=== PATIENT | female | born 1970 | race Caucasian/White ===

== ENCOUNTER 2021-09-12 00:25 | Day surgery (SDC) | payer OTHER, SELFPAY ==
[2021-08-28 14:30] VITALS: BMI 23.8
--- NOTE | 2021-09-11 15:16 | WPDANESEPPF ---
Anes - Initial Pre Proc Eval Procedure: Operation Date: 09/12/21 09:00 Proposed Procedures p Screening Colonoscopy - Jake Finn MD <Brayan Kovacs MD - Last Filed: 09/13/21 10:36> Date/Time: 09/11/21 15:16 <Brayan Kovacs MD - Last Filed: 09/13/21 10:36> Surgeon: aJke Finn MD <Brayan Kovacs MD - Last Filed: 09/13/21 10:36> Pre Op Diagnosis: family hx of colon ca <Brayan Kovacs MD - Last Filed: 09/13/21 10:36> Patient Data Age: 51 Gender: F Height: 1.75 m Weight: 73 kg <Brayan Kovacs MD - Last Filed: 09/13/21 10:36> Allergies Allergy/AdvReac Type Severity Reaction Status Date / Time No Known Allergies Allergy Verified 09/12/21 07:52 <Brayan Kovacs MD - Last Filed: 09/13/21 10:36> Home Medications Medication Instructions Recorded Confirmed Type tumeric 100 mg-last 150 mg-olive 1 cap PO DAILY 08/28/21 08/28/21 History 50 mg-oreg 150 mg-caprylate capsule <Brayan Kovacs MD - Last Filed: 09/13/21 10:36> Patient hx anesthesia problems: none <Glen Ford MD - Last Filed: 09/12/21 08:02> Family hx anesthesia problems: none <Glen Ford MD - Last Filed: 09/12/21 08:02> Results Review: All pre-operative results and documents have been reviewed as part of the pre-operative evaluation. <Brayan Kovacs MD - Last Filed: 09/13/21 10:36> PMFSH Past Medical History Medical History: Medical History Arthritis Colon cancer Smoker <Brayan Kovacs MD - Last Filed: 09/13/21 10:36> Surgical History Surgical History: Surgical History (Updated 09/12/21 @ 08:01 by Glen Ford MD) History of D&C History of endometrial ablation <Brayan Kovacs MD - Last Filed: 09/13/21 10:36> Family History Family History: Family History Mother Hypertension Grandparent Carcinoma of colon Other Diabetes mellitus <Brayan Kovacs MD - Last Filed: 09/13/21 10:36> Social History Social History: Social History Smoking status: Current every day smoker Tobacco type: cigarettes Second hand tobacco smoke exposure: Yes Alcohol intake: current Drinks per week: 10 Living arrangements: with family Spiritual care concerns: No <Brayan Kovacs MD - Last Filed: 09/13/21 10:36> Anes - Eval Final PreProcedure Day of Procedure 09/11/21 15:16 <Brayan Kovacs MD - Last Filed: 09/13/21 10:36> Patient weight: overweight <Brayan Kovacs MD - Last Filed: 09/13/21 10:36> normal <Glen Ford MD - Last Filed: 09/12/21 08:02> Heart: regular rate and rhythm <Brayan Kovacs MD - Last Filed: 09/13/21 10:36> Lungs: clear to auscultation and normal air movement <Brayan Kovacs MD - Last Filed: 09/13/21 10:36> Airway: Mallampati scale class II <Brayan Kovacs MD - Last Filed: 09/13/21 10:36> Neurological: alert and oriented <Brayan Kovacs MD - Last Filed: 09/13/21 10:36> Last oral intake: >/= 8 hours <Brayan Kovacs MD - Last Filed: 09/13/21 10:36> ASA classification: II <Brayan Kovacs MD - Last Filed: 09/13/21 10:36> Emergent: no <Brayan Kovacs MD - Last Filed: 09/13/21 10:36> Anesthetic plan: proceed <Brayan Kovacs MD - Last Filed: 09/13/21 10:36> Anesthesia type and monitoring: general GIVS <Brayan Kovacs MD - Last Filed: 09/13/21 10:36> Results Review: All pre-operative results and documents have been reviewed as part of the pre-operative evaluation. <Brayan Kovacs MD - Last Filed: 09/13/21 10:36> Informed Consent: The patient's anesthetic plan and its attendant risks and benefits were discussed with the patient/family/POA. Questions were solicited and answers provided to the satisfaction of the patient/fa
[2021-09-12 07:53] VITALS: BP 107/73; PULSE 83; RESP 20; TEMP 36.5; O2SAT 99
[2021-09-12] MEDS: LACTATED RINGERS 1,000 ML 150 ML IV CONT (08:10)
--- NOTE | 2021-09-12 08:38 | PM.HPGS ---
History of Present Illness History of Present Illness Consent: Risks, benefits, and alternatives have been discussed and questions answered. Patient agrees to proceed with procedure. Chief complaint: family hx of colon ca Narrative: Carol Heller is a 51 year old female with last colonoscopy 10 years ago, grandmother and other family member had colon cancer Review of Systems Constitutional: Constitutional: Denies headache(s) and Denies weakness Eyes: Eyes: Denies blurry vision ENT: Reports Normal hearing present, Denies headache(s) and Denies neck pain Cardiovascular: Cardiovascular: Denies chest pain and Denies dyspnea Respiratory: Respiratory: Denies dyspnea Gastrointestinal: Gastrointestinal: Reports no additional gastrointestinal complaints Genitourinary: Genitourinary: Denies dysuria Musculoskeletal: Musculoskeletal: Denies neck pain Integumentary/Breasts: Skin/Breast: Denies dry skin Neurologic: Reports Normal hearing present, Denies headache(s) and Denies weakness Psychiatric: Psychiatric: Denies anxiety Endocrine: Endocrine: Denies change in body appearance Hematologic/Lymphatic: Hematologic/Lymphatic: Denies easy bleeding Allergic/Immunologic: Allergic/Immunologic: Denies urticaria PMFSH Past Medical History Medical History Arthritis Colon cancer Smoker Surgical History Surgical History (Updated 09/12/21 @ 08:01 by Glen Ford MD) History of D&C History of endometrial ablation Family History Family History Mother Hypertension Grandparent Carcinoma of colon Other Diabetes mellitus Social History Social History Smoking status: Current every day smoker Tobacco type: cigarettes Second hand tobacco smoke exposure: Yes Alcohol intake: current Drinks per week: 10 Living arrangements: with family Spiritual care concerns: No Meds Home Medications and Allergies Home Medications Medication Instructions Recorded Confirmed Type tumeric 100 mg-last 150 mg-olive 1 cap PO DAILY 08/28/21 08/28/21 History 50 mg-oreg 150 mg-caprylate capsule Allergies Allergy/AdvReac Type Severity Reaction Status Date / Time No Known Allergies Allergy Verified 09/12/21 07:52 Vital Signs Vital Signs - 24 hr 09/12/21 07:53 Temperature 97.7 F Pulse Rate 83 Respiratory Rate 20 Blood Pressure 107/73 Pulse Oximetry 99 Oxygen Delivery Room Air Exam Const: General: comfortable and no acute distress HENMT: General nose exam: Normal nares present Eyes: General: appearance normal, both eyes and all related structures Neck: Neck: no JVD Resp: Auscultation: clear to auscultation bilaterally Cardio: Rate: regular rate Rhythm: regular rhythm GI: Inspection: non-distended GI Palp: Yes Soft to palpation Skin: General skin exam: normal color Neuro: General: gait normal Speech: normal speech Extrem: General: normal to inspection Psych: Mental Status: mental status grossly normal Assessment and Plan Assessment and plan (1) Colon cancer: Code(s): C18.9 - Malignant neoplasm of colon, unspecified Status: Acute Assessment and Plan: colonoscopy
[2021-09-12 09:10] VITALS: BP 92/60; PULSE 74; RESP 16; O2SAT 98
[2021-09-12 09:20] VITALS: BP 114/62; PULSE 71; RESP 20; O2SAT 100
[2021-09-12 09:30] VITALS: BP 125/67; PULSE 73; RESP 21; O2SAT 100
== END 2021-09-12 09:33 | disposition home or self-care (01) ==
PROVIDERS: PCP Family Medicine; Visit Provider Internal Medicine Gastroenterology
PROC: 0DJD8ZZ Inspection of Lower Intestinal Tract, Via Natural or Artificial Opening Endoscopic (ICD-10-PCS; CPT 45378; principal; 2021-09-12 09:00)
DX: Z12.11 Encounter for screening for malignant neoplasm of colon (principal); D12.4 Benign neoplasm of descending colon; K57.30 Diverticulosis of large intestine without perforation or abscess without bleeding; K64.8 Other hemorrhoids; Z80.0 Family history of malignant neoplasm of digestive organs; F17.210 Nicotine dependence, cigarettes, uncomplicated
CPT/HCPCS: 45378; 88305; J2704; J7120

== ENCOUNTER 2024-01-24 09:05 | Emergency (ER) | payer OTHER, SELFPAY ==
--- NOTE | ~2024-01-24 | XR_ITS ---
EXAMINATION: XR chest 2V DATE: 01/24/2024 09:29 INDICATION: Cough TECHNIQUE: PA and lateral views of the chest were obtained. COMPARISON: None FINDINGS: The lungs are clear with no focal airspace opacities, pulmonary edema, pleural effusion or pneumothor ax. The cardiomediastinal silhouette is normal. Visualized bones and soft tissues are unremarkable. IMPRESSION: 1. No acute cardiopulmonary disease. Reviewed, dictated and finalized at location [facility]
[2024-01-24 09:15] VITALS: BP 136/108; PULSE 95; RESP 16; TEMP 36.8; O2SAT 100
--- NOTE | 2024-01-24 09:36 | ED.URI ---
HPI - URI/Sore Throat General Chief Complaint: Upper Respiratory Infection Stated Complaint: congestion/cough/sob History of Present Illness HPI Narrative: Patient presents with a cough nonproductive no shortness of breath no chest pain no fever does have nasal congestion patient is not taking anything [id number] for symptoms and she is a smoker. Patient states both of her grandkids had walking pneumonia she is concerned that she might have that as well. Patient requests a chest x-ray at this time. Related Data Allergies Allergy/AdvReac Type Severity Reaction Status Date / Time No Known Allergies Allergy Verified 09/12/21 07:52 Review of Systems Review of Systems: CONSTITUTIONAL: Denies chills, or sweats. Reports fever and generalized body aches EYES: Denies visual changes, redness, or discharge. ENT: Denies otalgia. Reports nasal congestion runny nose and sore throat CARDIOVASCULAR: Denies chest pain, palpitations, or edema. RESPIRATORY: Denies dyspnea. Reports occasional cough GASTROINTESTINAL: Denies abdominal pain, nausea, vomiting, or diarrhea. GENITOURINARY: Denies dysuria or hematuria. SKIN: Denies rash or itching. MUSCULOSKELETAL: Denies back pain, joint pain, or myalgia. Reports generalized body aches NEUROLOGIC: Denies headache, numbness, or weakness. PSYCHIATRIC: Denies anxiety or depression. [facility] Past Medical History Medical History (Updated 01/24/24 @ 09:38 by VIKAS Morgan) Colon cancer Smoker Arthritis Surgical History Surgical History (Updated 09/12/21 @ 08:01 by Glen Ford MD) History of endometrial ablation History of D&C Family History Family History Mother Hypertension Grandparent Carcinoma of colon Other Diabetes mellitus Social History Social History Smoking status: Current every day smoker Tobacco type: cigarettes Second hand tobacco smoke exposure: Yes Alcohol intake: current Drinks per week: 10 Living arrangements: with family Spiritual care concerns: No Comments At time of signature, agree with nursing past medical, surgical, social and family history. There is no relevant family history pertinent to the presenting complaint Exam Narrative: The patient is a well-developed, well-nourished in no acute distress. SKIN: Skin is warm and dry without erythema, swelling or exudate. There is good turgor. No tenting. HEAD: Atraumatic. Normocephalic. No temporal or scalp tenderness. EYES: Moist and bright. Sclera and conjunctivae normal. No discharge. PERRLA. Extraocular motions intact. Gross visual acuity intact. EARS: Pinna is normal shape and contour. Clear external auditory canals. TM pearly joseph with good cone of light, no erythema or suppuration. Bilateral cerumen noted no gross hearing deficit. NOSE: pink, moist mucosa with good air movement. Clear rhinorrhea without nasal flaring. Septum midline. Mouth: moist mucous membranes. THROAT; mild erythema noted to posterior oropharynx with moderate postnasal drainage. Without exudate or ulceration.. Uvula midline. Normal movement of soft palate. NECK: Supple and nontender with full range of motion without discomfort. No meningeal signs. LUNGS: Equal and bilateral breath sounds without wheezes, rales or rhonchi. CHEST: The chest wall is without retractions or use of accessory muscles. HEART: Has a regular rate and rhythm without murmur, gallops, click or rub. ABDOMEN: Soft, nontender with positive active bowel sounds. No rebound tenderness. EXTREMITIES: Without cyanosis, clubbing or edema. Equal 2+ distal pulses and 2 second capillary refill noted. NEUROLOGIC: alert, active, . The patient moves all extremities with normal muscle strength. Normal muscle tone is noted. Normal coordination is noted. NO focal neurological findings noted. Course Course Level of Care: Express Care Visit Vital Signs Vital signs: Vital Signs Temperature 36.8 C 01/24/24 09:15 Pulse Rate 95 01/24/24 09:15 Respiratory Rate 16 01/24/24 09:15 Blood Pressure 136/108 H 01/24/24 09:15 Pulse Oximetry 100 01/24/24 09:15 Oxygen Delivery Room Air 01/24/24 09:15 Temperature 36.8 C 01/24/24 09:15 Pulse Rate 95 01/24/24 09:15 Respiratory Rate 16 01/24/24 09:15 Blood Pressure 136/108 H 01/24/24 09:15 Pulse Oximetry 100 01/24/24 09:15 Oxygen Delivery Room Air 01/24/24 09:15 Please EMELI schedule a followup visit with your personal physician for further evaluation and treatment. Including recheck and discussion of your blood pressure. If your symptoms persist, change or worsen significantly before you can contact your personal physician then please, without delay, go to the emergency department for further evaluation MDM - URI/Sore Throat Imaging Data Radiologist's impression: [place] [address] [place] [address] XRay Report Signed Patient: Carol Heller : 1970 MR#: [id number] Age: 53 Acct:[id number] Loc: [facility] ADM Date: 01/24/24Attending Dr: Ordering Physician: Abbey Olsen APRN Date of Service: 01/24/24 Procedure(s): XR chest 2V Accession Number(s): [id number] cc: Abbey Olsen APRN~ EXAMINATION: XR chest 2V DATE: 01/24/2024 09:29 INDICATION: Cough TECHNIQUE: PA and lateral views of the chest were obtained. COMPARISON: None FINDINGS: The lungs are clear with no focal airspace opacities, pulmonary edema, pleural effusion or pneumothorax. The cardiomediastinal silhouette is normal. Visualized bones and soft tissues are unremarkable. IMPRESSION: 1. No acute cardiopulmonary disease. Discharge Plan Discharge Clinical Impression: Bronchitis, Smoker, Cough Patient Disposition: Home, Self-Care Condition: Stable Additional Instructions: Increase fluids and rest 1. Bronchitis will generally resolve on it's own and may take a few weeks. Bronchitis is usually caused by a virus, but sometimes it may be bacterial. Antibiotics generally do not help bronchitis go away faster. Yellow or green mucous, does not always mean bacterial. If you are prescribed an antibiotic for your symptoms be sure to take the entire course of antibioitics. Take with food. It is also suggested to take with yogurt or a probiotic to decrease GI side effects. You may also be prescribed a steroid, if so, be sure to take entire course, first thing in the morning with food. 2. Rest and drink lots of fluids. Maintain a good diet, with foods rich in vitamins and minerals, and lots of fruits and vegetables. 3. Drinking hot tea, warm tea with honey, sucking on cough drops or hard candy, throat lozenges may help with sore throat. 4. OTC cough and cold medications are okay to take for your symptoms, including Mucinex expectorant. 5. If you have high BP, Coricidin HBP is behind the counter , you may ask your pharmacist for this. Otherwise, avoid medications that have a D at the end or a decongestant in them. These medications may increase your BP. 6. Breathing in warm, moist air, such as in the shower or a humidifier at your bedside or in your home. 7. Avoid smoking or being around those who smoke. 8. Protect yourself and others, cover your mouth when you cough and sneeze, and always wash your hands to prevent the spread of germs, if you are unable to, use hand histotechnologist supervisor. . . Patient Language: Montserratian Prescriptions: New prednisone 20 mg tablet 40 mg PO DAILY PRN (Reason: cough) 5 Days Qty: 10 0RF benzonatate 100 mg capsule 100 mg PO TID PRN (Reason: cough) 5 Days Qty: 10 0RF albuterol sulfate 90 mcg/actuation HFA aerosol inhaler 2 puff inhalation QID PRN (Reason: shortness of breath or wheezing) Qty: 1 0RF fluticasone propionate [Flonase Allergy Relief] 50 mcg/actuation spray,suspension 2 spray NASAL BID Qty: 9.9 0RF Rx Instructions: administer into each nostril loratadine [Claritin] 10 mg tablet 10 mg PO DAILY 14 Days Qty: 14 0RF Follow-up/Referrals: PHYSICIAN NOT ON STAFF,NONSTAFF [Primary Care Provider] -
--- OUTSIDE RECORDS SUMMARY | 2024-01-28 00:50 | XMS_ITS | Encounter Summary ---
Author Organization [facility] Address [address] [place] [address] Care Team Providers Care News Gathering Technician Name Role Phone Rey Delatorre MD Primary Care Provider [phone] Reason for Visit * Reason Comments Consultation dermatochalasis eyel id Encounter Details Date Type Department Care Team (Latest Contact Info) Description 01/12/2019 2:30 PM INSURANCE SALES SPECIALIST Office Visit [facility] Plastic Surgery [address] [place] [id number] Gt Friedman MD [address] [address] Dermatochalasis of both upper eyelids (Primary Dx) Social History Tobacco Use Types Packs/Day Years Used Date Smoking Tobacco: Every Day Cigarettes 0.5 30 Smokeless Tobacco: Never Alcohol Use Standard Drinks/Week Comments Yes 0 (1 standard drink = 0.6 oz pur e alcohol) Sex and Gender Information Value Date Recorded Sex Assigned at Not on file Gender Identity Not on file Sexual Orientation Not on file documented as of this encounter Last Filed Vital Signs Vital Sign Reading Time Taken Comments Blood Pressure 115/82 01/12/2019 3:07 PM INSURANCE SALES SPECIALIST Pulse 82 01/12/2019 3:07 PM INSURANCE SALES SPECIALIST Temperature 36.8 ??C (98.3 ??F) 01/12/2019 3:07 PM CS T Respiratory Rate - - Oxygen Saturation 95% 01/12/2019 3:07 PM INSURANCE SALES SPECIALIST Inhaled Oxygen Concentration - - Weight 73.5 kg (162 lb) 01/12/2019 3:07 PM INSURANCE SALES SPECIALIST Height 177.8 cm (5' 10 ) 01/12/2019 3:07 PM INSURANCE SALES SPECIALIST Body Mass Index 23.24 01/12/2019 3:07 PM INSURANCE SALES SPECIALIST documented in this encounter Progress Notes * Reginald Taylor MD - 01/12/2019 3:26 PM CST Attending Physician: 01/12/2019 Oscar Combs MD Patient seen and examined with team. I have seen and examined the patient with the resident and I agree with the findings and plan of care as documented by the resident. I confirm the note with the following changes. PLASTIC SURGERY outpatient note 01/12/2019 3:26 PM CC Bilateral upper eyelid dermatochalasis HPI 48 year old female who presents with bilateral upper lid dermatochalasis. The patient reports decreased peripheral vision and occasional irritation of the upper eyelid skin secondary to excessive skin on skin contact/moisutre and rubbing. The patient reports a history of dry eyes, which she treats with eye drops. She has seen an invertebrate paleontologist but no an ohthalmologist. She has not had formal visual field testing. She wears glasses/contacts. The patient denies any difficulty with vision or hearing.No other significant precipitating factors, relieving factors, time-based factors, or associated symptoms. PMH Past Medical History: Diagnosis Date ??? Patient denies medical problems PSH Past Surgical History: Procedure Laterality Date ??? Section ??? ENDOMETRIAL ABLATION ALLERGY No Known Allergies SOCIAL Tobacco/nicotine: denies Ethanol: denies Illicit: denies MEDS No current outpatient medications on file prior to visit. No current facility-administered medications on file prior to visit. ROS Review of Systems (bold is positive) Constitutional: weight loss, fatigue, weakness, fever, chills, night sweats Neurological: headaches, paresthesias, tremors, syncope, seizures HEENT: headache, visual changes, hearing loss, ear/throat pain, epistaxis Cardiovascular: chest pain, exertional dyspnea, hypertension Respiratory: shortness of breath, cough, wheeze, sputum Gastrointestinal: pain, nausea/vomiting, hematemesis, hematochezia Hematologic: anemia, petechiae MSK: joint pain, weakness, decreased ROM Endocrine: hypothyroidism, hyperthyroidism, diabetes Physical Exam General: no acute distress Head and Face: CN II-XII intact, no focal deficits Excessive upper eyelid skin Good levator excursion bilaterally, more than 10 mm Upper eyelid at superior limbus Right eye palpebral fissure slightly larger than contralateral Gross sensation intact in V1, V2, V3 Gross motor intact VII Eyes: pupils equally round and move synchronously, wears glasses Inner Ear, Inner Nose, Inner Throat: moist mucous membranes COR: normal pulses Chest: normal breathing with bilateral chest movements Abdomen: soft, non-tender Extremities: no clubbing, cyanosis, or edema Neurologic: moves all extremities Psychiatric: attitude and behavior appropriate for age Skin: no other significant rashes, macules, or papules ASSESSMENT & PLAN 48 year old female who presents with bilateral upper lid dermatochalasis. The concern is this is affecting her vision and visual roche, and her tired appearance is also making her feel tired, especially at end of the day. We discussed the risks, benefits, alternatives, and consequences of upper eyelid blepharoplasties, bilateral, including surgical incisions, general versus local anesthesia, postoperative recovery. All questions were answered. is here today as well, and he also had a chance to ask questions, and he is supportive of patient having surgery. Patient wishes to proceed with visual field testing and then surgery. ?? We will order formal visual field testing. We discussed bilateral upper eyelid functional blepharoplasties with the patient in detail. She will follow up after visual field testing is completed ?? Follow up with Dr. Combs after visual field testing Reginald Taylor MD 01/12/2019 3:26 PM Attending Physician: 01/12/2019 Oscar Combs MD Patient seen and examined with team. I have seen and examined the patient with the resident and I agree with the findings and plan of care as documented by the resident. I confirm the note with the following changes. -- Oscar Combs MD, FACS civil defense director and Orthodontics, Division of Plastic Surgery [facility] Endowed Chair in Craniofacial, Maxillofacial, and Pediatric Plastic Surgery [facility] [employer] Director, [facility] [place] Technician of Pediatric Plastic Surgery [facility] RANCE SALES SPECIALIST documented in this encounter Plan of Treatment Not on file documented as of this encounter Visit Diagnoses Diagnosis Dermatochalasis of both upper eyelids- Primary documented in this encounter Care Teams News Gathering Technician Relationship Specialty Start Date End Date Rey Delatorre MD [address] [place] [address] PCP - General 11/23/18 09/24/21 documented as of this encounter
--- OUTSIDE RECORDS SUMMARY | 2024-01-28 00:50 | XMS_ITS | Encounter Summary ---
Author Organization [facility] Address [address] [place] [address] Care Team Providers Care Nut Sorter Operator Name Role Phone Rey Delatorre MD Primary Care Provider [phone] Reason for Visit * Reason Comments Sore Throat Encounter Details Date Type Department Care Team ([facility] st Contact Info) Description 01/13/2019 12:[address] CROSSING PROTECTION MAINTAINER Office Visit [facility] AT [address] [phone] Provider, [facility] Acute pharyngitis, unspecified etiology (Primary Dx) Social History Tobacco Use Types Packs/Day Years Used Date Smoking Tobacco: Every Day Cigarettes 0.5 30 Smokeless Tobacco: Never Tobacco Cessation:Ready to Q uit: No; Counseling Given: Yes Alcohol Use Standard Drinks/Week Comments Yes 0 (1 standard drink = 0.6 oz pur e alcohol) Sex and Gender Information Value Date Recorded Sex Assigned at Not on file Gender Identity Not on file Sexual Orientation Not on file documented as of this encounter Last Filed Vital Signs Vital Sign Reading Time Taken Comments Blood Pressure 112/64 01/13/2019 12:31 [address] CROSSING PROTECTION MAINTAINER Pulse 86 01/13/2019 12:31 PM RA[address] CROSSING PROTECTION MAINTAINER Temperature 36.9 ??C (98.5 ??F) 01/13/2019 12:[address] Respiratory Rate 16 01/13/2019 12:31 PM RA[address] CROSSING PROTECTION MAINTAINER Oxygen Saturation 98% 01/13/2019 12:31 [address] RA[address] CROSSING PROTECTION MAINTAINER Inhaled Oxygen Concentration - - Weight 73.5 kg (162 lb) 01/13/2019 12:31 PM RA[address] CROSSING PROTECTION MAINTAINER Height 177.8 cm (5' 10 ) 01/13/2019 12:31 PM RA[address] CROSSING PROTECTION MAINTAINER Body Mass Index 23.24 01/13/2019 12:31 [address] RA[address] CROSSING PROTECTION MAINTAINER documented in this encounter Patient Instructions * Patient Instructions* Jennifer Parra, SENIOR CARE MANAGER-[employer] - 01/13/2019 12:47 [address] RA[address] CROSSING PROTECTION MAINTAINER Patient Education Pharyngitis WHAT YOU NEED TO KNOW: What is pharyngitis? Pharyngitis, or sore throat, is inflammation of the tissues and structures in your pharynx (throat). Pharyngitis is most often caused by bacteria. It may also be caused by a coldor flu virus. Other causes include smoking, allergies, or acid reflux. What signs and symptoms may occur with pharyngitis? ?? Sore throat or pain when you swallow ?? Fever, chills, and body aches ?? Hoarse or raspy voice ?? Cough, runny or stuffy nose, itchy or watery eyes ?? Headache ?? Upset stomach and loss of appetite ?? Mild neck stiffness ?? Swollen glands that feel like hard lumps when you touch your neck ?? White and yellow pus-filled blisters in the back of your throat How is pharyngitis diagnosed? Tell your healthcare provider about your symptoms. He may look insideyour throat and feel your neck. You may also need the following tests: ?? A throat culture may show which germ is causing your sore throat. A cotton swab is rubbed against the back of your throat. ?? Blood tests may be used to show if another medical condition is causing your sore throat. How is pharyngitis treated? Viral pharyngitis will go away on its own without treatment. Your sore throat should start to feel better in 3 to 5 days for both viral and bacterial infections. You may need any of the following: ?? Antibiotics treat a bacterial infection. ?? NSAIDs , such as ibuprofen, help decrease swelling, pain, and fever. NSAIDs can cause stomach bleeding or kidney problems in certain people. If you take blood thinner medicine, always ask your healthcare provider if NSAIDs are safe for you. Always read the medicine label and follow directions. ?? Acetaminophen decreases pain and fever. It is available without a doctor's order. Ask how much to take and how often to take it. Follow directions. Acetaminophen can cause liver damage if not taken correctly. How can I manage my symptoms? ?? Gargle salt water. Mix ?? teaspoon salt in an 8 ounce glass of warm water and gargle. This may help decrease swelling in your throat. ?? Drink liquids as directed. You may need to drink more liquids than usual. Liquids may help soothe your throat and prevent dehydration. Ask how much liquid to drink each day and which liquids are best for you. ?? Use a cool-steam humidifier to help moisten the air in your room and decrease your cough. ?? Soothe your throat with cough drops, ice, soft foods, or popsicles. How can I prevent the spread of pharyngitis? Cover your mouth and nose when you cough or sneeze. Donot share food or drinks. Wash your hands often. Use soap and water. If soap and water are unavailable, use an alcohol based hand pottery kiln builder. Call 911 for any of the following: ?? You have trouble breathing or swallowing because your throat is swollen or sore. When should I seek immediate care? ?? You are drooling because it hurts too much to swallow. ?? Your fever is higher than 102?F (39?C) or lasts longer than 3 days. ?? You are confused. ?? You taste blood in your throat. When should I contact my healthcare provider? ?? Your throat pain gets worse. ?? You have a painful lump in your throat that does not go away after 5 days. ?? Your symptoms do not improve after 5 days. ?? You have questions or concerns about your condition or care. CARE AGREEMENT: You have the right to help plan your care. Learn about your health condition and how it may be treated. Discuss treatment options with your healthcare providers to decide what care you want to receive. You always have the right to refuse treatment. The above information is an educational audiologist only. It is not intended as medical advice for individual conditions or treatments. Talk to your doctor, nurse or pharmacist before following any medical regimen to see if it is safe and effective for you. ?? Copyright [employer] 2019 Information is for End User's use only and may not be sold, redistributed or otherwise used for commercial purposes. All illustrations and images included in CareNotes?? are the copyrighted property of [email or web address] or [email or web address] ROAD CROSSING PROTECTION MAINTAINER documented in this encounter Progress Notes * Jennifer Parra APRN-CNP - 01/13/2019 12:38 PM CST Subjective: Carol Heller is a 48 year old female who presents for evaluation: Chief Complaint Patient presents with ??? Sore Throat Primary Care Physician is Rey Delatorre MD. Symptoms include sore throat. Rates pain 5/10 today. Also has cough and some postnasal drainage with sore glands in her neck. Onset of symptoms was 6 days ago, gradually worsening since that time. Denies fever or chills. No known sick contacts. She is drinking plenty of fluids. Evaluation to date: none. Treatment to date: ibuprofen No Known Allergies No outpatient medications have been marked as taking for the 01/13/19 encounter (Office Visit) with Provider, Kelechi Joseph Past Medical History: Diagnosis Date ??? Patient denies medical problems There is no problem list on file for this patient. Past Surgical History: Procedure Laterality Date ??? Section ??? ENDOMETRIAL ABLATION Social History Socioeconomic History ??? Marital status: Spouse name: Not on file ??? Number of children: Not on file ??? Years of education: Not on file ??? Highest education level: Not on file Occupational History ??? Not on file Social Needs ??? Financial resource strain: Not on file ??? Food insecurity: Worry: Not on file Inability: Not on file ??? Transportation needs: Medical: Not on file Non-medical: Not on file Tobacco Use ??? Smoking status: Current Every Day Smoker Packs/day: 0.50 Years: 30.00 Pack years: 15.00 Types: Cigarettes ??? Smokeless tobacco: Never Used Substance and Sexual Activity ??? Alcohol use: Yes ??? Drug use: Never ??? Sexual activity: Not on file Lifestyle ??? Physical activity: Days per week: Not on file Minutes per session: Not on file ??? Stress: Not on file Relationships ??? Social connections: Talks on phone: Not on file Gets together: Not on file Attends muslim service: Not on file Active member of club or organization: Not on file Attends meetings of clubs or organizations: Not on file Relationship status: Not on file ??? Intimate partner violence: Fear of current or ex partner: Not on file Emotionally abused: Not on file Physically abused: Not on file Forced sexual activity: Not on file Other Topics Concern ??? Not on file Social History Narrative ??? Not on file Medications reviewed. Review of Systems Pertinent items are noted in HPI Constitutional: Negative for fevers, chills. Ears, nose, mouth, and throat: Positive for sore throat, postnasal drainage Respiratory: Positive for acute cough Cardiovascular: Negative Hematological: Positive for swollen nodes Neurological: Negative Objective: BP 112/64 Pulse 86 Temp 98.5 ??F (36.9 ??C) Resp 16 Ht 1.778 m (5' 10 ) Wt 73.5 kg (162 lb) SpO2 98% BMI 23.24 kg/m2 Skin: Physical Exam Exam General appearance: alert, cooperative, no distress, oriented to person, place, and time, wellappearing Head: normocephalic, without trauma Eyes: sclera and conjunctiva clear, EOMI and PERRLA, lids normal Ears: canals clear, tympanic membranes normal, hearing intact to voice Nose: nares open; no septal deviation is noted Throat: no mucous membrane abnormalities, lips, mucosa, and tongue normal; teeth and gums normal, no tonsillar hypertrophy, no exudates present, uvula midline Neck: range of motion is intact, no masses, thyroid not enlarged Nodes: benign cervical adenopathy, tender with palpation Lungs: breath sounds normal and symmetric; no rales or wheezes Heart: regular rhythm, normal S1 and S2, without murmurs, gallops or rubs Neurologic: mental status normal; alert and oriented X 3 Recent Results (from the past 24 hour(s)) STREP A SCREEN - POINT OF CARE (AMB) STL Collection Time: 01/13/19 12:47 PM Result Value Ref Range Strep A Rapid POCT Negative Negative Strep A Internal Control Present Lot # [id number] Expiration Date 05 10 20 Assessment: . Encounter Diagnoses Name Primary? Acute pharyngitis, unspecified etiology Yes Plan: Rapid strep negative Warm salt water gargles or gargle with chloraseptic spray Increase fluid intake Tylenol or Motrin as needed Can use Claritin or Zyrtec as needed for nasal drainage If no improvement in 48-72 hours follow up with PCP or return to clinic -Frequent warm or cool liquids can be soothing. Try soups or popsicles for comfort. ?? If you still are not having relief with the above, you can try a Magic Mouthwash -Equal parts liquid antacid (e.g.Maalox) and children's Benadryl with a couple drops of Anbesol gargle and spit every 3-4 hours as needed. ?? If you are not improving or worsening in the next 3-5 days you must RETURN to the clinic, go to your PCP, or Urgent Care/ER to be SEEN and reevaluated. No further prescriptions or refills will be given by phone without another evaluation. GO TO EMERGENCY ROOM OR CALL 911 WITH ANY OF THE FOLLOWING SYMPTOMS: HIGH, PERSISTENT FEVER >102; SWELLING, INFLAMMATION, OR REDNESS AROUND EYES, ABNORMAL EYE MOVEMENTS, VISION CHANGES (DOUBLE VISION OR IMPAIRED VISION); SEVERE HEADACHE; ALTERED MENTAL STATUS. THESE ARE SIGNS OF A RARE, BUT SERIOUS COMPLICATION AND REQUIRES IMMEDIATE EMERGENCY ATTENTION. Orders Placed This Encounter ??? STREP A SCREEN - POINT OF CARE (AMB) STL Continue to follow up with Rey Delatorre MD as directed. After Visit Summary reviewed with patient. The patient indicates understanding of these issues and agrees with the plan. Patient discharged to Home .MAGDIEL Murphy 01/13/2019 12:[address] CROSSING PROTECTION MAINTAINER documented in this encounter Plan of Treatment Not on file documented as of this encounter Procedures Procedure Name Priority Date/Time Associated Diagnosis Comments STREP A SCREEN - POINT OF CARE (AMB) STL Routine 01/13/2019 12:47 [address] CROSSING PROTECTION MAINTAINER Acute pharyngitis, unspecified etiology documented in this encounter Results * STREP A SCREEN - POINT OF CARE (AMB) STL (01/13/2019 12:47 PM RA[address] CROSSING PROTECTION MAINTAINER) Strep A Rapid POCT Negative Negative Strep A Internal Control Present Lot # [id number] Expiration Date 05 10 20 Throat ENTIRE THROAT (SURFACE REGION OF NECK) / Unknown 01/13/2019 12:47 [address] CROSSING PROTECTION MAINTAINER Jennifer Parra SENIOR CARE MANAGER-[employer] [facility] - POINT OF CARE ORDERABLES documented in this encounter Visit Diagnoses Diagnosis Acute pharyngitis, unspecified etiology- Primary documented in this encounter Care Teams Nut Sorter Operator Relationship Specialty Start Date End Date Rey Delatorre MD [address] [place] [id number] PCP - General 11/23/18 09/24/21 documented as of this encounter
--- OUTSIDE RECORDS SUMMARY | 2024-01-28 00:50 | XMS_ITS | Data Portability ---
Author Organization [facility] NAZANINRandyBlevins [facility] Address [address] [place] [address] Care Team Providers Care Wireless Communications Engineer Name Role Phone REY BEVERLY Primary Care Provider JEROME JOHNSON Apparatus Engineering Technologist Assessment No assessment recorded. Plan of Treatment Reminders Order Date Submit Date Provider Last Modified By Organization Details Last Modified Time Details Appointments None recorded. Lab urinalysis , dipstick 2018 019 [email or web address] 3 In-Office Order, Internal Use Only DO Not Attach Compendium DO Not Attach Compendium, Do Not Delete/merge, [id number] 9 15:59:04 bacterial vaginosis + vaginitis panel, vaginal 2018 019 [facility], [address] [facility] [address], [place], [address], 9 06:09:54 pap, IG + HPV 2018 019 [facility], [address] [facility], [facility], [place], [address], 9 16:36:35 Referral facial plastic surgeon referral - Please call patient to schedule - Thank you 2018 Adi lerma 1 [facility], [address] [place], [address], 9 08:08:51 Procedures None recorded. Surgeries None recorded. Imaging None recorded. Medication Orders Nicoderm CQ 21 mg/24 hr daily transderma l patch 01/22/ 2019 01/22/2 019 [facility][id number], [address] , [place], [place], [id number], 9 14:50:13 amoxicilli n 500 mg tablet 2018 019 [email or web address] [facility] #85124, [address] , [place], [place], [id number], 9 14:53:44 fluconazol e 150 mg tablet 2018 019 [facility] #[id number], [address] , [place], [place], [id number], 9 14:48:42 clotrimazo le 1 % topical cream 2018 019 INTERFACE [facility] #35993, [address] , [place], [place], [id number], 9 15:15:43 Patient TargetsNo targets recorded. Patient Instructions Encounter Date Encounter Id Patient Instructions Last Modified By Organization Details Last Modified Time 03/03/2018 [id number] Increase fluid, steam inhalation. salt water gargle if sore throat. Return to clinic if problem persists or worsen keep f/u nsuthan Not available 03/03/2018 15:28:49 03/31/2018 [id number] advised to quit smoking nsuthan Not available 03/31/2018 15:08:07 f/u in onth nsuthan Not available 15:15:11 10/06/2018 [id number] candidiasis: car e instructions Not available 10/06/2018 15:59:04 learning about breast cancer screening Not available 10/06/2018 15:59:04 smoking cessatio n counseling, greater than 3 minutes up to 10 minutes* [email or web address] Not available 10/06/2018 16:37:41 11/17/2018 [id number] f/u prn nsuthan Not available 11/17 15:36:33 Reason for Referral Facial Plastic Surgeon Refer ral for Excess skin of eyelid Please call patient to schedule - Thank you Referring Physician: Jt Beverly, Internal Medicine, Encounter Date: 11/17/2018 Results Created Date Observation Date Name Description Value Unit Range Abnormal Flag Note LastModifiedBy Organization Detail LastModifiedTime 02/24/19 19 02/25/2018 TSH + free T4, serum TSH 1.340 uIU/m L 0.450- 4.500 Not Available [facility] ([place] [facility]) [address] [place], [address], 02/25/2018 06:07:26 02/24/1902/25/2018 TSH + free T4, serum T4,free(dire ct) 1.19 NG/dL 0.82-1 .77 Not Available [facility] ([place] [facility]) [address] [place], [address], 02/25/2018 06:07:26 02/24/1902/25/2018 CMP, serum or plasm a glucose 93 mg/dL 65-99 Not Available [facility] ([place] [facility]) [address] [place], [address], 02/25/2018 06:07:26 02/24/1902/25/2018 CMP, serum or plasm a BUN 13 mg/dL 6-24 Not Available [facility] ([place] [facility]) [address] [place], [address], 02/25/2018 06:07:26 02/24/1902/25/2018 CMP, serum or plasm a creatinine 0.89 mg/dL 0.57-1 .00 Not Available [facility] ([place] [facility]) [address] [place], [address], 02/25/2018 06:07:26 02/24/1902/25/2018 CMP, serum or plasm a eGFR if nonafricn AM 79 mL/mi n/1.7 3 >59 Not Available [facility] ([facility]) [address] [place], [address], 02/25/2018 06:07:26 02/24/1902/25/2018 CMP, serum or plasm a eGFR if africn AM 91 mL/mi n/1.7 3 >59 Not Available [facility] ([facility]) [address] [facility] [place], [address], 02/25/2018 06:07:26 02/24/1902/25/2018 CMP, serum or plasm a BUN/creatini ne ratio 15 9-23 Not Available [facility] ([facility]) [address] [facility] [place], [address], 02/25/2018 06:07:26 02/24/1902/25/2018 CMP, serum or plasm a sodium 143 mmol/ L 134-14 4 Not Available [facility] ([facility]) [address] [place], [address], 02/25/2018 06:07:26 02/24/1902/25/2018 CMP, serum or plasm a potassium 4.2 mmol/ L 3.5-5. 2 Not Available [facility] ([facility]) [address] [place], [address], 02/25/2018 06:07:26 02/24/1902/25/2018 CMP, serum or plasm a chloride 106 mmol/ L 96-106 Not Available [facility] ([facility]) [address] [place], [address], 02/25/2018 06:07:26 02/24/1902/25/2018 CMP, serum or plasm a carbon dioxide, total 22 mmol/ L 20-29 Not Available [facility] ([facility]) [address] [place], [address], 02/25/2018 06:07:26 02/24/1902/25/2018 CMP, serum or plasm a calcium 9.3 mg/dL 8.7-10 .2 Not Available [facility] ([facility]) [address] [place], [address], 02/25/2018 06:07:26 02/24/1902/25/2018 CMP, serum or plasm a protein, total 6.6 g/dL 6.0-8. 5 Not Available [facility] ([facility]) [address] [place], [address], 02/25/2018 06:07:26 02/24/1902/25/2018 CMP, serum or plasm a albumin 4.5 g/dL 3.5-5. 5 Not Available [facility] ([facility]) [address] [place], [address], 02/25/2018 06:07:26 02/24/1902/25/2018 CMP, serum or plasm a globulin, total 2.1 g/dL 1.5-4. 5 Not Available [facility] ([facility]) [address] [place], [address], 02/25/2018 06:07:26 02/24/1902/25/2018 CMP, serum or plasm a A/G ratio 2.1 1.2-2. 2 Not Available [facility] ([facility]) [address] [place], [address], 02/25/2018 06:07:26 02/24/1902/25/2018 CMP, serum or plasm a bilirubin, total 0.6 mg/dL 0.0-1. 2 Not Available [facility] ([facility]) [address] [place], [address], 02/25/2018 06:07:26 02/24/1902/25/2018 CMP, serum or plasm a alkaline phosphatase 68 IU/L 39-117 Not Available [facility] ([facility] [address] [place], [address], 02/25/2018 06:07:26 02/24/1902/25/2018 CMP, serum or plasm a AST (SGOT) 12 IU/L 0-40 Not Available [facility] ([facility]) [address] [place], [address], 02/25/2018 06:07:26 02/24/1902/25/2018 CMP, serum or plasm a ALT (SGPT) 14 IU/L 0-32 Not Available [facility] ([facility]) [address] [place], [address], 02/25/2018 06:07:26 02/24/1902/25/2018 CBC WBC 7.6 x10e3 /uL 3.4-10 .8 Not Available [facility] ([facility]) [address] [place], [address], 02/25/2018 06:07:27 02/24/1902/25/2018 CBC RBC 4.50 x10e6 /uL 3.77-5 .28 Not Available [facility] ([facility]) [address] [place], [address], 02/25/2018 06:07:27 02/24/1902/25/2018 CBC hemoglobin 14.1 g/dL 11.1-1 5.9 Not Available [facility] ([facility]) [address] [place], [address], 02/25/2018 06:07:27 02/24/1902/25/2018 CBC hematocrit 40.3 % 34.0-4 6.6 Not Available [facility] ([facility]) [address] [place], [address], 02/25/2018 06:07:27 02/24/1902/25/2018 CBC MCV 90 fL 79-97 Not Available [facility] ([facility]) [address] [place], [address], 02/25/2018 06:07:27 02/24/19 19 02/25/2018 CBC MCH 31.3 pg 26.6-3 3.0 Not Available [facility] ([facility]) [address] [facility] [place], [address], 02/25/2018 06:07:27 02/24/1902/25/2018 CBC MCHC 35.0 g/dL 31.5-3 5.7 Not Available [facility] ([facility]) [address] [facility], [place], [address], 02/25/2018 06:07:27 02/24/1902/25/2018 CBC RDW 12.6 % 12.3-1 5.4 Not Available [facility] ([facility]) [address] [facility], [place], [address], 02/25/2018 06:07:27 02/24/1902/25/2018 CBC platelets 296 x10e3 /uL 150-37 9 Not Available [facility] ([facility]) [address] [facility], [place], [address], 02/25/2018 06:07:27 02/24/1902/25/2018 CBC NRBC STAMP MOUNTER Not Available [facility] ([facility]) [address] [facility], [place], [address], 02/25/2018 06:07:27 02/24/1902/25/2018 lipid panel , serum cholesterol, total 160 mg/dL 100-19 9 Not Available [facility] ([facility]) [address] [facility], [place], [address], 02/25/2018 06:07:27 02/24/1902/25/2018 lipid panel , serum triglyceride s 80 mg/dL 0-149 Not Available [facility] ([facility]) [address] [facility], [place], [address], 02/25/2018 06:07:27 02/24/1902/25/2018 lipid panel , serum HDL cholesterol 40 mg/dL >39 Not Available [facility] ([facility]) [address] [place], [address], 02/25/2018 06:07:27 02/24/1902/25/2018 lipid panel , serum VLDL cholesterol chary 16 mg/dL 5-40 Not Available [facility] ([facility]) [address] [facility], [place], [address], 02/25/2018 06:07:27 02/24/1902/25/2018 lipid panel , serum LDL cholesterol calc 104 mg/dL 0-99 above high normal Not Available [facility] ([facility]) [address] [place], [address], 02/25/2018 06:07:27 02/24/1902/25/2018 lipid panel , serum comment: STAMP MOUNTER Not Available [facility] ([facility]) [address] [facility], [place], [address], 02/25/2018 06:07:27 10/07/1910/08/2018 bacte rial vagin osis + vagin itis panel , vagin al atopobium vaginae Low - 0 score Not Available [facility] ([facility]) [address] [place], [address], 10/09/2018 06:09:54 10/07/1910/08/2018 bacte rial vagin osis + vagin itis panel , vagin al bvab 2 Low - 0 score Not Available [facility] ([facility]) [address] [place], [address], 10/09/2018 06:09:54 10/07/1910/08/2018 bacte rial vagin osis + vagin itis panel , vagin al megasphaera 1 Low - 0 score Calcu late total score by sylvia drew the 3 indiv idual bacte rial vagin osis (BV) marke r score s toget her. Total score is inter prete d as follo ws: Total score 0-1: Indic ates the absen ce of BV. Total score 2: Indet ermin ate for BV. Addit ional clini chary data shoul d be evalu ated to estab jose a diagn osis. Total score 3-6: Indic ates the prese nce of BV. This test was devel oped and its perfo rmanc e rere cteri stics deter mined by [facility]. It has not been clear ed or appro ella by the Food and Drug Admin istra tion. The FDA has deter mined that such clear ance or appro oneyda is not neces leatha. Not Available [facility] ([facility]) [address] [place], [address], 10/09/2018 06:09:54 10/07/19 19 10/08/2018 bacte rial vagin osis + vagin itis panel , vagin al ave albicans, NAKUL Negati ve negati ve Not Available [facility] ([facility]) [address] [place], [address], 10/09/2018 06:09:54 10/07/1910/08/2018 bacte rial vagin osis + vagin itis panel , vagin al ave glabrata, NAKUL Negati ve negati ve This test was devel oped and its perfo rmanc e rere cteri stics deter mined by [facility]. It has not been clear ed or appro ella by the Food and Drug Admin istra tion. The FDA has deter mined that such clear ance or appro oneyda is not neces leatha. Not Available [facility] ([facility]) [address] [place], [address], 10/09/2018 06:09:54 10/07/1910/08/2018 bacte rial vagin osis + vagin itis panel , vagin al trich vag by NAKUL Negati ve negati ve Not Available [facility] ([facility]) [address] [place], [address], 10/09/2018 06:09:54 10/07/19 19 10/08/2018 bacte rial vagin osis + vagin itis panel , vagin al chlamydia trachomatis, NAKUL Negati ve negati ve Not Available [facility] ([facility]) [address] [facility], [place], [address], 10/09/2018 06:09:54 10/07/19 19 10/08/2018 bacte rial vagin osis + vagin itis panel , vagin al neisseria gonorrhoeae, NAKUL Negati ve negati ve Not Available [facility] ([facility]) [address] [facility], [place], [address], 10/09/2018 06:09:54 10/07/19 19 10/06/2018 urina lysis , dipst ick Leukocytes Negati ve Not Available In-Office Order Internal Use Only DO Not Attach Compendium DO Not Attach Compendium, Do Not Delete/merge, [id number] 10/06/2018 15:08:41 10/07/19 19 10/06/2018 urina lysis , dipst ick Nitrite negati ve Not Available In-Office Order Internal Use Only DO Not Attach Compendium DO Not Attach Compendium, Do Not Delete/merge, [id number] 10/06/2018 15:08:41 10/07/19 19 10/06/2018 urina lysis , dipst ick Urobilinogen .2 Not Available In-Of fice Order Internal Use Only DO Not Attach Compendium DO Not Attach Compendium, Do Not Delete/merge, [id number] 10/06/2018 15:08:41 10/07/19 19 10/06/2018 urina lysis , dipst ick Protein Negati ve Not Available In-Office Order Internal Use Only DO Not Attach Compendium DO Not Attach Compendium, Do Not Delete/merge, [id number] 10/06/2018 15:08:41 10/07/19 19 10/06/2018 urina lysis , dipst ick pH 5.0 Not Available In-Office Order Internal Use Only DO Not Attach Compendium DO Not Attach Compendium, Do Not Delete/merge, [id number] 10/06/2018 15:08:41 10/07/19 19 10/06/2018 urina lysis , dipst ick Blood Negati ve Not Available In-Office Order Internal Use Only DO Not Attach Compendium DO Not Attach Compendium, Do Not Delete/merge, [id number] 10/06/2018 15:08:41 10/07/19 19 10/06/2018 urina lysis , dipst ick Specific [place] 1.010 Not Available In-Off ice Order Internal Use Only DO Not Attach Compendium DO Not Attach Compendium, Do Not Delete/merge, [id number] 10/06/2018 15:08:41 10/07/19 19 10/06/2018 urina lysis , dipst ick Ketone Negati ve Not Available In-Office Order Internal Use Only DO Not Attach Compendium DO Not Attach Compendium, Do Not Delete/merge, [id number] 10/06/2018 15:08:41 10/07/19 19 10/06/2018 urina lysis , dipst ick Bilirubin Negati ve Not Available In-Office Order Internal Use Only DO Not Attach Compendium DO Not Attach Compendium, Do Not Delete/merge, [id number] 10/06/2018 15:08:41 10/07/19 19 10/06/2018 urina lysis , dipst ick Glucose Negati ve Not Available In-Office Order Internal Use Only DO Not Attach Compendium DO Not Attach Compendium, Do Not Delete/merge, [id number] 10/06/2018 15:08:41 10/07/19 19 10/06/2018 urina lysis , dipst ick Appearance Clear Not Available In-Offi ce Order Internal Use Only DO Not Attach Compendium DO Not Attach Compendium, Do Not Delete/merge, [id number] 10/06/2018 15:08:41 10/07/19 19 10/06/2018 urina lysis , dipst ick Color Yellow Not Available In-Office Order Internal Use Only DO Not Attach Compendium DO Not Attach Compendium, Do Not Delete/merge, [id number] 10/06/2018 15:08:41 11/04/1911/05/2018 pap, IG + HPV diagnosis: Commen t NEGAT MILAD FOR INTRA EPITH ELIAL LESIO N OR RAFAEL STANTON . Not Available [facility] ([facility]) [address] [place], [address], 11/05/2018 16:36:35 11/04/19 19 11/05/2018 pap, IG + HPV specimen adequacy: Daniel retana Satis facto ry for evalu ation . Endoc ervic al and/o r squam ous metap lasti c cells (endo cervi chary compo nent) are prese nt. Not Available [facility] ([facility]) [address] [place], [address], 11/05/2018 16:36:35 11/04/19 19 11/05/2018 pap, IG + HPV clinician provided ICD10: Daniel retana Z12.4 Not Available [facility] ([facility]) [address] [place], [address], 11/05/2018 16:36:35 11/04/19 19 11/05/2018 pap, IG + HPV performed by: Daniel armando, Cytot dayan giraldo t (ASCP ) Not Available [facility] ([facility]) [address] [place], [address], 11/05/2018 16:36:35 11/04/19 19 11/05/2018 pap, IG + HPV . . Not Available [facility] ([facility]) [address] [place], [address], 11/05/2018 16:36:35 11/04/1911/05/2018 pap, IG + HPV note: Daniel t The Pap smear is a scree pam test desig carolann to aid in the detec tion of joshua ligna nt and malig nant condi tions of the uteri ne cervi x. It is not a diagn ostic proce dure and shoul d not be used as the sole means of detec ting cervi chary cance r. Both false -posi tive and false -nega tive repor ts do occur . Not Available [facility] ([facility]) [address] [facility], [place], [address], 11/05/2018 16:36:35 11/04/19 19 11/05/2018 pap, IG + HPV test methodology: Commen t This liqui d based ThinP rep(R ) pap test was louise vuong with the use of an image guide alice monte. Not Available [facility] ([facility]) [address] [facility], [place], [address], 11/05/2018 16:36:35 11/04/19 19 11/05/2018 pap, IG + HPV HPV, high-risk Negati ve negati ve This high- risk HPV test detec ts thirt een high- risk types (16/1 8/31/ 33/35 /39/4 /51/ 52/56 /58/5 ) witho ut diffe renti ation . Not Available [facility] ([facility]) [address] [facility], [place], [address], 11/05/2018 16:36:35 02/25/19 19 02/24/2018 US, thyro id No observ ation record ed. [facility] [address], [place], [address], 02/26/2018 12:16:36 03/03/19 19 02/24/2018 MAMMO , cristinae pam, digit al, bilat eral No observ ation record ed. nsuthan [facility] [address], [place], [address], 03/04/2018 10:01:43 Result Notes None recorded. Problems Name Problem SNOMED Code Status Onset Date Resolution Date Notes Provider Name and Address Organization Details Recorded Time Smoker 90658164 Active Not Available [facility] 2 08:47:28 Impacted cerje 96987144 Completed 02/17/2018 INDIGO [facility] - [facility] 9 14:08:43 Insomnia 813579131 Completed 02/17/2018 Rey Beverly MD Attn: Accounting ,[address] [facility], [place], [address] , [facility] - SIF 9 14:20:22 Upper respirator y infection 54173912 Completed 02/17/2018 Rey Beverly MD Attn: Accounting ,[address] [place], [address] , [place] - [facility] 9 14:20:01 [place]: positive 944803922 Active Not Available [facility] 2 08:47:28 Sinusitis 15906801 Completed 02/17/2018 Rey Beverly MD Attn: Accounting ,[address] [place], [address] , [facility] - [facility] 9 14:20:06 Allergic rhinitis 35426232 Active Not Available [facility] 2 08:47:28 Recurrent sinusitis 067029357 Completed 02/17/2018 Rey Beverly MD Attn: Accounting ,[address] [place], [address] , [facility] - [facility] 9 14:20:11 Mixed anxiety and depressive disorder 225369001 Active off med Not Available [facility] 2 08:47:28 Problem Notes None recorded. Procedures Surgical History Date Name Laterality Status Provider Name and Address Organization Details Recorded Time 9 Most Recent Mammogram completed Rey Beverly MD Attn: Accounting,[address] [place], [address], [place] - [place] 03/04/2018 10:01:31 5 Cerumen Removal completed Breanna Spencer [facility] 09/01/2014 10:13:50 ovarian ablation completed Lucy Dejesus [place] - [place] 02/17/2018 14:11:37 Caesarean Section completed Hansel Wheeler [facility] 09/01/2014 09:05:46 Dilation and Curettage completed Hansel Wheeler MA [facility] 09/01/2014 09:05:46 Imaging Results Imaging Date Name Status LastModified by Organiz ation Details LastModified Time 02/24/2018 US, thyroid completed [facility] [address], [place], [address], 02/26/2018 12:16:36 02/24/2018 MAMMO, screening, digital, bilateral completed [facility] [address], [place], [address], 03/04/2018 10:01:43 Procedure Notes None recorded. Medical Equipment None Reported. Allergies No known drug allergies Medications Name Sig Start Date Stop Date Status Note LastModified by Organization Details LastModified Time amoxicill in 500 mg capsule 10/04 completed Not Available Not Available Not Available azithromy carlos manuel 250 mg tablet TAKE 2 TABLETS (500 MG) BY ORAL ROUTE ONCE DAILY FOR 1 DAY THEN 1 TABLET (250 MG) BY ORAL ROUTE ONCE DAILY FOR 4 DAYS 06/26 completed Not Available Not Available Not Available fluconazo le 150 mg tablet Take 1 tablet by oral route. 11/17 completed Not Available Not Available Not Available citalopra m 10 mg tablet Take 1 tablet every day by oral route. 02/17 completed Anxiety/ depressi on, Currentl y not taking Not Available Not Available Not Available amoxicill in 500 mg tablet Take 1 tablet 3 times a day by oral route for 7 days. 03/31 completed Not Available Not Available Not Available amitripty line 10 mg tablet Take 1 tablet(s ) nightly by oral route. 02/17 completed PRN for sleep. Not Available Not Available Not Available nicotine 21 mg/24 hr daily transderm al patch Apply 1 patch every day by transder mal route for 42 days. 10/06 completed pt has not started Not Available Not Available Not Available hydroxyzi ne HCl 25 mg tablet Take 1 tablet every day by oral route at bedtime. 03/31 completed Not Available Not Available Not Available fluticaso ne propionat e 50 mcg/actua tion nasal spray,arnold pension Inhale 1 spray every day by intranas al route. 06/26 completed Not Available Not Available Not Available clotrimaz ole 1 % topical cream APPLY TO THE AFFECTED AND SURROUND ING AREAS OF SKIN BY TOPICAL ROUTE 2 TIMES PER DAY IN THE MORNING AND EVENING 2018 active Not Available Not Available Not Avai lable amoxicill in 875 mg-potass ium clavulana te 125 mg tablet 11/17 completed Not Available Not Available Not Available escitalop merary 10 mg tablet Take 1 tablet every day by oral route. 11/03 completed Not Available Not Available Not Available nitrofura ntoin monohydra te/macroc rystals 100 mg capsule 10/06 completed Not Available Not Available Not Available Vitals Date Recorded Body height Body mass index (BMI) Body weight Heart rate Respiratory rate Body temperature Oxygen saturation Oxygen saturation in Arterial blood by Pulse oximetry Systolic blood pressure Diastolic blood pressure Provider Name and Address Organization Details Last Updated DateTime 9 175.26 cm 23.5 kg/m2 98490.9 1 g 107 /min 14 /min 98.5 [degF] 99 % 99 % 112 mm[Hg] 74 mm[Hg] Lucy Dejesus [facility] 9 15:11:50 Date Recorded Body height Body mass index (BMI) Body weight Heart rate Respiratory rate Body temperature Oxygen saturation Oxygen saturation in Arterial blood by Pulse oximetry Systolic blood pressure Diastolic blood pressure Provider Name and Address Organization Details Last Updated DateTime 9 175.26 cm 23.2 kg/m2 00372.7 2 g 89 /min 16 /min 97.6 [degF] 100 % 100 % 108 mm[Hg] 74 mm[Hg] YVONNE Busch [facility] 9 14:56:05 Date Recorded Body height Body mass index (BMI) Body weight Systolic blood pressure Diastolic blood pressure Provider Name and Address Organization Details Last Updated DateTime 10/06/2018 175.26 cm 23.9 kg/m2 48043.6 g 110 mm[Hg] 82 mm[Hg] Jessica Palacio [facility] 9 14:48:17 Date Recorded Body height Body mass index (BMI) Body weight Systolic blood pressure Diastolic blood pressure Provider Name and Address Organization Details Last Updated DateTime 11/03/2018 175.26 cm 23.5 kg/m2 87848.19 g 116 mm[Hg] 74 mm[Hg] Jessica Palacio [facility] 9 15:39:12 Date Recorded Body height Body mass index (BMI) Body weight Heart rate Respiratory rate Body temperature Oxygen saturation Oxygen saturation in Arterial blood by Pulse oximetry Systolic blood pressure Diastolic blood pressure Provider Name and Address Organization Details Last Updated DateTime 9 175.26 cm 23.6 kg/m2 51208.1 4 g 105 /min 16 /min 98.9 [degF] 98 % 98 % 108 mm[Hg] 78 mm[Hg] Lucy Dejesus [facility] 9 14:52:53 Social History Question Answer Notes LastModified by Organizat ion Details LastModified Time Tobacco Smoking Status Current Every Day Smoker XIMENA Vogt, [facility] 09/01/2014 09:05:47 What Is Your Level Of Alcohol Consumption? Moderate Information not available 09/01/2014 Is Blood Transfusion Acceptable In An Emergency? Yes Information not available 10/06/2018 What Is Your Level Of Caffeine Consumption? Moderate Mod - Heavy 3 -4 Cups Of Coffee Daily [email or web address] Information not available 09/01/2014 How Much Tobacco Do You Chew? None Information not available 02/17/2018 Are You Currently Employed? Yes Information not available 10/06/2018 What Type Of Diet Are You Following? REGULAR Information not available 09/01/2014 Which Illicit Or Recreational Drugs Have You Used? Denies Information not available 02/17/2018 Do You Or Have You Ever Used E-cigarettes Or Vape? 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 Yes Information not available 11/17/2018 Live Alone Or With Others? With Others Information not available 10/06/2018 Marital Status Informatio n not available 02/17/2018 What Was The Date Of Your Most Recent Tobacco Screening? 03/31/2018 Information not available 09/03/2018 How Many Children Do You Have? 2 Information not available 10/06/2018 Performs Monthly Self-breast Exam? Yes Information not available 10/06/2018 Do You Use Protection During Sex? No Information not available 10/06/2018 What Is Your Relationship Status? Information not available 10/06/2018 Seat Belts Used Routinely Yes Information not available 10/06/2018 Are You Sexually Active? Yes Information not available 10/06/2018 Smoke Alarm In Home Yes Information not available 11/17/2018 At What Age Did You Start Smoking Tobacco? 18 Information not available 02/17/2018 Do You Or Have You Ever Used Smokeless Tobacco? Never Used Smokeless Tobacco Information not available 11/17/2018 How Much Tobacco Do You Smoke? 0.5 PPD [email or web address] Information not available 09/01/2014 General Stress Level High Med - High Information not available 11/17/2018 Do You Use Sunscreen Routinely? Yes Information not available 10/06/2018 How Many Years Have You Smoked Tobacco? 30 Information not available 10/06/2018 Sex: Unknown Functional Status Question Answer Note LastModified by Organizat ion Details LastModified Time What is your exercise level? Occasional Information not available 02/17/2018 Mental Status None recorded. Family History Relationship Description Onset Age of this Age Resolved Age Notes LastModified by Organization Details LastModified Time Father Alcohol abuse [email or web address] Not available 2015 15:17:50 Mother Heart disease [email or web address] Not available 2018 14:55:21 Mother Hypertensive disorder [email or web address] Not available 2018 14:55:29 Mother Diabetes mellitus [email or web address] Not available 2018 14:56:08 Maternal Grandmother Heart disease [place] Not available 2018 14:55:21 Maternal Grandmother Malignant tumor of colon [place] Not available 2018 14:56:00 Maternal Grandmother Diabetes mellitus [email or web address] Not available 2018 14:56:14 Medical History Condition Response Coronary Artery Disease N Other N Atrial Fibrillation N High Blood Pressure N Breast Cancer N Depression Y COPD N Blood Clots N Lung Disease N Breast Problem N Anesthesia Complications N Headaches/Migraines Y Anxiety Disorder Y Muscle, Joint, or Bone Problems N Infertility N Polyps N Acid Reflux (GERD) N Cancer N Stroke N Endometriosis N High Cholesterol N Liver Disease N Headaches N Thyroid Problems N Kidney or Bladder Problems Y GI Problems N Acne N Skin Problems N Eating Disorder N Anemia N Heart Attack ([place]) N Ovarian Cancer N Diabetes N Blood Transfusions N Seizures/Epilepsy N Abuse/Domestic Violence N Allergies N Asthma N Hepatitis N Heart Disease N Pre-Eclampsia N Osteoporosis N Heart Failure N Gynecological History Statement/Question Response On BCP's at Conception? N STIs/STDs Y HPV Vaccine N Most Recent Mammogram 02/25/2018 Age at Menarche 14 Current Control Method Partner Vas ectomy Age at First Child 20 Sexually Active? Y Menses Monthly N Date of Last Pap Smear Sexual Problems? N LMP Obstetrics History GPAL:G 2 P 2 0 0 2 Type Value Multiple Births 0 Full Term 2 Induced 0 Spontaneous 0 Premature 0 Living 2 Ectopics 0 Total 2 Immunizations Vaccine Type Date Status Note Provider Nam e and Address Organization Details Recorded Time COVID-19, mRNA, LNP-S, PF, 30 mcg/0.3 mL dose 1 completed Sheree Leblanc RN [facility], [place] - [place] 07/18/2020 14:08:03 Influenza, split virus, quadrivalent, preservative 9 completed Not Available [facility] 02/27/2019 02:43:43 Tdap 5 completed Not Available [facility] 02/27/2019 02:40:25 Past Encounters Encounter ID Performer Location Encounter Start Date Encounter Closed Date Diagnosis/Indication Diagnosis SNOMED-CT Code Diagnosis ICD10 Code [id number] XIMENA Vogt (Adult Med) [address] [place] [address] 09/01/2014 08:50:22 09/01/2014 10:36:54 Adult health examination 951207540 Smoker 96815417 Impacted cerumen 9786180 6 Insomnia 366280821 Upper resp iratory infection 87260732 Active or passive immunization 828813074 Mantoux: positive 703937 005 [id number] Melissa Edouard (Adult Med) [address] [place] [address] 10/04/2014 10:24:38 10/04/2014 11:13:21 Sinusitis 01026491 Allergic rhinitis 322865 04 [id number] Breanna Spencer Rutland (Adult Med) [address] [place] [address] 06/27/2015 15:05:06 06/28/2015 11:01:55 Insomnia 725068623 G47.00 Mixed anxi ety and depressive disorder 130362161 F41.8 Hyperlipid emia screening 109157939 Z13.220 Diabetes m ellitus screening 577434872 Z13.1 [id number] MD Silke Shepard (Adult Med) [address] [facility] [address] 02/17/2018 14:03:20 02/17/2018 15:22:50 Mixed anxiety and depressive disorder 385596406 F41.8 Goiter 5783344 E04.9 Smoker 69876558 F17.200 Adult heal th examination 501601110 Z00.00 [id number] MD Silke Shepard (Adult Med) [address] [facility] [address] 03/03/2018 14:46:20 03/03/2018 16:31:39 Upper respiratory infection 38542992 J06.9 Smoker 52539010 F17.368 [id number] MD Silke Shepard (Adult Med) [address] [place] [address] 03/31/2018 14:18:28 04/01/2018 08:56:29 Mixed anxiety and depressive disorder 234094961 F41.8 Smoker 75931563 F17.981 [id number] Jerome Edouard (TEENAGE PROGRAM DIRECTOR) [address] [facility] [address] 10/06/2018 14:27:22 10/07/2018 09:21:47 Gynecologic examination 18174938 Z01.419 Candidal vulvovaginitis 69555371 B37.3 Suprapubic pain 74736128 6 R10.33 Cigarette smoker 3061071 7 F17.210 Screening for malignant neoplasm of breast 163293020 Z12.31 Pruritus of vulva 089378 00 L29.2 [id number] Jerome Edouard (TEENAGE PROGRAM DIRECTOR) [address] [place] [address] 11/03/2018 15:15:28 11/04/2018 10:43:55 Screening for malignant neoplasm of cervix 244109697 Z12.4 Venereal d isease screening 968045212 Z11.3 [id number] Rey Beverly MD [facility] (Adult Med) [address] [place] [address] 11/17/2018 14:41:18 11/18/2018 08:58:31 Administration of influenza vaccine 74879373 Z23 Mixed anxi ety and depressive disorder 499359703 F41.8 Submammary intertrigo 24 7906923 L30.4 Excess skin of eyelid 24 3240778 H02.839 Health Concerns Section Related Observation LastModified by Organization Detai ls LastModified Time None Recorded Concern Status LastModified by Organization Details LastModified Time None Recorded Advance Directives Directive None Recorded Payers Encounter Date Sequence Insurance Name Policy Number Policy Mratinez Covered Member ID Martinez Member ID Guarantor Name 03/03/2018 1 [facility] ACCESS DOTTY (INDEMNITY) [id number] Miguel A Menendezant [id number] Carol Arron 03/31/2018 1 [facility] ACCESS DOTTY (INDEMNITY) [id number] Miguel A Causey Arron [id number] Carol Arron 10/06/2018 1 [facility] ACCESS DOTTY (INDEMNITY) [id number] Miguel A Causey Arron [id number] Carol Arron 11/03/2018 1 [facility] ACCESS DOTTY (INDEMNITY) [id number] Miguel A Causey Arron [id number] Carol Arron 11/17/2018 1 [facility] ACCESS DOTTY (INDEMNITY) [id number] Miguel A Causey Arron [id number] Carol Arron Notes Date Note Type Note Provider Name and Address Organization Details Recorded Time 03/03/2018 text/html Upper Respirator y SymptomsReported bypatient.Location:hea d; throat Quality:productive cough;colored phlegm;congested Severity:moderate Context:sick contact;smoker Associated Symptoms:no shortness of breath; no wheezing; no fever;yellow sputum;sore throat Rey Beverly MD Attn: [address] [place], [address], [facility] 03/03/2018 15:29:12 03/31/2018 text/html Anxiety/Depressi onRepo rted bypatient.Quality:symp toms improved (better with med) Severity:denies suicidal ideations Onset/Timing:gradual Context: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);tobacco use(cutting down); lives with 3 children/ /mother Modifying Factors:medications as directed Associated Symptoms:denies homicidal ideations; sleeping well;anxiety(better);d epression(better) Rey Beverly MD Attn: [address]ing[address] [facility], [place], [address], [facility] 03/31/2018 15:18:48 10/06/2018 text/html Annual GYNReport ed bypatient.Menstrual cycle:Normal menses Urinary symptoms:No hematuria; No incontinence Vulva:No genital lesion Vagina:Normal vaginal discharge Breast:No breast pain; No breast lump; No nipple discharge Current Contraception:Partner had vasectomy Sexual complaints:No sexual complaints; No pain during intercourse; Normal libido Menopausal Symptoms:No menopausal symptoms; Normal vaginal lubrication Psychological symptoms:No depression; No anxiety; No PMDD Preventive measures:Mammogram performed within the past year Jerome cedeno [facility] 10/06/2018 16:29:48 11/03/2018 text/html Pt. presents for results of vaginal culture and to follow-up on previous pap. 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 Rey Beverly MD Attn: Accounting[address] [facility], [place], [address], [place] - [facility] 11/17/2018 15:37:13 OBGyn Episode Ob Episode Information Episode Created Date Number of Fetuses Patient Bloodtype Patient rh Status Prepregnancy Weight lbs Domestic Partner Domestic Partner Phone Father Name Carousel Operator Status 10/07/19 19 1 CLOSED Fetus Data First Name Last Name Admitted to NICU Weight (g) Sex Living Outcome Pediatric Complications Fetus ID Race Codes Race Delivery Type F Full Term [id number] Matthew Calculation MATTHEW Calculation Method Initial Matthew Date Initial Exam Date Initial Exam Provider Initial Ultrasound Date Last Menstrual Period Date Ultra Sound Weeks Gestation Conception by IVF Embryo Age at Transfer Date of Transfer 0 Eighteen To Twenty Week Matthew Update Ultra Sound Date Fundal Height At Umbil Quickening Date Ultra Sound Latest Weeks Gestation Final Matthew Confirmed By Final Matthew Confirmed Date Final Matthew Date Ultra Sound Latest Days Gestation 0 0 Menstrual History Last Menstrual Date Menses Monthly On Bcp Conception Prior Menses Frequency Hcg Plus Date Menarche Onset Age Delivery Information Delivery Date Delivery Type Labor Anesthesia Weeks Gestation Incision Type Labor Labor Length Hrs Delivered By Post Complications Tubal Sterilization Discharge Date Comments 4 Discharge Information Feeding Method Contraceptive Method Maternal HG B and HCT Levels Ob Episode Information Episode Created Date Number of Fetuses Patient Bloodtype Patient rh Status Prepregnancy Weight lbs Domestic Partner Domestic Partner Phone Father Name Carousel Operator Status 10/07/19 19 1 CLOSED Fetus Data First Name Last Name Admitted to NICU Weight (g) Sex Living Outcome Pediatric Complications Fetus ID Race Codes Race Delivery Type F Full Term [id number] Vaginal Matthew Calculation MATTHEW Calculation Method Initial Matthew Date Initial Exam Date Initial Exam Provider Initial Ultrasound Date Last Menstrual Period Date Ultra Sound Weeks Gestation Conception by IVF Embryo Age at Transfer Date of Transfer 0 Eighteen To Twenty Week Matthew Update Ultra Sound Date Fundal Height At Umbil Quickening Date Ultra Sound Latest Weeks Gestation Final Matthew Confirmed By Final Matthew Confirmed Date Final Matthew Date Ultra Sound Latest Days Gestation 0 0 Menstrual History Last Menstrual Date Menses Monthly On Bcp Conception Prior Menses Frequency Hcg Plus Date Menarche Onset Age Delivery Information Delivery Date Delivery Type Labor Anesthesia Weeks Gestation Incision Type Labor Labor Length Hrs Delivered By Post Complications Tubal Sterilization Discharge Date Comments 2 Discharge Information Feeding Method Contraceptive Method Maternal HG B and HCT Levels
--- OUTSIDE RECORDS SUMMARY | 2024-01-28 00:50 | XMS_ITS | Clinical Summary ---
Author Organization [facility] Address [address] [place] [address] Care Team Providers Care Curator Of Manuscripts Name Role Phone Phyllis Morgan DO Primary Care Provider [phone] Source Comments [facility],non-owned Affiliates and Associated Physician Practices is amultiple site organization consisting of ambulatory clinics and hospital sitesin [place], [place], [place] and [place]. This disclosure is being madepursuant to the Care Everywhere program and may not contain all information available regarding this patient. Last updated 17.[facility] Allergies No known active allergies Medications Be aware that medications may not be up to date on this document. Always verify current medications with the patient. 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 01/25/2019 Encounters Date Type Department Care Team Description 12/09/2023 Lab Requisition [facility] - DermPath Lab [facility] [place] [address] Yuli Rose DO 11/27/2023 Lab Requisition [facility] - DermPath Lab [facility] [place] [address] Debra Lozano MD from Last 3 Months Social History Tobacco Use Types Packs/Day Years [...] on file Sexual Orientation Not on file Last Filed Vital Signs Vital Sign Reading Time Taken Comments Blood Pressure 118/70 03/01/2019 12:04 PM [employer] Pulse 72 03/01/2019 12:04 PM [employer] Temperature 36.7 ??C (98.1 ??F) 03/01/2019 12:[address] Respiratory Rate 16 03/01/2019 12:04 PM [employer] Oxygen Saturation 96% 03/01/2019 12:04 PM [employer] Inhaled Oxygen Concentration - - Weight 73.5 kg (162 lb) 03/01/2019 12:04 PM [employer] Height 177.8 cm (5' 10 ) 03/01/2019 12:04 PM [employer] Body Mass Index 23.24 03/01/2019 12:04 PM [employer] Plan of Treatment Health Maintenance Due Date Last Done Comments COLOGUARD (AGES 45-75) - COL ON CA SCREENING 1972 COLON MONITORING 1972 COLONOSCOPY - COLON CA SCREENING 1972 CT COLONOGRAPHY - COLON CA SCREENING 1972 Colorectal Cancer Screening 1972 FIT - COLON CA SCREENING 1972 FLEX SIG - COLON CA SCREENING 1972 LIPID TESTING 1972 MAMMOGRAM 1972 PAP SMEAR 1972 PNEUMOCOCCAL VACCINE (1 of 2 - PCV) 1978 HIV SCREENING 06/27/1987 HEPATITIS C SCREENING 06/22/1990 DTAP/TDAP/TD VACCINES (1 - Tdap) 06/27/1991 HEPATITIS B VACCINE (1 of 3 - 19+ 3-dose series) 06/27/1991 ZOSTER VACCINE (1 of 2) 2022 DEPRESSION SCREENING 02/10/2023 COVID-19 VACCINE ( - 2023-2 5 season) 2023 INFLUENZA VACCINE (#1) 2023 11/17/2018 HIB VACCINE Aged Out No longer eligi ble based on patient's age to complete this topic HPV VACCINE Aged Out No longer eligi ble based on patient's age to complete this topic MENINGOCOCCAL VACCINE Aged Out No tavares devendra eligible based on patient's age to complete this topic Procedures Procedure Name Priority Date/Time Associated Diagnosis Comments DERMATOPATHOLOGY Routine 12/09/2023 11:4 4 AM CDT DERMATOPATHOLOGY Routine 11/27/2023 2:49 PM CDT from Last 3 Months Results * DERMATOPATHOLOGY (12/09/2023 11:44 AM CDT) Only the most recent of2 resultswithin the time period is included. Case Report Dermatopathology Report ? Case: [id number] ? Authorizing Provider: ??Yuli Rose, ?? Collected: ? 12/09/2023 11:44 AM ? Ordering Location: ? [facility] - ??Received: ?12/09/2023 02:49 PM ? DermPath Lab ? Pathologist: ? Juan Beaver MD ? Specimen: ?Skin, mid upper chest ? 10//202 4 1:07 PM [facility] DERMATOPATHOLOGY LABORATORY Final Diagnosis Specimen A. SKIN, mid upper chest: BASAL CELL CARCINOMA (C44.519) NOT PRESENT AT MARGIN DERMAL SCAR (L90.5) 1:07 PM [facility] DERMATOPATHOLOGY LABORATORY Clinical History BX proven BCC. Check Margins 1:07 PM T DERMATOPATHOLOGY LABORATORY Gross Description Specimen A: Received is one formalin filled container labeled with the patient's name and designated mid upper chest. The specimen consists of a non-oriented ellipse of skin measuring 57c71i4 mm. The epidermal surface is unremarkable. The margin is inked green. The 12 o'clock and 6 o'clock tips are submitted in cassette 1. The remainder of the ellipse is serially sectioned and submitted in cassette 2-3. Jar 0. 1:07 PM [facility] DERMATOPATHOLOGY LABORATORY Microscopic Description Specimen A. SKIN, mid upper chest: Within the dermis there are aggregates of basaloid cells with a high nuclear to cytoplasmic ratio and peripheral palisading. This lesion is not present at the margin of the specimen. There are fibroblasts and collagen bundles oriented parallel to the skin surface with elongated blood vessels, some of which are oriented perpendicular to the skin surface. 1:07 PM [facility] DERMATOPATHOLOGY LABORATORY Disclaimer An external and internal positive and negative controls are appropriate for the histochemical, immunohistochemical and immunofluorescence stain(s) in this case (if any), except where stated explicitly. The performance characteristics of the stain(s) cited in this report were developed and its performance characteristic determined by the Dermatopathology Laboratory at [facility], directed by Dr. Destinee Beaver. These tests need not be, and therefore are not, approved by the [place] Food and Drug Administration. The tests are used for clinical purposes. Billing Codes Specimen Charges Stain Charges 59283 1 1:07 PM CDT DERMATOPATHOLOGY LABORATORY Embedded Images 1:07 PM [facility] DERMATOPATHOLOGY LABORATORY Pathology/Cytolo gy TISSUE SPECIMEN FROM SKIN / Unknown 12/09/2023 11:44 AM CDT 12/09/2023 2:49 PM CDT Yuli Rose DO LAB - PATHOLOGY/C YTOLOGY ORDERABLES DERMATOPATHOLOGY LABORATORY [facility] - Department of Dermatology [facility] [address] [place] [address], [address] [place] [address], [facility] [[email or web address]] [phone] from Last 3 Months Advance Directives Documents on File Type Date Recorded Patient 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
--- OUTSIDE RECORDS SUMMARY | 2024-01-28 00:50 | XMS_ITS | Encounter Summary ---
Author Organization [facility] Address [address] [facility] [place] [address] Care Team Providers Care Lasting Floorworker Name Role Phone Unavailable Primary Care Provider Unavailabl e Reason for Visit * Reason Comments Bladder infection Encounter Details Date Type Department Care Team (Late st Contact Info) Description 09/25/2018 12:40 PM CDT Office Visit [facility] AT [address] [phone] [facility] Acute cystitis with hematuria (Primary Dx) Social History Tobacco Use Types Packs/Day Years Used Date Smoking Tobacco: Never Assessed Sex and Gender Information Value Date Recorded Sex Assigned at Not on file Gender Identity Not on file Sexual Orientation Not on file documented as of this encounter Last Filed Vital Signs Vital Sign Reading Time Taken Comments Blood Pressure 126/80 09/25/2018 11:25 AM CDT Pulse 86 09/25/2018 11:25 AM CDT Temperature 36.4 ??C (97.6 ??F) 09/25/2018 11:25 AM C DT Respiratory Rate 16 09/25/2018 11:25 AM CDT Oxygen Saturation 98% 09/25/2018 11:25 AM CDT Inhaled Oxygen Concentration - - Weight 73.5 kg (162 lb) 09/25/2018 11:25 AM CDT Height 175.3 cm (5' 9 ) 09/25/2018 11:25 AM CDT Body Mass Index 23.92 09/25/2018 11:25 AM CDT documented in this encounter Patient Instructions * Patient Instructions* Naomi Hickman, GROWTH MEDIA MIXER MUSHROOM-CLAIMS SERVICE ADJUSTOR - 09/25/2018 11:33 AM CDT Increase water intake, decrease caffeine. May drink cranberry juice to help with symptoms. May use OTC Azo for bladder spasms as needed (this may change the color of your urine). Tylenol or motrin as needed Proper hygiene No bubble baths If no improvement in 48-72 hours follow up with PCP or return to clinic If after completion of medication and symptoms still persist or worsens you will need to be reevaluated medications or refills will no be called out over the phone GO TO EMERGENCY ROOM OR CALL 911 WITH ANY OF THE FOLLOWING SYMPTOMS: HIGH, PERSISTENT FEVER >102; SWELLING, INFLAMMATION, OR REDNESS AROUND EYES, ABNORMAL EYE MOVEMENTS, VISION CHANGES (DOUBLE VISION OR IMPAIRED VISION); SEVERE HEADACHE; ALTERED MENTAL STATUS. THESE ARE SIGNS OF A RARE, BUT SERIOUS COMPLICATION AND REQUIRES IMMEDIATE EMERGENCY ATTENTION. Patient Education Urinary Tract Infection in Older Adults COMBINE MECHANIC: A urinary tract infection (UTI) is caused by bacteria that get inside your urinary tract. Your urinary tract includes your kidneys, ureters, bladder, and urethra. Urine is made in your kidneys, and it flows from the ureters to the bladder. Urine leaves the bladder through the urethra. A UTI is morecommon in your lower urinary tract, which includes your bladder and urethra. Common signs and symptoms include the following: ?? Fever and chills ?? Pain or burning when you urinate ?? Urine that smells bad or looks cloudy, or blood in your urine ?? Urinating more often or waking from sleep to urinate ?? Sudden, strong need to urinate ?? Pain or pressure in your lower abdomen ?? Leaking urine ?? Confusion or agitation ?? Fatigue, shakiness, and weakness Seek care immediately if: ?? You are urinating very little or not at all. ?? You are vomiting. ?? You have a high fever with shaking chills. ?? You have side or back pain that gets worse. Contact your healthcare provider if: ?? You have a fever. ?? You are a woman and you have increased white or yellow discharge from your vagina. ?? You do not feel better after 2 days of taking antibiotics. ?? You have questions or concerns about your condition or care. Treatment: Medicines treat the bacterial infection or decrease pain and burning when you urinate. You may also need medicines to decrease the urge to urinate often. Your healthcare provider may recommend cranberry juice or cranberry supplements to help decrease your symptoms. Self-care: ?? Urinate when you feel the urge. Do not hold your urine because bacteria can grow in the bladder if urine stays in the bladder too long. It may be helpful to urinate at least every 3 to 4 hours. ?? Drink liquids as directed. Liquids can help flush bacteria from your urinary tract. Ask how muchliquid to drink each day and which liquids are best for you. You may need to drink more liquids than usual to help flush out the bacteria. Do not drink alcohol, caffeine, and citrus juices. These canirritate your bladder and increase your symptoms. ?? Apply heat on your abdomen for 20 to 30 minutes every 2 hours for as many days as directed. Heathelps decrease discomfort and pressure in your bladder. Prevent a UTI: ?? Women should wipe front to back after urinating or having a bowel movement. This may prevent germs from getting into the urinary tract. ?? Urinate after you have sex to flush away bacteria that can enter your urinary tract during sex. ?? Wear cotton underwear and clothes that fit loose. Tight pants and nylon underwear can trap moisture and cause bacteria to grow. Follow up with your healthcare provider as directed: Write down your questions so you remember to ask them during your visits. ?? Copyright [employer] 2019 Information is for End User's use only and may not be sold, redistributed or otherwise used for commercial purposes. All illustrations and images included in CareNotes?? are the copyrighted property of [employer] or [employer] The above information is an home aide only. It is not intended as medical advice for individual conditions or treatments. Talk to your doctor, nurse or pharmacist before following any medical regimen to see if it is safe and effective for you. documented in this encounter Progress Notes * Naomi Hickman APRN-CNP - 09/25/2018 11:27 AM CDT [facility] Carol Heller is a 48 year old female who presents for evaluation: Chief Complaint Patient presents with ??? Bladder infection Primary Care Physician is No primary care provider on file.. SUBJECTIVE: General The history is provided by the patient. This is a new problem. The current episode started yesterday. The pain is at a severity of 5/10. The pain is mild. Pertinent negatives include no abdominal pain and no shortness of breath. Exacerbated by: urinating. She has tried nothing for the symptoms. 48 y/o female presents with urinary discomfort started yesterday Past Medical History: Diagnosis Date ??? Patient denies medical problems No current outpatient medications on file prior to visit. No current facility-administered medications on file prior to visit. Past Surgical History: Procedure Laterality Date ??? [...] on file Tobacco Use ??? Smoking status: Not on file Substance and Sexual Activity ??? Alcohol use: Not on file ??? Drug use: Not on file ??? Sexual activity: Not on file Lifestyle ??? Physical activity: Days per week: Not on file Minutes per session: Not on file ??? Stress: Not on file Relationships ??? Social connections: Talks on phone: Not on file Gets together: Not on file Attends advent service: Not on file Active member of [...] Social History Narrative ??? Not on file No family history on file. Current Outpatient Medications Medication Sig Dispense Refill ??? nitrofurantoin monohyd macro crystals (MACROBID) 100 MG capsule Take 1 capsule by mouth 2 timesdaily with morning and evening meal for 5 days 10 capsule 0 No current facility-administered medications for this visit. No Known Allergies REVIEW OF SYSTEMS: Review of Systems Constitutional: Negative for chills and fever. Respiratory: Negative for cough and shortness of breath. Gastrointestinal: Negative for abdominal pain. Genitourinary: Positive for frequency and urgency. Negative for dysuria, flank pain and hematuria. suprapubic pain odor OBJECTIVE: General appearance: alert, well appearing, and in no distress. BP 126/80 Pulse 86 Temp 97.6 ??F (36.4 ??C) Resp 16 Ht 1.753 m (5' 9 ) Wt 73.5 kg (162 lb) SpO2 98%BMI 23.92 kg/m2 Physical Exam Constitutional: She is oriented to person, place, and time and well-developed, well-nourished, and in no distress. HENT: Head: Normocephalic and atraumatic. Cardiovascular: Normal rate and regular rhythm. Pulmonary/Chest: Effort normal and breath sounds normal. Abdominal: Soft. Bowel sounds are normal. Genitourinary: Genitourinary Comments: No cva tenderness + suprapubic pressure Neurological: She is alert and oriented to person, place, and time. Vitals reviewed. Recent Results (from the past 24 hour(s)) URINALYSIS AUTO - POINT OF CARE (AMB) STL Collection Time: 09/25/18 12:00 AM Result Value Ref Range Clarity UA POCT clear Color UA POCT yellow Leukocyte UA neg Negative Nitrite UA POCT neg Negative Urobilinogen UA 0.2 0.1 - 1.0 Protein UA POCT trace Negative pH UA 6.5 5.0 - 8.0 pH units Blood UA trace Negative Specific [place] UA POCT 1.015 1.002 - 1.030 Ketone UA neg Negative Bilirubin UA POCT neg Negative Glucose UA neg Negative Expiration Date 04/28/2019 Lot # [id number] QC Verified Yes Yes ASSESSMENT: Encounter Diagnosis Name Primary? Acute cystitis with hematuria Yes PLAN: Increase water intake, decrease caffeine. May drink cranberry juice to help with symptoms. May use OTC Azo for bladder spasms as needed (this may change the color of your urine). Tylenol or motrin as needed Proper hygiene No bubble baths If no improvement in 48-72 hours follow up with PCP or return to clinic If after completion of medication and symptoms still persist or worsens you will need to be reevaluated medications or refills will no be called out over the phone GO TO EMERGENCY ROOM OR CALL 911 WITH ANY OF THE FOLLOWING SYMPTOMS: HIGH, PERSISTENT FEVER >102; SWELLING, INFLAMMATION, OR REDNESS AROUND EYES, ABNORMAL EYE MOVEMENTS, VISION CHANGES (DOUBLE VISION OR IMPAIRED VISION); SEVERE HEADACHE; ALTERED MENTAL STATUS. THESE ARE SIGNS OF A RARE, BUT SERIOUS COMPLICATION AND REQUIRES IMMEDIATE EMERGENCY ATTENTION. Orders Placed This Encounter ??? URINALYSIS AUTO - POINT OF CARE (AMB) STL ??? nitrofurantoin monohyd macro crystals (MACROBID) 100 MG capsule Sig: Take 1 capsule by mouth 2 times daily with morning and evening meal for 5 days Dispense: 10 capsule Refill: 0 documented in this encounter Plan of Treatment Not on file documented as of this encounter Procedures Procedure Name Priority Date/Time Associated Diagnosis Comments URINALYSIS AUTO - POINT OF CARE (AMB) STL Routine 09/25/2018 Acute cystitis with hematuria documented in this encounter Results * URINALYSIS AUTO - POINT OF CARE (AMB) STL (09/25/2018) Clarity UA POCT clear Color UA POCT yellow Leukocyte UA neg Negative Nitrite UA POCT neg Negative Urobilinogen UA 0.2 0.1 - 1.0 Protein UA POCT trace Negative pH UA 6.5 5.0 - 8.0 pH units Blood UA trace Negative Specific [place] UA POCT 1.015 1.002 - 1.030 Ketone UA neg Negative Bilirubin UA POCT neg Negative Glucose UA neg Negative Expiration Date 04/28/2019 Lot # [id number] QC Verified Yes Yes Urine URINE / Unknown 09/25/2018 Naomi VELOZ LAB - POINT O F CARE ORDERABLES documented in this encounter Visit Diagnoses Diagnosis Acute cystitis with hematuria- Primary Acute cystitis documented in this encounter
--- OUTSIDE RECORDS SUMMARY | 2024-01-28 00:50 | XMS_ITS | Patient Health Summary ---
Author Organization [facility] Address [address] [place] [address] Care Team Providers Care Numerical Control Drill Press Operator Name Role Phone Phyllis Morgan DO Primary Care Provider [phone] Note from [facility],non-owned Affiliates and Associated Physician Practices is amultiple site organization consisting of ambulatory clinics and hospital sitesin [place], [place] and [place]. This disclosure is being madepursuant to the Care Everywhere program and may not contain all information available regarding this patient. Last updated 17.[facility] Allergies No known active allergies Medications Be aware that medications may not be up to date on this document. Always verify current medications with the patient. 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 01/25/2019 Social History Tobacco Use Types Packs/Day Years [...] Comments Blood Pressure 118/70 03/01/2019 12:04 PM BABY FORMULA WORKER Pulse 72 03/01/2019 12:04 PM BABY FORMULA WORKER Temperature 36.7 ??C (98.1 ??F) 03/01/2019 12:[address] Respiratory Rate 16 03/01/2019 12:04 PM BABY FORMULA WORKER Oxygen Saturation 96% 03/01/2019 12:04 PM BABY FORMULA WORKER Inhaled Oxygen Concentration - - Weight 73.5 kg (162 lb) 03/01/2019 12:04 PM BABY FORMULA WORKER Height 177.8 cm (5' 10 ) 03/01/2019 12:04 PM BABY FORMULA WORKER Body Mass Index 23.24 03/01/2019 12:04 PM BABY FORMULA WORKER Procedures * DERMATOPATHOLOGY(Performed 12/09/2023) * DERMATOPATHOLOGY(Performed 11/27/2023) * STREP A SCREEN - POINT OF CARE (AMB) STL(Performed 01/13/2019) Performed for Acute pharyngitis, unspecified etiology * URINALYSIS AUTO - POINT OF CARE (AMB) STL(Performed 09/25/2018) Performed for Acute cystitis with hematuria * URINALYSIS AUTO - POINT OF CARE (AMB) STL(Performed 10/29/2016) Performed for Acute cystitis with hematuria Results * DERMATOPATHOLOGY (12/09/2023 11:44 AM CDT) Only the most recent of2 resultswithin the time period is included. Case Report Dermatopathology Report ? Case: [id number] ? Authorizing Provider: ??Yuli Rose DO ?? Collected: ? 12/09/2023 11:44 AM ? Ordering Location: ? [facility] - ??Received: ?12/09/2023 02:49 PM ? DermPath Lab ? Pathologist: ? Juan Beaver MD ? Specimen: ?Skin, mid upper chest ? 1:07 PM T DERMATOPATHOLOGY LABORATORY Final Diagnosis Specimen A. SKIN, mid upper chest: BASAL CELL CARCINOMA (C44.519) NOT PRESENT AT MARGIN DERMAL SCAR (L90.5) 1:07 PM [facility] DERMATOPATHOLOGY LABORATORY Clinical History BX proven BCC. Check Margins 1:07 PM T DERMATOPATHOLOGY LABORATORY Gross Description Specimen A: Received is one formalin filled container labeled with the patient's name and designated mid upper chest. The specimen consists of a non-oriented ellipse of skin measuring [id number] mm. The epidermal surface is unremarkable. The margin is inked green. The 12 o'clock and 6 o'clock tips are submitted in cassette 1. The remainder of the ellipse is serially sectioned and submitted in cassette 2-3. Jar 0. 1:07 PM [facility] DERMATOPATHOLOGY LABORATORY Microscopic Description Specimen A. SKIN, [...] perpendicular to the skin surface. 1:07 PM [facility] DERMATOPATHOLOGY LABORATORY Disclaimer An external and internal positive and negative controls are appropriate for the histochemical, immunohistochemical and immunofluorescence stain(s) in this case (if any), except where stated explicitly. The performance characteristics of the stain(s) cited in this report were developed and its performance characteristic determined by the Dermatopathology Laboratory at [facility], directed by Dr. Destinee Beaver. These tests need not be, and therefore are not, approved by the [place] Food and Drug Administration. The tests are used for clinical purposes. Billing Codes Specimen Charges Stain Charges 53746 1 4 1:07 PM CDT DERMATOPATHOLOGY LABORATORY Embedded Images 4 1:07 PM CDT DERMATOPATHOLOGY LABORATORY Pathology/Cytolo gy TISSUE SPECIMEN FROM SKIN / Unknown 12/09/2023 11:44 AM CDT 12/09/2023 2:49 PM CDT Yuli Rose DO LAB - PATHOLOGY/C YTOLOGY ORDERABLES DERMATOPATHOLOGY LABORATORY [facility] Department of Dermatology [address], [address] [phone] * STREP A SCREEN - POINT OF CARE (AMB) STL (01/13/2019 12:47 PM BABY FORMULA WORKER) Strep A Rapid POCT Negative Negative Strep A Internal Control Present Lot # [id number] Expiration Date 05 10 20 Throat ENTIRE THROAT (SURFACE REGION OF NECK) / Unknown 01/13/2019 12:47 PM BABY FORMULA WORKER Jennifer Parra APRN-MODELING DIRECTOR LAB - POINT OF CARE ORDERABLES * URINALYSIS AUTO - POINT OF CARE (AMB) STL (09/25/2018) Only the most recent of2 resultswithin the time period is included. Clarity UA POCT clear Color UA POCT yellow Leukocyte UA neg Negative Nitrite UA POCT neg Negative Urobilinogen UA 0.2 0.1 - 1.0 Protein UA POCT trace Negative pH UA 6.5 5.0 - 8.0 pH units Blood UA trace Negative Specific [place] UA POCT 1.015 1.002 - 1.030 Ketone UA neg Negative Bilirubin UA POCT neg Negative Glucose UA neg Negative Expiration Date 04/28/2019 Lot # [id number] QC Verified Yes Yes Urine URINE / Unknown 09/25/2018 Naomi Hickman SOFTWARE ENGINEERING ANALYST-MODELING DIRECTOR LAB - POINT O F CARE ORDERABLES Care Teams Numerical Control Drill Press Operator Relationship Specialty Start Date End Date Phyllis Morgan DO [address] [place] [address] PCP - General 09/25/21
--- OUTSIDE RECORDS SUMMARY | 2024-01-28 00:50 | XMS_ITS | Encounter Summary ---
Author Organization [facility] Address [address] [place] [address] Care Team Providers Care Shirt Trimmer Name Role Phone Rey Delatorre MD Primary Care Provider [phone] Reason for Visit * Reason Onset Date Comments Follow-up 03/03/2019 Encounter Details Date Type Department Care Team (Late st Contact Info) Description 03/03/2019 Telephone [facility] AT [address] [phone] Cely Singh APRN-CNP [address] [place] [address] Follow-up Social History Tobacco Use Types Packs/Day Years Used Date Smoking Tobacco: Every Day Cigarettes 0.5 30 Smokeless Tobacco: Never Alcohol Use Standard Drinks/Week Comments Yes 0 (1 standard drink = 0.6 oz pur e alcohol) Sex and Gender Information Value Date Recorded Sex Assigned at Not on file Gender Identity Not on file Sexual Orientation Not on file documented as of this encounter Miscellaneous Notes * Telephone Encounter - Cely Singh APRN-CNP - 03/03/2019 11:20 AM ESTATE TAX EXAMINER Follow-up call placed to patient to check on recovery TE TAX EXAMINER documented in this encounter Plan of Treatment Not on file documented as of this encounter Visit Diagnoses Not on filedocumented in this encounter Care Teams Shirt Trimmer Relationship Specialty Start Date End Date Rey Delatorre MD [address] [place] [phone] PCP - General 11/23/18 09/24/21 documented as of this encounter
--- OUTSIDE RECORDS SUMMARY | 2024-01-28 00:50 | XMS_ITS | Encounter Summary ---
Author Organization [facility] Address [address] [place] [address] Care Team Providers Care Taping Machine Operator Name Role Phone Phyllis Morgan DO Primary Care Provider [phone] Encounter Details Date Type Department Care Team (Late st Contact Info) Description 12/09/2023 Lab Requisition [facility] - DermPath Lab [address] [facility] [place] [address] Yuli Rose DO [address] [facility] [address] [place] [address] Social History Tobacco Use Types Packs/Day Years Used Date Smoking Tobacco: Every Day Cigarettes 0.5 30 Smokeless Tobacco: Never Alcohol Use Standard Drinks/Week Comments Yes 0 (1 standard drink = 0.6 oz pur e alcohol) Sex and Gender Information Value Date Recorded Sex Assigned at Not on file Gender Identity Not on file Sexual Orientation Not on file documented as of this encounter Plan of Treatment Not on file documented as of this encounter Procedures Procedure Name Priority Date/Time Associated Diagnosis Comments DERMATOPATHOLOGY Routine 12/09/2023 11:4 4 AM CDT documented in this encounter Results * DERMATOPATHOLOGY (12/09/2023 11:44 AM CDT) Case Report Dermatopathology Report ? Case: [id number] ? Authorizing Provider: ??Yuli Rose, ?? Collected: ? 12/09/2023 11:44 AM ? Ordering Location: ? [facility] - ??Received: ?12/09/2023 02:49 PM ? DermPath Lab ? Pathologist: ? Juan Beaver MD ? Specimen: ?Skin, mid upper chest ? 4 1:07 PM CDT DERMATOPATHOLOGY LABORATORY Final Diagnosis Specimen A. SKIN, mid upper chest: BASAL CELL CARCINOMA (C44.519) NOT PRESENT AT MARGIN DERMAL SCAR (L90.5) 4 1:07 PM T DERMATOPATHOLOGY LABORATORY Clinical History BX proven BCC. Check Margins 4 1:07 PM T DERMATOPATHOLOGY LABORATORY Gross Description Specimen A: Received is one formalin filled container labeled with the patient's name and designated mid upper chest. The specimen consists of a non-oriented ellipse of skin measuring [id number] mm. The epidermal surface is unremarkable. The margin is inked green. The 12 o'clock and 6 o'clock tips are submitted in cassette 1. The remainder of the ellipse is serially sectioned and submitted in cassette 2-3. Jar 0. 1:07 PM CDT DERMATOPATHOLOGY LABORATORY Microscopic Description Specimen A. SKIN, [...] perpendicular to the skin surface. 1:07 PM CDT DERMATOPATHOLOGY LABORATORY Disclaimer An external and internal positive and negative controls are appropriate for the histochemical, immunohistochemical and immunofluorescence stain(s) in this case (if any), except where stated explicitly. The performance characteristics of the stain(s) cited in this report were developed and its performance characteristic determined by the Dermatopathology Laboratory at [facility], directed by Dr. Destinee Beaver. These tests need not be, and therefore are not, approved by the [place] Food and Drug Administration. The tests are used for clinical purposes. Billing Codes Specimen Charges Stain Charges 34895 1 1:07 PM CDT DERMATOPATHOLOGY LABORATORY Embedded Images 1:07 PM CDT DERMATOPATHOLOGY LABORATORY Pathology/Cytolo gy TISSUE SPECIMEN FROM SKIN / Unknown 12/09/2023 11:44 AM CDT 12/09/2023 2:49 PM CDT Yuli Rose DO LAB - PATHOLOGY/C YTOLOGY ORDERABLES DERMATOPATHOLOGY LABORATORY [facility] - Department of Dermatology [facility] [address] [place] [address], [address] [phone] documented in this encounter Visit Diagnoses Not on filedocumented in this encounter Care Teams Taping Machine Operator Relationship Specialty Start Date End Date Phyllis Morgan DO [address] [place] [id number] PCP - General 09/25/21 documented as of this encounter
--- OUTSIDE RECORDS SUMMARY | 2024-01-28 00:50 | XMS_ITS | Encounter Summary ---
Author Organization [facility] Address [address] [place] [address] Care Team Providers Care Soap Inspector Name Role Phone Unavailable Primary Care Provider Unavailabl e Reason for Visit * Reason Comments Congestion Encounter Details Date Type Department Care Team (Late st Contact Info) Description 11/04/2018 12:00 PM CDT Office Visit [facility] AT [address] [phone] [facility] Acute frontal sinusitis, recurrence not specified (Primary Dx) Social History Tobacco Use Types Packs/Day Years Used Date Smoking Tobacco: Never Assessed Sex and Gender Information Value Date Recorded Sex Assigned at Not on file Gender Identity Not on file Sexual Orientation Not on file documented as of this encounter Last Filed Vital Signs Vital Sign Reading Time Taken Comments Blood Pressure 122/74 11/04/2018 12:03 PM CDT Pulse 61 11/04/2018 12:03 PM CDT Temperature 36.5 ??C (97.7 ??F) 11/04/2018 12:03 PM C DT Respiratory Rate 18 11/04/2018 12:03 PM CDT Oxygen Saturation 95% 11/04/2018 12:03 PM CDT Inhaled Oxygen Concentration - - Weight 73.5 kg (162 lb) 11/04/2018 12:03 PM CDT Height 175.3 cm (5' 9 ) 11/04/2018 12:03 PM CDT Body Mass Index 23.92 11/04/2018 12:03 PM CDT documented in this encounter Patient Instructions * Patient Instructions* Naomi Hickman, GI TECHNICIAN-FIELD KILN BURNER - 11/04/2018 12:12 PM CDT Images from the original note were not included. Use Flonase per package instructions, Saline nasal mist to prevent nasal drying For nasal congestion if needed may use Sudafed 4 hours per package instructions Tylenol or Motrin as needed Claritin or Zyrtec per package instructions Cool Mist humidifier as needed If no improvement in 48-72 hours follow [...] AND REQUIRES IMMEDIATE EMERGENCY ATTENTION. Patient Education Sinusitis CONCRETE FINISHER: Sinusitis is inflammation or infection of your sinuses. It is most often caused by a virus. Acute sinusitis may last up to 12 weeks. Chronic sinusitis lasts longer than 12 weeks. Recurrent sinusitis means you have 4 or more times in 1 year. Common symptoms include the following: ?? Fever ?? Pain, pressure, redness, or swelling around the forehead, cheeks, or eyes ?? Thick yellow or green discharge from your nose ?? Tenderness when you touch your face over your sinuses ?? Dry cough that happens mostly at night or when you lie down ?? Headache and face pain that is worse when you lean forward ?? Tooth pain, or pain when you chew Seek care immediately if: ?? Your eye and eyelid are red, swollen, and painful. ?? You cannot open your eye. ?? You have vision changes, such as double vision. ?? Your eyeball bulges out or you cannot move your eye. ?? You are more sleepy than normal, or you notice changes in your ability to think, move, or talk. ?? You have a stiff neck, a fever, or a bad headache. ?? You have swelling of your forehead or scalp. Contact your healthcare provider if: ?? Your symptoms do not improve after 3 days. ?? Your symptoms do not go away after 10 days. ?? You have nausea and are vomiting. ?? Your nose is bleeding. ?? You have questions or concerns about your condition or care. Treatment for sinusitis: Your symptoms may go away on their own. Your healthcare provider may recommend watchful waiting for up to 10 days before starting antibiotics. You may need any of the following: ?? Acetaminophen decreases pain and fever. It is available without a doctor's order. Ask how much to take and how often to take it. Follow directions. Read the labels of all other medicines you are using to see if they also contain acetaminophen, or ask your doctor or pharmacist. Acetaminophen can cause liver damage if not taken correctly. Do not use more than 4 grams (4,000 milligrams) total of acetaminophen in one day. ?? NSAIDs , such as ibuprofen, help decrease swelling, pain, and fever. This medicine is available with or without a doctor's order. NSAIDs can cause stomach bleeding or kidney problems in certain people. If you take blood thinner medicine, always ask your healthcare provider if NSAIDs are safe foryou. Always read the medicine label and follow directions. ?? Nasal steroid sprays may help decrease inflammation in your nose and sinuses. ?? Decongestants help reduce swelling and drain mucus in the nose and sinuses. They may help you breathe easier. ?? Antihistamines help dry mucus in the nose and relieve sneezing. ?? Antibiotics help treat or prevent a bacterial infection. ?? Take your medicine as directed. Contact your healthcare provider if you think your medicine is not helping or if you have side effects. Tell him or her if you are allergic to any medicine. Keep a list of the medicines, vitamins, and herbs you take. Include the amounts, and when and why you take them. Bring the list or the pill bottles to follow-up visits. Carry your medicine list with you in case of an emergency. Self-care: ?? Rinse your sinuses. Use a sinus rinse device to rinse your nasal passages with a saline (salt water) solution or distilled water. Do not use tap water. This will help thin the mucus in your nose and rinse away pollen and dirt. It will also help reduce swelling so you can breathe normally. Ask your healthcare provider how often to do this. ?? Breathe in steam. Heat a bowl of water until you see steam. Lean over the bowl and make a tent over your head with a large towel. Breathe deeply for about 20 minutes. Be careful not to get too close to the steam or burn yourself. Do this 3 times a day. You can also breathe deeply when you take ahot shower. ?? Sleep with your head elevated. Place an extra pillow under your head before you go to sleep to help your sinuses drain. ?? Drink liquids as directed. Ask your healthcare provider how much liquid to drink each day and which liquids are best for you. Liquids will thin the mucus in your nose and help it drain. Avoid drinks that contain alcohol or caffeine. ?? Do not smoke, and avoid secondhand smoke. Nicotine and other chemicals in cigarettes and cigars can make your symptoms worse. Ask your healthcare provider for information if you currently smoke and need help to quit. E-cigarettes or smokeless tobacco still contain nicotine. Talk to your healthcare provider before you use these products. Prevent the spread of germs that cause sinusitis: Wash your hands often with soap and water. Wash your hands after you use the bathroom, change a child's diaper, or sneeze. Wash your hands before youprepare or eat food. Follow up with your healthcare provider as directed: You may be referred to an ear, nose, and throat specialist. Write down your questions so you remember to ask them during your visits. ?? Copyright Wally 2019 Information is for End User's use only and may not be sold, redistributed or otherwise used for commercial purposes. All illustrations and images included in CareNotes?? are the copyrighted property of [employer]. or [employer] The above information is an technical aide only. It is not intended as medical advice for individual conditions or treatments. Talk to your doctor, nurse or pharmacist before following any medical regimen to see if it is safe and effective for you. documented in this encounter Progress Notes * Naomi Hickman APRN-CNP - 11/04/2018 12:04 PM CDT [facility] Carol Heller is a 48 year old female who presents for evaluation: Chief Complaint Patient presents with ??? Congestion Primary Care Physician is No primary care provider on file.. SUBJECTIVE: General Associated symptoms include headaches and shortness of breath. Pertinent negatives include no chestpain. Treatments tried: Advil and allergra D, Robitussin DM, Flonase and Afrin. 48 y/o female presents with c/o nasal and chest congestion off and on since August has been taking OTC medication has not seen PCP for symptoms using OTC medication minimal relief since got worse on PCP @ [facility] Past Medical History: Diagnosis Date ??? Patient [...] file Gets together: Not on file Attends adventism service: Not on file Active member of [...] Outpatient Medications Medication Sig Dispense Refill ??? amoxicillin-clavulanate (AUGMENTIN) 875-125 MG tablet Take 1 tablet by mouth 2 times daily withmorning and evening meal for 10 days 20 tablet 0 ??? fluconazole (DIFLUCAN) 150 MG tablet Take 1 tablet by mouth once for 1 dose 1 tablet 0 No current facility-administered medications for this visit. No Known Allergies REVIEW OF SYSTEMS: Review of Systems Constitutional: Positive for chills and fever. Low grade temp, aches HENT: Positive for congestion, ear pain, sinus pain and sore throat. Negative for ear discharge andnosebleeds. Right ear pain Pain and pressure bilaterally, blood tinge nasal mucus PND Eyes: Negative. Respiratory: Positive for cough, sputum production, shortness of breath and wheezing. Cardiovascular: Negative for chest pain. Gastrointestinal: Positive for nausea. Negative for diarrhea and vomiting. Musculoskeletal: Negative. Skin: Negative. Neurological: Positive for dizziness and headaches. Sinus pressure Endo/Heme/Allergies: Negative. OBJECTIVE: General appearance: alert, well appearing, and in no distress. BP 122/74 Pulse 61 Temp 97.7 ??F (36.5 ??C) Resp 18 Ht 1.753 m (5' 9 ) Wt 73.5 kg (162 lb) SpO2 95%BMI 23.92 kg/m2 Physical Exam Constitutional: She is oriented to person, place, and time and well-developed, well-nourished, and in no distress. HENT: Head: Normocephalic and atraumatic. Mouth/Throat: Oropharynx is clear and moist. Frontal sinus pressure bilateral TM's normal Congested erythema turbinates Neck: Normal range of motion. Neck supple. Cardiovascular: Normal rate and regular rhythm. Pulmonary/Chest: Effort normal and breath sounds normal. Neurological: She is alert and oriented to person, place, and time. Vitals reviewed. No results found for this or any previous visit (from the past 24 hour(s)). ASSESSMENT: Encounter Diagnosis Name Primary? Acute frontal sinusitis, recurrence not specified Yes PLAN: Use Flonase per package instructions, Saline nasal mist to prevent nasal drying For nasal congestion if needed may use Sudafed 4 hours per package instructions Tylenol or Motrin as needed Claritin or Zyrtec per package instructions Cool Mist humidifier as needed If no improvement in 48-72 hours follow [...] EMERGENCY ATTENTION. Orders Placed This Encounter ??? amoxicillin-clavulanate (AUGMENTIN) 875-125 MG tablet Sig: Take 1 tablet by mouth 2 times daily with morning and evening meal for 10 days Dispense: 20 tablet Refill: 0 ??? fluconazole (DIFLUCAN) 150 MG tablet Sig: Take 1 tablet by mouth once for 1 dose Dispense: 1 tablet Refill: 0 documented in this encounter Plan of Treatment Not on file documented as of this encounter Visit Diagnoses Diagnosis Acute frontal sinusitis, recurrence not specified- Primary documented in this encounter
--- OUTSIDE RECORDS SUMMARY | 2024-01-28 00:50 | XMS_ITS | Encounter Summary ---
Author Organization [facility] Address [address] [place] [address] Care Team Providers Care Brim Pouncing Machine Operator Name Role Phone Rey Delatorre MD Primary Care Provider [phone] Reason for Visit * Reason Comments Ear Pain Encounter Details Date Type Department Care Team (Late st Contact Info) Description 03/01/2019 12:00 PM SETTLEMENT WORKER Office Visit [facility] AT [address] [phone] Provider, Kelechi Exp [facility] Dysfunction of right eustachian tube (Primary Dx) Social History Tobacco Use Types [...] Comments Blood Pressure 118/70 03/01/2019 12:04 PM SETTLEMENT WORKER Pulse 72 03/01/2019 12:04 PM SETTLEMENT WORKER Temperature 36.7 ??C (98.1 ??F) 03/01/2019 12:[address] Respiratory Rate 16 03/01/2019 12:04 PM SETTLEMENT WORKER Oxygen Saturation 96% 03/01/2019 12:04 PM SETTLEMENT WORKER Inhaled Oxygen Concentration - - Weight 73.5 kg (162 lb) 03/01/2019 12:04 PM SETTLEMENT WORKER Height 177.8 cm (5' 10 ) 03/01/2019 12:04 PM SETTLEMENT WORKER Body Mass Index 23.24 03/01/2019 12:04 PM SETTLEMENT WORKER documented in this encounter Patient Instructions * Patient Instructions* Luz Ruiz, RAT CULTURIST-CURB BUILDER - 03/01/2019 12:14 PM SETTLEMENT WORKER Images from the original note were not included. It could take up to 12 weeks for the fluid behind your ear drum(s) to clear. If symptoms remain beyond 12 weeks, seek an evaluation from ENT. Applying a warm pack to the affected area may help with the discomfort. Do not place Q-Tips or other objects into ear canal Do not use OTC ear drops without consulting with your healthcare provider. May take Tylenol or Ibuprofen for fever or pain as directed per package instructions. May take OTC antihistamines such as Zyrtec, Kaylin, or Claritin as directed per package instructions for allergy relief May take Sudafed (must get from behind pharmacy counter), for relief of sinus congestion, as directed per package instructions Recommend daily use of Flonase or Nasonex, as directed per package instructions Reviewed education materials and instructions with patient and answered all questions. Carol Heller verbalized understanding and agrees with plan. Follow up with Rey Delatorre MD if symptoms worsen or do not completely resolve Patient Education Eustachian Tube Dysfunction SWITCHBOARD OPERATOR SUPERVISOR: Eustachian tube dysfunction (ETD) is a condition that prevents your eustachian tubes from opening properly. It can also cause them to become blocked. Eustachian tubes connect your middle ear to the back of your nose and throat. These tubes open and allow air to flow in and out when you sneeze, swallow, or yawn. Common signs and symptoms include the following: ?? Fullness or pressure in your ears ?? Muffled hearing, or a feeling you are hearing under water or have clogged ears ?? Pain in one or both ears ?? Ringing in your ears ?? Popping, crackling, or clicking feeling in your ears ?? Trouble keeping your balance Call your doctor or search marketing coordinator if: ?? Your symptoms do not improve or get worse. ?? You have a fever. ?? You have any hearing loss. ?? You have questions or concerns about your condition or care. Treatment: ETD may get better on its own without any treatment. If it continues, you may need any of the following: ?? Swallow, yawn, or chew gum to help open your eustachian tubes. Your healthcare provider may alsorecommend you blow with your mouth shut and your nostrils pinched closed. ?? Air pressure devices push air into your nose and eustachian tubes to help relieve air pressure in your ear. ?? Treatment for allergies such as decongestants, antihistamines, and nasal steroids may improve ETD. They may help decrease swelling of the eustachian tubes. ?? A myringotomy is surgery to make a hole in your eardrum. The hole relieves pressure and lets fluid drain from your ear. A pressure equalizing (PE) tube may be used to keep the hole open and to help drain fluid. ?? Tuboplasty is a procedure to widen your eustachian tubes. Follow up with your doctor or search marketing coordinator as directed: Write down your questions so you remember to ask them during your visits. ?? Copyright Odeeo 2019 Information is for End User's use only and may not be sold, redistributed or otherwise used for commercial purposes. All illustrations and images included in CareNotes?? are the copyrighted property of [employer], [employer]. or [employer] The above information is an supply aide only. It is not intended as medical advice for individual conditions or treatments. Talk to your doctor, nurse or pharmacist before following any medical regimen to see if it is safe and effective for you. LEMENT WORKER documented in this encounter Progress Notes * Luz Ruiz APRN-CNP - 03/01/2019 11:59 AM CST Carol Heller is a 48 year old female who presents to clinic today for Chief Complaint Patient presents with ??? Ear Pain her PCP is Rey Delatorre MD Carol Heller is here for evaluation of congestion, right ear pressure/pain. She states the Onset was: 2 weeks and course is gradually worsening. She is drinking moderate amounts of fluids. Past History of ear issue and cold symptoms. She was seen in an urgent care 1 week ago and told that she didn't have an ear infection but she was started on Amoxicillin 1,000mg BID for 10 days (which she is still on). She reports today that her ear is painful, but over all not as bad as it was 1 week ago. She is a smoker. OTC- Kaylin D and benadryl. Past Medical History: Diagnosis Date ??? Patient denies medical problems No family history on file. No current outpatient medications on file. No current facility-administered medications for this visit. No Known Allergies Social History Socioeconomic History ??? Marital status: [...] file Gets together: Not on file Attends sikhism service: Not on file Active member of [...] Social History Narrative ??? Not on file Review of Systems Pertinent items are noted in HPI Constitutional: Negative for fevers, chills. Eyes: Negative Ears, nose, mouth, and throat: Positive for earaches on right Respiratory: Positive for acute cough Cardiovascular: Negative Neurological: Negative Objective: BP 118/70 Pulse 72 Temp 98.1 ??F (36.7 ??C) Resp 16 Ht 1.778 m (5' 10 ) Wt 73.5 kg (162 lb) SpO2 96% BMI 23.24 kg/m2 General appearance: alert, cooperative, no distress, oriented to person, place, and time Head: normocephalic, without trauma Eyes: sclera and conjunctiva clear Ears: Right tympanic membrane - air/fluid interface visualized, bubbles present, no erythema or bulging; Left tympanic membrane - normal Nose: nares open; no septal deviation is noted Throat: no mucous membrane abnormalities Neck: supple Nodes: no cervical adenopathy Lungs: breath sounds normal and symmetric; no rales or wheezes Heart: regular rhythm, normal S1 and S2, without murmurs, gallops or rubs Neurologic: mental status normal; alert and oriented X 3 Assessment: Encounter Diagnosis Name Primary? Dysfunction of right eustachian tube Yes Plan: It could take up to 12 weeks for the fluid behind your ear drum(s) to clear. If symptoms remain beyond 12 weeks, seek an evaluation from ENT. Applying a warm pack to the affected area may help with the discomfort. Do not place Q-Tips or other objects into ear canal Do not use OTC ear drops without consulting with your healthcare provider. May take Tylenol or Ibuprofen for fever or pain as directed per package instructions. May take OTC antihistamines such as Zyrtec, Kaylin, or Claritin as directed per package instructions for allergy relief May take Sudafed (must get from behind pharmacy counter), for relief of sinus congestion, as directed per package instructions Recommend daily use of Flonase or Nasonex, as directed per package instructions Reviewed education materials and instructions with patient and answered all questions. Carol Reinaldo Heller verbalized understanding and agrees with plan. Follow up with Rey Delatorre MD if symptoms worsen or do not completely resolve Luz Ruiz APRN, VIKAS-OLIVIA 03/01/2019 12:20 PM LEMENT WORKER documented in this encounter Plan of Treatment Not on file documented as of this encounter Visit Diagnoses Diagnosis Dysfunction of right eustachian tube- Primary Dysfunction of Eustachian tube documented in this encounter Care Teams Brim Pouncing Machine Operator Relationship Specialty Start Date End Date Rey Delatorre MD [address] [place] [address] PCP - General 11/23/18 09/24/21 documented as of this encounter
--- OUTSIDE RECORDS SUMMARY | 2024-01-28 00:50 | XMS_ITS | Encounter Summary ---
Author Organization [facility] Address [address] [place] [address]. [place] [address] [place] [address] Care Team Providers Care Home Restoration Service Supervisor Name Role Phone Phyllis Morgan DO Primary Care Provider [phone] Reason for Referral * Imaging (Routine) - New Request Specialty Diagnoses / Procedures Referred By Geo retana Referred To Contact RADIOLOGY Diagnoses Abnormal mammogram of right breast Procedures US BREAST RT BIRAD [facility] Phyllis Mrogan DO [address] [place] [address] Phone: tel: fax: Referral ID Status Reason Start Date Expiration Date V isits Requested Visits Authorized [id number] New Request 11/17/2023 11/16/2024 1 1 Reason for Visit * Reason Onset Date Comments Results 11/17/2023 Diag mammogram R T Encounter Details Date Type Department Care Team ([facility] st Contact Info) Description 11/17/2023 Telephone [facility] Family Medicine - [place] [id number] [facility] [address], [address] [place] [phone] Phyllis Morgan DO [address] [place] [address] Results (Diag mammogram RT) Social History Tobacco Use Types Packs/Day Years Used Date Smoking Tobacco: Every Day Smokeless Tobacco: Never Alcohol Use Standard Drinks/Week Comments Yes 0 (1 standard drink = 0.6 oz pur e alcohol) PHQ-2 Answer Date Recorded Patient Health Questionnaire-2 Score 0 10/31/2023 Comments No Sex and Gender Information Value Date Recorded Sex Assigned at Not on file Legal Sex Female 9:04 AM LIQUOR COMMISSIONER Gender Identity Not on file Sexual Orientation Not on file documented as of this encounter Progress Notes * Annelise Herrera RN - 11/17/2023 1:15 PM CDT Attempted to contact patient, no answer. Left message on patient's voicemail informing her that detailed [employer] message would be sent. If there are any questions or concerns, please call back to theoffice or respond via [employer]. * Annelise Herrera RN - 11/17/2023 1:14 PM CDT ----- Message from Dr. Phyllis Morgan sent at 11/16/2023 5:52 PM CDT ----- Densities seen in the breast. Follow up with right mammogram and ultrasound please order in 6 months documented in this encounter Plan of Treatment Upcoming Encounters Date Type Department Care Team (Late st Contact Info) Description 02/06/2024 10:00 AM LIQUOR COMMISSIONER Office Visit [facility] Family Medicine - [employer] [facility] [facility] [address], [address] [place] [phone] Phyllis Morgan DO [address] [place], [place] [id number] 04/29/2024 8:20 AM CDT Office Visit [facility] - [facility] [address] [place] [phone] Karl Rose [address] [place] [address] 05/01/2024 9:15 AM CDT Appointment [facility] [address] [place] [address] Karl Rose DO [address] [place] [address] Scheduled Orders Name Type Priority Associated Diagnoses Orde r Schedule MG DIAG W BEA RT DIGI MAMMO Routine Abnormal mammogram of right breast Expected: 05/17/2024 (Approximate), Expires: 01/16/2025 US BREAST RT BIRAD LTD Ultrasound Routine Abnormal mammogram of right breast Expected: 05/17/2024 (Approximate), Expires: 11/16/2024 documented as of this encounter Visit Diagnoses Diagnosis Abnormal mammogram of right breast- Primary documented in this encounter Additional Health Concerns Assessment Noted Time PHQ-9 Depression Total Score: 7 05/28/19 24 10:42 AM CDT documented as of this encounter Care Teams Home Restoration Service Supervisor Relationship Specialty [place] [address] [place] [phone] PCP - General FAMILY PRACTICE 05/01/21 documented as of this encounter
--- OUTSIDE RECORDS SUMMARY | 2024-01-28 00:50 | XMS_ITS | Referral Summary ---
Author Organization [facility] Address [address] [place] [address] Care Team Providers Care Grinder Machine Knife Setter Name Role Phone Phyllis Morgan DO Primary Care Provider [phone] Source Comments [facility],non-owned Affiliates and Associated Physician Practices is amultiple site organization consisting of ambulatory clinics and hospital sitesin [place], [place], [place] and [place]. This disclosure is being madepursuant to the Care Everywhere program and may not contain all information available regarding this patient. Last updated 17.[facility] Encounters Date Type Department Care Team Description 12/09/2023 Lab Requisition [facility] - DermPath Lab [address] [place] [address] Yuli Rose DO 11/27/2023 Lab Requisition [facility] Lab [address] [place] [address] Debra Lozano MD from Last 3 Months Allergies No known active allergies Medications Be [...] Comments Blood Pressure 118/70 03/01/2019 12:04 PM PROTOTYPE CARPENTER Pulse 72 03/01/2019 12:04 PM PROTOTYPE CARPENTER Temperature 36.7 ??C (98.1 ??F) 03/01/2019 12:[address] Respiratory Rate 16 03/01/2019 12:04 PM PROTOTYPE CARPENTER Oxygen Saturation 96% 03/01/2019 12:04 PM PROTOTYPE CARPENTER Inhaled Oxygen Concentration - - Weight 73.5 kg (162 lb) 03/01/2019 12:04 PM PROTOTYPE CARPENTER Height 177.8 cm (5' 10 ) 03/01/2019 12:04 PM PROTOTYPE CARPENTER Body Mass Index 23.24 03/01/2019 12:04 PM PROTOTYPE CARPENTER Plan of Treatment Not on file Procedures Procedure Name Priority Date/Time Associated Diagnosis Comments DERMATOPATHOLOGY Routine 12/09/2023 11:4 4 AM CDT DERMATOPATHOLOGY Routine 11/27/2023 2:49 PM CDT from Last 3 Months Results * DERMATOPATHOLOGY (12/09/2023 11:44 AM CDT) Only the most recent of2 resultswithin the time period is included. Case Report Dermatopathology Report ? Case: [id number] ? Authorizing Provider: ??Yuli Rose, DO ?? Collected: ? 12/09/2023 11:44 AM ? Ordering Location: ? [facility] - ??Received: ?12/09/2023 02:49 PM ? DermPath Lab ? Pathologist: ? Juan Beaver MD ? Specimen: ?Skin, mid upper chest ? 4 1:07 PM T DERMATOPATHOLOGY LABORATORY Final Diagnosis Specimen A. SKIN, mid upper chest: BASAL CELL CARCINOMA (C44.519) NOT PRESENT AT MARGIN DERMAL SCAR (L90.5) 4 1:07 PM [facility] DERMATOPATHOLOGY LABORATORY Clinical History BX proven BCC. Check Margins 4 1:07 PM T DERMATOPATHOLOGY LABORATORY Gross Description Specimen A: Received is one formalin filled container labeled with the patient's name and designated mid upper chest. The specimen consists of a non-oriented ellipse of skin measuring 23b57s7 mm. The epidermal surface is unremarkable. The margin is inked green. The 12 o'clock and 6 o'clock tips are submitted in cassette 1. The remainder of the ellipse is serially sectioned and submitted in cassette 2-3. Jar 0. 4 1:07 PM CDT DERMATOPATHOLOGY LABORATORY Microscopic Description [...] characteristic determined by the Dermatopathology Laboratory at [facility], directed by Dr. Destinee Beaver. These tests need not be, and therefore are not, approved by the [place] Food and Drug Administration. The tests are used for clinical purposes. Billing Codes Specimen Charges Stain Charges 38922 1 1:07 PM CDT DERMATOPATHOLOGY LABORATORY Embedded Images 1:07 PM CDT DERMATOPATHOLOGY LABORATORY Pathology/Cytolo gy TISSUE SPECIMEN FROM SKIN / Unknown 12/09/2023 11:44 AM CDT 12/09/2023 2:49 PM CDT Yuli Rose DO LAB - PATHOLOGY/C YTOLOGY ORDERABLES DERMATOPATHOLOGY LABORATORY [facility] - Department of Dermatology [facility] Medicine [address] [place] [address], [address] [phone] from Last 3 Months Advance Directives Documents on File Type Date Recorded Patient Jewel Stripper Expl anation Adv Directive/Living Will/POA 01/13/2019 11:28 AM HIE/OPT-IN Care Teams Grinder Machine Knife Setter Relationship Specialty Start Date End Date Phyllis Morgan DO [address] [place] [address] [facility] - General 09/25/21
--- OUTSIDE RECORDS SUMMARY | 2024-01-28 00:50 | XMS_ITS | Encounter Summary ---
Author Organization [facility] Address [address] [place] [address] Care Team Providers Care Blanchard Grinder Operator Name Role Phone Rey Delatorre MD Primary Care Provider [phone] Reason for Visit * Reason Onset Date Comments Follow-up 01/15/2019 Courtesy follow- up phone call made to patient. Message left advising patient to call service center at [phone] if they have any questions or concerns. Encounter Details Date Type Department Care Team (Late st Contact Info) Description 01/15/2019 Telephone [facility] AT [address] [address] Naomi Hickman APRN-CNP [address] [address] Follow-up (Courtesy follow-up phone call made to patient. Message left advising patient to call service center at [phone] if they have any questions or concerns.) Social History Tobacco Use Types Packs/Day Years [...] encounter Miscellaneous Notes * Telephone Encounter - Naomi Hickman APRN-CNP - 01/15/2019 12:18 PM PORT TRAFFIC MANAGER Courtesy follow-up phone call made to patient. Message left advising patient to call service [facility] [phone] if they have any questions or concerns. MAGDIEL Price 01/15/2019 12:19 PM TRAFFIC MANAGER documented in this encounter Plan of Treatment Not on file documented as of this encounter Visit Diagnoses Not on filedocumented in this encounter Care Teams Blanchard Grinder Operator Relationship Specialty Start Date End Date Rey Delatorre MD [address] [place] [id number] PCP - General 11/23/18 09/24/21 documented as of this encounter
--- OUTSIDE RECORDS SUMMARY | 2024-01-28 00:50 | XMS_ITS | Clinical Summary ---
Author Organization [facility] Address [address] [place] [address]. [place], [place] [address] [place] [address] Care Team Providers Care Chief Recordist Name Role Phone Phyllis Adams DO Primary Care Provider [phone] Allergies No known active allergies Medications doxycycline hyclate (VIBRAMYCIN) 100 MG capsule Take 1 capsule (100 mg total) by mouth 2 (two) times daily. Active cetirizine (ZYRTEC ALLERGY) 10 MG tabletIndications:V itamin D deficiency,Chronic fatigue,Tobacco smoker within last 12 months,SOB (shortness of breath),Snoring,Chr onic nonintractable headache, unspecified headache type Take 1 tablet (10 mg total) by mouth daily. 30 tablet 1 4 Active fluticasone propionate (FLONASE) 50 MCG/ACT nasal sprayIndications:Vi tamin D deficiency,Chronic fatigue,Tobacco smoker within last 12 months,SOB (shortness of breath),Snoring,Chr onic nonintractable headache, unspecified headache type 1 spray by Nasal route daily. 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 01/25/2019 Encounters Date Type Department Care Team Description 01/27/2024 MyChart Message Enc [facility] - [place] [address] [place] [address] [place], [facility] Provider elevated BP 11/17/2023 Telephone [facility] [address], [address] [place] [address] Phyllis Adams DO Results (Diag mammogram RT) 11/14/2023 2:25 PM CDT - 11/14/2023 11:59 PM CDT Hospital Encounter [facility] [place] [address] Phyllis Adams, Discharge Disposition: Home or Self Care (Routine Discharge) 11/14/2023 Travel 11/04/2023 Telephone [facility] [address], [address] [place] [address] Phyllis Adams DO Results (Mammogram/) 10/31/2023 10:00 AM CDT Office Visit [facility] - [facility] [address] [place] [address] Karl Rose DO Follow Up (Pulmonary nodule) 10/31/2023 Travel 10/30/2023 8:44 AM CDT - 10/30/2023 11:59 PM CDT Hospital Encounter [facility] Mammography [address] [place] [address] Phyllis Adams, Discharge Disposition: Home or Self Care (Routine Discharge) 10/30/2023 Travel from Last 3 Months Immunizations Name Administration Dates Next Due Influenza Adult (Generic) 11/17/2018 Tdap (Generic) 09/01/2014 Family History Medical History Relation Comments CHF Mother Hypertension Mother Hypertension Sister Relation Status Comments Father Mother Sister Social History Tobacco Use Types Packs/Day Years Used Date Smoking Tobacco: Every Day Smokeless Tobacco: Never Tobacco Cessation:Ready to Q uit: No; Counseling Given: Yes Alcohol Use Standard Drinks/Week Comments Yes 0 (1 standard drink = 0.6 oz pur e alcohol) PHQ-2 Answer Date Recorded Patient Health Questionnaire-2 Score 0 10/31/2023 Comments No Sex and Gender Information Value Date Recorded Sex Assigned at Not on file Legal Sex Female 9:04 AM DINING ROOM HELPER Gender Identity Not on file Sexual Orientation Not on file Last Filed Vital Signs Vital Sign Reading Time Taken Comments Blood Pressure 135/91 10/31/2023 10:19 AM CDT Pulse 81 10/31/2023 9:47 AM CDT Temperature 36.8 ??C (98.2 ??F) 10/31/2023 9:47 AM CD T Respiratory Rate 16 2023 9:07 AM CDT Oxygen Saturation 99% 10/31/2023 9:47 AM CDT Inhaled Oxygen Concentration - - Weight 73 kg (161 lb) 10/31/2023 9:47 AM CDT Height 175.3 cm (5' 9 ) 10/31/2023 9:47 AM CDT Body Mass Index 23.78 10/31/2023 9:47 AM CDT Plan of Treatment Upcoming Encounters Date Type Department Care Team (Late st Contact Info) Description 02/06/2024 10:00 AM DINING ROOM HELPER Office Visit [facility] - [address], [address] [place] [address] Phyllis Adams, DO [address] [place], [place] [address] 04/29/2024 8:20 AM CDT Office Visit [facility] - [facility] [address] [place] [address] Karl Rose, [address] [place] [address] 05/01/2024 9:15 AM CDT [facility] [address] [place] [address] Karl Rose, DO [address] [facility] [place] [address] [place] [address] Health Maintenance Due Date Last Done Comments Cervical Cancer Screening Pa p Smear (Age 30 to 64) Every 3 Years 1972 Pneumococcal Vaccine: Pediatrics (0 to 5 Years) and At-Risk Patients (6 to 64 Years) (1 of 2 - PCV) 1978 Hepatitis C 1990 Hepatitis B Vaccines (1 of 3 - 19+ 3-dose series) 06/27/1991 Annual Physical 05/01/2022 05/01/2021 Zoster Vaccines (1 of 2) 2022 COVID-19 Vaccine (2 - 2023-2 5 season) 2023 07/15/2020 Influenza Adult (#1) 2023 11/17/2018 DTaP, Tdap and Td Vaccines ( 2 - Td or Tdap) 09/01/2024 09/01/2014 Mammogram Screening 11/13/2025 11/14/2023, 10/30/2023 Cervical Cancer Screening Pa p with HPV Testing (Age 30 to 64) Every 5 Years 04/17/2026 04/17/2021, 04/17/2021 Cervical Cancer Screening wi th HPV 04/17/2026 Colorectal Cancer Screening Colonoscopy (10 Years) 09/13/2031 09/12/2021 Meningococcal Vaccine Aged Out No tavares devendra eligible based on patient's age to complete this topic RSV Immunizations Under 20 Months Aged Out No longer eligible b ased on patient's age to complete this topic Procedures Procedure Name Priority Date/Time Associated Diagnosis Comments US BREAST RT BIRAD LTD Routine 11/14/2023 3:30 PM CDT Abnormal mammogram MG DIAG W BEA RT DIGI Routine 11/14/2023 2:37 PM CDT Abnormal mammogram MG SCREENING W BEA DANIEL DIGI Routine 10/30/2023 9:10 AM CDT Screening mammogram for breast cancer COLONOSCOPY GENERIC (SCAN ORDER) 09/12/2021 OUTSIDE CYTOPATH CERV/VAG INTERPRET (PAP) 04/17/2021 from Last 3 Months or Most Recently Relevant to Health Maintenance Results * US BREAST RT Tangible Cryptography LTD (11/14/2023 3:30 PM CDT) Anatomical Region Laterality Modality Breast Right Ultrasound 11/14/2023 3:41 PM CDT Impressions 11/14/2023 3:48 PM CDT IMPRESSION: ??Probably benign masses favored represent urinary lymph nodes nodes which are likely stable given differences in technique and superimposed heterogeneously dense fibroglandular tissue on previous 2-D mammography. ?? RECOMMENDATION: ??Short interval follow-up in 6 months.Right Findings, impression, and recommendation were discussed with the patient immediately following exam completion. OVERALL IMAGING ASSESSMENT: ACR BI-RADS 3 - PROBABLY BENIGN FINDING(S) - SHORT INTERVAL FOLLOW-UP SUGGESTED. ?? Ordered By: PHYLLIS ADAMS Interpreted By: Louis Paula, 11/14/2023 3:41 PM Narrative 11/14/2023 3:48 PM CDT [facility] [address] [place] [address] EXAMINATION: MG CARL Becker BEA RT DIGI, US BREAST RT BorderfreeAD LTD ? [id number] INDICATIONS: Abnormal mammogram TECHNIQUE: Digital full field true lateral and spot compression CC and MLO diagnostic views of the right breast to include 3-D Tomosynthesis technique. This study was read with the assistance of a computer-aided detection system. Targeted grayscale and color Doppler ultrasound imaging of the right breast. HISTORY: Patient presents for diagnostic evaluation of indeterminate findings on screening mammography without complaint. No personal or family history of breast cancer. No prior breast procedure. COMPARISON: 10/30/2023, 02/24/2018, and 10/18/2014. TISSUE DENSITY: The breasts are heterogeneously dense, which may obscure small masses. FINDINGS: Mammogram Circumscribed ovoid equal density masses persist with spot compression measuring approximately 7 mm at the upper middle depth breast and 5 mm at the lower outer middle depth breast. No associated architectural distortion. Similar- appearing asymmetries within these regions on comparison 2-D mammography. No axillary adenopathy. Sonogram: Targeted sonographic evaluation of the right lower outer breast demonstrates a circumscribed ovoid reniform 5 mm probable intramammary lymph node at the 8:30 axis 4 cm from the nipple. This demonstrates parallel orientation with preserved central hilar echogenicity. This is favored to correspond positively with reniform mass on mammography. Additional ovoid hypoechogenicity at the 8:30 axis 5 cm from the nipple along its on real-time imaging, compatible with mild ductal ectasia. Targeted sonographic evaluation of the upper inner breast demonstrates mild ductal ectasia at the 2:30 axis 6-7 cm from the nipple to include an ovoid hypoechoic masslike focus which elongates on real-time imaging. No discrete mass or abnormal shadowing within the visualized upper outer breast. us Phyllis Adams DO ULTRASOUND Final Result * MG DIAG W BEA RT DIGI (11/14/2023 2:37 PM CDT) Anatomical Region Laterality Modality Breast Right Mammography 11/14/2023 3:41 PM CDT Impressions 11/14/2023 3:48 PM CDT IMPRESSION: ??Probably benign masses favored represent urinary lymph nodes nodes which are likely stable given differences in technique and superimposed heterogeneously dense fibroglandular tissue on previous 2-D mammography. ?? RECOMMENDATION: ??Short interval follow-up in 6 months.Right Findings, impression, and recommendation were discussed with the patient immediately following exam completion. OVERALL IMAGING ASSESSMENT: ACR BI-RADS 3 - PROBABLY BENIGN FINDING(S) - SHORT INTERVAL FOLLOW-UP SUGGESTED. ?? Ordered By: PHYLLIS ADAMS Interpreted By: Louis Paula, 11/14/2023 3:41 PM Narrative 11/14/2023 3:48 PM CDT [facility] [address] [place] [address] EXAMINATION: MG DIAG W BEA RT DIGI, US BREAST RT BIRAD LTD ? [id number] INDICATIONS: Abnormal mammogram TECHNIQUE: Digital full field true lateral and spot compression CC and MLO diagnostic views of the right breast to include 3-D Tomosynthesis technique. This study was read with the assistance of a computer-aided detection system. Targeted grayscale and color Doppler ultrasound imaging of the right breast. HISTORY: Patient presents for diagnostic evaluation of indeterminate findings on screening mammography without complaint. No personal or family history of breast cancer. No prior breast procedure. COMPARISON: 10/30/2023, 02/24/2018, and 10/18/2014. TISSUE DENSITY: The breasts are heterogeneously dense, which may obscure small masses. FINDINGS: Mammogram Circumscribed ovoid equal density masses persist with spot compression measuring approximately 7 mm at the upper middle depth breast and 5 mm at the lower outer middle depth breast. No associated architectural distortion. Similar- appearing asymmetries within these regions on comparison 2-D mammography. No axillary adenopathy. Sonogram: Targeted sonographic evaluation of the right lower outer breast demonstrates a circumscribed ovoid reniform 5 mm probable intramammary lymph node at the 8:30 axis 4 cm from the nipple. This demonstrates parallel orientation with preserved central hilar echogenicity. This is favored to correspond positively with reniform mass on mammography. Additional ovoid hypoechogenicity at the 8:30 axis 5 cm from the nipple along its on real-time imaging, compatible with mild ductal ectasia. Targeted sonographic evaluation of the upper inner breast demonstrates mild ductal ectasia at the 2:30 axis 6-7 cm from the nipple to include an ovoid hypoechoic masslike focus which elongates on real-time imaging. No discrete mass or abnormal shadowing within the visualized upper outer breast. us Phyllis Cathy DO MAMMO Final Result * MG SCREENING W BEA DANEIL DIGI (10/30/2023 9:10 AM CDT) Anatomical Region Laterality Modality Breast Bilateral Mammography 11/03/2023 3:01 PM CDT Impressions 11/03/2023 3:03 PM CDT IMPRESSION: Right breast asymmetries as described. Recommendation: 1. Additional Imaging, Right Assessment: ACR BI-RADS 0 - INCOMPLETE: NEEDS ADDITIONAL IMAGING EVALUATION Ordered By: PHYLLIS ADAMS Interpreted By: Rico Mccurdy, 11/03/2023 3:01 PM Narrative 11/03/2023 3:03 PM [address]T [address] [address] Examination: Screening bilateral mammogram Exam Date/Time: 10/30/2023 8:51 AM Clinical history: No current complaints. Comparison: 02/24/2018 Technique: Digital screening mammography of both breasts was performed. ?Breast tomosynthesis acquisitions were obtained and reviewed. ??This study was read with the assistance of a computer-aided detection system. Tissue density: There are scattered areas of fibroglandular density. Findings: Right retroareolar breast asymmetry on MLO view. Right inner breast asymmetry on CC view. Left breast appear stable and benign. No suspicious microcalcification or architectural distortion. us Phyllis Adams DO MAMMO Final Result * COLONOSCOPY GENERIC (09/12/2021) 09/12/2021 Narrative 09/12/2021 Ordered by an unspecified provider. us Documents Scanned SCANNING Final Result * OUTSIDE CYTOPATH VAG/CERV PAP WITH HPV (04/17/2021) 04/17/2021 Narrative 04/17/2021 Ordered by an unspecified provider. us Documents Scanned SCANNING Final Result from Last 3 Months or Most Recently Relevant to Health Maintenance Insurance [employer] Member Subscriber Plan / Payer (Ef fective 2023-Present) Name:Carol Martinez Relation to Subscriber:Spouse Name:PATRICE MARTINEZ Date of :1964 (Home) Address: [address] [place] [address] Payer ID:[id number] (NAIC) Type:Not on file Address: [place] [id number] Care Teams Chief Recordist Relationship Specialty Start Date End Date Phyllis Adams DO [address] [place] [address] PCP - General FAMILY PRACTICE 05/01/21
--- OUTSIDE RECORDS SUMMARY | 2024-01-28 00:50 | XMS_ITS | Encounter Summary ---
Author Organization [facility] Address [address] [place] [address] Care Team Providers Care Healthcare Facility Administrator Name Role Phone Unavailable Primary Care Provider Unavailabl e Reason for Visit * Reason Onset Date Comments Follow-up 11/06/2018 Encounter Details Date Type Department Care Team (Late st Contact Info) Description 11/06/2018 Telephone [facility] AT [address] [address] Sera Young, BATH DESIGN SALES CONSULTANT-[facility] [address] [place] [address] Follow-up Social History Tobacco Use Types Packs/Day [...]
--- OUTSIDE RECORDS SUMMARY | 2024-01-28 00:50 | XMS_ITS | Encounter Summary ---
Author Organization [facility] Address [address] [place] [address] Care Team Providers Care Dike Supervisor Name Role Phone Unavailable Primary Care Provider Unavailabl e Reason for Visit * Reason Onset Date Comments Bladder infection 09/28/2018 dull cramping pain Encounter Details Date Type Department Care Team (Late st Contact Info) Description 09/28/2018 Telephone [facility] AT [address] [phone] Provider, [facility] Exp [facility] Bladder infection (dull cramping pain) Social History Tobacco Use Types Packs/Day Years Used Date Smoking Tobacco: Never Assessed Sex and Gender Information Value Date Recorded Sex Assigned at Not on file Gender Identity Not on file Sexual Orientation Not on file documented as of this encounter Miscellaneous Notes * Telephone Encounter - Quynh Clemente - 09/28/2018 12:08 PM CDT Who is calling? self What is the reason for call? Dull cramping took medication for 4 day with little relief. Expected Response from the Clinic? Call back patient DEPUTY SHERIFF K9 HANDLER called pt back after reviewing the UA test results that were completely negative. Pt stated on the phone that she was feeling better, the pain had subsided but she wasn't sure if she should add a different abx. DEPUTY SHERIFF K9 HANDLER stated that she has visited our clinic once before, a year ago approximately, and a UA was done then, completely negative as well. DEPUTY SHERIFF K9 HANDLER stated that showing no Leukocytes, no Nitrites, That there is no UTI going on, but it should be investigated at a higher level: UC, Primary care, CABLE ENGINEER OUTSIDE PLANT. Pt stated she thanked us for the return call. Internal Investigator stated that if the abx is helping her to finish the abx and f/u with a primary care, CABLE ENGINEER OUTSIDE PLANT, UC or ED. Pt stated she will follow thru if sx's do not resolve with one of those providers. documented in this encounter Plan of Treatment Not on file documented as of this encounter Visit Diagnoses Not on filedocumented in this encounter
--- OUTSIDE RECORDS SUMMARY | 2024-01-28 00:50 | XMS_ITS | Encounter Summary ---
Author Organization [facility] Address [address] [place] [address]. [place], [place] [address] [place] [address] Care Team Providers Care Manufacturing Specialist Name Role Phone Phyllis Morgan DO Primary Care Provider [phone] Reason for Visit * Reason Onset Date Comments Results 11/04/2023 Mammogram Encounter Details Date Type Department Care Team ([facility] Contact Info) Description 11/04/2023 Telephone [facility] Family Medicine - [place] [address], [address] [place] [phone] Phyllis Morgan DO [address] [place], [place] [id number] Results (Mammogram/) Social History Tobacco Use Types Packs/Day Years Used Date Smoking Tobacco: Every Day Smokeless Tobacco: Never Alcohol Use Standard Drinks/Week Comments Yes 0 (1 standard drink = 0.6 oz pur e alcohol) PHQ-2 Answer Date Recorded Patient Health Questionnaire-2 Score 0 10/31/2023 Comments No Sex and Gender Information Value Date Recorded Sex Assigned at Not on file Legal Sex Female 9:04 AM LAP WINDER Gender Identity Not on file Sexual Orientation Not on file documented as of this encounter Progress Notes * Annelise Herrera RN - 11/04/2023 3:37 PM CDT Spoke with patient and informed her of her mammogram results and recommendations as noted per Dr. Morgan. Patient verbalized understanding of results and agrees to recommendations. She is worried about the findings because she also has a lung nodule that is being monitored as well. Assured patient that call backs for additional imaging are common, imaging already scheduled and she will get results and plan at time of diagnostic imaging. Encouraged her to call with any questions or concerns. Opportunity given for all questions to be answered, no further needs voiced at this time. * Annelise Herrera RN - 11/04/2023 3:30 PM CDT ----- Message from Dr. Phyllis Morgan sent at 11/04/2023 3:21 PM CDT ----- Right breast asymmetry on cc Please order javid mammogram diagnostics and javid us breast right documented in this encounter Plan of Treatment Upcoming Encounters Date Type Department Care Team (Late st Contact Info) Description 02/06/2024 10:00 AM LAP WINDER Office Visit [facility] Family Medicine - [place] [address] [facility], [address] [place] [phone] Phyllis Morgan DO [address] [place] [address] 04/29/2024 8:20 AM CDT Office Visit [facility]ty Care - [facility] [address] [place] [address] Karl Rose DO [address] [facility] [address] [place] [address] 05/01/2024 9:15 AM CDT Appointment [facility] [address] [place] [address] Karl Rose DO [address] [facility] [address] [place], [place] [id number] documented as of this encounter Visit Diagnoses Not on filedocumented in this encounter Additional Health Concerns Assessment Noted Time PHQ-9 Depression Total Score: 7 05/28/19 24 10:42 AM CDT documented as of this encounter Care Teams Manufacturing Specialist Relationship Specialty Start Date End Date Phyllis Morgan DO [address] [place] [address] PCP - General FAMILY PRACTICE 05/01/21 documented as of this encounter
--- OUTSIDE RECORDS SUMMARY | 2024-01-28 00:50 | XMS_ITS | Encounter Summary ---
Author Organization [facility] Address [address] [place] [address] Care Team Providers Care Matrix Drier Tender Name Role Phone Phyllis Morgan DO Primary Care Provider [phone] Encounter Details Date Type Department Care Team (Late st Contact Info) Description 11/27/2023 Lab Requisition [facility] - DermPath Lab [address] [facility], [place] [address] Debra Lozano MD [address] [facility] [place] [address] [place] [address] Social History Tobacco Use Types Packs/Day Years [...] Priority Date/Time Associated Diagnosis Comments DERMATOPATHOLOGY Routine 11/27/2023 2:49 PM CDT documented in this encounter Results * DERMATOPATHOLOGY (11/27/2023 2:49 PM CDT) Case Report Dermatopathology Report ? Case: [id number] ? Authorizing Provider: ??Debra Lozano MD ? Collected: ? 11/27/2023 02:49 PM ? Ordering Location: ? [facility] - ??Received: ?11/28/2023 12:41 PM ? DermPath Lab ? Pathologist: ? Tammy Sultana MD ? Specimens: ?? A) - Skin, right medial lower leg ? B) - Skin, mid upper chest ? 4 2:25 PM CDT DERMATOPATHOLOGY LABORATORY Final Diagnosis Specimen A. SKIN, right medial lower leg: BASAL CELL CARCINOMA, NODULAR TYPE (C44.712) Specimen B. SKIN, mid upper chest: BASAL CELL CARCINOMA, SUPERFICIAL MULTIFOCAL (C44.519) 4 2:25 PM CDT DERMATOPATHOLOGY LABORATORY Clinical History A: Telangiectasis. R/O atypia B: R/O BCC 2:25 PM CDT DERMATOPATHOLOGY LABORATORY Gross Description Specimen A: Received is one formalin filled container labeled with the patient's name and designated right medial lower leg. The specimen consists of a shave biopsy measuring 5x5x1 mm. Jar 0. Specimen B: Received is one formalin filled container labeled with the patient's name and designated mid upper chest. The specimen consists of a shave biopsy measuring 7x5x1 mm. Jar 0. 2:25 PM CDT DERMATOPATHOLOGY LABORATORY Microscopic Description Specimen A. SKIN, right medial lower leg: Within the dermis there are aggregates of basaloid cells with a high nuclear to cytoplasmic ratio and peripheral palisading. Specimen B. SKIN, mid upper chest: Attached to the undersurface of the epidermis, there are small aggregates of basaloid cells with a high nuclear to cytoplasmic ratio and peripheral palisading. 2:25 PM CDT DERMATOPATHOLOGY LABORATORY Disclaimer An external and internal positive and negative controls are appropriate for the histochemical, immunohistochemical and immunofluorescence stain(s) in this case (if any), except where stated explicitly. The performance characteristics of the stain(s) cited in this report were developed and its performance characteristic determined by the Dermatopathology Laboratory at [facility], directed by Dr. Destinee Beaver. These tests need not be, and therefore are not, approved by the [place] Food and Drug Administration. The tests are used for clinical purposes. Billing Codes Specimen Charges Stain Charges 29660 54524 1 1 4 2:25 PM CDT DERMATOPATHOLOGY LABORATORY Embedded Images 2:25 PM CDT DERMATOPATHOLOGY LABORATORY Pathology/Cytology TISSUE SPECIMEN FROM SKIN / Unknown 11/27/2023 2:49 PM CDT 11/28/2023 12:41 PM CDT Miscellaneous samples (specimen) TISSUE SPECIMEN FROM SKIN / Unknown 11/27/2023 2:49 PM CDT 11/28/2023 12:41 PM CDT Debra Lozano MD LAB - PATHOLOGY/CYT OLOGY ORDERABLES DERMATOPATHOLOGY LABORATORY [facility] - Department of Dermatology [facility] Specialized Medicine [address] [place] [address], [address] [phone] documented in this encounter Visit Diagnoses Not on filedocumented in this encounter Care Teams Matrix Drier Tender Relationship Specialty Start Date End Date Phyllis Morgan DO [address] [place] [address] PCP - General 09/25/21 documented as of this encounter
--- OUTSIDE RECORDS SUMMARY | 2024-01-28 00:50 | XMS_ITS | Encounter Summary ---
Author Organization [facility] Address [address] [place] [address] Care Team Providers Care Cook Ice Cream Name Role Phone Unavailable Primary Care Provider Unavailabl e Reason for Visit * Reason Onset Date Comments Follow-up 10/31/2016 Encounter Details Date Type Department Care Team (Late st Contact Info) Description 10/31/2016 Telephone [facility] AT [address] [address] [facility] Follow-up Social History Tobacco Use Types Packs/Day [...]
--- OUTSIDE RECORDS SUMMARY | 2024-01-28 00:50 | XMS_ITS | Encounter Summary ---
Author Organization [facility] Address [address] [place] [address] Care Team Providers Care Emergency Room Nurse Name Role Phone Unavailable Primary Care Provider Unavailabl e Reason for Visit * Reason Onset Date Comments Follow-up 09/27/2018 Encounter Details Date Type Department Care Team (Late st Contact Info) Description 09/27/2018 Telephone [facility] [employer] [facility] AT [address] [address] Naomi Hickman, CAMERA STORAGE CLERK-SHOE WORKER [address] [address] Follow-up Social History Tobacco Use Types Packs/Day [...]
--- OUTSIDE RECORDS SUMMARY | 2024-01-28 00:50 | XMS_ITS | Encounter Summary ---
Author Organization [facility] Address [address] [place] [address]. [place], [place] [id number] [place] [address] Care Team Providers Care Foiling Machine Adjuster Name Role Phone Phyllis Adams DO Primary Care Provider [phone] Reason for Referral * Imaging (Routine) - Closed Specialty Diagnoses / Procedures Referred By Geo retana Referred To Contact RADIOLOGY Diagnoses Abnormal mammogram Procedures US BREAST RT BIRAD LTD Phyllis Adams DO [address] [place] [address] Phone: tel: fax: Referral ID Status Reason Start Date Expiration Date Visits Re quested Visits Authorized [id number] Closed 11/04/2023 11/03/2024 1 1 Encounter Details Date Type Department Care Team (Latest Contact Info) Description 11/14/2023 2:25 PM CDT - 11/14/2023 11:59 PM CDT Hospital Encounter [facility] [address] [place] [address] Phyllis Adams DO [facility] [place] [address] Discharge Disposition: Home or Self Care (Routine Discharge) Social History Tobacco Use Types Packs/Day Years Used Date Smoking Tobacco: Every Day Smokeless Tobacco: Never Alcohol Use Standard Drinks/Week Comments Yes 0 (1 standard drink = 0.6 oz pur e alcohol) PHQ-2 Answer Date Recorded Patient Health Questionnaire-2 Score 0 10/31/2023 Comments No Sex and Gender Information Value Date Recorded Sex Assigned at Not on file Legal Sex Female 9:04 AM LEADERSHIP DEVELOPMENT MANAGER Gender Identity Not on file Sexual Orientation Not on file documented as of this encounter Medications at Time of Discharge cetirizine (ZYRTEC ALLERGY) 10 MG tabletIndications:Vi tamin D deficiency,Chronic fatigue,Tobacco smoker within last 12 months,SOB (shortness of breath),Snoring,Corporate Trust Officer cortney nonintractable headache, unspecified headache type Take 1 tablet (10 mg total) by mouth daily. 30 tablet 1 05/28/2023 doxycycline hyclate (VIBRAMYCIN) 100 MG capsule Take 1 capsule (100 mg total) by mouth 2 (two) times daily. fluticasone propionate (FLONASE) 50 MCG/ACT nasal sprayIndications:Vit hooks D deficiency,Chronic fatigue,Tobacco smoker within last 12 months,SOB (shortness of breath),Snoring,Corporate Trust Officer cortney nonintractable headache, unspecified headache type 1 spray by Nasal route daily. 16 g 05/28/2023 documented as of this encounter Plan of Treatment Upcoming Encounters Date Type Department Care Team (Late st Contact Info) Description 02/06/2024 10:00 AM LEADERSHIP DEVELOPMENT MANAGER Office Visit [facility] Family Medicine - [place] [id number] [facility], [address] [place] [address] Phyllis Adams, [address] [place] [address] 04/29/2024 8:20 AM CDT Office Visit [facility]ispecialty Care - [facility] [address] [place] [address] Karl Rose [address] [facility] [address] [place] [address] 05/01/2024 9:15 AM CDT Appointment [facility] [address] [place] [address] Karl Rose DO [address] [place] [address] documented as of this encounter Procedures Procedure Name Priority Date/Time Associated Diagnosis Comments US BREAST RT BIRAD LTD Routine 11/14/2023 3:30 PM CDT Abnormal mammogram MG DIAG W BEA RT DIGI Routine 11/14/2023 2:37 PM CDT Abnormal mammogram documented in this encounter Results * US BREAST RT BIRAD LTD (11/14/2023 3:30 PM CDT) Anatomical Region [...] 3:41 PM Narrative 11/14/2023 3:48 PM CDT [facility] [address] [place] [address] EXAMINATION: MG DIAG W BEA RT DIGI, US BREAST RT BIRAD LTD ? [id number] INDICATIONS: Abnormal mammogram TECHNIQUE: Digital full field [...] upper outer breast. us Phyllis Cathy DO ULTRASOUND Final Result * MG DIAG [...] 3:41 PM Narrative 11/14/2023 3:48 PM CDT [facility] [address] [place] [address] EXAMINATION: MG DIAG W BEA RT DIGI, US BREAST RT BIRAD LTD ? [id number] INDICATIONS: Abnormal mammogram TECHNIQUE: Digital full field [...] upper outer breast. us Phyllis Adams DO MAMMO Final Result documented in this encounter Visit Diagnoses Diagnosis Abnormal mammogram Abnormal mammogram, unspecified documented in this encounter Additional Health Concerns Assessment Noted Time PHQ-9 Depression Total Score: 7 05/28/19 24 10:42 AM CDT documented as of this encounter Care Teams Foiling Machine Adjuster Relationship Specialty Start Date End Date Phyllis Adams DO [address] [place] [address] PCP - General FAMILY PRACTICE 05/01/21 documented as of this encounter
--- OUTSIDE RECORDS SUMMARY | 2024-01-28 00:50 | XMS_ITS | Encounter Summary ---
Author Organization [facility] Address [address] [place] [address] Care Team Providers Care Copy Messenger Name Role Phone Unavailable Primary Care Provider Unavailabl e Reason for Visit * Reason Comments Bladder infection Encounter Details Date Type Department Care Team (Late st Contact Info) Description 10/29/2016 10:40 AM CDT Office Visit [facility] AT [address] [address] [facility] Acute cystitis with hematuria (Primary Dx) Social History Tobacco Use Types Packs/Day Years Used Date Smoking Tobacco: Never Assessed Sex and Gender Information Value Date Recorded Sex Assigned at Not on file Gender Identity Not on file Sexual Orientation Not on file documented as of this encounter Last Filed Vital Signs Vital Sign Reading Time Taken Comments Blood Pressure 112/66 10/29/2016 10:21 AM CDT Pulse 78 10/29/2016 10:21 AM CDT Temperature 37 ??C (98.6 ??F) 10/29/2016 10:21 AM CDT Respiratory Rate - - Oxygen Saturation - - Inhaled Oxygen Concentration - - Weight 67.1 kg (148 lb) 10/29/2016 10:21 AM CDT Height 175.3 cm (5' 9 ) 10/29/2016 10:21 AM CDT Body Mass Index 21.86 10/29/2016 10:21 AM CDT documented in this encounter Patient Instructions * Patient Instructions* Naomi Hickman, ZENOBIA-COMMANDING OFFICER MOTORIZED SQUAD - 10/29/2016 10:38 AM CDT Increase water intake, decrease caffeine. May drink cranberry juice to help with symptoms. May use OTC Azo for bladder spasms as needed (this may change the color of your urine). Tylenol or motrin as needed Proper hygiene No bubble baths If no improvement in 48-72 hours follow up with PCP or return to clinic Urinary Traction Infection in Older Adults WHAT YOU NEED TO KNOW: A urinary tract infection (UTI) is caused by bacteria that get inside your urinary tract. Your urinary tract includes your kidneys, ureters, bladder, and urethra. Urine is made in your kidneys, and it flows from the ureters to the bladder. Urine leaves the bladder through the urethra. A UTI is morecommon in your lower urinary tract, which includes your bladder and urethra. DISCHARGE INSTRUCTIONS: Return to the emergency department if: ?? You are urinating very little [...] or concerns about your condition or care. Medicines: ?? Medicines help treat the bacterial infection or decrease pain and burning when you urinate. You may also need medicines to decrease the urge to urinate often. Your healthcare provider may recommend cranberry juice or cranberry supplements to help decrease your symptoms. ?? Take your medicine as directed. Contact [...] in case of an emergency. Self-care: ?? Urinate when you feel the [...] to ask them during your visits. ?? 2016 [employer]. Information is for End User's use only and may not be sold, redistributed or otherwise used for commercial purposes. All illustrations and images included in CareNotes?? are the copyrighted property of [employer]. or [employer]. The above information is an assistant director of financial aid only. It is not intended as medical advice for individual conditions or treatments. Talk to your doctor, nurse or pharmacist before following any medical regimen to see if it is safe and effective for you. documented in this encounter Progress Notes * Naomi Hickman APRN-CNP - 10/29/2016 10:27 AM CDT [facility] Chief Complaint Patient presents with ??? Bladder infection SUBJECTIVE: General The history is provided by the patient. This is a new problem. The current episode started more than 1 week ago. The problem occurs constantly. The problem has been gradually worsening. Pertinent negatives include no shortness of breath. Exacerbated by: urinating. She has tried nothing for the symptoms. 46 y/o female presents with urinary discomfort x 1 week. No past medical history on file. No current outpatient prescriptions on file prior to visit. No current facility-administered medications on file prior to visit. No past surgical history on file. Social History Social History ??? Marital status: Spouse name: N/A ??? Number of children: N/A ??? Years of education: N/A Occupational History ??? Not on file. Social History Main Topics ??? Smoking status: Not on file ??? Smokeless tobacco: Not on file ??? Alcohol use Not on file ??? Drug use: Not on file ??? Sexual activity: Not on file Other Topics Concern ??? Not on file Social History Narrative No family history on file. Current Outpatient Prescriptions Medication Sig Dispense Refill ??? ciprofloxacin (CIPRO) 500 MG tablet Take 1 Tab by mouth 2 times daily for 7 days 14 Tab 0 No current facility-administered medications for this visit. No Known Allergies REVIEW OF SYSTEMS: Review of Systems Constitutional: Negative for chills and fever. Respiratory: Negative for cough and shortness of breath. Genitourinary: Positive for flank pain and frequency. Negative for dysuria, hematuria and urgency. Suprapubic pressure and odor OBJECTIVE: General appearance: alert, well appearing, and in no distress. BP 112/66 Pulse 78 Temp 98.6 ??F (Oral) Ht 1.753 m (5' 9 ) Wt 67.1 kg (148 lb) BMI 21.86 kg/m2 Physical Exam Constitutional: She is oriented to person, place, and time and well-developed, well-nourished, and in no distress. HENT: Head: Normocephalic and atraumatic. Cardiovascular: Normal rate and regular rhythm. Pulmonary/Chest: Effort normal and breath sounds normal. Genitourinary: Genitourinary Comments: No CVA tenderness, + suprapubic pressure Neurological: She is alert and oriented to person, place, and time. Vitals reviewed. ASSESSMENT: Office Visit on 10/29/16 URINALYSIS AUTO - POINT OF CARE (AMB) STL Result Value Ref Range Clarity UA clear Color UA hansel Leukocyte UA neg Negative Nitrite UA neg Negative Urobilinogen UA 0.2 0.1 - 1.0 Protein UA 30+ Negative pH UA 6.5 5.0 - 8.0 pH units Blood UA + Negative Specific Edmonds UA 1.005 1.002 - 1.030 Ketone UA small Negative Bili UA neg Negative Glucose UA neg Negative Expiration Date [id number] Lot Number [id number] QC VERIFIED Yes Yes Encounter Diagnosis Name Primary? Acute cystitis with [...] up with PCP or return to clinic documented in this encounter Plan of Treatment Not on file documented as of this encounter Procedures Procedure Name Priority Date/Time Associated Diagnosis Comments URINALYSIS AUTO - POINT OF CARE (AMB) STL Routine 10/29/2016 Acute cystitis with hematuria documented in this encounter Results * (ABNORMAL) URINALYSIS AUTO - POINT OF CARE (AMB) STL (10/29/2016) Clarity UA POCT clear Color UA POCT hansel Leukocyte UA neg Negative Nitrite UA POCT neg Negative Urobilinogen UA 0.2 0.1 - 1.0 Protein UA POCT 30+ Negative pH UA 6.5 5.0 - 8.0 pH units Blood UA + Negative Specific Edmonds UA POCT 1.005 1.002 - 1.030 Ketone UA small Negative Bilirubin UA POCT neg Negative Glucose UA neg Negative Expiration Date [id number] Lot # [id number] QC Verified Yes Yes URINE / Unknown 10/29/2016 Naomi VELOZ LAB - POINT O F CARE ORDERABLES documented in this encounter Visit Diagnoses Diagnosis Acute cystitis with hematuria- Primary Acute cystitis documented in this encounter
--- OUTSIDE RECORDS SUMMARY | 2024-01-28 00:50 | XMS_ITS | Encounter Summary ---
Author Organization [facility] Address [address] [place] [address]. [place], [place] [address] [place] [address] Care Team Providers Care Outside Repairer Special Name Role Phone Phyllis Morgan DO Primary Care Provider [phone] Encounter Details Date Type Department Care Team (Latest Contact Info) Description 11/14/2023 Travel Social History Tobacco Use Types Packs/Day Years Used Date Smoking Tobacco: Every Day Smokeless Tobacco: Never Alcohol Use Standard Drinks/Week Comments Yes 0 (1 standard drink = 0.6 oz pur e alcohol) PHQ-2 Answer Date Recorded Patient Health Questionnaire-2 Score 0 10/31/2023 Comments No Sex and Gender Information Value Date Recorded Sex Assigned at Not on file Legal Sex Female 9:04 AM CEREAL MAKER Gender Identity Not on file Sexual Orientation Not on file documented as of this encounter Plan of Treatment Upcoming Encounters Date Type Department Care Team (Late st Contact Info) Description 02/06/2024 10:00 AM CEREAL MAKER Office Visit [facility] Family Medicine - [place] [address] [facility] [place] [address] Phyllis Morgan DO [address] [place] [address] 04/29/2024 8:20 AM CDT Office Visit [facility] Mult[facility]ty Care - [facility] [address] [facility], [address] [place] [address] Karl Rose [address] [facility] [address] [place] [address] 05/01/2024 9:15 AM CDT Appointment [facility] [address] [place] [address] Karl Rose DO [address] [facility] [address] [place] [address] documented as of this encounter Visit Diagnoses Not on filedocumented in this encounter Additional Health Concerns Assessment Noted Time PHQ-9 Depression Total Score: 7 05/28/19 24 10:42 AM CDT documented as of this encounter Care Teams Outside Repairer Special Relationship Specialty Start Date End Date Phyllis Morgan DO [address] [place] [address] PCP - General FAMILY PRACTICE 05/01/21 documented as of this encounter
--- OUTSIDE RECORDS SUMMARY | 2024-01-28 00:51 | XMS_ITS | Encounter Summary ---
Author Organization [facility] Address [address] [place] [address]. [place], [place] [address] [place] [address] Care Team Providers Care End User Consultant Name Role Phone Phyllis Adams DO Primary Care Provider [phone] Reason for Referral * Imaging (Urgent) - Closed Specialty Diagnoses / Procedures Referred By Contac t Referred To Contact RADIOLOGY Diagnoses Nodule of middle lobe of right lung Procedures PET EYE TO THIGH [id number] Phyllis Adams DO [address] [place] [address] Phone: tel: fax: Referral ID Status Reason Start Date Expiration Date Visits Re quested Visits Authorized [id number] Closed 06/16/2023 06/15/2024 1 1 * Consultation (Urgent) - Authorized Specialty Diagnoses / Procedures Referred By Contact Referred To Contact SLEEP & RESPIRATORY CARE Diagnoses Nodule of middle lobe of right lung Procedures OFFICE/OUTPATIENT NEW LOW MDM 30-44 MINUTES OFFICE/OUTPT VISIT,NEW,LEVL IV OFFICE/OUTPT VISIT,NEW,LEVL V OFFICE/OUTPT VISIT,EST,LEVL III OFFICE/OUTPT VISIT,EST,LEVL IV OFFICE/OUTPT VISIT,EST,LEVL V Phyllis Adams DO [address] [place] [address] Phone: tel:[phone] fax: [facility] Multispecialty Care - [address] [place] [address] Phone: tel: fax: Referral ID Status Reason Start Date Expiration Date Visits Requested Visits Authorized [id number] Authorized Specialty Services 06/16/2023 07/17/2024 99 99 Encounter Details Date Type Department Care Team (Late st Contact Info) Description 06/09/2023 Respectancet Message Enc [facility] Family Medicine - [place] [address] [facility], [address] [place] [address] Phyllis Adams DO [address] [place] [address] [place] Social History Tobacco Use Types Packs/Day Years Used Date Smoking Tobacco: Every Day Smokeless Tobacco: Never Alcohol Use Standard Drinks/Week Comments Yes 0 (1 standard drink = 0.6 oz pur e alcohol) PHQ-2 Answer Date Recorded Patient Health Questionnaire-2 Score 0 05/28/2023 Comments No Sex and Gender Information Value Date Recorded Sex Assigned at Not on file Legal Sex Female 9:04 AM UNIT COORDINATOR Gender Identity Not on file Sexual Orientation Not on file documented as of this encounter Progress Notes * Annelise Herrera RN - 06/16/2023 8:30 AM CDT Spoke with patient and informed her of PFT results and recommendations as noted per Dr. Adams. Patient verbalized understanding of results and agrees to recommendations. She will await call for PET scan, she did get a call from Pulmonology as well. Opportunity given for all questions to be answered, no further needs voiced at this time. * Phyllis Adams DO - 06/16/2023 8:18 AM CDT PFT is okay I personally talked to the documentation writer already they will want her PET scan which I already ordered EMELI and then they will make the appointment to see her right after pulmonology office will call her to help arrange that appointment * Annelise Herrera RN - 06/16/2023 8:05 AM CDT Spoke with patient and informed her of her CT results and recommendations as noted per Dr. Adams. Patient verbalized understanding of results and agrees to recommendations. She inquired about PFT results. Advised per interpretation Spirometry normal, mild reduction in total lung capacity but PCPhas not reviewed and provided recommendations. Advised will need to see pulm for Nodule, likely will see them for this as well. Advised will send message to PCP to review, will call back to patient with any additional recommendations. Opportunity given for all questions to be answered, no further needs voiced at this time. Please see PFT results and advise. * Annelise Herrera RN - 06/16/2023 7:57 AM CDT Phyllis Adams DO [facility] Nurse [place] Please call patient and inform that she has a right middle lobe solid nodule measuring 10 x 8 mm Refer to Pulm emeli. ( I have also alerted them as well) . documented in this encounter Plan of Treatment Upcoming Encounters Date Type Department Care Team (Late st Contact Info) Description 02/06/2024 10:00 AM UNIT COORDINATOR Office Visit [facility] Family Medicine - [address], [address] [place] [address] Phyllis Adams DO [address] [place] [address] 04/29/2024 8:20 AM CDT Office Visit [facility] Multispecialty Care - [facility] [address] [place] [address] Milton Stanislavsandra, DO [address] [place] [address] 05/01/2024 9:15 AM CDT Appointment [facility] [address] [place] [address] Kral Rose, [address] [facility] [address] [facility] [address] [place] [address] Scheduled Referrals Name Type Priority Associated Diagnoses Orde r Schedule Ambulatory referral to Pulmonology ([facility]) Referral EMELI Nodule of middle lobe of right lung Ordered: 06/16/2023 documented as of this encounter Results * PET EYE TO THIGH [id number] (06/17/2023 1:34 PM CDT) Anatomical Region Laterality Modality Body Positron Emissio n Tomography (PET) 06/17/2023 2:25 PM CDT Impressions 06/17/2023 2:44 PM CDT IMPRESSION: ?? 1. An approximately 8mm right middle lobe nodule does not have a distinct FDG correlate. This favors a benign etiology. A low-grade neoplasm is not entirely excluded and short-term follow-up with CT of the chest in 3 months to ensure stability or resolution of this finding is recommended. 2. No FDG evidence to suggest malignancy elsewhere. ?? Ordered By: PHYLLIS ADAMS Interpreted By: Hoa Finn MD, 06/17/2023 2:25 PM Narrative 06/17/2023 2:44 PM CDT EXAMINATION: TUMOR FDG-PET/CT IMAGING DATE OF STUDY: ??06/17/2023 SCANNER: [employer] RADIOPHARMACEUTICAL: 10.2 mCi F-18 Fluorodeoxyglucose (FDG) i.v. ??Injection site: Right antecubital fossa HISTORY: Right middle lobe nodule found on recent lung cancer screening CT. ??The study is requested for diagnosis. Initial treatment strategy. TECHNIQUE: ?? The patient's fasting blood glucose level, measured by glucometer before injection of FDG, was 100 mg/dL. ??MD-Gastroview was not given orally. ??After intravenous administration of FDG, noncontrast CT images were obtained for attenuation correction and for fusion with emission PET images to allow for anatomical localization of PET findings. ??Emission PET images were then obtained. ??The study was interpreted on the [employer] workstation. ??The mean liver SUV (reported for software quality specialist purposes) is 3.1. ?? The total scanned area was skull base to the proximal thighs. ??Images of the body were obtained starting 49 minutes after injection of tracer. COMPARISON: No prior FDG PET/CT. Lung cancer screening CT 06/07/2023 FINDINGS: An approximately 8mm right middle lobe nodule does not have a distinct FDG correlate. No hypermetabolic pulmonary mass. No hypermetabolic hilar or mediastinal adenopathy. Symmetric tonsillar FDG uptake is likely infectious/inflammatory. There is a prominent exophytic partially calcified mass extending from the anterior uterus with mild areas of heterogeneous FDG uptake, likely a large uterine fibroid. Inflammatory FDG uptake associated with enthesopathy about the hips. Additional CT findings: Mucosal thickening in the maxillary sinuses. Streak artifact from dental restorations. Mild dependent atelectasis. Small left upper quadrant splenule. Colonic diverticulosis. Pelvic phleboliths. Osteoarthritic degenerative changes involving the hips. Osteoarthritic degenerative changes involving the shoulders. Mild multilevel spondylosis. Procedure Note Hoa Finn MD - 06/17/2023 EXAMINATION: TUMOR FDG-PET/CT IMAGING DATE OF STUDY: 06/17/2023 SCANNER: I Read [employer] RADIOPHARMACEUTICAL: 10.2 mCi F-18 Fluorodeoxyglucose (FDG) i.v.Injection site: Right antecubital fossa HISTORY: Right middle lobe nodule found on recent lung cancer screeningCT. The study is requested for diagnosis. Initial treatment strategy. TECHNIQUE: The patient's fasting blood glucose level, measured byglucometer before injection of FDG, was 100 mg/dL. Olman was notgiven orally. After intravenous administration of FDG, noncontrast CTimages were obtained for attenuation correction and for fusion withemission PET images to allow for anatomical localization of PET findings.Emission PET images were then obtained. The study was interpreted on Mr [employer] workstation. The mean liver SUV (reported for quality controlpurposes) is 3.1. The total scanned area was skull base to the proximal thighs. Images ofthe body were obtained starting 49 minutes after injection of tracer. COMPARISON: No prior FDG PET/CT. Lung cancer screening CT 06/07/2023 FINDINGS: An approximately 8mm right middle lobe nodule does not have a distinct FDGcorrelate. No hypermetabolic pulmonary mass. No hypermetabolic hilar or mediastinaladenopathy. Symmetric tonsillar FDG uptake is likely infectious/inflammatory. There is a prominent exophytic partially calcified mass extending from theanterior uterus with mild areas of heterogeneous FDG uptake, likely alarge uterine fibroid. Inflammatory FDG uptake associated with enthesopathy about the hips. Additional CT findings: Mucosal thickening in the maxillary sinuses.Streak artifact from dental restorations. Mild dependent atelectasis.Small left upper quadrant splenule. Colonic diverticulosis. Pelvicphleboliths. Osteoarthritic degenerative changes involving the hips.Osteoarthritic degenerative changes involving the shoulders. Mildmultilevel spondylosis. IMPRESSION: 1. An approximately 8mm right middle lobe nodule does not have a distinctFDG correlate. This favors a benign etiology. A low-grade neoplasm is notentirely excluded and short-term follow-up with CT of the chest in 3months to ensure stability or resolution of this finding is recommended. 2. No FDG evidence to suggest malignancy elsewhere. Ordered By: PHYLLIS ADAMS Interpreted By: Hoa Finn MD, 06/17/2023 2:25 PM us Phyllis Adams DO PET Final Result documented in this encounter Visit Diagnoses Diagnosis Nodule of middle lobe of right lung- Primary Nodule of middle lobe of right lung documented in this encounter Additional Health Concerns Assessment Noted Time PHQ-9 Depression Total Score: 7 05/28/19 24 10:42 AM CDT documented as of this encounter Care Teams End User Consultant Relationship Specialty Start Date End Date Phyllis Adams DO [address] [place] [address] PCP - General FAMILY PRACTICE 05/01/21 documented as of this encounter
--- OUTSIDE RECORDS SUMMARY | 2024-01-28 00:51 | XMS_ITS | Encounter Summary ---
Author Organization [facility] Address [address] [place] [address]. [place], [place] [id number] [place] [address] Care Team Providers Care Drafting Technician Name Role Phone Phyllis Morgan DO Primary Care Provider [phone] Encounter Details Date Type Department Care Team (Latest Contact Info) Description 09/27/2023 Travel Social History Tobacco Use Types Packs/Day Years Used Date Smoking Tobacco: Every Day Smokeless Tobacco: Never Alcohol Use Standard Drinks/Week Comments Yes 0 (1 standard drink = 0.6 oz pur e alcohol) PHQ-2 Answer Date Recorded Patient Health Questionnaire-2 Score 0 05/28/2023 Comments No Sex and Gender Information Value Date Recorded Sex Assigned at Not on file Legal Sex Female 9:04 AM DISASTER RECOVERY MANAGER Gender Identity Not on file Sexual Orientation Not on file documented as of this encounter Plan of Treatment Upcoming Encounters Date Type Department Care Team (Late st Contact Info) Description 02/06/2024 10:00 AM DISASTER RECOVERY MANAGER Office Visit [facility] Family Medicine - [place] [id number] [facility], [address] [place] [address] Phyllis Morgan DO [address] [place] [address] 04/29/2024 8:20 AM CDT Office Visit [facility] Multispecialty Care - [facility] [address] [facility], [address] [place] [address] Karl Rose [address] [facility] [address] [place] [address] 05/01/2024 9:15 AM CDT Appointment [facility] [address] [place] [address] Karl Rose DO [address] [facility] [address] [place] [address] documented as of this encounter Visit Diagnoses Not on filedocumented in this encounter Additional Health Concerns Assessment Noted Time PHQ-9 Depression Total Score: 7 05/28/19 24 10:42 AM CDT documented as of this encounter Care Teams Drafting Technician Relationship Specialty Start Date End Date Phyllis Morgan DO [address] [place] [address] PCP - General FAMILY PRACTICE 05/01/21 documented as of this encounter
--- OUTSIDE RECORDS SUMMARY | 2024-01-28 00:51 | XMS_ITS | Encounter Summary ---
Author Organization [facility] Address [address] [place] [address]. [place], [place] [address] [place] [address] Care Team Providers Care Multiskill Operator Name Role Phone Phyllis Morgan DO Primary Care Provider [phone] Encounter Details Date Type Department Care Team (Latest Contact Info) Description 05/01/2021 Travel Social History Tobacco Use Types Packs/Day Years Used Date Smoking Tobacco: Every Day Smokeless Tobacco: Never Alcohol Use Standard Drinks/Week Comments Yes 0 (1 standard drink = 0.6 oz pur e alcohol) Comments No Sex and Gender Information Value Date Recorded Sex Assigned at Not on file Legal Sex Female 9:04 AM LIFE CARE PLANNER Gender Identity Not on file Sexual Orientation Not on file COVID-19 Exposure Response Date Recorded In the last 10 days, have yo u been in contact with someone who was confirmed or suspected to have Coronavirus/COVID-19? No / Unsure 05/01/2021 9:20 AM CDT documented as of this encounter Plan of Treatment Upcoming Encounters Date Type Department Care Team (Late st Contact Info) Description 02/06/2024 10:00 AM LIFE CARE PLANNER Office Visit [facility] Family Medicine - [place] [address] [facility], [address] [place] [address] Phyllis Morgan DO [address] [place] [address] 04/29/2024 8:20 AM CDT Office Visit [facility] Multispecialty Care - [address], [address] [place] [address] Karl Rose, [address] [facility] [address] [place] [address] 05/01/2024 9:15 AM CDT Appointment [facility] [address] [place] [address] Karl Rose, [address] [facility] [address] [place] [address] documented as of this encounter Visit Diagnoses Not on filedocumented in this encounter Care Teams Multiskill Operator Relationship Specialty Start Date End Date Phyllis Morgan DO [address] [place] [address] PCP - General FAMILY PRACTICE 05/01/21 documented as of this encounter
--- OUTSIDE RECORDS SUMMARY | 2024-01-28 00:51 | XMS_ITS | Encounter Summary ---
Author Organization [facility] Address [address] [place] [address]. [place], [place] [address] [place] [address] Care Team Providers Care Typing Bookkeeper Name Role Phone Phyllis Morgan DO Primary Care Provider Reason for Visit * Reason Comments Lab (SCAN) Pathology (SCAN) Encounter Details Date Type Department Care Team (Late Contact Info) Description 04/17/2021 Scan HEALTH INFO SRVCS Scanned, Documents Lab (SCAN); Pathology (SCAN) Social History Tobacco Use Types Packs/Day Years Used Date Smoking Tobacco: Never Assessed Comments Unknown Sex and Gender Information Value Date Recorded Sex Assigned at Not on file Legal Sex Female 9:04 AM SLIP FILLER Gender Identity Not on file Sexual Orientation Not on file COVID-19 Exposure Response Date Recorded In the last 10 days, have yo u been in contact with someone who was confirmed or suspected to have Coronavirus/COVID-19? No / Unsure 05/01/2021 9:20 AM CDT documented as of this encounter Plan of Treatment Upcoming Encounters Date Type Department Care Team ([facility] Contact Info) Description 02/06/2024 10:00 AM SLIP FILLER Office Visit [facility] Family Medicine - [place] [address] [facility], [address] [place] [address] Phyllis Morgan DO [address] [place] [address] 04/29/2024 8:20 AM CDT Office Visit [facility] Multispecialty Care - [address] [place] [address] Karl Rose, [address] [facility] [address] [place] [address] 05/01/2024 9:15 AM CDT Appointment [facility] [address] [place] [address] Karl Rose, [address] [facility] [address] [place] [address] documented as of this encounter Procedures Procedure Name Priority Date/Time Associated Diagnosis Comments OUTSIDE CYTOPATH CERV/VAG INTERPRET (PAP) 04/17/2021 OUTSIDE CYTOPATH CERV/VAG INTERPRET (PAP) 04/17/2021 OUTSIDE LAB (SCAN ORDER) 04/17/2021 documented in this encounter Results * OUTSIDE CYTOPATH VAG/CERV PAP WITH HPV (04/17/2021) 04/17/2021 Narrative 04/17/2021 Ordered by an unspecified provider. us Documents Scanned SCANNING Final Result * OUTSIDE CYTOPATH VAG/CERV PAP WITH HPV (04/17/2021) 04/17/2021 Narrative 04/17/2021 Ordered by an unspecified provider. us Documents Scanned SCANNING Final Result * OUTSIDE LAB (SCAN) (04/17/2021) 04/17/2021 Narrative 04/17/2021 Ordered by an unspecified provider. us Documents Scanned SCANNING Final Result documented in this encounter Visit Diagnoses Not on filedocumented in this encounter Care Teams Typing Bookkeeper Relationship Specialty [place] [address] [place] [address] PCP - General FAMILY PRACTICE 05/01/21 documented as of this encounter
--- OUTSIDE RECORDS SUMMARY | 2024-01-28 00:51 | XMS_ITS | Encounter Summary ---
Author Organization [facility] Address [address] [place] [address]. [place], [place] [address] [place] [address] Care Team Providers Care Director Design Name Role Phone Phyllis Morgan DO Primary Care Provider [phone] Encounter Details Date Type Department Care Team (Late st Contact Info) Description 05/10/2021 MyChart Message Enc [facility] Family Medicine - [place] [address] [facility], [address] [place] [address] Phyllis Morgan DO [address] [place] [address] Sinus Issues Social History Tobacco Use Types Packs/Day Years Used Date Smoking Tobacco: Every Day Smokeless Tobacco: Never Alcohol Use Standard Drinks/Week Comments Yes 0 (1 standard drink = 0.6 oz pur e alcohol) Comments No Sex and Gender Information Value Date Recorded Sex Assigned at Not on file Legal Sex Female 9:04 AM HATCHERY LABORER Gender Identity Not on file Sexual Orientation Not on file COVID-19 Exposure Response Date Recorded In the last 10 days, have yo u been in contact with someone who was confirmed or suspected to have Coronavirus/COVID-19? No / Unsure 05/01/2021 9:20 AM CDT documented as of this encounter Progress Notes * Kimberly Dominguez MA - 05/11/2021 9:12 AM CDT lvm for patient to call back. Need to offer an appt to be seen this morning. * Reymundo Brannon MA - 05/10/2021 2:44 PM CDT I left a message for Carol. I was letting her know per Dr. Morgan, Please call patinet and provide an appt May 11 any 20minutes in person appt. ?? I can se her 700am tomorrow or any other , may split the 1120am appt to 2 20 minutes I left our office number to call back. Please make an appt. * Phyllis Morgan DO - 05/10/2021 10:13 AM CDT Please call patinet and provide an appt May 11 any 20minutes in person appt. I can se her 700am tomorrow or any other , may split the 1120am appt to 2 20 minutes * Phyllis Morgan DO - 05/10/2021 10:12 AM CDTFrom: Carol Arron To: Dr. Phyllis Morgan Sent: 05/10/2021 8:17 AM CDT Subject: Sinus Issues I was wondering if the doctor could prescribe me a antibiotic for a sinus infection? I woke up Friday with a headache and lots of pressure in my head. I have been doing Flonase, over the counter decongestants and the neti pot. I get some relief but still feel congestion and have a mild headache and I can just feel the infection in the back of my throat. documented in this encounter Plan of Treatment Upcoming Encounters Date Type Department Care Team (Late st Contact Info) Description 02/06/2024 10:00 AM HATCHERY LABORER Office Visit [facility] Family Medicine - [address], [address] [place] [address] Phyllis Morgan DO [address] [place] [address] 04/29/2024 8:20 AM CDT Office Visit [facility] Multispecialty Care - [facility] [address] [facility] [address] [place] [address] Karl Rose DO [address] [facility] [address] [place] [address] 05/01/2024 9:15 AM CDT Appointment [facility] [address] [place] [address] Karl Rose DO [address] [facility] [address] [place] [address] documented as of this encounter Visit Diagnoses Not on filedocumented in this encounter Care Teams Director Design Relationship Specialty Start Date End Date Phyllis Morgan DO [address] [place] [address] PCP - General FAMILY PRACTICE 05/01/21 documented as of this encounter
--- OUTSIDE RECORDS SUMMARY | 2024-01-28 00:51 | XMS_ITS | Encounter Summary ---
Author Organization [facility] Address [address] [place] [address]. [place], [place] [address] [place] [address] Care Team Providers Care Trimmer Machine Operator Name Role Phone Phyllis Morgan DO Primary Care Provider [phone] Encounter Details Date Type Department Care Team (Latest Contact Info) Description 10/01/2023 Scan HEALTH INFO SRVCS Scanned, Doc Med Group Social History Tobacco Use Types Packs/Day Years Used Date Smoking Tobacco: Every Day Smokeless Tobacco: Never Alcohol Use Standard Drinks/Week Comments Yes 0 (1 standard drink = 0.6 oz pur e alcohol) PHQ-2 Answer Date Recorded Patient Health Questionnaire-2 Score 0 05/28/2023 Comments No Sex and Gender Information Value Date Recorded Sex Assigned at Not on file Legal Sex Female 9:04 AM CHUCK SPLITTER Gender Identity Not on file Sexual Orientation Not on file documented as of this encounter Plan of Treatment Upcoming Encounters Date Type Department Care Team (Late st Contact Info) Description 02/06/2024 10:00 AM CHUCK SPLITTER Office Visit [facility] Family Medicine - [address] [facility], [address] [place] [address] Phyllis Morgan DO [address] [place], [place] [address] 04/29/2024 8:20 AM CDT Office Visit [facility] Multispecialty Care - [facility] [address] [facility], [address] [place] [address] Karl Rose DO [address] [facility] [address] [place] [address] 05/01/2024 9:15 AM CDT Appointment [facility] [address] [place] [address] Karl Rose DO [address] [facility] [address] [place] [address] documented as of this encounter Visit Diagnoses Not on filedocumented in this encounter Additional Health Concerns Assessment Noted Time PHQ-9 Depression Total Score: 7 05/28/19 24 10:42 AM CDT documented as of this encounter Care Teams Trimmer Machine Operator Relationship Specialty [place] [address] [place] [address] PCP - General FAMILY PRACTICE 05/01/21 documented as of this encounter
--- OUTSIDE RECORDS SUMMARY | 2024-01-28 00:51 | XMS_ITS | Encounter Summary ---
Author Organization [facility] Address [address] [place] [address]. [place], [place] [address] [place] [address] Care Team Providers Care Blast Setter Name Role Phone Phyllis Morgan DO Primary Care Provider [phone] Encounter Details Date Type Department Care Team (Latest Contact Info) Description 06/07/2023 Travel Social History Tobacco Use Types Packs/Day Years Used Date Smoking Tobacco: Every Day Smokeless Tobacco: Never Alcohol Use Standard Drinks/Week Comments Yes 0 (1 standard drink = 0.6 oz pur e alcohol) PHQ-2 Answer Date Recorded Patient Health Questionnaire-2 Score 0 05/28/2023 Comments No Sex and Gender Information Value Date Recorded Sex Assigned at Not on file Legal Sex Female 9:04 AM PRESIDENTIAL SUPPORT SPECIALIST Gender Identity Not on file Sexual Orientation Not on file documented as of this encounter Plan of Treatment Upcoming Encounters Date Type Department Care Team (Late st Contact Info) Description 02/06/2024 10:00 AM PRESIDENTIAL SUPPORT SPECIALIST Office Visit [facility] Family Medicine - [place] [id number] [facility], [address] [place] [address] Phyllis Morgan DO [address] [place] [address] 04/29/2024 8:20 AM CDT Office Visit [facility] Multispecialty Care - [facility] [address] [facility], [address] [place] [address] Karl Rose 3 [facility] [address] [place] [address] 05/01/2024 9:15 AM CDT Appointment [facility] [address] [place] [address] Karl Rose DO 3 [facility] [address] [place] [address] documented as of this encounter Visit Diagnoses Not on filedocumented in this encounter Additional Health Concerns Assessment Noted Time PHQ-9 Depression Total Score: 7 05/28/19 24 10:42 AM CDT documented as of this encounter Care Teams Blast Setter Relationship Specialty Start Date End Date Phyllis Morgan DO [address] [place] [address] PCP - General FAMILY PRACTICE 05/01/21 documented as of this encounter
--- OUTSIDE RECORDS SUMMARY | 2024-01-28 00:51 | XMS_ITS | Encounter Summary ---
Author Organization [facility] Address [address] [place] [address]. [place], [place] [address] [place] [address] Care Team Providers Care Straightedge Machine Operator Helper Name Role Phone Phyllis Morgan DO Primary Care Provider Encounter Details Date Type Department Care Team (Latest Contact Info) Description 06/12/2023 Travel Social History Tobacco Use Types Packs/Day Years Used Date Smoking Tobacco: Every Day Smokeless Tobacco: Never Alcohol Use Standard Drinks/Week Comments Yes 0 (1 standard drink = 0.6 oz pur e alcohol) PHQ-2 Answer Date Recorded Patient Health Questionnaire-2 Score 0 05/28/2023 Comments No Sex and Gender Information Value Date Recorded Sex Assigned at Not on file Legal Sex Female 9:04 AM ARMHOLE BASTER JUMPBASTING Gender Identity Not on file Sexual Orientation Not on file documented as of this encounter Plan of Treatment Upcoming Encounters Date Type Department Care Team (Late st Contact Info) Description 02/06/2024 10:00 AM ARMHOLE BASTER JUMPBASTING Office Visit [facility] Family Medicine - [place] [address] [facility], [address] [place] [address] Phyllis Morgan DO [address] [place] [address] 04/29/2024 8:20 AM CDT Office Visit [facility] Multispecialty Care - [facility] 3 [facility], [address] [place] [address] Karl Rose 3 [facility] [address] [place] [address] 05/01/2024 9:15 AM CDT Appointment [facility] [address] [place] [address] Karl Rose DO 3 [facility] [address] [place] [address] documented as of this encounter Visit Diagnoses Not on filedocumented in this encounter Additional Health Concerns Assessment Noted Time PHQ-9 Depression Total Score: 7 05/28/19 24 10:42 AM CDT documented as of this encounter Care Teams Straightedge Machine Operator Helper Relationship Specialty Start Date End Date Phyllis Morgan DO [address] [place] [address] PCP - General FAMILY PRACTICE 05/01/21 documented as of this encounter
--- OUTSIDE RECORDS SUMMARY | 2024-01-28 00:51 | XMS_ITS | Encounter Summary ---
Author Organization [facility] Address [address] [place] [address]. [place], [place] [address] [place] [address] Care Team Providers Care Calculus Professor Name Role Phone Phyllis Morgan DO Primary Care Provider [phone] Reason for Visit * Reason Onset Date Comments Other 05/29/2022 Encounter Details Date Type Department Care Team (Late st Contact Info) Description 05/29/2022 Telephone [facility] [address] [facility], [facility] [address] [place] [address] Phyllis Morgan DO [address] [place] [address] Other Social History Tobacco Use Types Packs/Day Years Used Date Smoking Tobacco: Every Day Smokeless Tobacco: Never Alcohol Use Standard Drinks/Week Comments Yes 0 (1 standard drink = 0.6 oz pur e alcohol) PHQ-2 Answer Date Recorded Patient Health Questionnaire-2 Score 0 05/21/2022 Comments No Sex and Gender Information Value Date Recorded Sex Assigned at Not on file Legal Sex Female 9:04 AM ASSESSMENT COUNSELOR Gender Identity Not on file Sexual Orientation Not on file COVID-19 Exposure Response Date Recorded In the last 10 days, have yo u been in contact with someone who was confirmed or suspected to have Coronavirus/COVID-19? No / Unsure 05/21/2022 10:26 AM CDT documented as of this encounter Progress Notes * Aleja Hutchison - 05/29/2022 4:24 PM CDT Called patient to sched 48hr HM as ordered by PCP. LM w/spouse to have patient call the office. He gave me patient's work# [phone] to call patient. Called patient at work but it went to a voicemail. Did not leave a message at patient's work since it may a mailbox that is shared with others. documented in this encounter Plan of Treatment Upcoming Encounters Date Type Department Care Team (Late st Contact Info) Description 02/06/2024 10:00 AM ASSESSMENT COUNSELOR Office Visit [facility] Family Medicine - [place] [address] [facility], [address] [place] [address] Phyllis Morgan DO [address] [place] [address] 04/29/2024 8:20 AM CDT Office Visit [facility] Multispecialty Care - [facility] [address] [facility] [address] [place] [address] Karl Rose DO 3 [facility] [address] [place] [address] 05/01/2024 9:[address] [facility] [address] [place] [address] Karl Rose DO [address] [facility] [address] [place], [place] [address] documented as of this encounter Visit Diagnoses Not on filedocumented in this encounter Care Teams Calculus Professor Relationship Specialty Start Date End Date Phyllis Morgan DO [address] [place] [address] PCP - General FAMILY PRACTICE 05/01/21 documented as of this encounter
--- OUTSIDE RECORDS SUMMARY | 2024-01-28 00:51 | XMS_ITS | Encounter Summary ---
Author Organization [facility] Address [address] [place] [address]. [place], [place] [address] [place] [address] Care Team Providers Care Ranch Rider Name Role Phone Phyllis Morgan DO Primary Care Provider [phone] Encounter Details Date Type Department Care Team (Late Contact Info) Description 05/02/2021 Orders Only [facility] [place] [address] [facility], [address] [place] [address] Phyllis Morgan DO [address] [place], [place] [address] Social History Tobacco Use Types Packs/Day Years Used Date Smoking Tobacco: Every Day Smokeless Tobacco: Never Alcohol Use Standard Drinks/Week Comments Yes 0 (1 standard drink = 0.6 oz pur e alcohol) Comments No Sex and Gender Information Value Date Recorded Sex Assigned at Not on file Legal Sex Female 9:04 AM STATION CLEANING PORTER Gender Identity Not on file Sexual Orientation Not on file COVID-19 Exposure Response Date Recorded In the last 10 days, have yo u been in contact with someone who was confirmed or suspected to have Coronavirus/COVID-19? No / Unsure 05/01/2021 9:20 AM CDT documented as of this encounter Plan of Treatment Upcoming Encounters Date Type Department Care Team (Late Contact Info) Description 02/06/2024 10:00 AM STATION CLEANING PORTER Office Visit [facility] [place] [address] [facility], [address] [place] [phone] Linh Morgana, DO [address] [place] [address] 04/29/2024 8:20 AM CDT Office Visit [facility] Multispecialty Care - [facility] [address] [facility] [address] [place] [address] Karl Rose, [address] [facility] [address] [place] [address] 05/01/2024 9:15 AM CDT Appointment [facility] [address] [place] [address] Karl Rose, [address] [facility] [address] [place] [address] documented as of this encounter Procedures Procedure Name Priority Date/Time Associated Diagnosis Comments VITAMIN D, 25 OH TOTAL Routine 7:15 AM CDT RHEUMATOID FACTOR, QUANT Routine 05/02/2021 7:15 AM CDT HEMOGLOBIN, GLYCOSYLATED Routine 05/02/2021 7:15 AM CDT VITAMIN B-12 Routine 05/02/2021 7:15 AM CDT SED RATE, ERYTHROCYTE (ESR) Routine 05/02/2021 7:15 AM CDT COMPREHENSIVE METABOLIC PANEL Routine 05/02/2021 7:15 AM CDT LIPID PANEL Routine 05/02/2021 7:15 AM CDT C-REACTIVE PROTEIN Routine 05/02/2021 7: 15 AM CDT CBC W/DIFF AUTOMATED Routine 05/02/2021 7:15 AM CDT URIC ACID BLOOD Routine 05/02/2021 7:15 AM CDT documented in this encounter Results * HEMOGLOBIN, GLYCOSYLATED (05/02/2021 7:15 AM CDT) HGB A1C 5.2 <5.7 % of total Hgb [facility] Comment: For the purpose of screening for the presence of diabetes: <5.7% ? Consistent with the absence of diabetes 5.7-6.4% ?Consistent with increased risk for diabetes ?(prediabetes) > or =6.5% ??Consistent with diabetes This assay result is consistent with a decreased risk of diabetes. Currently, no consensus exists regarding use of hemoglobin A1c for diagnosis of diabetes in children. According to [place] Diabetes Association (ADA) guidelines, hemoglobin A1c <7.0% represents optimal control in non- diabetic patients. Different metrics may apply to specific patient populations. Standards of Medical Care in Diabetes(ADA). ?? 05/02/2021 7:15 AM CDT 05/02/2021 7:16 AM CDT us Phyllis Cathy DO LABORATORY Final Result [email or web address] [place] [facility] [address] [place] [address] * VITAMIN D, 25 OH TOTAL (05/02/2021 7:15 AM CDT) VITAMIN D 25 HYDROXY TOTAL S/P/B 41 30 - 100 ng/mL [facility] Comment: Vitamin D Status ? 25-OH Vitamin D: Deficiency: ?<20 ng/mL Insufficiency: ? 20 - 29 ng/mL Optimal: ? > or = 30 ng/mL For 25-OH Vitamin D testing on patients on D2-supplementation and patients for whom quantitation of D2 and D3 fractions is required, the [facility](TM) 25-OH VIT D, (D2,D3), LC/MS/MS is recommended: order code [id number] (patients >2yrs). See Note 1 Note 1 For additional information, please refer to http://education.Pressmart/faq/OSO988 (This link is being provided for informational/ educational purposes only.) 05/02/2021 7:15 AM CDT 05/02/2021 7:16 AM CDT Phyllis Cathy DO LABORATORY Final Result Performing Organization Address [facility] de Phone Number [employer] [facility] [place] [facility] [address] [place] [address] * VITAMIN B-12 (05/02/2021 7:15 AM CDT) VITAMIN B12 S/P/B 257 200 - 1,100 pg/mL [facility] Comment: Please Note: Although the reference range for vitamin B12 is 200-1100 pg/mL, it has been reported that between 5 and 10% of patients with values between 200 and 400 pg/mL may experience neuropsychiatric and hematologic abnormalities due to occult B12 deficiency; less than 1% of patients with values above 400 pg/mL will have symptoms. 05/02/2021 7:15 AM CDT 05/02/2021 7:16 AM CDT Phyllis Cathy DO LABORATORY Final Result Performing Organization Address [facility] Co de Phone Number [employer] [facility] - [place] [facility] [address] [place] [address] * C-REACTIVE PROTEIN (05/02/2021 7:15 AM CDT) C-REACTIVE PROTEIN 0.5 <8.0 mg/L [facility] 05/02/2021 7:15 AM CDT 05/02/2021 7:16 AM CDT us Phyllis Cathy DO LABORATORY Final Result Performing Organization Address City/[facility]/ZIP Co de Phone Number [facility] [place] [facility] [address] [place] [address] * RHEUMATOID FACTOR, QUANT (05/02/2021 7:15 AM CDT) RHEUMATOID FACTOR <14 <14 IU/mL [facility] 05/02/2021 7:15 AM CDT 05/02/2021 7:16 AM CDT us Phyllis Cathy DO LABORATORY Final Result Performing Organization Address [facility] de Phone Number [facility] [place] [facility] [address] [place] [address] * CBC W/DIFF AUTOMATED (05/02/2021 7:15 AM CDT) WBC 5.7 3.8 - 10.8 Thousand/u L [facility] RBC 4.46 3.80 - 5.10 Million/uL [facility] HGB 13.8 11.7 - 15.5 g/dL [facility] HCT 41.8 35.0 - 45.0 % [facility] MCV 93.7 80.0 - 100.0 fL [facility] MCH 30.9 27.0 - 33.0 pg [facility] MCHC 33.0 32.0 - 36.0 g/dL [facility] RDW 11.7 11.0 - 15.0 % [facility] PLT 257 140 - 400 Thousand/u L [facility] MPV 10.7 7.5 - 12.5 fL [facility] ABS. NEUTROPHILS 2,975 1,500 - 7,800 cells/uL [facility] ABS. LYMPHOCYTES 1,972 850 - 3,900 cells/uL [facility] ABS. MONOCYTES 513 200 - 950 cells/uL [facility] ABS. EOSINOPHILS 200 15 - 500 cells/uL [facility] ABS. BASOPHILS 40 0 - 200 cells/uL [facility] SEG NEUTROPHILS 52.2 % [facility] LYMPHOCYTES 34.6 % [facility] MONOCYTES 9.0 % [facility] EOSINOPHILS 3.5 % [facility] BASOPHILS 0.7 % [facility] 05/02/2021 7:15 AM CDT 05/02/2021 7:16 AM CDT us Phyllis Cathy DO LABORATORY Final Result Performing Organization Address City/[facility]/ZIP Co de Phone Number [facility] [place] [facility] [address] [place] [address] * SED RATE, ERYTHROCYTE (ESR) (05/02/2021 7:15 AM CDT) SED RATE 2 < OR = 20 mm/h [facility] 05/02/2021 7:15 AM CDT 05/02/2021 7:16 AM CDT us Phyllis Cathy DO LABORATORY Final Result Performing Organization Address [facility] Co de Phone Number [facility] [place] [facility] [address] [place] [address] * COMPREHENSIVE METABOLIC PANEL (05/02/2021 7:15 AM CDT) GLUCOSE 86 65 - 99 mg/dL [facility] Comment: ? Fasting reference interval BUN 17 7 - 25 mg/dL [facility] CREATININE S/P/B 0.91 0.50 - 1.10 mg/dL [facility] EGFR NON-AFR. AMER. 75 > OR = 60 mL/min/1. 73m2 [facility] EGFR AFR. AMER. 86 > OR = 60 mL/min/1. 73m2 [facility] BUN CREATININE RATIO NOT APPLICABLE 6 - 22 (calc) [facility] SODIUM S/P/B 141 135 - 146 mmol/L [facility] POTASSIUM S/P/B 4.3 3.5 - 5.3 mmol/L [facility] CHLORIDE S/P/B 105 98 - 110 mmol/L [facility] CO2 31 20 - 32 mmol/L [facility] CALCIUM S/P/B 9.6 8.6 - 10.2 mg/dL [facility] TOTAL PROTEIN S/P/B 6.6 6.1 - 8.1 g/dL [facility] ALBUMIN S/P/B 4.5 3.6 - 5.1 g/dL [facility] GLOBULIN 2.1 1.9 - 3.7 g/dL (calc) [facility] ALBUMIN/GLOBULI N RATIO 2.1 1.0 - 2.5 (calc) [facility] BILIRUBIN TOTAL S/P/B 0.4 0.2 - 1.2 mg/dL [facility] ALKALINE PHOSPHATASE S/P/B 67 31 - 125 U/L [facility] AST 20 10 - 35 U/L [facility] ALT 26 6 - 29 U/L [facility] 05/02/2021 7:15 AM CDT 05/02/2021 7:16 AM CDT us Phyllis Cathy DO LABORATORY Final Result [facility] [place] [facility] [address] [address] [place] [address] * URIC ACID BLOOD (05/02/2021 7:15 AM CDT) URIC ACID 4.1 2.5 - 7.0 mg/dL [facility] Comment: Therapeutic target for gout patients: <6.0 mg/dL ?? 05/02/2021 7:15 AM CDT 05/02/2021 7:16 AM CDT us Phyllis Cathy DO LABORATORY Final Result [facility] [place] [facility] [address] [place] [address] * (ABNORMAL) LIPID PANEL (05/02/2021 7:15 AM CDT) CHOLESTEROL 193 <200 mg/dL [facility] HDL 59 > OR = 50 mg/dL [facility] TRIGLYCERIDES 53 <150 mg/dL [facility] LDL (CALCULATED) 120(H) mg/dL (calc) [facility] Comment: Reference range: <100 Desirable range <100 mg/dL for primary prevention; ?? <70 mg/dL for patients with CHD or diabetic patients with > or = 2 CHD risk factors. LDL-C is now calculated using the Isabela calculation, which is a validated novel method providing better accuracy than the Friedewald equation in the estimation of LDL-C. Wilbert LORA et al. BRANT. 2013;310(19): 6557-8818 (http://education.Pressmart/faq/HVE344) CHOL/HDL RATIO 3.3 <5.0 (calc) [facility] NON HDL CHOLESTEROL 134(H) <130 mg/dL (calc) [facility] Comment: For patients with diabetes plus 1 major ASCVD risk factor, treating to a non-HDL-C goal of <100 mg/dL (LDL-C of <70 mg/dL) is considered a therapeutic option. 05/02/2021 7:15 AM CDT 05/02/2021 7:16 AM CDT us Phyllis Morgan DO LABORATORY Final Result [facility] [place] [facility] [address] [place] [address] documented in this encounter Visit Diagnoses Not on filedocumented in this encounter Care Teams Ranch Rider Relationship Specialty Start Date End Date Phyllis Morgan DO [address] [place] [address] PCP - General FAMILY PRACTICE 05/01/21 documented as of this encounter
--- OUTSIDE RECORDS SUMMARY | 2024-01-28 00:51 | XMS_ITS | Encounter Summary ---
Author Organization [facility] Address [address] [place] [address]. [place], [place] [address] [place] [address] Care Team Providers Care Direct Mail Coordinator Name Role Phone Phyllis Morgan DO Primary Care Provider Reason for Visit * Reason Onset Date Comments Palpitations 05/21/2023 Intermittent fat igue, HOPKINS, trace edema Encounter Details Date Type Department Care Team (Late st Contact Info) Description 05/21/2023 Nurse Triage [facility] Family Medicine - [address], [address] [place] [phone] Phyllis Morgan DO [address] [place] [address] Palpitations (Intermittent fatigue, HOPKINS, trace edema ) Social History Tobacco Use Types Packs/Day Years Used Date Smoking Tobacco: Every Day Smokeless Tobacco: Never Alcohol Use Standard Drinks/Week Comments Yes 0 (1 standard drink = 0.6 oz pur e alcohol) PHQ-2 Answer Date Recorded Patient Health Questionnaire-2 Score 0 05/21/2022 Comments No Sex and Gender Information Value Date Recorded Sex Assigned at Not on file Legal Sex Female 9:04 AM CLASSIFIED ADVERTISING MANAGER Gender Identity Not on file Sexual Orientation Not on file documented as of this encounter Progress Notes * Annelise Herrera RN - 05/21/2023 2:34 PM CDT Patient states the last time she was seen was for heart palpitations and she was referred to cardiology but did not go. She states continues to have heart palpitations since that time. She notes over the last few months she has noticed that she is more tired. She has also had intermittent leg weakness. She has noticed mild swelling of her ankle and notes it is not very often but when asked toquantify she notes it does happen a few times per week but is mild swelling. She has not noticed if it is with Prolonged sitting or standing. She states she also has intermittent HOPKINS/SOB with activity. She it not SOB at this time. She has had intermittent pain in her back and occasional pressure in her chest but none at this time. Inquired if she has any symptoms today and she responded some shortness of breath but I also have sinus symptoms . She is not audibly SOB on the phone she is able to communicate without difficulty. She has no cough. She has had symptoms for months but feels they may be more frequent or noticeable now. Advised no remaining appt today, PCP out of office tomorrow.At this time no available appt for Friday05/23/23. Offered an appt for Friday05/26/23 she declined and noted she can only do 05/28/23 -05/30/23. Appt scheduled for 05/28/23. Advised to go to ER forChest pain, increased SOB or worsening symptoms. She VU and agrees. Advised she can call back for sooner appt if her schedule allows. Opportunity given for all questions to be answered, no further needs voiced at this time. documented in this encounter Plan of Treatment Upcoming Encounters Date Type Department Care Team (Late st Contact Info) Description 02/06/2024 10:00 AM CLASSIFIED ADVERTISING MANAGER Office Visit [facility] Family Medicine - [place] [address] [facility], [address] [place] [phone] Phyllis Morgan, DO [address] [place] [address] 04/29/2024 8:20 AM CDT Office Visit [facility] Multispecialty Care - [address] [place] [address] Karl Rose, [address] [facility] [address] [place] [address] 05/01/2024 9:15 AM CDT Appointment [facility] [address] [place] [address] Karl Rose, 3 [facility] [address] [place] [address] documented as of this encounter Visit Diagnoses Not on filedocumented in this encounter Care Teams Direct Mail Coordinator Relationship Specialty Start Date End Date Phyllis Morgan DO [address] [place] [address] PCP - General FAMILY PRACTICE 05/01/21 documented as of this encounter
--- OUTSIDE RECORDS SUMMARY | 2024-01-28 00:51 | XMS_ITS | Encounter Summary ---
Author Organization [facility] Address [address] [place] [address]. [place], [place] [address] [place] [address] Care Team Providers Care Filament Maker Name Role Phone Phyllis Morgan DO Primary Care Provider [phone] Encounter Details Date Type Department Care Team (Late st Contact Info) Description 05/28/2023 Orders Only [facility] [address] [place], [place] [id number] Phyllis Morgan DO [facility] [place], [place] [id number] Social History Tobacco Use Types Packs/Day Years Used Date Smoking Tobacco: Every Day Smokeless Tobacco: Never Alcohol Use Standard Drinks/Week Comments Yes 0 (1 standard drink = 0.6 oz pur e alcohol) PHQ-2 Answer Date Recorded Patient Health Questionnaire-2 Score 0 05/28/2023 Comments No Sex and Gender Information Value Date Recorded Sex Assigned at Not on file Legal Sex Female 9:04 AM GRAPHITE GRINDER Gender Identity Not on file Sexual Orientation Not on file documented as of this encounter Plan of Treatment Upcoming Encounters Date Type Department Care Team (Late st Contact Info) Description 02/06/2024 10:00 AM GRAPHITE GRINDER Office Visit [facility] Family Medicine - [place] [address] [facility], [address] [place] [phone] Phyllis Morgan DO [facility] [place], [place] [phone] 04/29/2024 8:20 AM CDT Office Visit [facility] Multispecialty Care - [facility] [address] [facility] [address] [place] [address] Karl Rose DO [address] [facility] [address] [place] [address] 05/01/2024 9:15 AM CDT Appointment [facility] [address] [place] [address] Karl Rose DO [address] [facility] [address] [place] [address] documented as of this encounter Results * (ABNORMAL) NATALI IFA SCRN, [place] REFLEX TO TITER (05/28/2023 10:41 AM CDT) NATALI POSITIVE( A) Negative 06/02/2023 11:26 AM CDT [facility] FISH Comment: NATALI IFA is a first line screen for detecting the presence of up to approximately 150 autoantibodies in various autoimmune diseases. A positive NATALI IFA result is suggestive of autoimmune disease and reflexes to titer and pattern. Further laboratory testing may be considered if clinically indicated. For additional information, please refer to http://education.Hello Universe/faq/HAU157 (This link is being provided for informational/ educational purposes only.) Test Performed by [facility], [facility], [address] [place] [address] Edwar Petersen M.D., Ph.D., Director of Laboratories , [place] [id number] 05/28/2023 10:4 1 AM CDT us Phyllis Cathy DO LABORATORY Final Result [facility] [address] [place] [address], documented in this encounter Visit Diagnoses Diagnosis Chronic fatigue- Primary Other malaise and fatigue documented in this encounter Additional Health Concerns Assessment Noted Time PHQ-9 Depression Total Score: 7 05/28/19 24 10:42 AM CDT documented as of this encounter Care Teams Filament Maker Relationship Specialty Start Date End Date Phyllis Morgan DO [address] [place] [address] PCP - General FAMILY PRACTICE 05/01/21 documented as of this encounter
--- OUTSIDE RECORDS SUMMARY | 2024-01-28 00:51 | XMS_ITS | Encounter Summary ---
Author Organization [facility] Address [address] [place] [address]. [place], [place] [address] [place] [address] Care Team Providers Care Pants Busheler Name Role Phone Phyllis Morgan DO Primary Care Provider [phone] Reason for Visit * Reason Comments Colonoscopy Report (SCAN) Encounter Details Date Type Department Care Team (Late Contact Info) Description 09/12/2021 Scan [facility] INFO SRVCS Scanned, Documents Colonoscopy Report (SCAN) Social History Tobacco Use Types Packs/Day Years Used Date Smoking Tobacco: Every Day Smokeless Tobacco: Never Alcohol Use Standard Drinks/Week Comments Yes 0 (1 standard drink = 0.6 oz pur e alcohol) Comments No Sex and Gender Information Value Date Recorded Sex Assigned at Not on file Legal Sex Female 9:04 AM SIGNAL MECHANIC Gender Identity Not on file Sexual Orientation Not on file documented as of this encounter Plan of Treatment Upcoming Encounters Date Type Department Care Team ([facility] Contact Info) Description 02/06/2024 10:00 AM SIGNAL MECHANIC Office Visit [facility] - [place] [address] [facility], [address] [place] [phone] Phyllis Morgan DO [address] [place], [place] [address] 04/29/2024 8:20 AM CDT Office Visit [facility] Multispecialty Care - [facility] [address] [facility], [address] [place] [phone] Karl Rose [address] [facility] [address] [place] [address] 05/01/2024 9:15 AM CDT Appointment [facility] [address] [place] [address] Karl Rose DO [address] [facility] [address] [place] [address] documented as of this encounter Procedures Procedure Name Priority Date/Time Associated Diagnosis Comments COLONOSCOPY GENERIC (SCAN ORDER) 09/12/2021 documented in this encounter Results * COLONOSCOPY GENERIC (09/12/2021) 09/12/2021 Narrative 09/12/2021 Ordered by an unspecified provider. us Documents Scanned SCANNING Final Result documented in this encounter Visit Diagnoses Not on filedocumented in this encounter Care Teams Pants Busheler Relationship Specialty Start Date End Date Phyllis Morgan DO [address] [place] [address] PCP - General FAMILY PRACTICE 05/01/21 documented as of this encounter
--- OUTSIDE RECORDS SUMMARY | 2024-01-28 00:51 | XMS_ITS | Encounter Summary ---
Author Organization [facility] Address [address] [place] [address]. [place], [place] [address] [place] [address] Care Team Providers Care Raised Printer Name Role Phone Phyllis Adams DO Primary Care Provider [phone] Reason for Referral * Imaging (Urgent) - Closed Specialty Diagnoses / Procedures Referred By Geo retana Referred To Contact RADIOLOGY Diagnoses Nodule of middle lobe of right lung Procedures PET EYE TO THIGH [id number] Phyllis Adams DO [address] [place] [address] Phone: tel: fax: Referral ID Status Reason Start Date Expiration Date Visits Re quested Visits Authorized [id number] Closed 06/16/2023 06/15/2024 1 1 Reason for Visit * Imaging (Urgent) - Closed Specialty Diagnoses / Procedures Referred By Geo retana Referred To Contact RADIOLOGY Diagnoses Nodule of middle lobe of right lung Procedures PET EYE TO THIGH [id number] Phyllis Adams DO [address] [place] [address] Phone: tel: fax: Referral ID Status Reason Start Date Expiration Date Visits Re quested Visits Authorized [id number] Closed 06/16/2023 06/15/2024 1 1 Encounter Details Date Type Department Care Team (Latest Contact Info) Description 06/17/2023 9:56 AM CDT - 06/17/2023 11:59 PM CDT Hospital Encounter [facility] [address] [facility] [address] [place] [address] Phyllis Adams, [address] [place] [address] Discharge Disposition: Home or Self Care (Routine [...] on file Legal Sex Female 9:04 AM DIRECTOR CLIENT SERVICES Gender Identity Not on file Sexual Orientation Not on file documented as of this encounter Medications at Time of Discharge cetirizine (ZYRTEC ALLERGY) 10 MG tabletIndications:Vi tamin D deficiency,Chronic fatigue,Tobacco smoker within last 12 months,SOB (shortness of breath),Snoring,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 30 tablet 1 05/28/2023 doxycycline hyclate (VIBRAMYCIN) 100 MG capsule Take 1 capsule (100 mg total) by mouth 2 (two) times daily. 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 16 g 05/28/2023 clindamycin (CLEOCIN) 150 MG capsuleIndications:A cute non-recurrent frontal sinusitis Take 1 capsule (150 mg total) by mouth 3 (three) times daily for 10 days. 30 capsule 06/17/2023 4 documented as of this encounter Plan of Treatment Upcoming Encounters Date Type Department Care Team (Late st Contact Info) Description 02/06/2024 10:00 AM DIRECTOR CLIENT SERVICES Office Visit [facility] Family Medicine - [address] [place] [address] Phyllis Adams, DO [address] [place] [address] 04/29/2024 8:20 AM CDT Office Visit [facility] Multispecialty Care - [facility] [address] [place] [address] Karl Rose, DO [address] [facility] [address] [place] [address] 05/01/2024 9:15 AM CDT Appointment [facility] [address] [place] [address] Karl Rose, DO [address] [facility] [address] [place] [address] documented as of this encounter Procedures Procedure Name Priority Date/Time Associated Diagnosis Comments PET EYE TO THIGH [id number] EMELI 06/17/2023 1:34 PM CDT Nodule of middle lobe of right lung documented in this encounter Results * PET EYE TO THIGH [id number] (06/17/2023 1:34 PM CDT) Anatomical Region Laterality [...] FDG-PET/CT IMAGING DATE OF STUDY: ??06/17/2023 SCANNER: [facility] RADIOPHARMACEUTICAL: 10.2 mCi F-18 Fluorodeoxyglucose (FDG) i.v. ??Injection site: Right antecubital fossa HISTORY: Right middle lobe nodule found on recent lung cancer screening CT. ??The study is requested for diagnosis. Initial treatment strategy. TECHNIQUE: ?? The patient's fasting blood glucose level, measured by glucometer before injection of FDG, was 100 mg/dL. ??-Gastroview was not given orally. ??After intravenous administration of FDG, noncontrast CT images were obtained for attenuation correction and for fusion with emission PET images to allow for anatomical localization of PET findings. ??Emission PET images were then obtained. ??The study was interpreted on the [employer] workstation. ??The mean liver SUV (reported for quality officer purposes) is 3.1. ?? The total scanned [...] FDG-PET/CT IMAGING DATE OF STUDY: 06/17/2023 SCANNER: [facility] RADIOPHARMACEUTICAL: 10.2 mCi F-18 Fluorodeoxyglucose (FDG) i.v.Injection site: Right antecubital fossa HISTORY: Right middle lobe nodule found on recent lung cancer screeningCT. The study is requested for diagnosis. Initial treatment strategy. TECHNIQUE: The patient's fasting blood glucose level, measured byglucometer before injection of FDG, was 100 mg/dL. HOLAGastroview was notgiven orally. After intravenous administration of FDG, noncontrast CTimages were obtained for attenuation correction and for fusion withemission PET images to allow for anatomical localization of PET findings.Emission PET images were then obtained. The study was interpreted on [employer] workstation. The mean liver SUV (reported for [...] to suggest malignancy elsewhere. Ordered By: PHYLLIS ANGIE Interpreted By: Hoa Finn MD, 06/17/2023 2:25 PM Phyllis Adams DO PET Final Result documented in this encounter Visit Diagnoses Diagnosis Nodule of middle lobe of right lung documented in this encounter Administered Medications Inactive Administered Medications - up to 3 most recent administrations Medication Order MAR Action Action Date Dose Rate Site fludeoxyglucose F 18 radio-isotope injection 10.2 millicurie 10.2 millicurie, Intravenous, Once, 1 dose, On Fri06/17/23 at 1400, Administer as an IV injection. Initiate imaging between 50 and 75 minutes of administration. RADIOPHARMACEUTICAL: Use appropriate precautions for handling & disposal. Follow appropriate safety measures to minimize radiation exposure during administration; use waterproof gloves & effective shielding, including syringe stone. Given 06/17/2023 1:34 PM CDT 10.2 millicuries documented in this encounter Additional Health Concerns Assessment Noted Time PHQ-9 Depression Total Score: 7 05/28/19 24 10:42 AM CDT documented as of this encounter Care Teams Raised Printer Relationship Specialty Start Date End Date Phyllis Adams DO [address] [place] [address] PCP - General FAMILY PRACTICE 05/01/21 documented as of this encounter
--- OUTSIDE RECORDS SUMMARY | 2024-01-28 00:51 | XMS_ITS | Encounter Summary ---
Author Organization [facility] Address [address] [place] [address]. 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 Gender Identity Not on file Sexual Orientation Not on file documented as of this encounter Plan of Treatment Upcoming Encounters Date Type Department Care Team (Late st Contact Info) Description 02/06/2024 10:00 AM SUPERVISOR TWISTING DEPARTMENT Office Visit [facility] Family Medicine - [address] [facility], [address] [place] [address] Phyllis Morgan DO [address] [place], [place] [address] 04/29/2024 8:20 AM CDT Office Visit [facility] Multispecialty Care - [facility] [address] [facility], [address] [place] [phone] Karl Rose, [address] [facility] [address] [place] [address] 05/01/2024 9:15 AM CDT Appointment [facility] [address] [place] [address] Karl Rose DO [address] [facility] [address] [place] [address] documented as of this encounter Procedures Procedure Name Priority Date/Time Associated Diagnosis Comments SPIROMETRY GENERIC (SCAN ORDER) 06/12/2023 documented in this encounter Results * SPIROMETRY GENERIC (SCAN ORDER) (06/12/2023) 06/12/2023 us Doc Med Group Scanned SCANNING Final Resu lt documented in this encounter Visit Diagnoses Not on filedocumented in this encounter Additional Health Concerns Assessment Noted Time PHQ-9 Depression Total Score: 7 05/28/19 24 10:42 AM CDT documented as of this encounter Care Teams Harvest Contractor Relationship Specialty Start Date End Date Phyllis Morgan DO [address] [place] [address] PCP - General FAMILY PRACTICE 05/01/21 documented as of this encounter
--- OUTSIDE RECORDS SUMMARY | 2024-01-28 00:51 | XMS_ITS | Encounter Summary ---
Author Organization [facility] Address [address] [place] [address]. [place], [place] [id number] [place] [address] Care Team Providers Care Glass Inserter Name Role Phone Leslie Adams DO Primary Care Provider [phone] Reason for Referral * Imaging (Routine) - Authorized Specialty Diagnoses / Procedures Referred By Geo retana Referred To Contact RADIOLOGY Diagnoses Chronic nonintractable headache, unspecified headache type Procedures MRI BRAIN WWO CON Leslie Adams DO [address] [place] [address] Phone: tel: fax: Referral ID Status Reason Start Date Expiration Date V isits Requested Visits Authorized [id number] Authorized 05/28/2023 2024 1 1 * Procedure (Urgent) - New Request Specialty Diagnoses / Procedures Referred By Geo retana Referred To Contact Diagnoses Vitamin D deficiency Chronic fatigue Tobacco smoker within last 12 months SOB (shortness of breath) Snoring Chronic nonintractable headache, unspecified headache type Procedures Complete PFT (pre/post [place], Lung Vol, Diff Capacity) (23389, 56594, 18518, 10856) Leslie Adams DO [address] [place] [address] Phone: tel: fax: Referral ID Status Reason Start Date Expiration Date V isits Requested Visits Authorized [id number] New Request 05/28/2023 06/27/2024 1 1 * Imaging (Routine) - Closed Specialty Diagnoses / Procedures Referred By Geo retana Referred To Contact RADIOLOGY Diagnoses Vitamin D deficiency Chronic fatigue Tobacco smoker within last 12 months SOB (shortness of breath) Snoring Chronic nonintractable headache, unspecified headache type Procedures CT LUNG SCREENING Leslie Adams DO [facility] [place] [address] Phone: tel: fax: Referral ID Status Reason Start Date Expiration Date Visits Re quested Visits Authorized [id number] Closed 05/28/2023 05/28/2024 1 1 Reason for Visit * Reason Comments Palpitations Pt c/o palpitations, that have now resolved. [facility] lab Leg Weakness Pt c/o weakness in h er legs for awhile, since at least the fall Fatigue Encounter Details Date Type Department Care Team (Late st Contact Info) Description 05/28/2023 9:40 AM CDT Office Visit [facility] Family Medicine - [place] [id number] [facility], [address] [place] [phone] Leslie Adams DO [facility] [place], [place] [id number] Palpitations (Pt c/o palpitations, that have now resolved. 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 Gender Identity Not on file Sexual Orientation Not on file documented as of this encounter Last Filed Vital Signs Vital Sign Reading Time Taken Comments Blood Pressure 118/76 05/28/2023 9:33 AM CDT Pulse 90 05/28/2023 9:33 AM CDT Temperature 36.3 ??C (97.4 ??F) 05/28/2023 9:33 AM CD T Respiratory Rate 16 05/28/2023 9:33 AM CDT Oxygen Saturation 98% 05/28/2023 9:33 AM CDT Inhaled Oxygen Concentration - - Weight 71.8 kg (158 lb 3.2 oz) 05/28/2023 9:33 A M CDT Height 177.2 cm (5' 9.75 ) 05/28/2023 9:33 AM CD T Body Mass Index 22.86 05/28/2023 9:33 AM CDT documented in this encounter Progress Notes * Annelise Salazar RN - 05/28/2023 9:40 AM CDTAddended by: ANNELISE SALAZAR on: 06/04/2023 02:17 PM Modules accepted: Orders * Leslie Adams DO - 05/28/2023 9:40 AM CDT Images from the original note were not included. d Office Progress Note Encounter Date: 05/28/2023 Reason for Visit: Palpitations (Pt c/o palpitations, that have now resolved. [facility] lab), Leg Weakness (Pt c/o weaknessin her legs for awhile, since at least the fall), and Fatigue History of Present Illness: Carol Heller is a 52-year-old female here for Palpitations (Pt c/o palpitations, that have now resolved. [facility] lab), Leg Weakness (Pt c/o weakness in her legs for awhile, since at least the fall), andFatigue I have been tired Pt notes legs being weak and only when she is 'exhausted' Pt notes short of breath Pt notes headaches Since fall 2022 pt notes Headaches :posterior headaches going on for one year , pt notes she has 'sinus issues' notes notes posterior headaches and notes she posteiror neck pain every day Palpitations: she notes she hasn't had palpitation for about 1-2 weeks ago Pt notes she had an episode of palpitatin prior to going to sleep and notes she w Alleviating factor Pt is taking ibuprofen , allergy medication Last eye exam : one year ago Pt notes these symptoms 'before jodi' notes NO CHANGE IN FREQUENCY OR INTENSITY OF Shortness of breath not currently No sob, Going up stairs :NONE Around jodi she notes right sides posterior back pain Notes lower ankles swelling previous xmas in the past Pt is cleaning house, or 'moving around' she notes shorntess of breath and then notes 'heaviness' Diet: Pt is cooks mainly at home, Pt uses slow cooker Pt drinks alcohol 1-2 wine a night (4-5 times a wee) Smoking : 1/2 ppd since 34 years ROS: Review of Systems Constitutional: Negative for activity change, chills, fatigue and unexpected weight change. HENT: Negative for congestion, ear pain, nosebleeds and rhinorrhea. Eyes: Negative for redness. Respiratory: Negative for apnea, cough and wheezing. Cardiovascular: Negative for chest pain, palpitations and leg swelling. Gastrointestinal: Negative for abdominal distention, abdominal pain, constipation and vomiting. Endocrine: Negative for polyphagia and polyuria. Genitourinary: Negative for dysuria and urgency. Musculoskeletal: Negative for arthralgias and myalgias. Skin: Negative for rash. Allergic/Immunologic: Negative for environmental allergies. Neurological: Positive for headaches. Negative for dizziness, weakness and numbness. Hematological: Does not bruise/bleed easily. Psychiatric/Behavioral: Negative for agitation, dysphoric mood, hallucinations and self-injury. Thepatient is not nervous/anxious and is not hyperactive. Medications: Outpatient Medications Marked as Taking for the 05/28/23 encounter (Office Visit) with Leslie Adams, DO Medication Sig Dispense Refill cetirizine (ZYRTEC ALLERGY) 10 MG tablet Take 1 tablet (10 mg total) by mouth daily. 30 tablet 1 doxycycline hyclate (VIBRAMYCIN) 100 MG capsule Take 1 capsule (100 mg total) by mouth 2 (two) times daily. fluticasone propionate (FLONASE) 50 MCG/ACT nasal spray 1 spray by Nasal route daily. 16 g 0 Allergies: Review of patient's allergies indicates: No Known Allergies Medical History: History reviewed. No pertinent past medical history. Surgical History: Past Surgical History: Procedure Laterality Date SECTION Social History: Social History Tobacco Use Smoking status: Every Day Smokeless tobacco: Never Vaping Use Vaping status: Never Used Substance Use Topics Alcohol use: Yes Drug use: Never Family History: Family History Problem Relation Name Age of Onset Hypertension Mother Dori CHF Mother Dori Hypertension Sister PE: Filed Vitals: 05/28/23 0933 BP: 118/76 Pulse: 90 Resp: 16 Temp: 97.4 ??F (36.3 ??C) SpO2: 98% Weight: 71.8 kg (158 lb 3.2 oz) Height: 1.772 m (5' 9.75 ) Body mass index is 22.86 kg/m??. Physical Exam Constitutional: Appearance: She is well-developed. HENT: Head: Normocephalic and atraumatic. Right Ear: External ear normal. Left Ear: External ear normal. Nose: Nose normal. Eyes: Conjunctiva/sclera: Conjunctivae normal. Pupils: Pupils are equal, round, and reactive to light. Neck: Thyroid: No thyromegaly. Cardiovascular: Rate and Rhythm: Normal rate and regular rhythm. Heart sounds: Normal heart sounds. No murmur heard. No friction rub. No gallop. Pulmonary: Effort: Pulmonary effort is normal. No respiratory distress. Breath sounds: Normal breath sounds. No wheezing or rales. Chest: Chest wall: No tenderness. Abdominal: General: Bowel sounds are normal. There is no distension. Palpations: Abdomen is soft. There is no mass. Tenderness: There is no abdominal tenderness. There is no guarding or rebound. Musculoskeletal: General: Normal range of motion. Cervical back: Normal range of motion and neck supple. Skin: General: Skin is warm and dry. Neurological: Mental Status: She is alert and oriented to person, place, and time. Cranial Nerves: No cranial nerve deficit. Coordination: Coordination normal. Psychiatric: Behavior: Behavior normal. Thought Content: Thought content normal. Judgment: Judgment normal. 1. Vitamin D deficiency 2. Chronic fatigue Check cbc, cmp, thyroid, sleep 3. Tobacco smoker within last 12 months 4. SOB (shortness of breath) With her smoking, pft, ct lung 5. Snoring Home study 6. Chronic nonintractable headache, unspecified headache type Headache diary Will increase water intake 7. Tobacco abuse counseling Dicussed wellbutrin to help with mood and for smoking and will think 8. Palpitations Pt had holter in the past with no increase will monitor 9. Seasonal allergic rhinitis due to pollen Patient with allergic rhinitis. Discussed the stepwise treatment of allergic rhinitis along with oral and topical therapy. Discussed and demonstrated appropriate technique for use of nasal sprays. RTC PRN. Discussed using Sinus Rinse as well. Patient agrees with treatment plan. Discussed patient??? options for quitting smoking. Discussed the risks of continuing to smoke and also the benefits of quitting smoking; encouraged the patient to look 1-2 months into the future and decide on a quit date. Encouraged such good activities as, the patient is to notify family and friends of the date and plan to quit so they will be able to offer support and accountability, think about smoking habits: when, where, why; and the pt is come up with a plan to avoid the situation and have an alternative. The patient was reminded that it takes most people several tries to completely quit and relapses should be expected but to not give up. The patient is to begin using nicotine replacement about 2 weeks before the quit date. Informed of the risks of smoking and the health consequences. Patient willing to continue trying to quit. 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 Office Visit [facility] - [place] [address] [facility], [address] [place] [phone] Leslie Adams DO [address] [place], [place] [id number] 04/29/2024 8:20 AM CDT Office Visit [facility] [address] [place] [phone] Karl Rose, DO [address] [facility] [address] [place] [address] 05/01/2024 9:15 AM CDT Appointment [facility] [address] [place] [address] Karl Rose, DO [address] [facility] [address] [place] [address] Scheduled Orders Name Type Priority Associated Diagnoses Orde r Schedule MRI BRAIN WWO CON MRI Routine Chronic nonintractable headache, unspecified headache type Expected: 05/28/2023, Expires: 05/27/2024 documented as of this encounter Results * Complete PFT (pre/post [place], Lung Vol, Diff Capacity) (37161, 97214, 29417, 67465) (06/12/2023 8:00 AM CDT) Narrative [facility] - 06/12/2023 8:00 AM CDT Stephanie Viramontes MD ? 06/15/2023 ??2:34 PM ?? [facility] PULMONARY FUNCTION TEST REPORT Carol Heller INTERPRETATION Please see scanned PFT report for raw values, flow-volume loop, and therapist's comments. Spirometry: Prebronchodilator FVC 3.31 L, 81% predicted. ??FEV1 2.66 L, 83% predicted. ??FEV1/FVC 80%. Postbronchodilator FVC 3.35 L, 82% predicted. ??FEV1 2.75 L, 85% predicted. ??FEV1/FVC 82%. Less than significant response to bronchodilator. Lung volumes: TLC 73% predicted, RV 61% predicted, ERV 79% predicted. Diffusing capacity: Unadjusted DLCO 64% predicted. IMPRESSION: 1. ??Spirometry within normal limits. ??Values near lower limit of normal. 2. ??Less than significant response to bronchodilator, this does not preclude use. ??Clinical correlation advised. 3. ??Mild reduction in total lung capacity. 4. ??Mild reduction in unadjusted DLCO. STEPHANIE VIRAMONTES MD Leslie Adams DO PFT ORDERABLES Final Result [facility] [address] [place] [address], [place] [phone] * CT LUNG SCREENING (06/07/2023 8:52 AM CDT) Anatomical Region Laterality Modality Chest Computed Tomogra phy 06/13/2023 5:00 PM CDT Impressions 06/13/2023 5:14 PM CDT =====Impression:===== LUNG-RADS Category/Recommendation: Category 4A due to the right middle lobe pulmonary nodule measuring 10 mm. Given the size, consider correlation with PET/CT. If PET scan is deferred, short interval follow-up low-dose chest CT would be recommended in 3 months. LUNG-RADS category S: Negative, no new/unknown potentially significant incidental findings requiring urgent additional evaluation. Other Incidental Findings: As above. Thank you for choosing the [facility]'s Lung Screening Program. Ordered By: LESLIE ADAMS Interpreted By: Shelton Bah MD, 06/13/2023 5:00 PM Narrative 06/13/2023 5:14 PM CDT Examination: Lung Screening Low-Dose Ct Thorax Without Contrast Exam date/time: 06/07/2023 8:41 AM Clinical history: Asymptomatic patient meeting NCCN high-risk criteria for lung screening. * ??52 years * ??30 pack years or greater * ??Current smoker of have quit smoking within the last 15 years. Comparison: None. Technique: Noncontrast, helical, low-dose CT (LDCT) chest per standard departmental protocol. A dose lowering technique was used for this procedure, which may include, but is not limited to, dose reduction technique, automated exposure control, the use of iterative reconstruction, and ALARA (As Low As Reasonably Achievable) / Image Gently techniques. FINDINGS: Lung Screening Specific (LUNG-RADS): Right middle lobe solid nodule measuring 10 x 8 mm (image 112). Potentially Significant Incidentals (LUNG-RADS category S): None. Additional Findings: ??Mild patchy pleural-based scarring in the lung apices. No suspicious adenopathy. Degenerative changes in the visualized spine. Procedure Note Shelton Bah MD - 06/13/2023 Examination: Lung Screening Low-Dose Ct Thorax Without Contrast Exam date/time: 06/07/2023 8:41 AM Clinical history: Asymptomatic patient meeting NCCN high-risk criteria forlung screening. * 52 years * 30 pack years or greater * Current smoker of have quit smoking within the last 15 years. Comparison: None. Technique: Noncontrast, helical, low-dose CT (LDCT) chest per standarddepartmental protocol. A dose lowering technique was used for thisprocedure, which may include, but is not limited to, dose reductiontechnique, automated exposure control, the use of iterativereconstruction, and ALARA (As Low As Reasonably Achievable) / Image Gentlytechniques. FINDINGS: Lung Screening Specific (LUNG-RADS): Right middle lobe solid nodulemeasuring 10 x 8 mm (image 112). Potentially Significant Incidentals (LUNG-RADS category S): None. Additional Findings: Mild patchy pleural-based scarring in the lungapices. No suspicious adenopathy. Degenerative changes in the visualizedspine. =====Impression:===== LUNG-RADS Category/Recommendation: Category 4A due to the right middlelobe pulmonary nodule measuring 10 mm. Given the size, considercorrelation with PET/CT. If PET scan is deferred, short interval [id number] chest CT would be recommended in 3 months. LUNG-RADS category S: Negative, no new/unknown potentially significantincidental findings requiring urgent additional evaluation. Other Incidental Findings: As above. Thank you for choosing the [facility] Lung ScreeningProgram. Ordered By: LESLIE ADAMS Interpreted By: Shelton Bah MD, 06/13/2023 5:00 PM Leslie Cathy DO CT Final Result * CYCLIC CITRULLINATED PEPTIDE (CCP)ANTIBODY(IGG) (05/28/2023 10:41 AM CDT) Pathologist [facility] CITRULLINE PEPTIDE ANTIBODY <16 <20 Units 06/02/2023 5:33 AM CDT [facility] Comment: Negative: ? <20 Weak Positive: ?20 - 39 Moderate Positive: ?40 - 59 Strong Positive: ?>59 Test Performed by William Huang [employer] [facility], [address] [place] [address] Edwar Petersen M.D., Ph.D., Director of Laboratories , [facility] [id number] 05/28/2023 10:4 1 AM CDT Leslie Adams DO LABORATORY Final Result [facility] [address], * LUPUS ANTICOAGULANT EVAL W/RFX (05/28/2023 10:41 AM CDT) LUPUS ANTICOAGULANT REPORT 06/03/2023 9:29 PM CDT [facility] Comment: A Lupus Anticoagulant is not detected. Reference Range: ??Not Detected For additional information, please refer to http://education.Revel Touch/faq/NYM30a5 (This link is being provided for informational/ educational purposes only.) This interpretation is based on the following test results. PTT (LUPUS ANTICOAGULANT) 30 <=40 sec 06/03/2023 9:29 PM CDT [facility]IN[facility] Comment: Test Performed by William Huang [employer] [facility] [place], [address] [place], [place] Edwar Petersen M.D., Ph.D., Director of Laboratories , CLIA [id number] DRVVT SCREEN 37 <=45 sec 06/03/2023 9:29 PM CDT [facility]MARYURI LY 05/28/2023 10:4 1 AM CDT us Leslie Cathy DO LABORATORY Final Result Performing Organization Address City/[facility]/ZIP Co de Phone Number [facility] [address] [place], [place] , [place] [phone] * VITAMIN B-12 (05/28/2023 10:41 AM CDT) VITAMIN B12 S/P/B 374 254 - 1,320 PG/ML 05/28/2023 1:20 PM CDT [facility] 05/28/2023 10:4 1 AM CDT us Leslie Cathy DO LABORATORY Final Result Performing Organization Address City/[facility]/ZIP Co de Phone Number [facility] [address] [place] [address], [place] [phone] * VITAMIN A (05/28/2023 10:41 AM CDT) VITAMIN A (RETINOL) S/P/B 43 38 - 98 mcg/dL 05/31/2023 6:26 AM CDT [facility]URI LY Comment: Vitamin supplementation within 24 hours prior to blood draw may affect the accuracy of the results. This test was developed and its analytical performance characteristics have been determined by [employer] [facility] [place], [place]. It has not been cleared or approved by the U.S. Food and Drug Administration. This assay has been validated pursuant to the CLIA regulations and is used for clinical purposes. Test Performed by [facility], [employer] [facility], [address] [place], [place] Edwar Petersen M.D., Ph.D., Director of Laboratories , [facility] [id number] 05/28/2023 10:4 1 AM CDT us Leslie Cathy DO LABORATORY Final Result Performing Organization Address City/[facility]/ZIP Co de Phone Number [facility] [address] [place] [address], [place] [phone] * TSH W/REFLEX (05/28/2023 10:41 AM CDT) TSH 1.580 0.358 - 3.74 uIU/ML 05/28/2023 11:32 AM CDT [facility] Comment: HIGH DOSES OF BIOTIN MAY INTERFERE WITH THIS TEST RESULT. CORRELATION TO CLINICAL HISTORY AND PRESENTATION RECOMMENDED. FREE T4 NOT INDICATED 05/28/2023 10:4 1 AM CDT us Leslie Cathy DO LABORATORY Final Result Performing Organization Address City/[facility] Co de Phone Number [facility] [address] [place] [address], [place] [phone] * HEMOGLOBIN, GLYCOSYLATED (05/28/2023 10:41 AM CDT) HGB A1C 5.5 <5.7 % 05/28/2023 11:31 AM CDT [facility] Comment: ADA GUIDELINES 2010 5.7 TO 6.4% INCREASED RISK OF DIABETES > OR = 6.5% CONSISTENT WITH DIABETES ESTIMATED AVG GLUCOSE 111 mg/dL 05/28/2023 11:31 AM CDT [facility] 05/28/2023 10:4 1 AM CDT us Leslie Adams DO LABORATORY Final Result [facility] [address] [place] [address], * (ABNORMAL) LIPID PANEL (05/28/2023 10:41 AM CDT) CHOLESTEROL 176 <200 MG/DL 05/28/2023 11:32 AM CDT [facility] TRIGLYCERIDES 98 <150 MG/DL 05/28/2023 11:32 AM CDT [facility] HDL 50 >40.0 MG/DL 05/28/2023 11:32 AM CDT [facility] LDL (CALCULATED) 106(H) <100 MG/DL 05/28/2023 11:32 AM CDT [facility] NON HDL CHOLESTEROL 126 <130 MG/DL 05/28/2023 11:32 AM CDT [facility] CHOL/HDL RATIO 3.5 0.0 - 4.5 05/28/2023 11:32 AM CDT [facility] VLDL CALCULATION 20 5 - 55 MG/DL 05/28/2023 11:32 AM CDT [facility] LIPID INTERPRETATION 05/28/2023 11:32 AM T [facility] Comment: NIH CONCENSUS REPORT RECOMMENDATIONS: ?ADULT ?CHILD ??LOW RISK: ?CHOLESTEROL ? <200 ? <170 ?TRIGLYCERIDE ?<150 ?--- ?HDL ? >=60 ?--- ?LDL ? <100 ? <110 ??BORDERLINE: ?CHOLESTEROL ? 200-239 ?? 170-199 ?TRIGLYCERIDE ?150-199 ? --- ?HDL ?40-59 ?--- ?LDL ? 100-159 ?? 110-129 ??HIGH RISK: ?CHOLESTEROL ? >=240 ?>=200 ?TRIGLYCERIDE ?>=200 ? --- ?HDL ?<40 ?--- ?LDL ? >=160 ?>=130 05/28/2023 10:4 1 AM CDT us Leslie Cathy DO LABORATORY Final Result Performing Organization Address [facility]/State/[facility] de Phone Number [facility] [address] [place] [address], * VITAMIN D, 25 [place] (05/28/2023 10:41 AM CDT) VITAMIN D 25 HYDROXY S/P/B 40 30 - 100 NG/ML 05/28/2023 11:26 AM CDT [facility] Comment: ? INTERPRETATION ? DEFICIENT ??<20 ? INSUFFICIENT 20-29 ?SUFFICIENT 30-100 05/28/2023 10:4 1 AM CDT Leslie Cathy DO LABORATORY Final Result Performing Organization Address [facility] Co de Phone Number [facility] [address] [place] [address], * (ABNORMAL) MAGNESIUM (05/28/2023 10:41 AM CDT) MAGNESIUM 2.5(H) 1.8 - 2.4 MG/DL 05/28/2023 11:32 AM CDT [facility] 05/28/2023 10:4 1 AM CDT Leslie Cathy DO LABORATORY Final Result Performing Organization Address [facility] de Phone Number [facility] [address] [place] [address], * CBC W/DIFF AUTOMATED (05/28/2023 10:41 AM CDT) WBC 5.86 4.5 - 11.0 x10'3/uL 05/28/2023 10:57 AM CDT [facility] RBC 4.47 4.20 - 5.40 x10'6/uL 05/28/2023 10:57 AM CDT [facility] HGB 13.8 12.0 - 16.0 G/DL 05/28/2023 10:57 AM CDT [facility] HCT 41.5 38.0 - 48.0 % 05/28/2023 10:57 AM CDT [facility] MCV 92.8 81.0 - 99.0 FL 05/28/2023 10:57 AM CDT [facility] MCH 30.9 27.0 - 31.0 PG 05/28/2023 10:57 AM CDT [facility] MCHC 33.3 32.0 - 36.0 G/DL 05/28/2023 10:57 AM CDT [facility] RDW 11.6 11.5 - 14.5 % 05/28/2023 10:57 AM CDT [facility] PLT 254 130 - 400 x10'3/uL 05/28/2023 10:57 AM CDT [facility] MPV 9.6 9.3 - 12.2 FL 05/28/2023 10:57 AM CDT [facility] DIFFERENTIAL TYPE AUTOMATED DIFFERENTIAL 05/28/2023 10:57 AM CDT [facility] NEUTROPHILS % 56.1 % 05/28/2023 10:57 AM CDT [facility] LYMPHOCYTES % 30.9 % 05/28/2023 10:57 AM CDT [facility] MONOCYTES % 7.5 % 05/28/2023 10:57 AM CDT [facility] EOSINOPHILS 4.3 % 05/28/2023 10:57 AM CDT [facility] BASOPHILS 1.0 % 05/28/2023 10:57 AM CDT [facility] IMMATURE GRANS % 0.2 % 05/28/19 10:57 AM CDT [facility] ABS. NEUTROPHILS 3.29 1.80 - 7.70 x10'3/uL 05/28/2023 10:57 AM CDT [facility] ABS. LYMPHOCYTES 1.81 1.00 - 4.80 x10'3/uL 05/28/2023 10:57 AM CDT [facility] ABS. MONOCYTES 0.44 0.24 - 0.86 x10'3/uL 05/28/2023 10:57 AM CDT [facility] ABS. EOSINOPHILS 0.25 0.04 - 0.36 x10'3/uL 05/28/2023 10:57 AM CDT [facility] ABS. BASOPHILS 0.06 0.01 - 0.08 x10'3/uL 05/28/2023 10:57 AM CDT [facility] ABS. IMMATURE GRANULOCYTES 0.01 0.00 - 0.49 x10'3/uL 05/28/2023 10:57 AM CDT [facility] 05/28/2023 10:4 1 AM CDT us Leslie Cathy DO LABORATORY Final Result [facility] [address] [place] [address], [place] [phone] * (ABNORMAL) COMPREHENSIVE METABOLIC PANEL (05/28/2023 10:41 AM CDT) GLUCOSE 102(H) 70 - 99 MG/DL 05/28/2023 11:32 AM CDT [facility] BUN 9 7 - 18 MG/DL 05/28/2023 11:32 AM CDT [facility] CREATININE S/P/B 0.79 0.55 - 1.02 MG/DL 05/28/2023 11:32 AM CDT [facility] SODIUM S/P/B 140 136 - 145 MMOL/L 05/28/2023 11:32 AM CDT [facility] POTASSIUM S/P/B 3.7 3.5 - 5.1 MMOL/L 05/28/2023 11:32 AM CDT [facility] CHLORIDE S/P/B 109(H) 100 - 108 MMOL/L 05/28/2023 11:32 AM CDT [facility] CO2 27.8 21 - 32 MMOL/L 05/28/2023 11:32 AM CDT [facility] CALCIUM S/P/B 9.9 8.5 - 10.1 MG/DL 05/28/2023 11:32 AM T [facility] BILIRUBIN TOTAL S/P/B 0.4 0.2 - 1.2 MG/DL 05/28/2023 11:32 AM T [facility] Comment: THIS ASSAY IS NOT RECOMMENDED FOR PATIENTS UNDERGOING TREATMENT WITH ELTROMBOPAG DUE TO THE POTENTIAL FOR FALSELY ELEVATED RESULTS. TOTAL PROTEIN S/P/B 7.3 6.4 - 8.2 G/DL 05/28/2023 11:32 AM T [facility] ALBUMIN S/P/B 3.8 3.4 - 5.0 G/DL 05/28/2023 11:32 AM T [facility] AST 14(L) 15 - 37 U/L 05/28/2023 11:32 AM T [facility] ALT 28 14 - 55 U/L 05/28/2023 11:32 AM T [facility] ALKALINE PHOSPHATASE S/P/B 97 50 - 136 U/L 05/28/2023 11:32 AM T [facility] ANION GAP 3.2(L) 5 - 15 MMOL/L 05/28/2023 11:32 AM T [facility] BUN CREATININE RATIO 11.4 6 - 26 05/28/2023 11:32 AM T [facility] A/G RATIO 1.1 1.0 - 2.0 RATIO 05/28/2023 11:32 AM T [facility] GFR ESTIMATE >90 >90 ML/MIN/1.7 3 M2 05/28/2023 11:32 AM CDT [facility] Comment: NOTE: eGFR is not calculated for patients <18 years of age. This is an estimated GFR calculation using the new CKD EPI creatinine equation without race and so does not require a correction factor for race. This estimated GFR should not be used for calculating drug doses. 05/28/2023 10:4 1 AM CDT Leslie Adams DO LABORATORY Final Result [facility] [address] [place] [address], documented in this encounter Visit Diagnoses Diagnosis Vitamin D deficiency- Primary Unspecified vitamin D deficiency Chronic fatigue Other malaise and fatigue Tobacco smoker within last 12 months SOB (shortness of breath) Shortness of breath Snoring Other dyspnea and respiratory abnormality Chronic nonintractable headache, unspecified headache type Tobacco abuse counseling Counseling on substance use and abuse Palpitations Seasonal allergic rhinitis due to pollen Vitamin D deficiency Unspecified vitamin D deficiency Chronic fatigue Other malaise and fatigue Tobacco smoker within last 12 months SOB (shortness of breath) Shortness of breath Snoring Other dyspnea and respiratory abnormality Chronic nonintractable headache, unspecified headache type Vitamin D deficiency Unspecified vitamin D deficiency Chronic fatigue Other malaise and fatigue Tobacco smoker within last 12 months SOB (shortness of breath) Shortness of breath Snoring Other dyspnea and respiratory abnormality Chronic nonintractable headache, unspecified headache type documented in this encounter Additional Health Concerns Assessment Noted Time PHQ-9 Depression Total Score: 7 05/28/19 24 10:42 AM CDT documented as of this encounter Care Teams Glass Inserter Relationship Specialty [place] [address] [place] [id number] PCP - General FAMILY PRACTICE 05/01/21 documented as of this encounter
--- OUTSIDE RECORDS SUMMARY | 2024-01-28 00:51 | XMS_ITS | Encounter Summary ---
Author Organization [facility] Address [address] [place] [address]. [place], [place] [id number] [place] [id number] Care Team Providers Care [employer] Director Name Role Phone Phyllis Morgan DO Primary Care Provider [phone] Encounter Details Date Type Department Care Team (Latest Contact Info) Description 10/31/2023 Travel Social History Tobacco Use Types Packs/Day Years Used Date Smoking Tobacco: Every Day Smokeless Tobacco: Never Alcohol Use Standard Drinks/Week Comments Yes 0 (1 standard drink = 0.6 oz pur e alcohol) PHQ-2 Answer Date Recorded Patient Health Questionnaire-2 Score 0 10/31/2023 Comments No Sex and Gender Information Value Date Recorded Sex Assigned at Not on file Legal Sex 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, [address] [place] [address] Karl Rose [address] [facility] [address] [place] [address] 05/01/2024 9:15 AM CDT Appointment [facility] [address] [place] [address] Karl Rose DO [address] [facility] [address] [place] [address] documented as of this encounter Visit Diagnoses Not on filedocumented in this encounter Additional Health Concerns Assessment Noted Time PHQ-9 Depression Total Score: 7 05/28/19 24 10:42 AM CDT documented as of this encounter Care Teams [employer] Director Relationship Specialty Start Date End Date Phyllis Morgan DO [address] [place] [address] PCP - General FAMILY PRACTICE 05/01/21 documented as of this encounter
--- OUTSIDE RECORDS SUMMARY | 2024-01-28 00:51 | XMS_ITS | Encounter Summary ---
Author Organization [facility] Address [address] [place] [address]. [place], [place] [id number] [place] [id number] Care Team Providers Care Core Blower Operator Name Role Phone Phyllis Adams DO Primary Care Provider [phone] Reason for Referral * Consultation (Urgent) - Closed Specialty Diagnoses / Procedures Referred By Geo retana Referred To Contact OTOLARYNGOLOGY Diagnoses Snoring Chronic fatigue Phyllis Adams DO [address] [place] [address] Phone: tel: fax: [facility], [address] [address] Phone: tel: fax: Referral ID Status Reason Start Date Expiration Date Visits Re quested Visits Authorized [id number] Closed 05/01/2021 05/31/2022 100 100 * Physical Medicine (Routine) - Closed Specialty Diagnoses / Procedures Referred By Contmary retana Referred To Contact PHYSICAL THERAPY / [facility] Physical Therapy Diagnoses Chronic right-sided low back pain without sciatica Weakness of both lower extremities Phyllis Adams DO [address] [place] [address] Phone: tel: fax: [facility] Physical Therapy [facility] [facility] [address] [place] [address] Phone: tel: fax: Referral ID Status Reason Start Date Expiration Date V isits Requested Visits Authorized [id number] Closed Physical Therapy 05/01/2021 05/31/2022 1 1 * Imaging (Routine) - Closed Specialty Diagnoses / Procedures Referred By Geo retana Referred To Contact RADIOLOGY Diagnoses Screening mammogram for breast cancer Procedures MG SCREENING W BEA DANIEL DIGI Phyllis Adams, DO [facility] [place] [address] Phone: tel: fax: Referral ID Status Reason Start Date Expiration Date Visits Re quested Visits Authorized [id number] Closed 05/01/2021 06/01/2022 1 1 Reason for Visit * Reason Comments New Patient pt. c/o back pain an d fatigue alot Encounter Details Date Type Department Care Team (Late st Contact Info) Description 05/01/2021 10:00 AM CDT Office Visit [facility] Family Medicine - [address], [address] [place] [id number] Phyllis Adams, DO [address] [place] [phone] New Patient (pt. 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 No / Unsure 05/01/2021 9:20 AM CDT documented as of this encounter Last Filed Vital Signs Vital Sign Reading Time Taken Comments Blood Pressure 100/78 05/01/2021 9:38 AM CDT Pulse 86 05/01/2021 9:38 AM CDT Temperature 36.5 ??C (97.7 ??F) 05/01/2021 9:38 AM CD T Respiratory Rate 16 05/01/2021 9:38 AM CDT Oxygen Saturation 99% 05/01/2021 9:38 AM CDT Inhaled Oxygen Concentration - - Weight 71.2 kg (157 lb) 05/01/2021 9:38 AM CDT Height 177.2 cm (5' 9.75 ) 05/01/2021 9:38 AM CD T Body Mass Index 22.69 05/01/2021 9:38 AM CDT documented in this encounter Patient Instructions * Patient Instructions* Phyllis Adams DO - 05/01/2021 10:00 AM CDT Images from the original note were not included. Patient Education Patient Education Patient Education Patient Education Back Exercises About this topic The muscles in the back are some of the most important ones in the body. They support the backbone to help keep an upright posture. They help us do most all of our daily motions. General Before starting with a program, ask your doctor if you are healthy enough to do these exercises. Your doctor may have you work with a animal attendants and trainers, chiropractor or physical therapist to make a safe exercise program to meet your needs. Stretching Exercises Stretching exercises keep your muscles flexible. They also stop them from getting tight. Start by doing each of these stretches 2 to 3 times. In order for your body to make changes, you will need to hold these stretches for 20 to 30 seconds. Try to do the stretches 2 to 3 times each day. Do all exercises slowly. Do not bounce when doing stretches. ?? Single knee to chest stretches ? Lie on your back, bend your knees and have your feet flat on the floor. Pull one knee towards your chest until you feel a stretch in your lower back and buttock area. Repeat with the other knee. If you have knee problems, pull your knee up by grabbing the back ofyour thigh instead of the front of your knee. You can also do this exercise by grabbing both knees at the same time. ?? Lower trunk rotations ? While lying on your back, bend your knees and have your feet flat on thefloor. Keep your legs together and then drop them to one side. Be sure to keep both of your shoulders touching the floor until you feel a stretch in the muscles at the side of the back. Repeat on theother side. ?? Lower back stretches seated ? Sit in a chair with your feet spread about shoulder width apart. Then, lean forward until you feel a stretch in your lower back. Strengthening Exercises Strengthening exercises keep your muscles firm and strong. Start by repeating each exercise 2 to 3 times. Work up to doing each exercise 10 times. Hold each exercise for 3 to 5 seconds. Try to do theexercises 2 to 3 times each day. Do all exercises slowly. ?? Shoulder blade squeezes ? Pinch your shoulder blades together on your upper back and hold 3 to 5seconds. Be sure you are sitting with good posture and make sure your shoulders do not raise up when you do this exercise. Relax. ?? Pelvic tilts ? Lie on your back with your knees bent and feet flat on the floor. Tighten your stomach muscles and press your lower back down to the floor. Relax. ?? Hip lifts ? Lie on your back with your knees bent and feet flat on the floor. Tighten your stomach muscles and lift your buttocks off the floor. Relax. What will the results be? Keeping your back muscles flexible and strong can help stop muscle injuries. This often happen whenmuscles are tight or weak. Helpful tips ?? Stay active and work out to keep your muscles strong and flexible. ?? Keep a healthy weight to avoid putting too much stress on your spine. Eat a healthy diet to keepyour muscles healthy. ?? Be sure you do not hold your breath when exercising. This can raise your blood pressure. If you tend to hold your breath, try counting out loud when exercising. If any exercise bothers you, stop right away. ?? Always warm up before stretching. Heated muscles stretch much easier than cool muscles. Stretching cool muscles can lead to injury. ?? Try walking or cycling at an easy pace for a few minutes to warm up your muscles. Do this again after exercising. ?? Never bounce when doing stretches. ?? Doing exercises before a meal may be a good way to get into a routine. ?? Exercise may be slightly uncomfortable, but you should not have sharp pains. If you do get sharppains, stop what you are doing. If the sharp pains continue, call your doctor. Where can I learn more? [employer] https://orthoinfo.org/en/recovery/pdrqr-onuizxukgzmi-nqzmgsq/spine-conditioning- program-pdf Last Reviewed Date 2020-04-27 Consumer Information Use and Disclaimer This generalized information is a limited summary of diagnosis, treatment, and/or medication information. It is not meant to be comprehensive and should be used as a tool to help the user understand and/or assess potential diagnostic and treatment options. It does NOT include all information about conditions, treatments, medications, side effects, or risks that may apply to a specific patient. Itis not intended to be medical advice or a substitute for the medical advice, diagnosis, or treatment of a health care provider based on the health care provider's examination and assessment of a patient???s specific and unique circumstances. Patients must speak with a health care provider for complete information about their health, medical questions, and treatment options, including any risks orbenefits regarding use of medications. This information does not endorse any treatments or medications as safe, effective, or approved for treating a specific patient. [employer] and its affiliates disclaim any warranty or liability relating to this information or the use thereof. The use of this information is governed by the Terms of Use, available at https://www.Onefeat.HapBoo/en/solutions/lexicomp/about/kinjal Copyright Copyright ?? 2020 [employer] and its affiliates and/or licensors. All rights reserved. Hip Bursitis Exercises About this topic A bursa is a small, fluid-filled sac. It acts as a cushion between your bone and tendon. A tendon is a thick band that attaches your muscle to the bone. Bursae help the tendons glide and let your joints move easier. In the hip, there are three sets of bursae. There is one around the outer klaus part of your hip joint. It is called the greater trochanteric bursae. Another set of bursae is in frontof your hip near the groin area. These are called iliopsoas bursae. The last bursae is the ischial bursae. It covers the bones in your pelvis that you sit on. These bursae can get swollen and hurt. This problem is called hip bursitis. Exercises can help make this problem better. General Before starting with a program, ask your doctor if you are healthy enough to do these exercises. Your doctor may have you work with a animal attendants and trainers or physical therapist to make a safe exercise program to meet your needs. Stretching Exercises Stretching exercises keep your muscles flexible. They also stop them from getting tight. Start by doing each of these stretches 2 to 3 times. In order for your body to make changes, you will need to hold these stretches for 20 to 30 seconds. Try to do the stretches 2 to 3 times each day. Do all exercises slowly. ?? Single knee to chest stretches ? Lie on your back. Pull one knee towards your chest until you feel a stretch in your lower back and buttock area. Repeat with the other knee. If you have knee problems, pull your knee up by grabbing the back of your thigh instead of the front of your knee. You canalso do this exercise by grabbing both knees at the same time. ?? Deep hip stretches lying down ? Lie on your back and bend one knee, keeping that foot flat on the floor. Cross the other leg over your knee. Pull the bottom leg towards your chest until you feel astretch in the other buttock. Repeat using the opposite leg as the bottom leg. ?? Hamstring stretches on back ? Lie on your back with both knees bent and feet flat on the floor. Grab the back of your left thigh. Straighten your knee until you feel a stretch at the back of your thigh. Now, pull your toes down towards your head. Repeat on the other leg. ?? Iliotibial band stretches: ? To stretch the left IT band: Stand up with your right leg crossed over the left one. Try to pointthe toes of the front leg outwards. Your toes should almost be touching. This is a very awkward position. Lean your upper body towards the right while bending your right knee. You should feel a stretch near the left hip. Hold and repeat. ? To stretch the right IT band: Stand up with your left leg crossed over the right one. Try to point the toes of the front leg outwards. Your toes should almost be touching. This is a very awkward position. Lean your upper body towards the left while bending your left knee. You should feel a stretch near the right hip. Hold and repeat. Strengthening Exercises Strengthening exercises keep your muscles firm and strong. Start by repeating each exercise 2 to 3 times. Work up to doing each exercise 10 times. Try to do the exercises 2 to 3 times each day. Do all exercises slowly. ?? Side leg lifts ? Lie on your side. Have your legs straight and lined up with your back. Lift thetop leg up while keeping the knee straight. Do not let your leg go forward. Then, do this exercise on your other side. ?? Bent knee side leg lifts ? Lie on your side with your painful hip on top. Bend your knees up slightly and have your knees and feet together. Lift your top leg up while keeping your feet together. Lower your leg back down and repeat. What will the results be? ?? Less pain and swelling ?? Better range of motion ?? Increased strength ?? Easier to walk and do other activities Helpful tips ?? Stay active and work out to keep your muscles strong and flexible. ?? Keep a healthy weight to avoid putting too much stress on your spine. Eat a healthy diet to keepyour muscles healthy. ?? Be sure you do not hold your breath when exercising. This can raise your blood pressure. If you tend to hold your breath, try counting out loud when exercising. If any exercise bothers you, stop right away. ?? Always warm up before stretching. Heated muscles stretch much easier than cool muscles. Stretching cool muscles can lead to injury. ?? Try walking or cycling at an easy pace for a few minutes to warm up your muscles. Do this again after exercising. ?? Never bounce when doing stretches. ?? Doing exercises before a meal may be a good way to get into a routine. ?? After exercising, it is a good idea to use ice. Place an ice pack or a bag of frozen peas wrapped in a towel over the painful part. Never put ice right on the skin. Do not leave the ice on more than 10 to 15 minutes at a time. Ice after activity may help decrease pain and swelling. Never ice before stretching. ?? Exercise may be slightly uncomfortable, but you should not have sharp pains. If you do get sharppains, stop what you are doing. If the sharp pains continue, call your doctor. ?? Avoid sitting on hard surfaces and use a cushion. Where can I learn more? [employer] https://orthoinfo.aaos.org/en/recovery/ged-rrcpgjkgdwnv-itjdnyg Last Reviewed Date 2020-09-04 Consumer Information Use and Disclaimer This generalized information is a limited summary of diagnosis, treatment, and/or medication information. It is not meant to be comprehensive and should be used as a tool to help the user understand and/or assess potential diagnostic and treatment options. It does NOT include all information about conditions, treatments, medications, side effects, or risks that may apply to a specific patient. Itis not intended to be medical advice or a substitute for the medical advice, diagnosis, or treatment of a health care provider based on the health care provider's examination and assessment of a patient???s specific and unique circumstances. Patients must speak with a health care provider for complete information about their health, medical questions, and treatment options, including any risks orbenefits regarding use of medications. This information does not endorse any treatments or medications as safe, effective, or approved for treating a specific patient. [employer] and its affiliates disclaim any warranty or liability relating to this information or the use thereof. The use of this information is governed by the Terms of Use, available at https://www.Onefeat.HapBoo/en/solutions/lexicomp/about/kinjal Copyright Copyright ?? 2020 [employer]. and its affiliates and/or licensors. All rights reserved. documented in this encounter Progress Notes * Phyllsi Adams DO - 05/01/2021 10:00 AM CDT Images from the original note were not included. Office Progress Note Encounter Date: 05/01/2021 Reason for Visit: New Patient (pt. c/o back pain and fatigue alot) History of Present Illness: Carol Heller is a 50-year-old female here for new patient appointment. Patient does have multiple concerns she did note low back pain with right hip. And the legs are feeling weak. 2 months ago she was seen by a chiropractor has x-rays stable normal she had a few adjustments She is also been noticing a lot of fatigue. She notes a posterior headache and has not been sleeping well she notes that her has been noticing she has been snoring for over a year She notes right-sided low back pain and right hip pain worse when she is moving around and going upstairs. She notes her bilateral legs are chest bothering her but she does not have any acute pain of her knees right now. We will She just had her Pap smear done by her well site drilling engineer and she also had some lab work which included hormone levels . Her thyroid was normal per patient ROS: Review of Systems Constitutional: Negative for [...] Genitourinary: Negative for dysuria and urgency. Musculoskeletal: Positive for arthralgias. Negative for myalgias. Skin: Negative for rash. Allergic/Immunologic: Negative for environmental allergies. Neurological: Negative for dizziness, weakness and numbness. Hematological: Does not bruise/bleed easily. Psychiatric/Behavioral: Positive for sleep disturbance. Negative for agitation, dysphoric mood, hallucinations and self-injury. The patient is not nervous/anxious and is not hyperactive. Medications: Outpatient Medications Marked as Taking for the 05/01/21 encounter (Office Visit) with Phyllis Adams, DO Medication Sig Dispense Refill ??? fluticasone propionate 50 MCG/ACT nasal spray SHAKE LIQUID AND USE 1 TO 2 SPRAYS IN EACH NOSTRIL DAILY DIRECTED Allergies: No Known Allergies Medical History: History reviewed. No pertinent past medical history. Surgical History: Past Surgical History: Procedure Laterality Date ??? SECTION Social History: Social History Tobacco Use ??? Smoking status: Current Every Day Smoker ??? Smokeless tobacco: Never Used Vaping Use ??? Vaping Use: Never used Substance Use Topics ??? Alcohol use: Yes ??? Drug use: Never Family History: No family history on file. PE: Filed Vitals: 05/01/21 0938 BP: 100/78 Pulse: 86 Resp: 16 Temp: 97.7 ??F (36.5 ??C) TempSrc: Temporal SpO2: 99% Weight: 71.2 kg (157 lb) Height: 5' 9.75 (1.772 m) Body mass index is 22.69 kg/m??. Physical Exam Constitutional: Appearance: She is [...] Normal range of motion and neck supple. Back: Skin: General: Skin is warm and dry. Neurological: Mental Status: She is alert and oriented to person, place, and time. Cranial Nerves: No cranial nerve deficit. Coordination: Coordination normal. Psychiatric: Behavior: Behavior normal. Thought Content: Thought content normal. Judgment: Judgment normal. No results found for this visit on 05/01/21. Diagnoses/Impression: 1. Screening mammogram for breast cancer MG SCREENING W BEA DANIEL DIGI CBC W/DIFF AUTOMATED COMPREHENSIVE METABOLIC PANEL HEMOGLOBIN, GLYCOSYLATED VITAMIN D, 25 OH LIPID PANEL HEPATITIS C ANTIBODY URIC ACID BLOOD SED RATE, ERYTHROCYTE (ESR) C-REACTIVE PROTEIN RHEUMATOID FACTOR, QUANT VITAMIN B-12 2. Encounter for well adult exam with abnormal findings CBC W/DIFF AUTOMATED COMPREHENSIVE METABOLIC PANEL HEMOGLOBIN, GLYCOSYLATED VITAMIN D, 25 OH LIPID PANEL HEPATITIS C ANTIBODY URIC ACID BLOOD SED RATE, ERYTHROCYTE (ESR) C-REACTIVE PROTEIN RHEUMATOID FACTOR, QUANT VITAMIN B-12 3. Chronic right-sided low back pain without sciatica CBC W/DIFF AUTOMATED COMPREHENSIVE METABOLIC PANEL HEMOGLOBIN, GLYCOSYLATED VITAMIN D, 25 OH LIPID PANEL HEPATITIS C ANTIBODY URIC ACID BLOOD SED RATE, ERYTHROCYTE (ESR) C-REACTIVE PROTEIN RHEUMATOID FACTOR, QUANT VITAMIN B-12 Ambulatory referral to Physical Therapy 4. Weakness of both lower extremities CBC W/DIFF AUTOMATED COMPREHENSIVE METABOLIC PANEL HEMOGLOBIN, GLYCOSYLATED VITAMIN D, 25 OH LIPID PANEL HEPATITIS C ANTIBODY URIC ACID BLOOD SED RATE, ERYTHROCYTE (ESR) C-REACTIVE PROTEIN RHEUMATOID FACTOR, QUANT VITAMIN B-12 Ambulatory referral to Physical Therapy Discussed with patient that she is in good physical health. We talked about the importance of a balanced diet and exercise. We talked about 150 minutes of cardiovascular exercise a week as the guidelines. We talked about avoiding tobacco. We talked about appropriate alcohol use socially. she knows to follow- up for her regular annual physical next year. Chronic low back pain xray thru the chiropractor which patient states was normal PT HEP exercises as well Snoring send to ent referral Weakness in the legs check b12 Chronic fatigue Check cbc to rule out anemia Vit b12 Rule out rheumatoid factor pending Lipid panel fasting Uric acid hga1c PHYLLIS ADAMS DO 05/01/2021 documented in this encounter Plan of Treatment Upcoming Encounters Date Type Department Care Team (Late st Contact Info) Description 02/06/2024 10:00 AM SENIOR BIOSTATISTICIAN/GROUP LEADER Office Visit [facility] Family Medicine - [place] [id number] [facility], [address] [place] [address] Phyllis Adams DO [address] [place] [address] 04/29/2024 8:20 AM CDT Office Visit [facility]ispecialty Care - [facility] [address] [place] [address] Karl Rose DO [address] [facility] [address] [place] [address] 05/01/2024 9:15 AM CDT Appointment [facility] [address] [place] [address] Karl Rose DO [address] [place] [address] Scheduled Orders Name Type Priority Associated Diagnoses Orde r Schedule MG SCREENING W BEA DANIEL DIGI MAMMO Routine Screening mammogram for breast cancer Ordered: 05/01/2021 Scheduled Referrals Name Type Priority Associated Diagnoses Orde r Schedule Ambulatory referral to Physical Therapy Referral Routine Chronic right-sided low back pain without sciatica Weakness of both lower extremities Ordered: 05/01/2021 Ambulatory referral to ENT Referral Routine Snoring Chronic fatigue Ordered: 05/01/2021 documented as of this encounter Visit Diagnoses Diagnosis Screening mammogram for breast cancer- Primary Encounter for well adult exam with abnormal findings Chronic right-sided low back pain without sciatica Weakness of both lower extremities Snoring Other dyspnea and respiratory abnormality Chronic fatigue Other malaise and fatigue documented in this encounter Care Teams Core Blower Operator Relationship Specialty Start Date End Date Phyllis Adams DO [address] [place] [address] PCP - General FAMILY PRACTICE 05/01/21 documented as of this encounter
--- OUTSIDE RECORDS SUMMARY | 2024-01-28 00:51 | XMS_ITS | Encounter Summary ---
Author Organization [facility] Address [address] [place] [address]. 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 30 tablet 1 05/28/2023 doxycycline hyclate (VIBRAMYCIN) 100 MG capsule Take 1 capsule (100 mg total) by mouth 2 (two) times daily. fluticasone propionate (FLONASE) 50 MCG/ACT nasal sprayIndications:Vit hooks D deficiency,Chronic fatigue,Tobacco smoker within last 12 months,SOB (shortness of breath),Snoring,Mapper cortney nonintractable headache, unspecified headache type 1 spray by Nasal route daily. 16 g 05/28/2023 documented as of this encounter Plan of Treatment Upcoming Encounters Date Type Department Care Team (Late st Contact Info) Description 02/06/2024 10:00 AM ANALYTICAL CONSULTANT Office Visit [facility] - [place] [address] [facility], [address] [place] [address] Phyllis Morgan, DO [address] [place] [address] 04/29/2024 8:20 AM CDT Office Visit [facility]ty [facility] - [facility] [address] [facility], [address] [place] [address] Karl Rose DO [address] [facility] [address] [place] [address] 05/01/2024 9:15 AM CDT Appointment [facility] [address] [place] [address] Karl Rose DO [address] [facility] [address] [place] [address] documented as of this encounter Procedures Procedure Name Priority Date/Time Associated Diagnosis Comments LUPUS ANTICOAGULANT EVAL W/RFX Routine 05/28/2023 10:41 AM CDT Chronic fatigue NATALI IFA SCRN, [place] REFLEX TO TITER Routine 05/28/2023 10:41 AM CDT Chronic fatigue TSH W/REFLEX Routine 05/28/2023 10:41 AM CDT Vitamin D deficiency Chronic fatigue Tobacco smoker within last 12 months SOB (shortness of breath) Snoring Chronic nonintractable headache, unspecified headache type CYCLIC CITRULLINATED PEPTIDE (CCP)ANTIBODY(IGG) Routine 05/28/2023 10:41 AM CDT Chronic fatigue HEMOGLOBIN, GLYCOSYLATED Routine 05/28/2023 10:41 AM CDT Vitamin D deficiency Chronic fatigue Tobacco smoker within last 12 months SOB (shortness of breath) Snoring Chronic nonintractable headache, unspecified headache type VITAMIN B-12 Routine 05/28/2023 10:41 AM CDT Vitamin D deficiency Chronic fatigue Tobacco smoker within last 12 months SOB (shortness of breath) Snoring Chronic nonintractable headache, unspecified headache type COMPREHENSIVE METABOLIC PANEL Routine 05/28/2023 10:41 AM CDT Vitamin D deficiency Chronic fatigue Tobacco smoker within last 12 months SOB (shortness of breath) Snoring Chronic nonintractable headache, unspecified headache type LIPID PANEL Routine 05/28/2023 10:41 AM CDT Vitamin D deficiency Chronic fatigue Tobacco smoker within last 12 months SOB (shortness of breath) Snoring Chronic nonintractable headache, unspecified headache type CBC W/DIFF AUTOMATED Routine 05/28/2023 10:41 AM CDT Vitamin D deficiency Chronic fatigue Tobacco smoker within last 12 months SOB (shortness of breath) Snoring Chronic nonintractable headache, unspecified headache type VITAMIN A Routine 05/28/2023 10:41 AM CDT Vitamin D deficiency Chronic fatigue Tobacco smoker within last 12 months SOB (shortness of breath) Snoring Chronic nonintractable headache, unspecified headache type VITAMIN D, 25 OH Routine 05/28/2023 10:4 1 AM CDT Vitamin D deficiency MAGNESIUM Routine 05/28/2023 10:41 AM CDT Vitamin D deficiency Chronic fatigue Tobacco smoker within last 12 months SOB (shortness of breath) Snoring Chronic nonintractable headache, unspecified headache type ANTINUCLEAR ANTIBODIES TITER Routine 05/28/2023 10:41 AM CDT documented in this encounter Results * (ABNORMAL) ANTINUCLEAR ANTIBODIES TITER (05/28/2023 10:41 AM CDT) NATALI TITER 1:40(A) Negative 06/02/2023 11:54 AM CDT [employer] [facility] Comment: A low level NATALI titer may be present in pre-clinical autoimmune diseases and normal individuals. Reference Range: <1:40 ?Negative 1:40-1:80 ??Low Antibody Level >1:80 ?Elevated Antibody Level Test Performed by [facility], [facility] [place], [address] [place] [address] Edwar Petersen M.D., Ph.D., Director of Laboratories , [facility] [id number] NATALI PATTERN REPORT 06/02/2023 11:54 AM CDT [employer] [facility] Comment: Nuclear, Homogeneous Homogeneous pattern is associated with systemic lupus erythematosus (SLE), drug-induced lupus and juvenile idiopathic arthritis. AC-1: Homogeneous International Consensus on NATALI Patterns https://doi.org/10.1515/esjb-6940-2040 NATALI TITER THREE END OF REPORT 06/02/2023 11:54 AM CDT [employer] [facility] 05/28/2023 10:4 1 AM CDT us Phyllis Cathy DO LABORATORY Final Result [facility] [address] [place], [place] , * (ABNORMAL) NATALI IFA SCRN, [place] REFLEX TO TITER (05/28/2023 10:41 AM CDT) NATALI POSITIVE( A) Negative 06/02/2023 11:26 AM CDT [employer] [facility] Comment: NATALI IFA is a first line screen for detecting the presence of up to approximately 150 autoantibodies in various autoimmune diseases. A positive NATALI IFA result is suggestive of autoimmune disease and reflexes to titer and pattern. Further laboratory testing may be considered if clinically indicated. For additional information, please refer to http://education.[employer] system/faq/KLN301 (This link is being provided for informational/ educational purposes only.) Test Performed by [facility] [place], [address] [place] [address] Edwar Petersen M.D., Ph.D., Director of Laboratories , [facility] [id number] 05/28/2023 10:4 1 AM CDT us Phyllis Cathy DO LABORATORY Final Result Performing Organization Address City/State/[facility] Co de Phone Number [facility] , * CYCLIC CITRULLINATED PEPTIDE (CCP)ANTIBODY(IGG) (05/28/2023 10:41 AM CDT) Pathologist [facility] CITRULLINE PEPTIDE ANTIBODY <16 <20 Units 06/02/2023 5:33 AM CDT [employer] ANTHONY CARTWRIGHT Comment: Negative: ? <20 Weak Positive: ?20 - 39 Moderate Positive: ?40 - 59 Strong Positive: ?>59 Test Performed by [facility], [facility] [place], [address] [place] [address] Edwar Petersen M.D., Ph.D., Director of Laboratories , CLIA [id number] 05/28/2023 10:4 1 AM CDT us Phyllis Cathy DO LABORATORY Final Result [facility] [id number] [place], [place] , [place] [phone] * LUPUS ANTICOAGULANT EVAL W/RFX (05/28/2023 10:41 AM CDT) LUPUS ANTICOAGULANT REPORT 06/03/2023 9:29 PM CDT [employer] [facility]THONY [facility]ART[employer] Comment: A Lupus Anticoagulant is not detected. Reference Range: ??Not Detected For additional information, please refer to http://xaitment.[employer]/faq/DPH43o5 (This link is being provided for informational/ educational purposes only.) This interpretation is based on the following test results. PTT (LUPUS ANTICOAGULANT) 30 <=40 sec 06/03/2023 9:29 PM CDT [employer] ANTHONY CART[employer] Comment: Test Performed by William [facility], [address] [place] [address] Edwar Petersen M.D., Ph.D., Director of Laboratories , CLIA [id number] DRVVT SCREEN 37 <=45 sec 06/03/2023 9:29 PM CDT [employer] ANTHONY CARTWRIGHT 05/28/2023 10:4 1 AM CDT us Phyllis Cathy DO LABORATORY Final Result Performing Organization Address City/[facility]/ZIP Co de Phone Number [facility] [place] [id number] [place], [place] , [place] [phone] * VITAMIN B-12 (05/28/2023 10:41 AM CDT) VITAMIN B12 S/P/B 374 254 - 1,320 PG/ML 05/28/2023 1:20 PM CDT [facility] 05/28/2023 10:4 1 AM CDT us Phyllis Cathy DO LABORATORY Final Result [facility] [address] [place] [address], [place] [phone] * VITAMIN A (05/28/2023 10:41 AM CDT) Pathologist [facility] VITAMIN A (RETINOL) S/P/B 43 38 - 98 mcg/dL 05/31/2023 6:26 AM CDT [employer] [facility] C[facility] Comment: Vitamin supplementation within 24 hours prior to blood draw may affect the accuracy of the results. This test was developed and its analytical performance characteristics have been determined by [facility] [place], [place]. It has not been cleared or approved by the U.S. Food and Drug Administration. This assay has been validated pursuant to the CLIA regulations and is used for clinical purposes. Test Performed by [facility], [facility], [address] [place] [address] Edwar Petersen M.D., Ph.D., Director of Laboratories , CLIA [id number] 05/28/2023 10:4 1 AM CDT us Phyllis Cathy DO LABORATORY Final Result [employer] [address] , [place] [phone] * TSH W/REFLEX (05/28/2023 10:41 AM CDT) TSH 1.580 0.358 - 3.74 uIU/ML 05/28/2023 11:32 AM CDT [facility] Comment: HIGH DOSES OF BIOTIN MAY INTERFERE WITH THIS TEST RESULT. CORRELATION TO CLINICAL HISTORY AND PRESENTATION RECOMMENDED. FREE T4 NOT INDICATED 05/28/2023 10:4 1 AM CDT us Phyllis Cathy DO LABORATORY Final Result Performing Organization Address City/[facility]/ZIP Co de Phone Number [facility] [address] [place] [address], * HEMOGLOBIN, GLYCOSYLATED (05/28/2023 10:41 AM CDT) HGB A1C 5.5 <5.7 % 05/28/2023 11:31 AM CDT [facility] Comment: ADA GUIDELINES 2010 5.7 TO 6.4% INCREASED RISK OF DIABETES > OR = 6.5% CONSISTENT WITH DIABETES ESTIMATED AVG GLUCOSE 111 mg/dL 05/28/2023 11:31 AM CDT [facility] 05/28/2023 10:4 1 AM CDT us Phyllis Cathy DO LABORATORY Final Result Performing Organization Address City/[facility]/ZIP Co de Phone Number [facility] [address] [place] [address], * (ABNORMAL) LIPID PANEL (05/28/2023 10:41 AM CDT) CHOLESTEROL 176 <200 MG/DL 05/28/2023 11:32 AM CDT [facility] TRIGLYCERIDES 98 <150 MG/DL 05/28/2023 11:32 AM CDT [facility] HDL 50 >40.0 MG/DL 05/28/2023 11:32 AM CDT [facility] LDL (CALCULATED) 106(H) <100 MG/DL 05/28/2023 11:32 AM T [facility] NON HDL CHOLESTEROL 126 <130 MG/DL 05/28/2023 11:32 AM T [facility] CHOL/HDL RATIO 3.5 0.0 - 4.5 05/28/2023 11:32 AM T [facility] VLDL CALCULATION 20 5 - 55 MG/DL 05/28/2023 11:32 AM T [facility] LIPID INTERPRETATION 05/28/2023 11:32 AM T [facility] Comment: [facility] REPORT RECOMMENDATIONS: ?ADULT ?CHILD ??LOW RISK: [...] >=160 ?>=130 05/28/2023 10:4 1 AM CDT [facility] Cathy DO LABORATORY Final Result Performing Organization Address [facility] de Phone Number [facility] [address] [place] [address], * VITAMIN D, 25 OH (05/28/2023 10:41 AM CDT) VITAMIN D 25 HYDROXY S/P/B 40 30 - 100 NG/ML 05/28/2023 11:26 AM CDT [facility] Comment: ? INTERPRETATION ? DEFICIENT ??<20 ? INSUFFICIENT 20-29 ?SUFFICIENT 30-100 05/28/2023 10:4 1 AM CDT Phyllis Cathy DO LABORATORY Final Result Performing Organization Address [facility] de Phone Number [facility] [address] [place] [address], * (ABNORMAL) MAGNESIUM (05/28/2023 10:41 AM CDT) MAGNESIUM 2.5(H) 1.8 - 2.4 MG/DL 05/28/2023 11:32 AM CDT [facility] 05/28/2023 10:4 1 AM CDT us Phyllis Cathy DO LABORATORY Final Result [facility] [address] [place] [address], [place] [phone] * CBC W/DIFF AUTOMATED (05/28/2023 10:41 AM CDT) WBC 5.86 4.5 - 11.0 x10'3/uL 05/28/2023 10:57 AM CDT [facility] RBC 4.47 4.20 - 5.40 x10'6/uL 05/28/2023 10:57 AM CDT [facility] HGB 13.8 12.0 - 16.0 G/DL 05/28/2023 10:57 AM CDT [facility] HCT 41.5 38.0 - 48.0 % 05/28/2023 10:57 AM CDT [facility] MCV 92.8 81.0 - 99.0 FL 05/28/2023 10:57 AM CDT [facility] MCH 30.9 27.0 - 31.0 PG 05/28/2023 10:57 AM CDT [facility] MCHC 33.3 32.0 - 36.0 G/DL 05/28/2023 10:57 AM CDT [facility] RDW 11.6 11.5 - 14.5 % 05/28/2023 10:57 AM CDT [facility] PLT 254 130 - 400 x10'3/uL 05/28/2023 10:57 AM CDT [facility] MPV 9.6 9.3 - 12.2 FL 05/28/2023 10:57 AM CDT [facility] DIFFERENTIAL TYPE AUTOMATED DIFFERENTIAL 05/28/2023 10:57 AM CDT [facility] NEUTROPHILS % 56.1 % 05/28/2023 10:57 AM CDT [facility] LYMPHOCYTES % 30.9 % 05/28/2023 10:57 AM CDT [facility] MONOCYTES % 7.5 % 05/28/2023 10:57 AM CDT [facility] EOSINOPHILS 4.3 % 05/28/2023 10:57 AM CDT [facility] BASOPHILS 1.0 % 05/28/2023 10:57 AM CDT [facility] IMMATURE GRANS % 0.2 % 05/28/19 10:57 AM CDT [facility] ABS. NEUTROPHILS 3.29 1.80 - 7.70 x10'3/uL 05/28/2023 10:57 AM CDT [facility] ABS. LYMPHOCYTES 1.81 1.00 - 4.80 x10'3/uL 05/28/2023 10:57 AM CDT [facility] ABS. MONOCYTES 0.44 0.24 - 0.86 x10'3/uL 05/28/2023 10:57 AM CDT [facility] ABS. EOSINOPHILS 0.25 0.04 - 0.36 x10'3/uL 05/28/2023 10:57 AM CDT [facility] ABS. BASOPHILS 0.06 0.01 - 0.08 x10'3/uL 05/28/2023 10:57 AM CDT [facility] ABS. IMMATURE GRANULOCYTES 0.01 0.00 - 0.49 x10'3/uL 05/28/2023 10:57 AM T [facility] 05/28/2023 10:4 1 AM CDT us Phyllis Cathy DO LABORATORY Final Result [facility] [address] [place] [address], * (ABNORMAL) COMPREHENSIVE METABOLIC PANEL (05/28/2023 10:41 AM CDT) [facility] GLUCOSE 102(H) 70 - 99 MG/DL 05/28/2023 11:32 AM CDT [facility] BUN 9 7 - 18 MG/DL 05/28/2023 11:32 AM CDT [facility] CREATININE S/P/B 0.79 0.55 - 1.02 MG/DL 05/28/2023 11:32 AM CDT [facility] SODIUM S/P/B 140 136 - 145 MMOL/L 05/28/2023 11:32 AM CDT [facility] POTASSIUM S/P/B 3.7 3.5 - 5.1 MMOL/L 05/28/2023 11:32 AM CDT [facility] CHLORIDE S/P/B 109(H) 100 - 108 MMOL/L 05/28/2023 11:32 AM CDT [facility] CO2 27.8 21 - 32 MMOL/L 05/28/2023 11:32 AM CDT [facility] CALCIUM S/P/B 9.9 8.5 - 10.1 MG/DL 05/28/2023 11:32 AM CDT [facility] BILIRUBIN TOTAL S/P/B 0.4 0.2 - 1.2 MG/DL 05/28/2023 11:32 AM CDT [facility] Comment: THIS ASSAY IS NOT RECOMMENDED FOR PATIENTS UNDERGOING TREATMENT WITH ELTROMBOPAG DUE TO THE POTENTIAL FOR FALSELY ELEVATED RESULTS. TOTAL PROTEIN S/P/B 7.3 6.4 - 8.2 G/DL 05/28/2023 11:32 AM CDT [facility] ALBUMIN S/P/B 3.8 3.4 - 5.0 G/DL 05/28/2023 11:32 AM CDT [facility] AST 14(L) 15 - 37 U/L 05/28/2023 11:32 AM CDT [facility] ALT 28 14 - 55 U/L 05/28/2023 11:32 AM CDT [facility] ALKALINE PHOSPHATASE S/P/B 97 50 - 136 U/L 05/28/2023 11:32 AM CDT [facility] ANION GAP 3.2(L) 5 - 15 MMOL/L 05/28/2023 11:32 AM CDT [facility] BUN CREATININE RATIO 11.4 6 - 26 05/28/2023 11:32 AM T [facility] A/G RATIO 1.1 1.0 - 2.0 RATIO 05/28/2023 11:32 AM T [facility] GFR ESTIMATE >90 >90 ML/MIN/1.7 3 M2 05/28/2023 11:32 AM T [facility] Comment: NOTE: eGFR is not calculated for patients <18 years of age. This is an estimated GFR calculation using the new CKD EPI creatinine equation without race and so does not require a correction factor for race. This estimated GFR should not be used for calculating drug doses. 05/28/2023 10:4 1 AM CDT us Phyllis Cathy DO LABORATORY Final Result [facility] [address] [place] [address], [place] [phone] documented in this encounter Visit Diagnoses Diagnosis Vitamin D deficiency Unspecified vitamin D deficiency [...] documented as of this encounter Care Teams Water Meter Mechanic Relationship Specialty Start Date End Date Phyllis Morgan DO [address] [place] [address] PCP - General FAMILY PRACTICE 05/01/21 documented as of this encounter
--- OUTSIDE RECORDS SUMMARY | 2024-01-28 00:51 | XMS_ITS | Encounter Summary ---
Author Organization [facility] Address [address] [place] [address]. 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 [address] [facility], [address] [place] [phone] Karl Rose DO [address] [facility] [address] [place] [address] 05/01/2024 9:15 AM CDT Appointment [facility] [address] [place] [address] Karl Rose DO [address] [facility] [address] [place] [address] documented as of this encounter Visit Diagnoses Not on filedocumented in this encounter Care Teams Chip Drier Relationship Specialty Start Date End Date Phyllis Morgan DO [address] [place] [address] PCP - General FAMILY PRACTICE 05/01/21 documented as of this encounter
--- OUTSIDE RECORDS SUMMARY | 2024-01-28 00:51 | XMS_ITS | Encounter Summary ---
Author Organization [facility] Address [address] [place] [address]. [place], [place] [address] [place] [address] Care Team Providers Care Optical Lathe Operator Name Role Phone Phyllis Morgan DO Primary Care Provider [phone] Reason for Visit * Reason Comments Lab (SCAN) Encounter Details Date Type Department Care Team (Latest Contact Info) Description 04/20/2021 Scan HEALTH INFO SRVCS Scanned, Documents Lab (SCAN) Social History Tobacco Use Types Packs/Day Years Used Date Smoking Tobacco: Never Assessed Comments Unknown Sex and Gender Information Value Date Recorded Sex Assigned at Not on file Legal Sex Female 9:04 AM BLOCKER AUTOMATIC Gender Identity Not on file Sexual Orientation [...] st Contact Info) Description 02/06/2024 10:00 AM BLOCKER AUTOMATIC Office Visit [facility] - [address] [facility], [address] [place] [phone] Phyllis Morgan DO [address] [place] [address] 04/29/2024 8:20 AM CDT Office Visit [facility] - [facility] [address] [facility], [address] [place] [phone] Karl Rose, DO [address] [facility] [address] [place] [address] 05/01/2024 9:15 AM CDT Appointment [facility] [address] [place] [address] Karl Rose, DO 3 [facility] [address] [place] [address] documented as of this encounter Procedures Procedure Name Priority Date/Time Associated Diagnosis Comments OUTSIDE LAB (SCAN ORDER) 04/20/2021 documented in this encounter Results * OUTSIDE LAB (SCAN) (04/20/2021) 04/20/2021 Narrative 04/20/2021 Ordered by an unspecified provider. us Documents Scanned SCANNING Final Result documented in this encounter Visit Diagnoses Not on filedocumented in this encounter Care Teams Optical Lathe Operator Relationship Specialty Start Date End Date Phyllis Morgan DO [address] [place] [address] PCP - General FAMILY PRACTICE 05/01/21 documented as of this encounter
--- OUTSIDE RECORDS SUMMARY | 2024-01-28 00:51 | XMS_ITS | Encounter Summary ---
Author Organization [facility] Address [address] [place] [address]. [place], [place] [address] [place] [address] Care Team Providers Care Station Agent Name Role Phone Phyllis Morgan Primary Care Provider [phone] Reason for Referral * Imaging (Routine) - Closed Specialty Diagnoses / Procedures Referred By Geo retana Referred To Contact RADIOLOGY Diagnoses Solitary pulmonary nodule Procedures CT CHEST WO CON Karl Paulino DO 3 [facility] [email or web address] [address] [place] [address] Phone: tel: fax: Referral ID Status Reason Start Date Expiration Date Visits Re quested Visits Authorized [id number] Closed 2023 2024 1 1 * Sleep Lab (Routine) - New Request Specialty Diagnoses / Procedures Referred By Geo retana Referred To Contact Diagnoses Snoring Procedures Home Sleep Study - WatchPat ([id number]) Karl Paulino DO 3 [facility] [email or web address] [address] [place] [address] Phone: tel: fax: Referral ID Status Reason Start Date Expiration Date V isits Requested Visits Authorized [id number] New Request 2023 06/25/2024 1 1 Reason for Visit * Reason Comments Nodule * Consultation (Urgent) - Authorized Specialty Diagnoses / Procedures Referred By Contact Referred To Contact SLEEP & RESPIRATORY CARE Diagnoses Nodule of middle lobe of right lung Procedures OFFICE/OUTPATIENT NEW LOW MDM 30-44 MINUTES OFFICE/OUTPT VISIT,NEW,LEVL IV OFFICE/OUTPT VISIT,NEW,LEVL V OFFICE/OUTPT VISIT,EST,LEVL III OFFICE/OUTPT VISIT,EST,LEVL IV OFFICE/OUTPT VISIT,EST,LEVL V Phyllis Morgan DO [address] [place] [address] Phone: tel:[phone] fax:[phone] [facility] - [address], [address] [place] [phone] Phone: tel: fax: Referral ID Status Reason Start Date Expiration Date Visits Requested Visits Authorized [id number] Authorized Specialty Services 06/16/2023 07/17/2024 99 99 Encounter Details Date Type Department Care Team (Late st Contact Info) Description 2023 9:20 AM CDT Office Visit [facility] - [address], [address] [place] [phone] Karl Paulino DO 3 [facility] [address] [place] [address] Nodule Social History Tobacco Use Types Packs/Day Years Used Date Smoking Tobacco: Every Day Smokeless Tobacco: Never Alcohol Use Standard Drinks/Week Comments Yes 0 (1 standard drink = 0.6 oz pur e alcohol) PHQ-2 Answer Date Recorded Patient Health Questionnaire-2 Score 0 05/28/2023 Comments No Sex and Gender Information Value Date Recorded Sex Assigned at Not on file 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 Gender Identity Not on file Sexual Orientation Not on file documented as of this encounter Last Filed Vital Signs Vital Sign Reading Time Taken Comments Blood Pressure 115/80 2023 9:07 AM CDT Pulse 84 2023 9:07 AM CDT Temperature 36.8 ??C (98.3 ??F) 2023 9:07 AM CD T Respiratory Rate 16 2023 9:07 AM CDT Oxygen Saturation 99% 2023 9:07 AM CDT ra Inhaled Oxygen Concentration - - Weight 71.7 kg (158 lb) 2023 9:07 AM CDT Height 177.2 cm (5' 9.75 ) 2023 9:07 AM CD T Body Mass Index 22.83 2023 9:07 AM CDT documented in this encounter Patient Instructions * Patient Instructions* Karl Paulino, DO - 2023 9:20 AM CDT Images from the original note were not included. PATIENT INSTRUCTIONS Please review the following items that were discussed in your visit today: Call the number I gave you soon to schedule your CT chest, please schedule the testing for ~ 1 weekprior to next office visit. If you change your mind and wish to pursue the blood test (nodify lung) let me know. is the patient care support team for nodify lung, can check with them on cost. Please try to quit smoking. Call the quit line card to help you. Consider the nicotine replacement therapy over the counter. Return to clinic in 3 months, or sooner if your symptoms change or worsen. If you have any questions or concerns please send us a e-Tag message for the most timely response. However, you can always call us at ([phone]) during office hours It was my pleasure to take care of you today, looking forward to seeing you at your next appointment. Please let us know how we are doing and leave a review for me on [employer] with the following QR code.You do not need an account and doesn't sign you up for anything. Usually can hover your smartphone camera over this QR code like you are taking a picture and just click on the link that forms under the QR code Alternatively you can use a QR scanner nabil through the [employer]). If you don't have a smart phone and want to leave a review for me you can always search Dr. Robby Paulino DO Google review to let us know how we are doing. Sincerely, Dr. Robby Paulino documented in this encounter Progress Notes * Karl Paulino DO - 2023 9:20 AM CDT [facility] NOTE History of Present Illness Carol Heller is a 52-year-old female who presented to our clinic for: Chief Complaint Patient presents with Nodule Initial Pulmonary OV 06/26/23: The patient presents today to establish care for pulmonary nodule. Ptnotes she is having fatigue and HOPKINS for ~1 year. HOPKINS doesn't seem to be worsening, doesn't appear to limit her QOL. No recurrent bronchitis. No significant cough. No wheezing. -- 1/2 ppd smoker, 35 years. Weaning down now. -- notes having no sputum, no hemoptysis. No weight changes. -- having issues with sleep, noting daytime fatigue, + snoring, non-restorative sleep and AM headaches. Other Relevant Hx: Fam hx: no known fam hx of lung disease. Uncle x2 + asbestos. Tob: ~15 PY, still smoking Exp: + PPD in the past ~1990s, no tx for latent tb, notes no known exposure to asbestos she is aware of Pets: + dogs. 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 Hobbies: no inhalational exposures of note. Imaging reviewed: Pet-ct 06/17/23: An approximately 8mm right middle lobe nodule does not have a distinct FDG correlate. This favors a benign etiology. A low-grade neoplasm is not entirely excluded and short-term follow-up with CT of the chest in 3 months to ensure stability or resolution of this finding is recommended. 2. No FDG evidence to suggest malignancy elsewhere. Ct lung screening 06/07/23: RML solid nodule measuring 10 x 8 mm (image 112). --Additional Findings:Mild patchy pleural-based scarring in the lung apices. No suspicious adenopathy. Degenerative changes in the visualized spine. =====Impression:===== cat 4a, PET-ct or 3m ct Testing/Data reviewed: Labs: -- cbc 05/27.: eos 250 otherwise wnl. Mildly + NATALI, 1:40 Echo: none PFT: 06/2023: Prebronchodilator FVC 3.31 L, 81% predicted. FEV1 2.66 L, 83% predicted. FEV1/FVC 80%. Postbronchodilator FVC 3.35 L, 82% predicted. FEV1 2.75 L, 85% predicted. FEV1/FVC 82%. Less than significant response to bronchodilator. Lung volumes: TLC 73% predicted, RV 61% predicted, ERV 79% predicted. Diffusing capacity: Unadjusted DLCO 64% predicted. IMPRESSION: 1. Spirometry within normal limits. Values near lower limit of normal. 2. Less than significant response to bronchodilator, this does not preclude use. Clinical correlation advised. 3. Mild reduction in total lung capacity. 4. Mild reduction in unadjusted DLCO. Sleep Data: History reviewed. No pertinent past medical history. Past Surgical History: Procedure Laterality Date SECTION Social History Tobacco Use Smoking status: Every Day Smokeless tobacco: Never Vaping Use Vaping status: Never Used Substance Use Topics Alcohol use: Yes Drug use: Never Family History Problem Relation Name Age of Onset Hypertension Mother Dori CHF Mother Dori Hypertension Sister Current Outpatient Medications Medication Sig Dispense Refill cetirizine (ZYRTEC ALLERGY) 10 MG tablet Take 1 tablet (10 mg total) by mouth daily. 30 tablet 1 clindamycin (CLEOCIN) 150 MG capsule Take 1 capsule (150 mg total) by mouth 3 (three) times daily for 10 days. 30 capsule 0 doxycycline hyclate (VIBRAMYCIN) 100 MG capsule Take 1 capsule (100 mg total) by mouth 2 (two) times daily. (Patient not taking: Reported on 2023) fluticasone propionate (FLONASE) 50 MCG/ACT nasal spray 1 spray by Nasal route daily. 16 g 0 No current facility-administered medications for this visit. Review of patient's allergies indicates: No Known Allergies Immunization History Administered Date(s) Administered Influenza Adult (Generic) 11/17/2018 PFIZER COVID-19 (ORIGINAL FORMULATION, PURPLE CAP) mRNA, LNP-S, PF, 30 MCG/0.3 ML DOSE 07/15/2020 Tdap (Generic) 09/01/2014 Review of Systems Constitutional: Negative for malaise/fatigue and weight loss. HENT: Negative for congestion and sore throat. Respiratory: Negative for cough, hemoptysis, sputum production, shortness of breath and wheezing. Cardiovascular: Negative for chest pain, palpitations, orthopnea, leg swelling and PND. Endo/Heme/Allergies: Negative for environmental allergies. Psychiatric/Behavioral: The patient does not have insomnia. Physical Exam Filed Vitals: 06/26/23 0907 BP: 115/80 Pulse: 84 Resp: 16 Temp: 98.3 ??F (36.8 ??C) TempSrc: Temporal SpO2: 99% Weight: 71.7 kg (158 lb) Height: 1.772 m (5' 9.75 ) GEN: Pleasant, in NAD NEURO: Alert, oriented x3, no focal neurologic deficits noted PSYCH: Affect is normal HEAD: NC, AT EENT: mallampati 3 NECK: Supple, trachea midline LN: No appreciable cervical lymphadenopathy PULM: non-labored, CTAB, no wheezes/crackles HEART: normal s1,s2, rrr, no audible murmur GI: non-distended MSK: Normal range of motion of b/l hand/wrist joints without effusion or joint tenderness EXTR: No clubbing, no edema Skin: No visible rashes, no visible tattoos Assessment #. Solitary pulmonary nodules, RUL 1cm. -- no activity on pet-ct #. Hx tobacco abuse 15 PY, still smoking #. High Risk for NUVIA -- Initial Sx: daytime fatigue, + snoring, non-restorative sleep. -- work up: in progress -- Treament: none # HOPKINS Mild. Pft reassuring. Plan -- plan CT chest wo contrast in 3 m to follow lung nodule. Pt declined nodify lung, will let me know if she changes her mind. -- encouraged to call [place] quitline or try NRT therapy, advised smoking cessation. -- encouarged pt to get HSAT scheduled / informed her they could mail it to her. Ordered hsat. RTC 3m I spent >45 minutes today reviewing the patient's medical record, obtaining history, performing an exam, ordering medications, tests, and/or procedures, documenting in the medical record, counseling and educating the patient, and reviewing and communicating test results. Dr. 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 [address] [place] [address] Karl Paulino DO [address] [facility] [address] [place] [address] Scheduled Orders Name Type Priority Associated Diagnoses Orde r Schedule Home Sleep Study - WatchPat ([id number]/[id number]) Sleep Center Routine Snoring Expected: 2023, Expires: 06/25/2024 documented as of this encounter Results * CT CHEST WO CON (09/27/2023 9:06 AM CDT) Anatomical Region Laterality Modality Chest Computed Tomogra phy 10/02/2023 9:04 AM CDT Impressions 10/02/2023 9:17 AM CDT IMPRESSION:===== ?? 1. ??Stable right middle lobe pulmonary nodule. ??Continued follow-up in 6 months is recommended possibly by low-dose screening CT scan of the chest. Referred By: KARL PAULINO Interpreted By: Glen Gamboa MD, 10/02/2023 9:04 AM Narrative 10/02/2023 9:17 AM CDT EXAMINATION: CT Chest without contrast EXAM DATE/TIME: 09/27/2023 8:48 AM REASON FOR EXAM: ??See Comments to the Radiologist ?? COMPARISON: 06/07/2023 TECHNIQUE: Computed tomography of the chest was obtained without administration of intravenous contrast according to routine protocol. A dose lowering technique was used for this procedure, which may include, but is not limited to, dose reduction technique, automated exposure control, iterative reconstruction, ALARA (As Low As Reasonably Achievable), or Image Gently techniques FINDINGS: Lung Parenchyma:Right middle lobe pulmonary nodule is again seen. ??This measures 7 x 8 x 13 mm, stable in appearance prior study. ??No new pulmonary nodules are seen. ??There is no consolidation or pleural effusion present. Mediastinum/Judit:No enlarged mediastinal lymph nodes. ??No cardiomegaly. ??The esophagus is unremarkable. Vascular structures: ??Unremarkable Axillae: No enlarged lymph nodes. Superficial tissues: ??Unremarkable Visualized Upper abdominal structures:Unremarkable Bone Windows:Subtle osteoarthritis is spine noted. Other: ??The thyroid gland and supraclavicular regions are unremarkable. ===== Procedure Note Glen Gamboa MD - 10/02/2023 EXAMINATION: CT Chest without contrast EXAM DATE/TIME: 09/27/2023 8:48 AM REASON FOR EXAM: See Comments to the Radiologist COMPARISON: 06/07/2023 TECHNIQUE: Computed tomography of the chest was obtained withoutadministration of intravenous contrast according to routine protocol. Adose lowering technique was used for this procedure, which may include,but is not limited to, dose reduction technique, automated exposurecontrol, iterative reconstruction, ALARA (As Low As ReasonablyAchievable), or Image Gently techniques FINDINGS: Lung Parenchyma:Right middle lobe pulmonary nodule is again seen. Thismeasures 7 x 8 x 13 mm, stable in appearance prior study. No newpulmonary nodules are seen. There is no consolidation or pleural effusionpresent. Mediastinum/Judit:No enlarged mediastinal lymph nodes. No cardiomegaly.The esophagus is unremarkable. Vascular structures: Unremarkable Axillae: No enlarged lymph nodes. Superficial tissues: Unremarkable Visualized Upper abdominal structures:Unremarkable Bone Windows:Subtle osteoarthritis is spine noted. Other: The thyroid gland and supraclavicular regions are unremarkable. ===== IMPRESSION:===== 1. Stable right middle lobe pulmonary nodule. Continued follow-up in 6months is recommended possibly by low-dose screening CT scan of thechest. Referred By: KARL PAULINO Interpreted By: Glen Gamboa MD, 10/02/2023 9:04 AM Karl Paulino DO CT Final Resu lt documented in this encounter Visit Diagnoses Diagnosis Solitary pulmonary nodule- Primary Snoring Other dyspnea and respiratory abnormality HOPKINS (dyspnea on exertion) Other dyspnea and respiratory abnormality History of tobacco abuse Personal history of tobacco use, presenting hazards to health Solitary pulmonary nodule documented in this encounter Additional Health Concerns Assessment Noted Time PHQ-9 Depression Total Score: 7 05/28/19 24 10:42 AM CDT documented as of this encounter Care Teams Station Agent Relationship Specialty Start Date End Date Phyllis Morgan DO [address] [place] [address] PCP - General FAMILY PRACTICE 05/01/21 documented as of this encounter
--- OUTSIDE RECORDS SUMMARY | 2024-01-28 00:51 | XMS_ITS | Encounter Summary ---
Author Organization [facility] Address [address] [place] [address]. [place], [place] [address] [place] [address] Care Team Providers Care Software Security Architect Name Role Phone Phyllis Morgan DO Primary Care Provider [phone] Reason for Visit * Reason Comments CT (SCAN) Encounter Details Date Type Department Care Team (Latest Contact Info) Description 06/16/2023 Scan HEALTH INFO SRVCS Scanned, Doc Med Group CT (SCAN) Social History Tobacco Use Types Packs/Day Years Used Date Smoking Tobacco: Every Day Smokeless Tobacco: Never Alcohol Use Standard Drinks/Week Comments Yes 0 (1 standard drink = 0.6 oz pur e alcohol) PHQ-2 Answer Date Recorded Patient Health Questionnaire-2 Score 0 05/28/2023 Comments No Sex and Gender Information Value Date Recorded Sex Assigned at Not on file Legal Sex Female 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, [address] [place] [address] Karl Rose, DO [address] [facility] [address] [place] [address] 05/01/2024 9:15 AM CDT Appointment [facility] [address] [place] [address] Karl Rose, DO [address] [facility] [address] [place] [address] documented as of this encounter Procedures Procedure Name Priority Date/Time Associated Diagnosis Comments CT GENERIC 06/16/2023 documented in this encounter Results * CT GENERIC (06/16/2023) Anatomical Region Laterality Modality Other 06/16/2023 us Doc Med Group Scanned SCANNING Final Resu lt documented in this encounter Visit Diagnoses Not on filedocumented in this encounter Additional Health Concerns Assessment Noted Time PHQ-9 Depression Total Score: 7 05/28/19 24 10:42 AM CDT documented as of this encounter Care Teams Software Security Architect Relationship Specialty Start Date End Date Phyllis Morgan DO [address] [place] [address] PCP - General FAMILY PRACTICE 05/01/21 documented as of this encounter
--- OUTSIDE RECORDS SUMMARY | 2024-01-28 00:51 | XMS_ITS | Encounter Summary ---
Author Organization [facility] Address [address] [place] [address]. [place], [place] [address] [place] [address] Care Team Providers Care Fish Stringer Assembler Name Role Phone Phyllis Morgan DO Primary Care Provider [phone] Reason for Referral * Imaging (Routine) - New Request Specialty Diagnoses / Procedures Referred By Contac t Referred To Contact RADIOLOGY Diagnoses Solitary pulmonary nodule Procedures CT CHEST WO CON Karl Rose DO [address] [facility] [address] [place] [address] Phone: tel: fax: Referral ID Status Reason Start Date Expiration Date V isits Requested Visits Authorized [id number] New Request 10/31/2023 10/29/2024 1 1 Reason for Visit * Reason Comments Follow Up Pulmonary nodule * Consultation (Urgent) - Authorized Specialty Diagnoses / Procedures Referred By Contact Referred To Contact SLEEP & RESPIRATORY CARE Diagnoses Nodule of middle lobe of right lung Procedures OFFICE/OUTPATIENT NEW LOW MDM 30-44 MINUTES OFFICE/OUTPT VISIT,NEW,LEVL IV OFFICE/OUTPT VISIT,NEW,LEVL V OFFICE/OUTPT VISIT,EST,LEVL III OFFICE/OUTPT VISIT,EST,LEVL IV OFFICE/OUTPT VISIT,EST,LEVL V Phyllis Morgan DO [address] [place] [address] Phone: tel:[phone] fax:[phone] [facility]ialty Care - [facility] [address] [place] [address] Phone: tel: fax: Referral ID Status Reason Start Date Expiration Date Visits Requested Visits Authorized [id number] Authorized Specialty Services 06/16/2023 07/17/2024 99 99 Encounter Details Date Type Department Care Team (Latest Contact Info) Description 10/31/2023 10:00 AM CDT Office Visit [facility] [address] [place] [address] Karl Rose DO [address] [facility] [address] [place] [address] Follow Up (Pulmonary nodule) Social History Tobacco Use Types Packs/Day Years [...] on file 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 Gender Identity Not on file Sexual Orientation Not on file documented as of this encounter Last Filed Vital Signs Vital Sign Reading Time Taken Comments Blood Pressure 135/91 10/31/2023 10:19 AM CDT Pulse 81 10/31/2023 9:47 AM CDT Temperature 36.8 ??C (98.2 ??F) 10/31/2023 9:47 AM CD T Respiratory Rate - - Oxygen Saturation 99% 10/31/2023 9:47 AM CDT Inhaled Oxygen Concentration - - Weight 73 kg (161 lb) 10/31/2023 9:47 AM CDT Height 175.3 cm (5' 9 ) 10/31/2023 9:47 AM CDT Body Mass Index 23.78 10/31/2023 9:47 AM CDT documented in this encounter Patient Instructions * Patient Instructions* Karl Rose DO - 10/31/2023 10:00 AM CDT Images from the original note were not included. PATIENT INSTRUCTIONS Please review the following items that were discussed in your visit today: Call the number I gave you soon to schedule your ct chest, please schedule the testing for ~ 1 weekprior to next office visit. Also can call the sleep center to schedule your sleep study. Try to quit smoking. Return to clinic in 6 months, or sooner if your symptoms change or worsen. If you have any questions or concerns please send us a MyShape message for the most timely response. However, you can always call us at ([phone]) during office hours It was my pleasure [...] use a QR scanner nabil through the [employer]). If you don't have a smart phone and want to leave a review for me you can always search Dr. Robby Rose DO Google review to let us know how we are doing. Sincerely, Dr. Robby Rose documented in this encounter Progress Notes * Karl Rose DO - 10/31/2023 10:00 AM CDT [facility] PULMONARY [facility]ICINE CLINIC NOTE History of Present Illness Carol Heller is a 53-year-old female who presented to our clinic for: Chief Complaint Patient presents with Follow Up Pulmonary nodule OV 10/31/2023: since last visit pt did not get hsat done, still having sleep issues, had ct chest 09/2023, with stable lung nodule. -- respiratory sx are controlled. Notes having no HOPKINS, no wheezing. Having some sinus drainage, back on claritin, mild cough with this, improved. On flonase daily, as well. -- still smoking, down to <1/2 ppd. 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 Hobbies: no inhalational exposures of note. Imaging reviewed: Ct chest 09/2023: Stable right middle lobe pulmonary nodule. Continued follow-up in 6 months is recommended possibly by low-dose screening CT scan of the chest. Pet-ct 06/17/23: An approximately 8mm right middle [...] 3m ct Testing/Data reviewed: Labs: -- cbc : eos 250 otherwise wnl. Mildly + NATALI, [...] not have insomnia. Physical Exam Filed Vitals: 10/31/23 0947 BP: (!) 133/90 Pulse: 81 Temp: 98.2 ??F (36.8 ??C) TempSrc: Temporal SpO2: 99% Weight: 73 kg (161 lb) Height: 1.753 m (5' 9 ) GEN: Pleasant, in NAD NEURO: Alert, [...] RUL 1cm. -- no activity on pet-ct -- stable on ct 09/[address] on 05/2023. #. Hx tobacco abuse -- 15 PY, still smoking #. High Risk for NUVIA -- Initial Sx: daytime fatigue, + snoring, non-restorative sleep. -- work up: in progress -- Treament: none # HOPKINS Mild. Pft reassuring. Plan -- ct chest wo contast, ion, in 6m -- encouraged to call [place] quitline or try NRT therapy, advised smoking cessation, encouraged her to set a quit date. -- encouarged pt to get HSAT scheduled / informed her they could mail it to her. Ordered hsat. RTC 6m Dr. 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 Office Visit [facility] Family Medicine - [address], [address] [place] [address] Phyllis Morgan DO [address] [place] [address] 04/29/2024 8:20 AM CDT Office Visit [facility]ty [facility] - [facility] [address] [place] [address] Karl Rose DO [address] [place] [address] 05/01/2024 9:15 AM CDT Appointment [facility] [address] [place] [address] Karl Rose DO [address] [place] [address] Scheduled Orders Name Type Priority Associated Diagnoses Orde r Schedule CT CHEST WO CON CT Routine Solitary pulmonary nodule Expected: 04/28/2024 (Approximate), Expires: 10/29/2024 documented as of this encounter Visit Diagnoses Diagnosis Solitary pulmonary nodule- Primary HOPKINS (dyspnea on exertion) Other dyspnea and respiratory abnormality History of tobacco abuse Personal history of tobacco use, presenting hazards to health documented in this encounter Additional Health Concerns Assessment Noted Time PHQ-9 Depression Total Score: 7 05/28/19 24 10:42 AM CDT documented as of this encounter Care Teams Fish Stringer Assembler Relationship Specialty Start Date End Date Phyllis Morgan DO [address] [place] [address] PCP - General FAMILY PRACTICE 05/01/21 documented as of this encounter
--- OUTSIDE RECORDS SUMMARY | 2024-01-28 00:51 | XMS_ITS | Encounter Summary ---
Author Organization [facility] Address [address] [place] [address]. [place], [place] [address] [place] [address] Care Team Providers Care Cathode Ray Tube Salvage Processor Name Role Phone Phyllis Adams DO Primary Care Provider [phone] Reason for Referral * Imaging (Routine) - Closed Specialty Diagnoses / Procedures Referred By Geo retana Referred To Contact RADIOLOGY Diagnoses Vitamin D deficiency Chronic fatigue Tobacco smoker within last 12 months SOB (shortness of breath) Snoring Chronic nonintractable headache, unspecified headache type Procedures CT LUNG SCREENING Phyllis Adams DO [address] [place] [address] Phone: tel: fax: Referral ID Status Reason Start Date Expiration Date Visits Re quested Visits Authorized [id number] Closed 05/28/2023 05/28/2024 1 1 Reason for Visit * Imaging (Routine) - Closed Specialty Diagnoses / Procedures Referred By Geo retana Referred To Contact RADIOLOGY Diagnoses Vitamin D deficiency Chronic fatigue Tobacco smoker within last 12 months SOB (shortness of breath) Snoring Chronic nonintractable headache, unspecified headache type Procedures CT LUNG SCREENING Phyllis Adams DO [address] [place] [address] Phone: tel: fax: Referral ID Status Reason Start Date Expiration Date Visits Re quested Visits Authorized [id number] Closed 05/28/2023 05/28/2024 1 1 Encounter Details Date Type Department Care Team (Latest Contact Info) Description 06/07/2023 8:39 AM CDT - 06/07/2023 11:59 PM CDT Hospital Encounter [facility] [address] [place] [address] CathyPhyllis [address] [place], [place] [id number] Discharge Disposition: Home or Self Care (Routine [...] on file Legal Sex Female 9:04 AM AGENT PRODUCER Gender Identity Not on file Sexual Orientation Not on file documented as of this encounter Medications at Time of Discharge cetirizine (ZYRTEC ALLERGY) 10 MG tabletIndications:Vi tamin D deficiency,Chronic fatigue,Tobacco smoker within last 12 months,SOB (shortness of breath),Snoring,Street Inspector cortney nonintractable headache, unspecified headache type Take 1 tablet (10 mg total) by mouth daily. 30 tablet 1 05/28/2023 doxycycline hyclate (VIBRAMYCIN) 100 MG capsule Take 1 capsule (100 mg total) by mouth 2 (two) times daily. fluticasone propionate (FLONASE) 50 MCG/ACT nasal sprayIndications:Vit hooks D deficiency,Chronic fatigue,Tobacco smoker within last 12 months,SOB (shortness of breath),Snoring,Street Inspector cortney nonintractable headache, unspecified headache type 1 spray by Nasal route daily. 16 g 05/28/2023 documented as of this encounter Plan of Treatment Upcoming Encounters Date Type Department Care Team (Late st Contact Info) Description 02/06/2024 10:00 AM AGENT PRODUCER Office Visit [facility] Family Medicine - [place] [address] [facility], [address] [place] [phone] Phyllis Adams, DO [address] [place] [address] 04/29/2024 8:20 AM CDT Office Visit [facility] Multispecialty Care - [facility] [address] [place] [address] Karl Rose, [address] [facility] [address] [facility] [address] [place] [address] 05/01/2024 9:15 AM CDT Appointment [facility] [address] [place] [address] Karl Rose, [address] [facility] [address] [place] [address] documented as of this encounter Procedures Procedure Name Priority Date/Time Associated Diagnosis Comments CT LUNG SCREENING Routine 06/07/2023 8:5 2 AM CDT Vitamin D deficiency Chronic fatigue Tobacco smoker within last 12 months SOB (shortness of breath) Snoring Chronic nonintractable headache, unspecified headache type documented in this encounter Results * CT LUNG SCREENING (06/07/2023 8:52 AM [...] As above. Thank you for choosing [facility]. Ordered By: PHYLLIS ADAMS Interpreted By: Shelton Bah MD, 06/13/2023 [...] If PET scan is deferred, short interval [id number] chest CT would be recommended in 3 months. LUNG-RADS category S: Negative, no new/unknown potentially significantincidental findings requiring urgent additional evaluation. Other Incidental Findings: As above. Thank you for choosing the [facility]ening[facility]. Ordered By: PHYLLIS ADAMS Interpreted By: Shelton Bah MD, 06/13/2023 5:00 PM Phyllis Adams DO CT Final Result documented in this encounter Visit [...] documented as of this encounter Care Teams Cathode Ray Tube Salvage Processor Relationship Specialty Start Date End Date Phyllis Adams DO [address] [place] [address] PCP - General FAMILY PRACTICE 05/01/21 documented as of this encounter
--- OUTSIDE RECORDS SUMMARY | 2024-01-28 00:51 | XMS_ITS | Encounter Summary ---
Author Organization [facility] Address [address] [place] [address]. [place], [place] [address] [place] [address] Care Team Providers Care Double Spindle Shaper Operator Name Role Phone Phyllis Adams DO Primary Care Provider [phone] Reason for Referral * Imaging (Routine) - New Request Specialty Diagnoses / Procedures Referred By Geo retana Referred To Contact RADIOLOGY Diagnoses Screening mammogram for breast cancer Procedures MG SCREENING W Phyllis Grady DO [address] [place] [address] Phone: tel: fax: Referral ID Status Reason Start Date Expiration Date V isits Requested Visits Authorized [id number] New Request 09/17/2023 11/16/2024 1 1 Reason for Visit * Imaging (Routine) - New Request Specialty Diagnoses / Procedures Referred By Geo retana Referred To Contact RADIOLOGY Diagnoses Screening mammogram for breast cancer Procedures MG SCREENING W Phyllis Grady DO [address] [place] [address] Phone: tel: fax: Referral ID Status Reason Start Date Expiration Date V isits Requested Visits Authorized [id number] New Request 09/17/2023 11/16/2024 1 1 Encounter Details Date Type Department Care Team (Latest Contact Info) Description 10/30/2023 8:44 AM CDT - 10/30/2023 11:59 PM CDT Hospital Encounter [facility] [address] [place] [address] Phyllis Adams, DO [address] [place] [address] Discharge Disposition: Home or Self Care (Routine [...] on file Legal Sex Female 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 30 tablet 1 05/28/2023 doxycycline hyclate (VIBRAMYCIN) 100 MG capsule Take 1 capsule (100 mg total) by mouth 2 (two) times daily. fluticasone propionate (FLONASE) 50 MCG/ACT nasal sprayIndications:Vit hooks D deficiency,Chronic fatigue,Tobacco smoker within last 12 months,SOB (shortness of breath),Snoring,Cell Pourer cortney nonintractable headache, unspecified headache type 1 spray by Nasal route daily. 16 g 05/28/2023 documented as of this encounter Plan of Treatment Upcoming Encounters Date Type Department Care Team (Late st Contact Info) Description 02/06/2024 10:00 AM WEBBING SUPERVISOR Office Visit [facility] Family Medicine - [place] [address] [facility] [place] [phone] Cathy, Phyllis, DO [address] [place] [address] 04/29/2024 8:20 AM CDT Office Visit [facility] Mult[facility]ialty Care - [facility] [address] [place] [address] Karl Rose, [address] [facility] [address] [place] [address] 05/01/2024 9:15 AM CDT Appointment [facility] [address] [place] [address] Karl Rose, [address] [facility] [address] [place] [address] documented as of this encounter Procedures Procedure Name Priority Date/Time Associated Diagnosis Comments MG SCREENING W BEA DANIEL DIGI Routine 10/30/2023 9:10 AM CDT Screening mammogram for breast cancer documented in this encounter Results * MG SCREENING W BEA DANIEL DIGI (10/30/2023 9:10 AM CDT) Anatomical Region Laterality Modality Breast Bilateral Mammography 11/03/2023 3:01 PM CDT Impressions 11/03/2023 3:03 PM CDT IMPRESSION: Right breast asymmetries as described. Recommendation: 1. Additional Imaging, Right Assessment: ACR BI-RADS 0 - INCOMPLETE: NEEDS ADDITIONAL IMAGING EVALUATION Ordered By: PHYLLIS ADAMS Interpreted By: Rico Mccurdy, 11/03/2023 3:01 PM Narrative 11/03/2023 3:03 PM CDT [facility] [address] [place], [place] [id number] Examination: Screening bilateral mammogram Exam Date/Time: 10/30/2023 [...] documented in this encounter Visit Diagnoses Diagnosis Screening mammogram for breast cancer documented in this encounter Additional Health Concerns Assessment Noted Time PHQ-9 Depression Total Score: 7 05/28/19 24 10:42 AM CDT documented as of this encounter Care Teams Double Spindle Shaper Operator Relationship Specialty Start Date End Date Phyllis Adams DO [address] [place] [address] PCP - General FAMILY PRACTICE 05/01/21 documented as of this encounter
--- OUTSIDE RECORDS SUMMARY | 2024-01-28 00:51 | XMS_ITS | Encounter Summary ---
Author Organization [facility] Address [address] [place] [address]. [place], [place] [address] [place] [address] Care Team Providers Care Crystal Machining Coordinator Name Role Phone Phyllis Morgan Primary Care Provider Reason for Referral * Imaging (Routine) - Closed Specialty Diagnoses / Procedures Referred By Geo retana Referred To Contact RADIOLOGY Diagnoses Solitary pulmonary nodule Procedures CT CHEST WO CON Karl Paulino DO [address] [facility] [address] [place] [address] Phone: tel: fax: Referral ID Status Reason Start Date Expiration Date Visits Re quested Visits Authorized [id number] Closed 2023 2024 1 1 Reason for Visit * Imaging (Routine) - Closed Specialty Diagnoses / Procedures Referred By Geo retana Referred To Contact RADIOLOGY Diagnoses Solitary pulmonary nodule Procedures CT CHEST WO CON Karl Paulino DO [address] [facility] [address] [place] [address] Phone: tel: fax: Referral ID Status Reason Start Date Expiration Date Visits Re quested Visits Authorized [id number] Closed 2023 2024 1 1 Encounter Details Date Type Department Care Team (Latest Contact Info) Description 09/27/2023 8:46 AM CDT - 09/27/2023 11:59 PM CDT [facility] [address] [place] [address] Karl Paulino DO [address] [facility] [address] [place] [address] Discharge Disposition: Home or Self Care (Routine [...] on file Legal Sex Female 9:04 AM AIRCONDITIONING DRAFTING OFFICER Gender Identity Not on file Sexual Orientation Not on file documented as of this encounter Medications at Time of Discharge cetirizine (ZYRTEC ALLERGY) 10 MG tabletIndications:Vi tamin D deficiency,Chronic fatigue,Tobacco smoker within last 12 months,SOB (shortness of breath),Snoring,Final Assembler cortney nonintractable headache, unspecified headache type Take 1 tablet (10 mg total) by mouth daily. 30 tablet 1 05/28/2023 doxycycline hyclate (VIBRAMYCIN) 100 MG capsule Take 1 capsule (100 mg total) by mouth 2 (two) times daily. fluticasone propionate (FLONASE) 50 MCG/ACT nasal sprayIndications:Vit hooks D deficiency,Chronic fatigue,Tobacco smoker within last 12 months,SOB (shortness of breath),Snoring,Final Assembler cortney nonintractable headache, unspecified headache type 1 spray by Nasal route daily. 16 g 05/28/2023 documented as of this encounter Plan of Treatment Upcoming Encounters Date Type Department Care Team (Late st Contact Info) Description 02/06/2024 10:00 AM AIRCONDITIONING DRAFTING OFFICER Office Visit [facility] Family Medicine - [place] [address] [facility], [address] [place] [address] Phyllis Morgan DO [address] [place] [address] 04/29/2024 8:20 AM CDT Office Visit [facility] Multispecialty Care - [facility] [address] [place] [address] MiltonKarl, [address] [facility] [address] [place] [address] 05/01/2024 9:15 AM CDT Appointment [facility] [address] [place] [address] MiltonRosalesmary, [address] [facility] [address] [place] [address] documented as of this encounter Procedures Procedure Name Priority Date/Time Associated Diagnosis Comments CT CHEST WO CON Routine 09/27/2023 9:06 AM CDT Solitary pulmonary nodule documented in this encounter Results * CT CHEST WO CON (09/27/2023 9:06 AM CDT) Anatomical Region Laterality Modality Chest Computed Tomogra phy 10/02/2023 9:04 AM CDT Impressions 10/02/2023 9:17 AM CDT IMPRESSION:===== ?? 1. ??Stable right middle lobe pulmonary nodule. ??Continued follow-up in 6 months is recommended possibly by low-dose screening CT scan of the chest. Referred By: KRAL PAULINO Interpreted By: Glen Gamboa MD, 10/02/2023 [...] this encounter Visit Diagnoses Diagnosis Solitary pulmonary nodule documented in this encounter Additional Health Concerns Assessment Noted Time PHQ-9 Depression Total Score: 7 05/28/19 24 10:42 AM CDT documented as of this encounter Care Teams Crystal Machining Coordinator Relationship Specialty Start Date End Date Phyllis Morgan DO [address] [place] [address] PCP - General FAMILY PRACTICE 05/01/21 documented as of this encounter
--- OUTSIDE RECORDS SUMMARY | 2024-01-28 00:51 | XMS_ITS | Encounter Summary ---
Author Organization [facility] Address [address] [place] [address]. [place], [place] [id number] [place] [address] Care Team Providers Care Machine Dyer Name Role Phone Phyllis Morgan DO Primary Care Provider [phone] Reason for Visit * Reason Onset Date Comments Schedule Test 05/27/2022 48HR MONITOR Encounter Details Date Type Department Care Team ([facility] st Contact Info) Description [facility] [address] Tish Whittington RMA Schedule Test (48HR MONITOR) Social History Tobacco Use Types Packs/Day Years Used Date Smoking Tobacco: Every Day Smokeless Tobacco: Never Alcohol Use Standard Drinks/Week Comments Yes 0 (1 standard drink = 0.6 oz pur e alcohol) PHQ-2 Answer Date Recorded Patient Health Questionnaire-2 Score 0 05/21/2022 Comments No Sex and Gender Information Value Date Recorded Sex Assigned at Not on file Legal Sex Female 9:04 AM SQL REPORT ANALYST Gender Identity Not on file Sexual Orientation Not on file COVID-19 Exposure Response Date Recorded In the last 10 days, have yo u been in contact with someone who was confirmed or suspected to have Coronavirus/COVID-19? No / Unsure 05/21/2022 10:26 AM CDT documented as of this encounter Progress Notes * YVONNE Norman - 05/27/2022 5:20 PM CDT VIKTOR full, unable to leave message to schedule 48hr monitor per Dr Morgan. Will send letter for patient to contact our office. documented in this encounter Plan of Treatment Upcoming Encounters Date Type Department Care Team (Late st Contact Info) Description 02/06/2024 10:00 AM SQL REPORT ANALYST Office Visit [facility] Family Medicine - [place] [address] [facility] [place] [address] Phyllis Morgan, DO [address] [place] [address] 04/29/2024 8:20 AM CDT Office Visit [facility] [address] [facility], [address] [place] [address] Karl Rose DO [address] [facility] [address] [place] [address] 05/01/2024 9:15 AM CDT Appointment [facility] [address] [place] [address] Karl Rose DO [address] [facility] [address] [place] [address] documented as of this encounter Visit Diagnoses Not on filedocumented in this encounter Care Teams Machine Dyer Relationship Specialty Start Date End Date Phyllis Morgan DO [address] [place] [address] PCP - General FAMILY PRACTICE 05/01/21 documented as of this encounter
--- OUTSIDE RECORDS SUMMARY | 2024-01-28 00:51 | XMS_ITS | Encounter Summary ---
Author Organization [facility] Address [address] [place] [address]. [place], [place] [address] [place] [address] Care Team Providers Care Porcelain Enamel Sprayer Name Role Phone Phyllis Morgan DO Primary Care Provider [phone] Encounter Details Date Type Department Care Team (Latest Contact Info) Description 06/17/2023 Travel Social History Tobacco Use Types Packs/Day Years Used Date Smoking Tobacco: Every Day Smokeless Tobacco: Never Alcohol Use Standard Drinks/Week Comments Yes 0 (1 standard drink = 0.6 oz pur e alcohol) PHQ-2 Answer Date Recorded Patient Health Questionnaire-2 Score 0 05/28/2023 Comments No Sex and Gender Information Value Date Recorded Sex Assigned at Not on file Legal Sex Female 9:04 AM PIE DOUGH ROLLER Gender Identity Not on file Sexual Orientation Not on file documented as of this encounter Plan of Treatment Upcoming Encounters Date Type Department Care Team (Late st Contact Info) Description 02/06/2024 10:00 AM PIE DOUGH ROLLER Office Visit [facility] Family Medicine - [place] [address] [facility], [address] [place] [address] Phyllis Morgan DO [address] [place] [address] 04/29/2024 8:20 AM CDT Office Visit [facility] Multispecialty Care - [facility] [address] [facility], [address] [place] [address] Karl Rose 3 [facility] [address] [place] [address] 05/01/2024 9:15 AM CDT Appointment [facility] [address] [place] [address] Karl Rose DO 3 [facility] [address] [place] [address] documented as of this encounter Visit Diagnoses Not on filedocumented in this encounter Additional Health Concerns Assessment Noted Time PHQ-9 Depression Total Score: 7 05/28/19 24 10:42 AM CDT documented as of this encounter Care Teams Porcelain Enamel Sprayer Relationship Specialty Start Date End Date Phyllis Morgan DO [address] [place] [address] PCP - General FAMILY PRACTICE 05/01/21 documented as of this encounter
--- OUTSIDE RECORDS SUMMARY | 2024-01-28 00:51 | XMS_ITS | Encounter Summary ---
Author Organization [facility] Address [address] [place] [address]. [place], [place] [address] [place] [address] Care Team Providers Care Feather Cutting Machine Feeder Name Role Phone Phyllis Morgan DO Primary Care Provider [phone] Encounter Details Date Type Department Care Team (Late st Contact Info) Description 05/27/[address] [facility] Family Medicine - [place] [address] [facility], [address] [place] [address] Phyllis Morgan DO [address] [place] [address] Social History Tobacco Use Types Packs/Day Years Used Date Smoking Tobacco: Every Day Smokeless Tobacco: Never Alcohol Use Standard Drinks/Week Comments Yes 0 (1 standard drink = 0.6 oz pur e alcohol) PHQ-2 Answer Date Recorded Patient Health Questionnaire-2 Score 0 05/21/2022 Comments No Sex and Gender Information Value Date Recorded Sex Assigned at Not on file Legal Sex Female 9:04 AM BENEFITS REPRESENTATIVE Gender Identity Not on file Sexual Orientation Not on file COVID-19 Exposure Response Date Recorded In the last 10 days, have yo u been in contact with someone who was confirmed or suspected to have Coronavirus/COVID-19? No / Unsure 05/21/2022 10:26 AM CDT documented as of this encounter Progress Notes * YVONNE Norman - 05/27/2022 9:13 AM CDT [id number] documented in this encounter Plan of Treatment Upcoming Encounters Date Type Department Care Team (Late st Contact Info) Description 02/06/2024 10:00 AM BENEFITS REPRESENTATIVE Office Visit [facility] Family Medicine - [place] [address] [facility], [address] [place] [address] Phyllis Morgan DO [address] [place] [address] 04/29/2024 8:20 AM CDT Office Visit [facility] Multispecialty Care - [facility] 3 [facility], [address] [place] [address] Karl Rose DO [address] [facility] [address] [place] [address] 05/01/2024 9:[address] [facility] [address] [place] [address] Karl Rose DO [address] [facility] [address] [place] [address] documented as of this encounter Visit Diagnoses Diagnosis Palpitations- Primary documented in this encounter Care Teams Feather Cutting Machine Feeder Relationship Specialty Start Date End Date Phyllis Morgan DO [facility] [place] [address] PCP - General FAMILY PRACTICE 05/01/21 documented as of this encounter
--- OUTSIDE RECORDS SUMMARY | 2024-01-28 00:51 | XMS_ITS | Encounter Summary ---
Author Organization [facility] Address [address] [place] [address]. [place], [place] [address] [place] [address] Care Team Providers Care Furnace Installer Helper Name Role Phone Phyllis Morgan DO Primary Care Provider [phone] Encounter Details Date Type Department Care Team (Latest Contact Info) Description 05/28/2023 Travel Social History Tobacco Use Types Packs/Day Years Used Date Smoking Tobacco: Every Day Smokeless Tobacco: Never Alcohol Use Standard Drinks/Week Comments Yes 0 (1 standard drink = 0.6 oz pur e alcohol) PHQ-2 Answer Date Recorded Patient Health Questionnaire-2 Score 0 05/28/2023 Comments No Sex and Gender Information Value Date Recorded Sex Assigned at Not on file Legal Sex Female 9:04 AM OUTSOLE CUTTER MACHINE Gender Identity Not on file Sexual Orientation Not on file documented as of this encounter Plan of Treatment Upcoming Encounters Date Type Department Care Team (Late st Contact Info) Description 02/06/2024 10:00 AM OUTSOLE CUTTER MACHINE Office Visit [facility] Family Medicine - [place] [address] [facility], [address] [place] [address] Phyllis Morgan DO [address] [place] [address] 04/29/2024 8:20 AM CDT Office Visit [facility] Multispecialty Care - [facility] [address] [facility], [address] [place] [address] Karl Rose 3 [facility] [address] [place] [address] 05/01/2024 9:15 AM CDT Appointment [facility] [address] [place] [address] Karl Rose DO 3 [facility] [address] [place] [address] documented as of this encounter Visit Diagnoses Not on filedocumented in this encounter Additional Health Concerns Assessment Noted Time PHQ-9 Depression Total Score: 7 05/28/19 24 10:42 AM CDT documented as of this encounter Care Teams Furnace Installer Helper Relationship Specialty Start Date End Date Phyllis Morgan DO [address] [place] [address] PCP - General FAMILY PRACTICE 05/01/21 documented as of this encounter
--- OUTSIDE RECORDS SUMMARY | 2024-01-28 00:51 | XMS_ITS | Encounter Summary ---
Author Organization [facility] Address [address] [place] [address]. [place], [place] [address] [place] [address] Care Team Providers Care Carton Folder Name Role Phone Phyllis Morgan DO Primary Care Provider [phone] Encounter Details Date Type Department Care Team (Latest Contact Info) Description 2023 Travel Social History Tobacco Use Types Packs/Day Years Used Date Smoking Tobacco: Every Day Smokeless Tobacco: Never Alcohol Use Standard Drinks/Week Comments Yes 0 (1 standard drink = 0.6 oz pur e alcohol) PHQ-2 Answer Date Recorded Patient Health Questionnaire-2 Score 0 05/28/2023 Comments No Sex and Gender Information Value Date Recorded Sex Assigned at Not on file Legal Sex Female 9:04 AM FIELD ARTILLERY OPERATIONS MAN Gender Identity Not on file Sexual Orientation Not on file documented as of this encounter Plan of Treatment Upcoming Encounters Date Type Department Care Team (Late st Contact Info) Description 02/06/2024 10:00 AM FIELD ARTILLERY OPERATIONS MAN Office Visit [facility] Family Medicine - [place] [address] [facility], [address] [place] [address] Phyllis Morgan DO [address] [place] [address] 04/29/2024 8:20 AM CDT Office Visit [facility] Mult[facility]ty Care - [facility] 3 [facility], [address] [place] [address] Karl Rose [address] [facility] [address] [place] [address] 05/01/2024 9:15 AM CDT Appointment [facility] [address] [place] [address] Karl Rose DO [address] [facility] [address] [place] [address] documented as of this encounter Visit Diagnoses Not on filedocumented in this encounter Additional Health Concerns Assessment Noted Time PHQ-9 Depression Total Score: 7 05/28/19 24 10:42 AM CDT documented as of this encounter Care Teams Carton Folder Relationship Specialty Start Date End Date Phyllis Morgan DO [address] [place] [address] PCP - General FAMILY PRACTICE 05/01/21 documented as of this encounter
--- OUTSIDE RECORDS SUMMARY | 2024-01-28 00:51 | XMS_ITS | Encounter Summary ---
Author Organization [facility] Address [address] [place] [address]. [place], [place] [address] [place] [address] Care Team Providers Care Senior Accounts Payable Specialist Name Role Phone Phyllis Morgan DO Primary Care Provider [phone] Reason for Visit * Reason Onset Date Comments Appointment Request 06/16/2023 Encounter Details Date Type Department Care Team (Late st Contact Info) Description 06/16/2023 Telephone [facility] Multispecialty Care - [address] [place] [address] Jesse Lu MD [address] [place] [address] [place] [address] Appointment Request Social History Tobacco Use Types Packs/Day Years Used Date Smoking Tobacco: Every Day Smokeless Tobacco: Never Alcohol Use Standard Drinks/Week Comments Yes 0 (1 standard drink = 0.6 oz pur e alcohol) PHQ-2 Answer Date Recorded Patient Health Questionnaire-2 Score 0 05/28/2023 Comments No Sex and Gender Information Value Date Recorded Sex Assigned at Not on file 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 Robby Rose [facility] Pulmonary Medicine ----- Message ----- From: Phyllis Morgan DO Sent: 06/16/2023 9:12 AM CDT To: Karl Rose DO; Russel Durham MD; # Subject: RE: Thank you. I ordered PET scan [facility] and will let you know Have a great day Phyllis ----- Message ----- From: Karl Rose DO Sent: 06/15/2023 12:33 PM CDT To: Phyllis Morgan DO; Russel Durham MD; # Subject: RE: Dr. Morgan, Yes I would recommend a pet-ct for this patient, would you mind ordering it for this patient since we haven't seen him yet. Pulmonary Staff: -- would arrange a OV with this patient with any pulmonary provider, ideally ~5 days after pet-ct is scheduled. Thanks Dr. Robby Rose [facility] Pulmonary Medicine ----- Message ----- From: Phyllis Morgan DO Sent: 06/14/2023 3:50 PM CDT To: Karl Rose DO; Russel Durahm MD Subject: RE: I apologize. Thank you Carol heller ----- Message ----- From: Karl Rose DO Sent: 06/14/2023 3:42 PM CDT To: Phyllis Morgan DO; Russel Durham MD Subject: RE: Sure we can get them in quickly. Which patient so I can take a look at the nodule and see if needs PET-CT or not? ----- Message ----- From: Phyllis Morgan DO Sent: 06/14/2023 10:43 AM CDT To: Karl Rose DO; MD Robert Asher or Robby, Could you see this patient quickly? 10mm Right middle lobe pulmonary nodule Do you want me to get the PET /CT prior to being seen? Warm regards Phyllis documented in this encounter Plan of Treatment Upcoming Encounters Date Type Department Care Team (Late st Contact Info) Description 02/06/2024 10:00 AM POSTAGE MACHINE OPERATOR Office Visit [facility] Family Medicine - [place] [address] [facility], [address] [place] [address] Phyllis Morgan DO [address] [place], [place] [id number] 04/29/2024 8:20 AM CDT Office Visit [facility] Multispecialty Care - [facility] [address] [facility] [address] [place] [address] Karl Rose DO 3 [facility] [address] [place] [address] 05/01/2024 9:15 AM CDT Appointment [facility] [address] [place], [place] [address] Karl Rose DO [address] [facility] [address] [place] [address] documented as of this encounter Visit Diagnoses Not on filedocumented in this encounter Additional Health Concerns Assessment Noted Time PHQ-9 Depression Total Score: 7 05/28/19 24 10:42 AM CDT documented as of this encounter Care Teams Senior Accounts Payable Specialist Relationship Specialty Start Date End Date Phyllis Morgan DO [address] [place] [address] PCP - General FAMILY PRACTICE 05/01/21 documented as of this encounter
--- OUTSIDE RECORDS SUMMARY | 2024-01-28 00:51 | XMS_ITS | Encounter Summary ---
Author Organization [facility] Address [address] [place] [address]. [place], [place] [address] [place] [address] Care Team Providers Care Regional Facilities Specialist Name Role Phone Phyllis Adams DO Primary Care Provider [phone] Reason for Visit * Reason Comments COVID-19 Encounter Details Date Type Department Care Team (Late st Contact Info) Description 11/07/2022 10:40 AM CDT Telemedicine [facility] Family Medicine - [address], [address] [place] [address] Phyllis Adams DO [address] [place] [address] COVID-19 Social History Tobacco Use Types Packs/Day Years Used Date Smoking Tobacco: Every Day Smokeless Tobacco: Never Alcohol Use Standard Drinks/Week Comments Yes 0 (1 standard drink = 0.6 oz pur e alcohol) PHQ-2 Answer Date Recorded Patient Health Questionnaire-2 Score 0 05/21/2022 Comments No Sex and Gender Information Value Date Recorded Sex Assigned at Not on file Legal Sex Female 9:04 AM OPTOMETRIST Gender Identity Not on file Sexual Orientation Not on file documented as of this encounter Progress Notes * Phyllis Adams DO - 11/07/2022 10:40 AM CDT Images from the original note were not included. Office Progress Note Encounter Date: 11/07/2022 Reason for Visit: COVID-19 History of Present Illness: Carol Heller is a 52-year-old female here for COVID-19 4 days ago patient came home and then Friday she started to note sinus pressure fever bodyaches and chills Friday she started tested positive for COVID she notes that she has had congestion nasalcongestion she is concerned more for sinus her nasal congestion has turned mildly green not all persistent No fever today ROS: Review of Systems Constitutional: Negative for activity change, chills, fatigue and unexpected weight change. HENT: Positive for postnasal drip, rhinorrhea, sinus pressure and sinus pain. Negative for congestion, ear pain and nosebleeds. Eyes: Negative for redness. Respiratory: Positive for cough. Negative for apnea and wheezing. Cardiovascular: Negative for chest pain, [...] Outpatient Medications Marked as Taking for the 11/07/22 encounter (Telemedicine) with Phyllis Cathy, DO Medication Sig Dispense Refill nirmatrelvir & ritonavir 300/100 (PAXLOVID) 20 x 150 MG & 10 x 100MG tablet pack Take TWO nirmatrelvir 150 mg tablet(s) along with ONE ritonavir 100 mg tablet, with all three tablets taken together, twice daily for 5 days. May take with or without food. Swallow tablets whole. Do not chew, break or crush.. 30 tablet 0 Allergies: Review of patient's allergies indicates: No Known Allergies Medical History: No past medical history on file. Surgical History: Past Surgical History: Procedure Laterality Date SECTION Social History: Social History Tobacco Use Smoking status: Every Day Smokeless tobacco: Never Vaping Use Vaping Use: Never used Substance Use Topics Alcohol use: Yes Drug use: Never Family History: Family History Problem Relation Name Age of Onset Hypertension Mother Dori CHF Mother Dori Hypertension Sister PE: There were no vitals filed for this visit. There is no height or weight on file to calculate BMI. Physical Exam Constitutional: Appearance: She is well-developed. HENT: Head: Normocephalic and atraumatic. Eyes: Conjunctiva/sclera: Conjunctivae normal. Pupils: Pupils are equal, round, and reactive to light. Pulmonary: Effort: Pulmonary effort is normal. No respiratory distress. Musculoskeletal: Cervical back: Normal range of motion and neck supple. Neurological: Mental Status: She is alert and oriented to person, place, and time. Psychiatric: Behavior: Behavior normal. Thought Content: Thought content normal. Judgment: Judgment normal. 1. COVID-19 - nirmatrelvir & ritonavir 300/100 (PAXLOVID) 20 x 150 MG & 10 x 100MG tablet pack; Take TWO nirmatrelvir 150 mg tablet(s) along with ONE ritonavir 100 mg tablet, with all three tablets takentogether, twice daily for 5 days. May take with or without food. Swallow tablets whole. Do not chew, break or crush.. Dispense: 30 tablet; Refill: 0 Discussed that Paxlovid has emergency use authorization and to be used in patients who are high risk to progress to severe disease, age greater than 65, diabetes, cancer, obesity risk factors but also to include the CDC guidance on what is considered high risk Discussed that this medication was found to significantly reduce the risk of severe disease in patients who took the medication though the medication was studied in unvaccinated people, vaccination does not preclude use of this medication Discussed with the patient that the medication can have mild side effects to include but not limited to muscle aches, nausea, diarrhea, loss of taste, rebound covid Covid is Positive Informed patient isolation per CDC protocol: Stay home for 5 days. If you have no symptoms or your symptoms are resolving after 5 days, you can leave your house. Continue to wear a mask around othersfor 5 additional days. If you have a fever, continue to stay home until your fever resolves. Please inform people you were in close contact, you live with that you are covid positive Covid 19 may cause acute problems but may also cause long hauler symptoms as well such as memory fog, chronic cough, loast of tast and smell, fatigue. If persistent symptom please follow up If worsening symptoms get reevaluated Advised for homecare treatment of symptoms, may use Tylenol or Motrin for discomfort or fever. Advised to do nasal saline rinses, cough lozenges, humidifier, and to get plenty of fluids and rest. Advised to continue to monitor breathing status and oxygen level. If using a pulse oximeter and oxygen level is below 90% with increased shortness of breath, go to the ER for evaluation. Advised to use your own restroom and have own space. If it is unavoidable, wear a mask, social distance, perform good hand hygiene, and clean high traffic areas. PHYLLIS ADAMS DO 11/07/2022 I spent 20minutes today reviewing the patient's medical record, obtaining history, performing an exam, ordering medications, tests, and/or procedures, documenting in the medical record, referring and/or communicating with other health care providers, counseling and educating the patient/family/caregiver and reviewing and communicating test results. I introduced and identified myself, received verbal consent from the patient to proceed with this video visit and made the patient aware that the same confidentiality and information systems specialist practices apply. The patient joined the video visit from Home. I completed the virtual visit from Office. The following clinical staff helped with this visit HERSON rasheed. documented in this encounter Plan of Treatment Upcoming Encounters Date Type Department Care Team (Late st Contact Info) Description 02/06/2024 10:00 AM OPTOMETRIST Office Visit [facility] Family Medicine - [address], [address] [place] [phone] Phyllis Adams DO [address] [place] [address] 04/29/2024 8:20 AM CDT Office Visit [facility] Mult[facility]ialty Care - [facility] [address] [facility] [address] [place] [address] Karl Rose DO 3 [facility] [address] [place] [address] 05/01/2024 9:15 AM CDT Appointment [facility] [address] [place] [address] Karl Rose DO [address] [facility] [address] [place] [address] documented as of this encounter Visit Diagnoses Diagnosis COVID-19- Primary documented in this encounter Care Teams Regional Facilities Specialist Relationship Specialty Start Date End Date Phyllis Adams DO [address] [place] [address] PCP - General FAMILY PRACTICE 05/01/21 documented as of this encounter
--- OUTSIDE RECORDS SUMMARY | 2024-01-28 00:51 | XMS_ITS | Encounter Summary ---
Author Organization [facility] Address [address] [place] [address]. 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, [address] [place] [address] Karl Rose DO 3 [facility] [address] [place] [address] 05/01/2024 9:15 AM CDT Appointment [facility] [address] [place] [address] Karl Rose DO 3 [facility] [address] [place] [address] documented as of this encounter Visit Diagnoses Not on filedocumented in this encounter Additional Health Concerns Assessment Noted Time PHQ-9 Depression Total Score: 7 05/28/19 24 10:42 AM CDT documented as of this encounter Care Teams Exterior Interior Specialist Relationship Specialty [place] [address] [place] [address] PCP - General FAMILY PRACTICE 05/01/21 documented as of this encounter
--- OUTSIDE RECORDS SUMMARY | 2024-01-28 00:51 | XMS_ITS | Encounter Summary ---
Author Organization [facility] Address [address] [place] [address]. [place], [place] [address] [place] [address] Care Team Providers Care Manager Payment Name Role Phone Phyllis oMrgan DO Primary Care Provider [phone] Reason for Visit * Reason Onset Date Comments Record Request 05/02/2021 Encounter Details Date Type Department Care Team (Late st Contact Info) Description 05/02/2021 Telephone [facility] Family Medicine - [place] [address] [place] [address], [address] [place] [address] Phyllis Morgan DO [address] [place], [place] [address] Record Request Social History Tobacco Use Types Packs/Day Years Used Date Smoking Tobacco: Every Day Smokeless Tobacco: Never Alcohol Use Standard Drinks/Week Comments Yes 0 (1 standard drink = 0.6 oz pur e alcohol) Comments No Sex and Gender Information Value Date Recorded Sex Assigned at Not on file 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 No / Unsure 05/01/2021 9:20 AM CDT documented as of this encounter Progress Notes * Loni Merritt MA - 05/07/2021 10:05 AM CDT I have received report and sent to PCP. * Loni Merritt MA - 05/02/2021 5:10 PM CDT I have faxed Carmen Mejía for this patient's pap report and labs. documented in this encounter Plan of Treatment Upcoming Encounters Date Type Department Care Team (Late st Contact Info) Description 02/06/2024 10:00 AM IT NETWORK ENGINEER Office Visit [facility] Family Medicine - [place] [address] [facility], [address] [place] [address] Phyllis Morgan DO [address] [place] [address] 04/29/2024 8:20 AM CDT Office Visit [facility] Multispecialty Care - [facility] [address] [place] [address] Karl Rose DO [address] [facility] [address] [place] [address] 05/01/2024 9:15 AM CDT Appointment [facility] [place] [address] [place] [address] Karl Rose DO [address] [facility] [address] [place] [address] documented as of this encounter Visit Diagnoses Not on filedocumented in this encounter Care Teams Manager Payment Relationship Specialty Start Date End Date Phyllis Morgan DO [address] [place] [address] PCP - General FAMILY PRACTICE 05/01/21 documented as of this encounter
--- OUTSIDE RECORDS SUMMARY | 2024-01-28 00:51 | XMS_ITS | Encounter Summary ---
Author Organization [facility] Address [address] [place] [address]. [place], [place] [address] [place] [address] Care Team Providers Care Tubing Mill Setter Name Role Phone Phylils Morgan DO Primary Care Provider [phone] Encounter Details Date Type Department Care Team (Latest Contact Info) Description 10/30/2023 Travel Social History Tobacco Use Types Packs/Day Years Used Date Smoking Tobacco: Every Day Smokeless Tobacco: Never Alcohol Use Standard Drinks/Week Comments Yes 0 (1 standard drink = 0.6 oz pur e alcohol) PHQ-2 Answer Date Recorded Patient Health Questionnaire-2 Score 0 10/31/2023 Comments No Sex and Gender Information Value Date Recorded Sex Assigned at Not on file Legal Sex Female 9:04 AM DIRECT MARKETING EXECUTIVE Gender Identity Not on file Sexual Orientation Not on file documented as of this encounter Plan of Treatment Upcoming Encounters Date Type Department Care Team (Late st Contact Info) Description 02/06/2024 10:00 AM DIRECT MARKETING EXECUTIVE Office Visit [facility] Family Medicine - [place] [address], [address] [place] [address] Phyllis Morgan DO [address] [place] [address] 04/29/2024 8:20 AM CDT Office Visit [facility] Multispecialty Care - [facility] [address] [facility], [address] [place] [address] Karl Rose [address] [facility] [address] [place] [address] 05/01/2024 9:15 AM CDT Appointment [facility] [address] [place] [address] Karl Rose DO [address] [facility] [address] [place] [address] documented as of this encounter Visit Diagnoses Not on filedocumented in this encounter Additional Health Concerns Assessment Noted Time PHQ-9 Depression Total Score: 7 05/28/19 24 10:42 AM CDT documented as of this encounter Care Teams Tubing Mill Setter Relationship Specialty Start Date End Date Phyllis Morgan DO [address] [place] [address] PCP - General FAMILY PRACTICE 05/01/21 documented as of this encounter
--- OUTSIDE RECORDS SUMMARY | 2024-01-28 00:51 | XMS_ITS | Encounter Summary ---
Author Organization [facility] Address [address] [place] [address]. [place], [place] [address] [place] [address] Care Team Providers Care Surgical Garment Assembler Name Role Phone Phyllis Morgan DO Primary Care Provider [phone] Encounter Details Date Type Department Care Team (Late st Contact Info) Description 10/16/2023 MyChart Message Enc [facility] [address] [facility], [address] [place] [address] Linh Morgana, DO [facility] [place] [address] Mammogram Social History Tobacco Use Types Packs/Day Years Used Date Smoking Tobacco: Every Day Smokeless Tobacco: Never Alcohol Use Standard Drinks/Week Comments Yes 0 (1 standard drink = 0.6 oz pur e alcohol) PHQ-2 Answer Date Recorded Patient Health Questionnaire-2 Score 0 05/28/2023 Comments No Sex and Gender Information Value Date Recorded Sex Assigned at Not on file 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 Sex Female 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 Gender Identity Not on file Sexual Orientation Not on file documented as of this encounter Plan of Treatment Upcoming Encounters Date Type Department Care Team (Late st Contact Info) Description 02/06/2024 10:00 AM OVERHEAD CRANE TRUCK LOADER Office Visit [facility] [address] [facility], [address] [place] [address] Linh Morgana, DO [facility] [place], [place] [address] 04/29/2024 8:20 AM CDT Office Visit [facility] Group Multispecialty Care - [address] [place] [address] Karl Rose DO [address] [facility] [address] [place] [address] 05/01/2024 9:15 AM CDT Appointment [facility] [address] [place] [address] Karl Rose DO [address] [facility] [address] [place] [address] documented as of this encounter Visit Diagnoses Not on filedocumented in this encounter Additional Health Concerns Assessment Noted Time PHQ-9 Depression Total Score: 7 05/28/19 24 10:42 AM CDT documented as of this encounter Care Teams Surgical Garment Assembler Relationship Specialty Start Date End Date Phyllis Morgan DO [address] [place] [address] PCP - General FAMILY PRACTICE 05/01/21 documented as of this encounter
--- OUTSIDE RECORDS SUMMARY | 2024-01-28 00:51 | XMS_ITS | Encounter Summary ---
Author Organization [facility] Address [address] [place] [address]. [place], [place] [address] [place] [address] Care Team Providers Care Church Administrator Name Role Phone CathyPhyllis alegria Primary Care Provider [phone] Reason for Visit * Reason Onset Date Comments Appointment Request 06/16/2023 Encounter Details Date Type Department Care Team (Late st Contact Info) Description 06/16/2023 Telephone [facility] [address] [address] Karl Rose DO [address] [place] [address] [place] [address] Appointment Request Social History Tobacco Use Types [...] on file Legal Sex Female 9:04 AM LICENSED PSYCHOLOGIST MANAGER Gender Identity Not on file Sexual Orientation Not on file documented as of this encounter Progress Notes * Morris Rai MA - 06/16/2023 8:25 AM CDT Called and spoke with pt - she wishes to call back after testing is scheduled - * Morris Rai MA - 06/16/2023 7:54 AM CDT ----- Message from Karl Rose DO sent at 06/15/2023 12:30 PM CDT ----- Regarding: RE: Dr. Morgan, Yes I would recommend a pet-ct for this patient, would you mind ordering it for this patient since we haven't seen him yet. Pulmonary Staff: -- would arrange a OV with this patient with any pulmonary provider, ideally ~5 days after pet-ct is scheduled. Thanks Dr. Robby Rose [facility] Pulmonary Medicine ----- Message ----- From: Phyllis Morgan DO Sent: 06/14/2023 3:50 PM CDT To: Karl Rose DO; Russel Durham MD Subject: RE: I apologize. Thank you [...] st Contact Info) Description 02/06/2024 10:00 AM LICENSED PSYCHOLOGIST MANAGER Office Visit [facility] Family Medicine - [place] [address] [facility], [address] [place] [address] Phyllis Morgan DO [address] [place] [address] 04/29/2024 8:20 AM CDT Office Visit [facility] Multispecialty Care - [facility] [address] [facility], [address] [place] [address] Karl Rose DO [address] [facility] [address] [place] [address] 05/01/2024 9:15 AM CDT Appointment [facility] [address] [place] [address] Karl Rose DO [address] [facility] [address] [place] [address] documented as of this encounter Visit Diagnoses Not on filedocumented in this encounter Additional Health Concerns Assessment Noted Time PHQ-9 Depression Total Score: 7 05/28/19 24 10:42 AM CDT documented as of this encounter Care Teams Church Administrator Relationship Specialty Start Date End Date Phyllis Morgan DO [address] [place] [address] PCP - General FAMILY PRACTICE 05/01/21 documented as of this encounter
--- OUTSIDE RECORDS SUMMARY | 2024-01-28 00:51 | XMS_ITS | Encounter Summary ---
Author Organization [facility] Address [address] [place] [address]. [place], [place] [address] [place] [address] Care Team Providers Care Lodging Facilities Attendant Name Role Phone Phyllis Morgan DO Primary Care Provider [phone] Reason for Visit * Reason Onset Date Comments Lab Results 06/04/2023 Encounter Details Date Type Department Care Team ([facility] Contact Info) Description 06/04/2023 Telephone [facility] Family Medicine - [place] [address] [facility], [address] [place] [address] Phyllis Morgan DO [address] [place] [address] Lab Results Social History Tobacco Use Types Packs/Day Years Used Date Smoking Tobacco: Every Day Smokeless Tobacco: Never Alcohol Use Standard Drinks/Week Comments Yes 0 (1 standard drink = 0.6 oz pur e alcohol) PHQ-2 Answer Date Recorded Patient Health Questionnaire-2 Score 0 05/28/2023 Comments No Sex and Gender Information Value Date Recorded Sex Assigned at Not on file Legal Sex Female 9:04 AM HEAD OF ETHICS AND COMPLIANCE Gender Identity Not on file Sexual Orientation Not on file documented as of this encounter Progress Notes * Annelise Herrera RN - 06/04/2023 2:12 PM CDT Patient returned call, informed her of her lab results and recommendations as noted per Dr. Morgan. Patient verbalized understanding of results and recommendations. She agrees to recommendations but would like Dr. Maravilla's info sent to her via [employer]. She notes she has other testing she plansto get done as well. She did note she has tried to schedule Sleep study but they wanted her to pickup equipment in [place] and this is too far for her to drive. She was told to request order to be changed to [place] for apple picker. Advised will update this order. Opportunity given for all questions to be answered, no further needs voiced at this time. Updated sleep study referral for [facility] location. * Annelise Herrera RN - 06/04/2023 1:38 PM CDT Attempted to contact patient regarding lab results, no answer. Left message on patient's voicemail requesting a return call. * Annelise Herrera RN - 06/04/2023 1:30 PM CDT ----- Message from Phyllis Morgan DO sent at 06/04/2023 1:29 PM CDT ----- I apologize refer labelling machine operator * Annelise Herrera RN - 06/04/2023 1:30 PM CDT ----- Message from Phyllis Morgan DO sent at 06/04/2023 1:29 PM CDT ----- NATALI is positive Kidney and liver is normal Magnesium is mildly elevated Lipid is good Ccp normal Vit a normal Vit b12 normal Tsh is normal Hga1c is normal Vit d is normal Cbc is normal documented in this encounter Plan of Treatment Upcoming Encounters Date Type Department Care Team (Late st Contact Info) Description 02/06/2024 10:00 AM HEAD OF ETHICS AND COMPLIANCE Office Visit [facility] Family Medicine - [place] [address], [address] [place] [address] Phyllis Morgan DO [address] [place] [address] 04/29/2024 8:20 AM CDT Office Visit [facility] Multispecialty Care - [facility] [address] [facility] [address] [place] [address] Karl Rose DO [address] [facility] [address] [place] [address] 05/01/2024 9:15 AM CDT Appointment [facility] [address] [place] [address] Karl Rose DO [address] [facility] [address] [place] [address] documented as of this encounter Visit Diagnoses Not on filedocumented in this encounter Additional Health Concerns Assessment Noted Time PHQ-9 Depression Total Score: 7 05/28/19 24 10:42 AM CDT documented as of this encounter Care Teams Lodging Facilities Attendant Relationship Specialty Start Date End Date Phyllis Morgan DO [address] [place] [address] PCP - General FAMILY PRACTICE 05/01/21 documented as of this encounter
--- OUTSIDE RECORDS SUMMARY | 2024-01-28 00:51 | XMS_ITS | Encounter Summary ---
Author Organization [facility] Address [address] [place] [address]. [place], [place] [address] [place] [address] Care Team Providers Care Tooth Cutter Pinion Name Role Phone Phyllis Morgan DO Primary Care Provider [phone] Reason for Referral * Procedure (Urgent) - New Request Specialty Diagnoses / Procedures Referred By Contac t Referred To Contact Diagnoses Vitamin D deficiency Chronic fatigue Tobacco smoker within last 12 months SOB (shortness of breath) Snoring Chronic nonintractable headache, unspecified headache type Procedures Complete PFT (pre/post Kana, Lung Vol, Diff Capacity) (69711, 46911, [id number], 92271) Phyllis Morgan DO [facility] [place] [address] Phone: tel: fax: Referral ID Status Reason Start Date Expiration Date V isits Requested Visits Authorized [id number] New Request 05/28/2023 06/27/2024 1 1 Reason for Visit * Procedure (Urgent) - New Request Specialty Diagnoses / Procedures Referred By Contac t Referred To Contact Diagnoses Vitamin D deficiency Chronic fatigue Tobacco smoker within last 12 months SOB (shortness of breath) Snoring Chronic nonintractable headache, unspecified headache type Procedures Complete PFT (pre/post [place], Lung Vol, Diff Capacity) (81273, 64465, 90829, 26388) Phyllis Morgan DO [address] [place] [address] Phone: tel: fax: Referral ID Status Reason Start Date Expiration Date V isits Requested Visits Authorized [id number] New Request 05/28/2023 06/27/2024 1 1 Encounter Details Date Type Department Care Team (Latest Contact Info) Description 06/12/2023 7:15 AM CDT - 06/12/2023 11:59 PM CDT Hospital Encounter [facility] [place] [address] Phyllis Morgan, DO [address] [place] [address] Discharge Disposition: Home or Self Care (Routine [...] on file Legal Sex Female 9:04 AM HOUSING OFFICER Gender Identity Not on file Sexual Orientation Not on file documented as of this encounter Medications at Time of Discharge cetirizine (ZYRTEC ALLERGY) 10 MG tabletIndications:Vi tamin D deficiency,Chronic fatigue,Tobacco smoker within last 12 months,SOB (shortness of breath),Snoring,Small Animal Veterinarian cortney nonintractable headache, unspecified headache type Take 1 tablet (10 mg total) by mouth daily. 30 tablet 1 05/28/2023 doxycycline hyclate (VIBRAMYCIN) 100 MG capsule Take 1 capsule (100 mg total) by mouth 2 (two) times daily. fluticasone propionate (FLONASE) 50 MCG/ACT nasal sprayIndications:Vit hooks D deficiency,Chronic fatigue,Tobacco smoker within last 12 months,SOB (shortness of breath),Snoring,Small Animal Veterinarian cortney nonintractable headache, unspecified headache type 1 spray by Nasal route daily. 16 g 05/28/2023 documented as of this encounter Procedure Notes * Stephanie Viramontes MD - 06/12/2023 8:00 AM CDTAssociated Order(s): PULMONARY FUNCTION TEST [facility] PULMONARY FUNCTION TEST REPORT Carol Heller INTERPRETATION Please see scanned PFT report for raw values, flow-volume loop, and therapist's comments. Spirometry: Prebronchodilator FVC 3.31 L, 81% predicted. FEV1 [...] capacity. 4. Mild reduction in unadjusted DLCO. STEPHANIE VIRAMONTES MD documented in this encounter Plan of Treatment Upcoming Encounters Date Type Department Care Team (Late st Contact Info) Description 02/06/2024 10:00 AM HOUSING OFFICER Office Visit [facility] Family Medicine - [place] [address] [facility], [address] [place] [address] Phyllis Morgan, DO [address] [place] [address] 04/29/2024 8:20 AM CDT Office Visit [facility] Multispecialty Care - [facility] [address] [place] [address] Karl Rose 3 [facility] [address] [place] [address] 05/01/2024 9:15 AM CDT Appointment [facility] [address] [place] [address] Karl Rose DO [address] [facility] [address] [place] [address] documented as of this encounter Procedures Procedure Name Priority Date/Time Associated Diagnosis Comments PULMONARY FUNCTION TEST EMELI 06/12/2023 8:00 AM CDT Vitamin D deficiency Chronic fatigue Tobacco smoker within last 12 months SOB (shortness of breath) Snoring Chronic nonintractable headache, unspecified headache type documented in this encounter Results * Complete PFT (pre/post Kana, Lung Vol, Diff Capacity) (41681, 14442, 34974, 79325) (06/12/2023 8:00 AM CDT) Narrative [facility] - 06/12/2023 8:00 AM CDT Stephanie Viramontes MD ? 06/15/2023 ??2:34 PM ?? [facility] PULMONARY FUNCTION TEST REPORT Carol Heller INTERPRETATION [...] reduction in unadjusted DLCO. STEPHANIE VIRAMONTES MD Phyllis Morgan DO PFT ORDERABLES Final Result [facility] [address] [place] [address], documented in this encounter Visit Diagnoses Diagnosis Vitamin D deficiency Unspecified vitamin D deficiency Chronic fatigue Other malaise and fatigue Tobacco smoker within last 12 months SOB (shortness of breath) Shortness of breath Snoring Other dyspnea and respiratory abnormality Chronic nonintractable headache, unspecified headache type documented in this encounter Administered Medications Inactive Administered Medications - up to 3 most recent administrations Medication Order MAR Action Action Date Dose Rate Site albuterol sulfate HFA 108 (90 Base) MCG/ACT inhaler 2 puff 2 puff, Inhalation, Once, 1 dose, On Charley 06/12/23 at 0800 Given 06/12/2023 7:53 AM CDT 2 puffs documented in this encounter Additional Health Concerns Assessment Noted Time PHQ-9 Depression Total Score: 7 05/28/19 24 10:42 AM CDT documented as of this encounter Care Teams Tooth Cutter Pinion Relationship Specialty Start Date End Date Phyllis Morgan DO [address] [place] [address] PCP - General FAMILY PRACTICE 05/01/21 documented as of this encounter
--- OUTSIDE RECORDS SUMMARY | 2024-01-28 00:51 | XMS_ITS | Encounter Summary ---
Author Organization [facility] Address [address] [place] [address]. [place], [place] [address] [place] [address] Care Team Providers Care Dental Floss Packer Name Role Phone Phyllis Morgan DO Primary Care Provider [phone] Reason for Visit * Reason Onset Date Comments Schedule Test 06/12/2022 48hr monitor Encounter Details Date Type Department Care Team ([facility] st Contact Info) Description 06/12/2022 Telephone [facility] [address] Tish Whittington RMA Schedule Test (48hr monitor) Social History Tobacco Use Types Packs/Day Years Used Date Smoking Tobacco: Every Day Smokeless Tobacco: Never Alcohol Use Standard Drinks/Week Comments Yes 0 (1 standard drink = 0.6 oz pur e alcohol) PHQ-2 Answer Date Recorded Patient Health Questionnaire-2 Score 0 05/21/2022 Comments No Sex and Gender Information Value Date Recorded Sex Assigned at Not on file Legal Sex Female 9:04 AM COIL REPAIR TECHNICIAN Gender Identity Not on file Sexual Orientation Not on file COVID-19 Exposure Response Date Recorded In the last 10 days, have yo u been in contact with someone who was confirmed or suspected to have Coronavirus/COVID-19? No / Unsure 05/21/2022 10:26 AM CDT documented as of this encounter Progress Notes * YVONNE Norman - 06/12/2022 11:17 AM CDT Several attempts made to contact patient by phone and by letter with no response (48hr monitor). Atthis time we will make no further attempts to contact patient and will return their care back to ordering. documented in this encounter Plan of Treatment Upcoming Encounters Date Type Department Care Team (Late st Contact Info) Description 02/06/2024 10:00 AM COIL REPAIR TECHNICIAN Office Visit [facility] Family Medicine - [place] [address] [facility], [address] [place] [address] Phyllis Morgan DO [address] [place] [address] 04/29/2024 8:20 AM CDT Office Visit [facility] Multispecialty Care - [facility] [address] [place] [address] Karl Rose 3 [facility] [address] [place] [address] 05/01/2024 9:15 AM CDT Appointment [facility] [address] [place] [address] Karl Rose DO 3 [facility] [address] [place] [address] documented as of this encounter Visit Diagnoses Not on filedocumented in this encounter Care Teams Dental Floss Packer Relationship Specialty Start Date End Date Phyllis Morgan DO [address] [place] [address] PCP - General FAMILY PRACTICE 05/01/21 documented as of this encounter
--- OUTSIDE RECORDS SUMMARY | 2024-01-28 00:51 | XMS_ITS | Encounter Summary ---
Author Organization [facility] Address [address] [place] [address]. [place], [place] [address] [place] [address] Care Team Providers Care Customer Insight Analyst Name Role Phone Phyllis Morgan DO Primary Care Provider [phone] Encounter Details Date Type Department Care Team (Latest Contact Info) Description 05/21/2022 Travel Social History Tobacco Use Types Packs/Day Years Used Date Smoking Tobacco: Every Day Smokeless Tobacco: Never Alcohol Use Standard Drinks/Week Comments Yes 0 (1 standard drink = 0.6 oz pur e alcohol) PHQ-2 Answer Date Recorded Patient Health Questionnaire-2 Score 0 05/21/2022 Comments No Sex and Gender Information Value Date Recorded Sex Assigned at Not on file Legal Sex Female 9:04 AM CARDIAC CATH LAB RADIOLOGY TECHNOLOGIST Gender Identity Not on file Sexual Orientation [...] st Contact Info) Description 02/06/2024 10:00 AM CARDIAC CATH LAB RADIOLOGY TECHNOLOGIST Office Visit [facility] Family Medicine - [place] [address] [facility], [address] [place] [phone] Phyllis Morgan DO [address] [place] [address] 04/29/2024 8:20 AM CDT Office Visit [facility] Multispecialty Care - [facility] [address] [place] [address] Karl Rose DO [address] [facility] [address] [place] [address] 05/01/2024 9:15 AM CDT Appointment [facility] [place] [address] [place] [address] Karl Rose DO [address] [facility] [address] [place] [address] documented as of this encounter Visit Diagnoses Not on filedocumented in this encounter Care Teams Customer Insight Analyst Relationship Specialty Start Date End Date Phyllis Morgan DO [facility] [place] [address] PCP - General FAMILY PRACTICE 05/01/21 documented as of this encounter
--- OUTSIDE RECORDS SUMMARY | 2024-01-28 00:51 | XMS_ITS | Encounter Summary ---
Author Organization [facility] Address [facility]. [place], [place] [address] [place] [address] Care Team Providers Care Commercial Lender Name Role Phone Phyllis Adams DO Primary Care Provider [phone] Reason for Visit * Reason Comments Annual Pt here for annual p x. Pt c/o having heart racing all the time for a few months. She says this happens when she has hot flashes. Encounter Details Date Type Department Care Team (Late st Contact Info) Description 05/21/2022 11:00 AM CDT Office Visit [facility] Family Medicine - [address], [address] [place] [address] Phyllis Adams DO [address] [place] [address] Annual (Pt here for annual px. Pt c/o having heart racing all the time for a few months. She says this happens when she has hot flashes.) Social History Tobacco Use Types Packs/Day Years [...] on file Legal Sex Female 9:04 AM OBSTETRICS NURSE Gender Identity Not on file Sexual Orientation Not on file COVID-19 Exposure Response Date Recorded In the last 10 days, have jeff lares been in contact with someone who was confirmed or suspected to have Coronavirus/COVID-19? No / Unsure 05/21/2022 10:26 AM CDT documented as of this encounter Last Filed Vital Signs Vital Sign Reading Time Taken Comments Blood Pressure 126/78 05/21/2022 10:48 AM CDT Pulse 90 05/21/2022 10:48 AM CDT Temperature 36.2 ??C (97.1 ??F) 05/21/2022 1 0:48 AM CDT Respiratory Rate 16 05/21/2022 10:4 8 AM CDT Oxygen Saturation 98% 05/21/2022 10: 48 AM CDT Inhaled Oxygen Concentration - - Weight 71.6 kg (157 lb 12.8 oz) 023 10:48 AM CDT Height 177.2 cm (5' 9.75 ) 05/21/2022 1 0:48 AM CDT Body Mass Index 22.8 05/21/2022 10:48 AM CDT documented in this encounter Progress Notes * Phyllis Adams, - 05/21/2022 11:00 AM CDT Images from the original note were not included. Office Progress Note Encounter Date: 05/21/2022 Reason for Visit: Annual (Pt here for annual px. Pt c/o having heart racing all the time for a few months. She saysthis happens when she has hot flashes.) History of Present Illness: Carol Heller is a 51-year-old female here with her 7 month grandbaby She is noticing heart flutters and heart racing for over 3 months No decrease cafeein Needs lab work No hcest pain ROS: Review of Systems Constitutional: Negative for activity change, chills, fatigue and unexpected weight change. HENT: Negative for congestion, ear pain, nosebleeds and rhinorrhea. Eyes: Negative for redness. Respiratory: Negative for apnea, cough and wheezing. Cardiovascular: Positive for palpitations. Negative for chest pain and leg swelling. Gastrointestinal: Negative for abdominal [...] not nervous/anxious and is not hyperactive. Medications: No outpatient medications have been marked as taking for the 05/21/22 encounter (Office Visit) with Phyllis Adams DO. Allergies: No Known Allergies Medical History: History reviewed. No pertinent past medical history. Surgical History: Past Surgical History: Procedure Laterality Date ??? SECTION Social History: Social History Tobacco Use ??? Smoking status: Every Day ??? Smokeless tobacco: Never Vaping Use ??? Vaping Use: Never used Substance Use Topics ??? Alcohol use: Yes ??? Drug use: Never Family History: Family History Problem Relation Name Age of Onset ??? Hypertension Mother Dori ??? CHF Mother Dori ??? Hypertension Sister PE: Vitals: 05/21/22 1048 BP: 126/78 Pulse: 90 Body mass index is 22.8 kg/m??. PHQ-9: 05/21/2022 10:47 AM PHQ2/PHQ 9 DEPRESSION SCREEN QUESTIONAIRE Little interest or pleasure in doing things Not at all Feeling down, depressed, or hopeless Not at all Patient Health Questionnaire-2 Score 0 How difficult have these problems made it for you to do your work, take care of things at home, or get along with other people? Not difficult at all Physical Exam Constitutional: Appearance: She is well-developed. [...] Content: Thought content normal. Judgment: Judgment normal. Diagnoses/Impression: 1. Palpitations CBC W/DIFF AUTOMATED Check cbc to rule out anemia Check thyroid Get ekg today beacaseu e COMPREHENSIVE METABOLIC PANEL THYROID STIM HORMONE, TSH THYROXINE, FREE (FT4) ECG 12 lead (Hosp Performed) Holter Monitor 48 Hr 2. Screening, lipid LIPID PANEL I spent 20minutes today reviewing the patient's medical record, obtaining history, performing an exam, ordering medications, tests, and/or procedures, documenting in the medical record, referring and/or communicating with other health care providers, counseling and educating the patient and reviewing and communicating test results. PHYLLIS ADAMS DO 05/21/2022 documented in this encounter Plan of Treatment Upcoming Encounters Date Type Department Care Team (Late st Contact Info) Description 02/06/2024 10:00 AM OBSTETRICS NURSE Office Visit [facility] Family Medicine - [address], [address] [place] [address] Phyllis Adams DO [address] [place] [address] 04/29/2024 8:20 AM CDT Office Visit [facility] Multispecialty Care - [facility] [address] [facility] [address] [place] [address] Karl Rose DO 3 [facility] [address] [place] [address] 05/01/2024 9:15 AM CDT Appointment [facility] [address] [place] [address] Karl Rose DO [address] [facility] [address] [place] [address] documented as of this encounter Visit Diagnoses Diagnosis Palpitations- Primary Screening, lipid Screening for lipoid disorders documented in this encounter Care Teams Commercial Lender Relationship Specialty Start Date End Date Phyllis Adams DO [address] [place] [address] PCP - General FAMILY PRACTICE 05/01/21 documented as of this encounter
--- OUTSIDE RECORDS SUMMARY | 2024-01-28 00:51 | XMS_ITS | Encounter Summary ---
Author Organization [facility] Address [address] [place] [address]. [place] [address] [place] [address] Care Team Providers Care Asbestos Surveyor Name Role Phone Phyllis Morgan DO Primary Care Provider [phone] Reason for Referral * Consultation (Urgent) - Authorized Specialty Diagnoses / Procedures Referred By Geo retana Referred To Contact RHEUMATOLOGY Diagnoses Positive NATALI (antinuclear antibody) Procedures OFFICE/OUTPATIENT NEW LOW MDM 30-44 MINUTES OFFICE/OUTPT VISIT,NEW,LEVL IV OFFICE/OUTPT VISIT,NEW,LEVL V OFFICE/OUTPT VISIT,EST,LEVL III OFFICE/OUTPT VISIT,EST,LEVL IV OFFICE/OUTPT VISIT,EST,LEVL V Phyllis Morgan DO [facility] [place] [address] Phone: tel: fax: [place] [address] [facility]. [address] [address] Phone: tel: fax: Referral ID Status Reason Start Date Expiration Date Visits Requested Visits Authorized [id number] Authorized Specialty Services 06/17/2023 07/16/2024 99 99 Reason for Visit * Reason Onset Date Comments Abnormal Imaging Results 06/17/2023 Encounter Details Date Type Department Care Team (Late st Contact Info) Description 06/17/2023 Telephone [facility] Family Medicine - [address], [address] [place] [phone] Phyllis Morgan DO [address] [place], [place] [phone] Abnormal Imaging Results Social History Tobacco Use Types Packs/Day [...] file Legal Sex Female 9:04 AM COIL WINDER STRAP Gender Identity Not on file Sexual Orientation Not on file documented as of this encounter Progress Notes * Phyllis Morgan DO - 06/17/2023 4:10 PM CDT Plan: Personally discussed with patient the PET scan results did discuss that the PET scan looks benign patient still continues to smoke she discussed that it is a habit I did offer nicotine patches Wellbutrin discussed to use meditation smoking wrist bands. Offered nicotine gums. Discussed that she doesneed to stop smoking Still follow-up with Dr. 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 Pt is still smoking documented in this encounter Plan of Treatment Upcoming Encounters Date Type Department Care Team (Late st Contact Info) Description 02/06/2024 10:00 AM COIL WINDER STRAP Office Visit [facility] Family Medicine - [place], [address] [place] [address] Phyllis Morgan DO [address] [place] [address] 04/29/2024 8:20 AM CDT Office Visit [facility] Multispecialty Care - [facility] [address] [place] [address] Karl Rose DO [address] [facility] [address] [place] [address] 05/01/2024 9:15 AM CDT Appointment [facility] [address] [place] [address] Karl Rose DO [address] [facility] [address] [place] [address] Scheduled Referrals Name Type Priority Associated Diagnoses Orde r Schedule Ambulatory referral to Rheumatology Referral Routine Positive NATALI (antinuclear antibody) Ordered: 06/17/2023 documented as of this encounter Visit Diagnoses Diagnosis Acute non-recurrent frontal sinusitis- Primary Positive NATALI (antinuclear antibody) Other and unspecified nonspecific immunological findings documented in this encounter Additional Health Concerns Assessment Noted Time PHQ-9 Depression Total Score: 7 05/28/19 24 10:42 AM CDT documented as of this encounter Care Teams Asbestos Surveyor Relationship Specialty Start Date End Date Phyllis Morgan DO [address] [place] [address] PCP - General FAMILY PRACTICE 05/01/21 documented as of this encounter
--- OUTSIDE RECORDS SUMMARY | 2024-01-28 00:51 | XMS_ITS | Encounter Summary ---
Author Organization [facility] Address [address] [place] [address]. [place], [place] [address] [place] [address] Care Team Providers Care Head Lineman Name Role Phone Phyllis Morgan DO Primary Care Provider [phone] Reason for Visit * Reason Onset Date Comments Lab Results 05/04/2021 CBC, CMP, TSH, H gA1c, Lipid Panel, Vit D, Vit B12, CRP, RF, Sed Rate, Uric Acid Encounter Details Date Type Department Care Team (Late st Contact Info) Description 05/04/2021 Telephone [facility] Family Medicine - [address], [address] [place] [address] Phyllis Morgan DO [address] [place] [address] Lab Results (CBC, CMP, TSH, HgA1c, Lipid Panel, Vit D, Vit B12, CRP, RF, Sed Rate, Uric Acid) Social History Tobacco Use Types Packs/Day Years Used Date Smoking Tobacco: Every Day Smokeless Tobacco: Never Alcohol Use Standard Drinks/Week Comments Yes 0 (1 standard drink = 0.6 oz pur e alcohol) Comments No Sex and Gender Information Value Date Recorded Sex Assigned at Not on file 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 No / Unsure 05/01/2021 9:20 AM CDT documented as of this encounter Progress Notes * Annelise Herrera RN - 05/04/2021 11:48 AM CDT Patient returned call, informed her of her lab results and recommendations per Dr. Morgan. Patient verbalized understanding of results and recommendations. Opportunity given for all questions to beanswered, no further needs voiced at this time. * Hannah Solorzano RN - 05/04/2021 11:15 AM CDT Attempted to call the patient, was unable to reach them at this time. Left a message requesting a call back. * Hannah Solorzano RN - 05/04/2021 11:15 AM CDT ----- Message from Phyllis Morgan DO sent at 05/03/2021 11:35 AM CDT ----- Vit b 12 is low normal I would recommend vit b12 500mcg three times a week Cmp, cbc, tsh, hga1c, lipid is good Vit d is normal The 10-year ASCVD risk score (Socorroqueta RUBALCAVA Jr., et al., 2013) is: 1.7% documented in this encounter Plan of Treatment Upcoming Encounters Date Type Department Care Team (Late st Contact Info) Description 02/06/2024 10:00 AM YARDER ENGINEER Office Visit [facility] Family Medicine - [place] [id number] [facility], [address] [place] [address] Phyllis Morgan DO [address] [place] [address] 04/29/2024 8:20 AM CDT Office Visit [facility] Multispecialty Care - [facility] [address] [place] [address] Karl Rose DO [address] [facility] [address] [place] [address] 05/01/2024 9:15 AM CDT Appointment [facility] [address] [place] [address] Karl Rose DO 3 [facility] [address] [place] [address] documented as of this encounter Visit Diagnoses Not on filedocumented in this encounter Care Teams Head Lineman Relationship Specialty Start Date End Date Phyllis Morgan DO [facility] [place] [address] PCP - General FAMILY PRACTICE 05/01/21 documented as of this encounter
--- OUTSIDE RECORDS SUMMARY | 2024-01-28 00:54 | XMS_ITS | Encounter Summary ---
Author Organization [facility] Address [address] [place] [address] Care Team Providers Care Spectrographic Analyst Name Role Phone Unknown, Notinfile Primary Care Provider Unavail able Reason for Visit * Reason Comments Sinus Problem Sinus pressure , hea dache, off and on dizziness, congestion, started on 05-22-23 Encounter Details Date Type Department Care Team (Late st Contact Info) Description 05/25/2023 12:45 PM CDT Office Visit [facility] Convenient Care at [address] [place] [phone] Madina Cota NP [address] [place] [address] Acute non-recurrent frontal sinusitis (Primary Dx) Social History Tobacco Use Types Packs/Day Years Used Date Smoking Tobacco: Every Day Cigarettes Smokeless Tobacco: Never Tobacco Cessation:Ready to Q uit: Not Asked; Counseling Given: Not Answered Personal Safety Answer Date Recorded Getting School Help Needed Not on file 04/05 Comments No Sex and Gender Information Value Date Recorded Sex Assigned at Not on file 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 Sex 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 Gender Identity Not on file Sexual Orientation Not on file documented as of this encounter Last Filed Vital Signs Vital Sign Reading Time Taken Comments Blood Pressure 120/80 05/25/2023 12:42 PM CDT Pulse 80 05/25/2023 12:42 PM CDT Temperature 36.7 ??C (98.1 ??F) 05/25/2023 12:42 PM C DT Respiratory Rate 18 05/25/2023 12:42 PM CDT Oxygen Saturation 97% 05/25/2023 12:42 PM CDT Inhaled Oxygen Concentration - - Weight 72.6 kg (160 lb) 05/25/2023 12:42 PM CDT Height 175.3 cm (5' 9 ) 05/25/2023 12:42 PM CDT Body Mass Index 23.63 05/25/2023 12:42 PM CDT documented in this encounter Patient Instructions * Patient Instructions* Madina Cota NP - 05/25/2023 12:45 PM CDT If you have no improvement or worsening of your symptoms, please follow up with your Primary Care Provider, [facility] Care and or Emergency Room. I strive to provide you with EXCELLENT service. You may receive a survey after your visit today. If you cannot rate your experience as EXCELLENT, please let us know how we can improve and better meet your needs. Thank you for choosing [facility]! It was my pleasure to see you today, I hope you feel better soon! Discussed Completing any meds prescribed Discussed OTC decongestants for congestion- Sudafed/Mucinex/Flonase Motrin/Tylenol for pain/fever Antihistamines- Zyrtec, Benadryl can be used for runny nose. Mucinex Discussed hydration-Drink plenty of water & get plenty of rest A humidifier may also help with congestion May try sinus rinses or steam- Saline rinses Follow up with your PCP in 7 days if you are not getting better documented in this encounter Ordered Prescriptions Prescription Sig Dispense Quantity Refills Last Filled Start Date End Date doxycycline monohydrate (MONODOX) 100 mg capsuleIndications :Acute non-recurrent frontal sinusitis Take 1 capsule (100 mg total) by mouth 2 (two) times a day for 7 days 14 capsule 05/25/2023 4 documented in this encounter Progress Notes * Madina Cota NP - 05/25/2023 12:45 PM CDT Images from the original note were not included. Subjective/Objective Patient ID: Carol Heller is a 52 y.o. female. Chief Complaint Sinus Problem (Sinus pressure , headache, off and on dizziness, congestion, started on 05-22-23) Patient presents to clinic today for evaluation of sinus congestion headache off and on dizziness x1 week. Denies chest pain, SOB, fevers. Feels like her symptoms have been ongoing off and on for 3 weeks. OTC meds: aleve cold/sinus, motrin, Nyquil. Review of Systems All systems reviewed and are negative or non contributory for this patient's presentation today other than as stated in the HPI. Physical Exam Vitals reviewed. Constitutional: Appearance: Normal appearance. HENT: Head: Atraumatic. Right Ear: Tympanic membrane and ear canal normal. Left Ear: Tympanic membrane and ear canal normal. Nose: Congestion present. No rhinorrhea. Right Sinus: Frontal sinus tenderness present. Left Sinus: Frontal sinus tenderness present. Mouth/Throat: Mouth: Mucous membranes are moist. Pharynx: No oropharyngeal exudate or posterior oropharyngeal erythema. Eyes: Extraocular Movements: Extraocular movements intact. Conjunctiva/sclera: Conjunctivae normal. Pupils: Pupils are equal, round, and reactive to light. Cardiovascular: Rate and Rhythm: Normal rate and regular rhythm. Pulses: Normal pulses. Heart sounds: Normal heart sounds. Pulmonary: Effort: Pulmonary effort is normal. Breath sounds: Normal breath sounds. No wheezing. Musculoskeletal: Cervical back: Neck supple. Skin: General: Skin is warm. Neurological: General: No focal deficit present. Mental Status: She is alert and oriented to person, place, and time. Vitals: 05/25/23 1242 BP: 120/80 BP Location: Left arm Patient Position: Sitting Pulse: 80 Resp: 18 Temp: 36.7 ??C (98.1 ??F) TempSrc: Oral SpO2: 97% Weight: 72.6 kg (160 lb) Height: 175.3 cm (5' 9 ) Assessment/Plan Given patient length of symptoms and exam findings, will treat for bacterial sinusitis. Discussed further OTC symptoms management. Patient not allergic to but does not tolerate Augmentin well, so ordered Doxycycline. Discussed Completing any meds prescribed Discussed OTC decongestants for congestion- Sudafed/Mucinex/Flonase Motrin/Tylenol for pain/fever Antihistamines- Zyrtec, Benadryl can be used for runny nose. Mucinex Discussed hydration-Drink plenty of water & get plenty of rest A humidifier may also help with congestion May try sinus rinses or steam- Saline rinses Follow up with your PCP in 7 days if you are not getting better Diagnoses and all orders for this visit: Acute non-recurrent frontal sinusitis (Primary) - doxycycline monohydrate (MONODOX) 100 mg capsule; Take 1 capsule (100 mg total) by mouth 2 (two) times a day for 7 days No results found for this or any previous visit (from the past 4 hour(s)). Disposition- Discussed medications dosages, usage & potential side effects. Risks and interactions reviewed with patient. Indications for testing reviewed. Patient has been instructed to follow up w PCP or go to ER for any signs or symptoms that are of concern or worsening. Patient verbalizes understanding. The patient was given the opportunity to ask all questions and to have all questions answered. Patient is in agreement with the plan of care Madina Cota NP documented in this encounter Plan of Treatment Not on file documented as of this encounter Visit Diagnoses Diagnosis Acute non-recurrent frontal sinusitis- Primary documented in this encounter Care Teams Spectrographic Analyst Relationship Specialty Start Date End Date Unknown, Notinfile PCP - General 04/28/22 06/21/23 documented as of this encounter
--- OUTSIDE RECORDS SUMMARY | 2024-01-28 00:54 | XMS_ITS | Encounter Summary ---
Author Organization [facility] Address [address] [place] [address] Phone Care Team Providers Care Group Manager Name Role Phone Provider, None Primary Care Provider Unavailabl e Reason for Visit * Reason Comments Medication Refill Encounter Details Date Type Department Care Team (Late st Contact Info) Description [facility] [address] [place] [address] Rena Johnson APRN, [employer] [address] [place] [address] Medication Refill Social History Tobacco Use Types Packs/Day Years Used Date Smoking Tobacco: Every Day Smokeless Tobacco: Never Comments No Sex and Gender Information Value Date Recorded Sex Assigned at Not on file Legal Sex Female 7:47 PM CDT Gender Identity Not on file Sexual Orientation Not on file documented as of this encounter Plan of Treatment Not on file documented as of this encounter Visit Diagnoses Diagnosis Acute sinusitis, recurrence not specified, unspecified location documented in this encounter Care Teams Group Manager Relationship Specialty Start Date End Date Provider, None [place] PCP - General 10/05/20 documented as of this encounter
--- OUTSIDE RECORDS SUMMARY | 2024-01-28 00:54 | XMS_ITS | Encounter Summary ---
Author Organization [facility] Healthcare Address [address] [place] [address] Care Team Providers Care Drywall Taper Helper Name Role Phone Unavailable Primary Care Provider Unavailabl e Encounter Details Date Type Department Care Team ([facility] st Contact Info) Description 09/01/2014 9:53 AM CDT - 09/01/2014 11:59 PM CDT Hospital Encounter [facility] Rey Small MD [address] [place] [address] Nonspecific reaction to tuberculin skin test without active tuberculosis Social History Tobacco Use Types Packs/Day Years Used Date Smoking Tobacco: Never Assessed Comments Unknown Sex and Gender Information Value Date Recorded Sex Assigned at Not on file 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 Gender Identity Not on file Sexual Orientation Not on file documented as of this encounter Plan of Treatment Not on file documented as of this encounter Procedures Procedure Name Priority Date/Time Associated Diagnosis Comments XR CHEST PA LATERAL 2 VIEWS Routine 09/01/2014 10:27 AM CDT documented in this encounter Results * XR Chest PA Lateral 2 View (09/01/2014 10:27 AM CDT) Anatomical Region Laterality Modality Body, Chest N/A Radiographic Yohana ging 09/01/2014 10:2 7 AM CDT Narrative 09/01/2014 3:32 PM CDT XR Chest 2 Views ?[id number] ??Acc#: ??[id number] DATE OF EXAM: ??Sep 01 2014 CLINICAL HISTORY: Positive TB test 20 years ago. RESULT: PA and lateral views of the chest were obtained. ??No prior studies are presently available for comparison. ??The lungs, pleura, cardiomediastinal silhouette, and bony thorax are overall normal. IMPRESSION: 1. NO ACUTE CARDIOPULMONARY PROCESS. Interpreting Physician: ??ROBERTO VALLEJO M.D. ??Read on: ??Sep 01 2014 10:31A Transcribed by: ??nico ??On: Sep 01 2014 ??2:44P Approved Electronically by: ??ROBERTO VALLEJO M.D. 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 RESULT: PA and lateral views of the chest were obtained. No prior studies arepresently available for comparison. The lungs, pleura, cardiomediastinalsilhouette, and bony thorax are overall normal. IMPRESSION: 1. NO ACUTE CARDIOPULMONARY PROCESS. Interpreting Physician: ROBERTO VALLEJO M.D. Read on: Sep 01 201410:31A Transcribed by: nico On: Sep 01 2014 2:44P Approved Electronically by: ROBERTO VALLEJO M.D. on: Sep 01 20143:32P Attending: RADHA GODINEZ Requesting: RADHA GODINEZ Requesting Fax: -- Attending Fax: -- Attending ID: [id number] Requesting ID: [id number] Report To 1 ID: [id number] Report To 1 Name: RADHA GODINEZ Report To 1 FAX: -- NextGen Order #: us Historical Provider MD GUTIÉRREZ XR PROCEDURES Final R esult documented in this encounter Visit Diagnoses Diagnosis Nonspecific reaction to tuberculin skin test without active tuberculosis documented in this encounter
--- OUTSIDE RECORDS SUMMARY | 2024-01-28 00:54 | XMS_ITS | Clinical Summary ---
Author Organization [facility] Address [address] [place] [phone] Phone Care Team Providers Care Outside Sales Inspector Name Role Phone Provider, None Primary Care Provider Unavailabl e Allergies No known active allergies Medications fluticasone (FLONASE) 50 MCG/ACT SuspensionIndica tions:Acute sinusitis, recurrence not specified, unspecified location 1-2 Sprays by Nasal route daily. Use in each nostril as directed. 18.2 mL 10/05/2020 Active Active Problems No known active problems Social History Tobacco Use Types Packs/Day Years Used Date Smoking Tobacco: Every Day Smokeless Tobacco: Never Comments No Sex and Gender Information Value Date Recorded Sex Assigned at Not on file Legal Sex Female 7:47 PM CDT Gender Identity Not on file Sexual Orientation Not on file Last Filed Vital Signs Vital Sign Reading Time Taken Comments Blood Pressure 112/62 10/05/2020 9:47 AM CDT Pulse 89 10/05/2020 9:47 AM CDT Temperature 37.4 ??C (99.3 ??F) 10/05/2020 9:47 AM CD T Respiratory Rate 18 10/05/2020 9:47 AM CDT Oxygen Saturation 97% 10/05/2020 9:47 AM CDT Inhaled Oxygen Concentration - - Weight 70.3 kg (155 lb) 10/05/2020 9:47 AM CDT Height - - Body Mass Index - - Plan of Treatment Health Maintenance Due Date Last Done Comments Hepatitis C Virus (HCV) Screening 1972 Hepatitis B Immunization (1 of 3 - 19+ 3-dose series) 06/27/1991 Pap Smear 1993 Cervical Cancer Screening (CCS) 2002 HPV/Cotest 2002 Colonoscopy 2017 Colorectal Cancer Screening 2017 Cologuard 2022 Immunochemical Fecal Occult Blood 2022 Mammogram 2022 Zoster Immunization (1 of 2) 2022 Influenza Immunization (#1) 2023 11/17/2018 SARS-COV-2 Immunization ( season) 2023 Respiratory Syncytial Virus (RSV) Immunization (Adult) (1 - 1-dose 75+ series) 06/27/2047 DTaP/Tdap/Td Immunization Discontinued 09/01/2014 TdaP Immunization Completed 09/01/2014 Meningococcal Immunization (ACWY) Aged Out No longer eligible based on patient's age to complete this topic Pneumococcal Immunization Combined Aged Out No longer eligible based on patient's age to complete this topic Rotavirus Immunization Aged Out No lo nger eligible based on patient's age to complete this topic Insurance [facility] Care Teams Outside Sales Inspector Relationship Specialty Start Date End Date Provider, None INDIGO PCP - General 10/05/20
--- OUTSIDE RECORDS SUMMARY | 2024-01-28 00:54 | XMS_ITS | Encounter Summary ---
Author Organization [facility] Healthcare Address [address] [place] [address] Care Team Providers Care Hydrologic Modeler Name Role Phone Phyllis Morgan DO Primary Care Provider [phone] Reason for Visit * Reason Comments Eye Problem Patient presents tod ay with R sided bloodshot eye. SX onset 06/19. No known trauma to the area. Patient states she normally wears contacts and perhaps squeezed something while removing it but is unsure. Encounter Details Date Type Department Care Team ([facility] st Contact Info) Description 06/22/2023 9:00 AM CDT Office Visit [facility] [place] [address] [place] [phone] Carito Bautista, CELESTINA [address] [place] [address] Subconjunctival hemorrhage of right eye (Primary Dx) Social History Tobacco Use Types Packs/Day Years Used Date Smoking Tobacco: Every Day Cigarettes Smokeless Tobacco: Never Personal Safety Answer Date Recorded Getting School Help Needed Not on file 04/05 Comments No Sex and Gender Information Value Date Recorded Sex Assigned at Not on file 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 Gender Identity Not on file Sexual Orientation Not on file documented as of this encounter Last Filed Vital Signs Vital Sign Reading Time Taken Comments Blood Pressure 100/68 06/22/2023 9:01 AM CDT Pulse 87 06/22/2023 9:01 AM CDT Temperature 37 ??C (98.6 ??F) 06/22/2023 9:01 AM CDT Respiratory Rate 16 06/22/2023 9:01 AM CDT Oxygen Saturation 98% 06/22/2023 9:01 AM CDT Inhaled Oxygen Concentration - - Weight 71.6 kg (157 lb 12.8 oz) 06/22/2023 9:01 AM CDT Height 175.3 cm (5' 9 ) 06/22/2023 9:01 AM CDT Body Mass Index 23.3 06/22/2023 9:01 AM CDT documented in this encounter Patient Instructions * Patient Instructions* Carito Bautista NP - 06/22/2023 9:00 AM CDT Follow-up with your eye doctor if symptoms are not improving within 3 days or sooner if symptoms worsen Go immediately to the ER if you develop any changes in vision or severe eye pain * Attachments The following attachments cannot be sent through Care Everywhere. * Subconjunctival Hemorrhage (General Information) (Turkmen) documented in this encounter Progress Notes * Carito Bautista NP - 06/22/2023 9:00 AM CDT Images from the original note were not included. Subjective/Objective Patient ID: Carol Heller is a 52 y.o. female. Chief Complaint Eye Problem (Patient presents today with R sided bloodshot eye. SX onset 06/19. No known trauma to the area. Patient states she normally wears contacts and perhaps squeezed something while removing it but is unsure.) Patient presents to [facility] for right eye redness x1 day. Patient denies any known injury to eye. She states that she does wear contacts. She denies any eye pain, drainage from eye, or changes in vision. She has not used any OTC medications for her symptoms. Eye Problem Review of Systems All systems reviewed and are negative or non contributory for this patient's presentation today other than as stated in the HPI. Physical Exam Vitals reviewed. Constitutional: Appearance: Normal appearance. She is not ill-appearing. HENT: Head: Normocephalic. Mouth/Throat: Pharynx: Oropharynx is clear. Eyes: General: Lids are normal. Lids are everted, no foreign bodies appreciated. Vision grossly intact. Gaze aligned appropriately. Right eye: No discharge or hordeolum. Extraocular Movements: Extraocular movements intact. Conjunctiva/sclera: Right eye: Hemorrhage present. Pupils: Pupils are equal, round, and reactive to light. Cardiovascular: Rate and Rhythm: Normal rate and regular rhythm. Pulmonary: Effort: Pulmonary effort is normal. Breath sounds: Normal breath sounds. Musculoskeletal: General: Normal range of motion. Skin: General: Skin is warm and dry. Neurological: Mental Status: She is alert and oriented to person, place, and time. Mental status is at baseline. Psychiatric: Mood and Affect: Mood normal. Behavior: Behavior normal. Thought Content: Thought content normal. Judgment: Judgment normal. Vitals: 06/22/23 0901 BP: 100/68 BP Location: Right arm Patient Position: Sitting Pulse: 87 Resp: 16 Temp: 37 ??C (98.6 ??F) SpO2: 98% Weight: 71.6 kg (157 lb 12.8 oz) Height: 175.3 cm (5' 9 ) Assessment/Plan Subconjunctival hemorrhage of right eye Discussed with patient that redness should resolve on its own within a week or 2 May use artificial tears to help with dry eye Follow-up with your eye doctor in 3 days if symptoms do not seem to be improving Go immediately to the ER if you develop any deep eye pain or changes in vision Diagnoses and all orders for this visit: Subconjunctival hemorrhage of right eye (Primary) No results found for this or any previous visit (from the past 4 hour(s)). Patient Education: Disposition Treatment plan including expectations, follow up, and return precautions discussed with patient/parent, verbalizes understanding. Medication dosage, use, and potential adverse reactions discussed with patient/parent. Advised to follow up with PCP if symptoms do not resolve as expected or sooner if condition worsens. Signs/symptoms warranting ER evaluation reviewed. Patient and/or guardian was given an opportunity to ask questions, questions answered. Carito Bautista NP documented in this encounter Plan of Treatment Not on file documented as of this encounter Visit Diagnoses Diagnosis Subconjunctival hemorrhage of right eye- Primary documented in this encounter Historical Medications * This list may reflect changes made after this encounter. Lactobacillus acidophilus (PROBIOTIC ORAL) Take by mouth fluticasone propionate (FLONASE) 50 mcg/actuation nasal spray SHAKE LIQUID AND USE 1 SPRAY IN EACH NOSTRIL DAILY 05/28/2023 cetirizine (ZyrTEC) 10 mg tablet Take 1 tablet (10 mg total) by mouth daily 05/28/2023 clindamycin (CLEOCIN) 150 mg capsule Take 1 capsule (150 mg total) by mouth 3 (three) times a day 06/17/2023 06/27/2023 added in this encounter Care Teams Hydrologic Modeler Relationship Specialty Start Date End Date Phyllis Morgan DO [address] [address] PCP - General Family Medicine 06/22/23 documented as of this encounter
--- OUTSIDE RECORDS SUMMARY | 2024-01-28 00:54 | XMS_ITS | Encounter Summary ---
Author Organization [facility] Care Team Providers Care Instructor Dancing Name Role Phone Provider, None Primary Care Provider Unavailabl e Encounter Details Date Type Department Care Team (Latest Contact Info) Description 10/05/2020 Travel Social History Tobacco Use Types Packs/Day Years Used Date Smoking Tobacco: Every Day Smokeless Tobacco: Never Comments No Sex and Gender Information Value Date Recorded Sex Assigned at Not on file Legal Sex Female 7:47 PM CDT Gender Identity Not on file Sexual Orientation Not on file COVID-19 Exposure Response Date Recorded In the last month, have you been in contact with someone who was confirmed or suspected to have Coronavirus / COVID-19? No / Unsure 10/05/2020 8:27 AM CDT documented as of this encounter Plan of Treatment Not on file documented as of this encounter Visit Diagnoses Not on filedocumented in this encounter Care Teams Instructor Dancing Relationship Specialty Start Date End Date Provider, Kam SOOD PCP - General 10/05/20 documented as of this encounter
--- OUTSIDE RECORDS SUMMARY | 2024-01-28 00:54 | XMS_ITS | Encounter Summary ---
Author Organization [facility] Address [address] [facility] [address] [place] [id number] Care Team Providers Care Supervisor Soakers Name Role Phone No, Physician Primary Care Provider [phone] Reason for Visit * Reason Comments COVID-19 EVALUATION RCC-Cough, sore thro at, sinus congestion, fatigue, chills, possible fever and body aches that started last night, exp to flu and strep, not vaccinated, hx of covid 09/30 Encounter Details Date Type Department Care Team (Late st Contact Info) Description 06/08/2021 11:15 AM CDT Office Visit [facility] [address] [place] [address] Erika Downing, CELESTINA [address] [place] [address] Acute non-recurrent pansinusitis (Primary Dx); Exposure to influenza Social History Tobacco Use Types Packs/Day Years Used Date Smoking Tobacco: Every Day Cigarettes Smokeless Tobacco: Never Tobacco Cessation:Ready to Q uit: Yes; Counseling Given: Yes Comments Unknown Sex and Gender Information Value Date Recorded Sex Assigned at Not on file 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 Gender Identity Not on file Sexual Orientation Not on file documented as of this encounter Last Filed Vital Signs Vital Sign Reading Time Taken Comments Blood Pressure 122/68 06/08/2021 11:23 AM CDT Pulse 107 06/08/2021 11:23 AM CDT Temperature 37.1 ??C (98.7 ??F) 06/08/2021 11:23 AM C DT Respiratory Rate 20 06/08/2021 11:23 AM CDT Oxygen Saturation 98% 06/08/2021 11:23 AM CDT Inhaled Oxygen Concentration - - Weight 68 kg (150 lb) 06/08/2021 11:23 AM CDT Height 177.2 cm (5' 9.75 ) 06/08/2021 11:23 AM C DT Body Mass Index 21.68 06/08/2021 11:23 AM CDT documented in this encounter Patient Instructions * Patient Instructions* Erika Downing, CELESTINA - 06/08/2021 11:15 AM CDT Images from the original note were not included. What is the difference between Influenza (Flu) and COVID-19? Influenza (Flu) and COVID-19 are both contagious respiratory illnesses, but they are caused by different viruses. COVID-19 is caused by infection with a new coronavirus (called SARS-CoV-2) and flu is caused by infection with influenza viruses. There are some [place]idd[place] differences between flu and COVID-19. COVID-19 seems to spread more easily than flu and causes more serious illnesses in some people. It can also take longer before people show symptoms and people can be contagious for longer. Because some of the symptoms of flu and COVID-19 are similar, it may be hard to tell the difference between them based on symptoms alone, and testing may be needed tohelp confirm a diagnosis. While more is learned every day, there is still a lot that is unknown about COVID-19 and the virus that causes it. Patient Education Cold Symptoms FISHER TERRAPIN: Cold symptoms include sneezing, dry throat, a stuffy nose, headache, watery eyes, and a cough. Yourcough may be dry, or you may cough up mucus. You may also have muscle aches, joint pain, and tiredness. Rarely, you may have a fever. Cold symptoms occur from inflammation in your upper respiratory system caused by a virus. Most colds go away without treatment. Seek care immediately if: ?? You have increased tiredness and weakness. ?? You are unable to eat. ?? Your heart is beating much faster than usual for you. ?? You see white spots in the back of your throat and your neck is swollen and sore to the touch. ?? You see pinpoint or larger reddish-purple dots on your skin. Contact your healthcare provider if: ?? You have a fever higher than 102??F (38.9??C). ?? You have new or worsening shortness of breath. ?? You have thick nasal drainage for more than 2 days. ?? Your symptoms do not improve or get worse within 5 days. ?? You have questions or concerns about your condition or care. Treatment for cold symptoms may include NSAIDS to decrease muscle aches and fever. Cold medicines may also be given to decrease coughing, nasal stuffiness, sneezing, and a runny nose. Manage your cold symptoms: The following may help relieve cold symptoms, such as a dry throat and congestion: ?? Gargle with mouthwash or warm salt water as directed. ?? Suck on throat lozenges or hard candy. ?? Use a cold or warm vaporizer or humidifier to ease your breathing. ?? Rest for at least 2 days and then as needed to decrease tiredness and weakness. ?? Use petroleum based jelly around your nostrils to decrease irritation from blowing your nose. ?? Drink plenty of liquids. Liquids will help thin and loosen thick mucus so you can cough it up. Liquids will also keep you hydrated. Ask your healthcare provider which liquids are best for you and how much to drink each day. Prevent the spread of germs by washing your hands often. You can spread your cold germs to others for at least 3 days after your symptoms start. Do not share items, such as eating utensils. Cover your nose and mouth when you cough or sneeze using the crook of your elbow instead of your hands. Throwused tissues in the garbage. Do not smoke: Smoking may worsen your symptoms and increase the length of time you feel sick. Talk with your healthcare provider if you need help to stop smoking. Follow up with your healthcare provider as directed: Write down your questions so you remember to ask them during your visits. ?? 2017 [employer] Information is for End User's use only and may not be sold, redistributed or otherwise used for commercial purposes. All illustrations and images included in CareNotes?? are the copyrighted property of [employer] Inc[employer] or [employer]. The above information is an associate director financial aid only. It is not intended as medical advice for individual conditions or treatments. Talk to your doctor, nurse or pharmacist before following any medical regimen to see if it is safe and effective for you. Patient Education Influenza FISHER TERRAPIN: Influenza (the flu) is an infection caused by the influenza virus. The flu is easily spread when aninfected person coughs, sneezes, or has close contact with others. You may be able to spread the flu to others for 1 week or longer after signs or symptoms appear. Common signs and symptoms include the following: ?? Fever and chills ?? Headaches, body aches, and muscle or joint pain ?? Cough, runny nose, and sore throat ?? Loss of appetite, nausea, vomiting, or diarrhea ?? Tiredness ?? Trouble breathing Call 911 for any of the following: ?? You have trouble breathing, and your lips look purple or blue. ?? You have a seizure. Seek care immediately if: ?? You are dizzy, or you are urinating less or not at all. ?? You have a headache with a stiff neck, and you feel tired or confused. ?? You have new pain or pressure in your chest. ?? Your symptoms, such as shortness of breath, vomiting, or diarrhea, get worse. ?? Your symptoms, such as fever and coughing, seem to get better, but then get worse. Contact your healthcare provider if: ?? You have new muscle pain or weakness. ?? You have questions or concerns about your condition or care. Treatment for influenza may include any of the following: ?? Acetaminophen decreases pain and fever. It is available without a doctor's order. Ask how much to take and how often to take it. Follow directions. Acetaminophen can cause liver damage if not taken correctly. ?? NSAIDs , such as ibuprofen, help decrease swelling, pain, and fever. This medicine is available with or without a doctor's order. NSAIDs can cause stomach bleeding or kidney problems in certain people. If you take blood thinner medicine, always ask your healthcare provider if NSAIDs are safe foryou. Always read the medicine label and follow directions. ?? Antivirals help fight a viral infection. Manage your symptoms: ?? Rest as much as you can to help you recover. ?? Drink liquids as directed to help prevent dehydration. Ask how much liquid to drink each day andwhich liquids are best for you. Prevent the spread of the flu: ?? Wash your hands often. Use soap and water. Wash your hands after you use the bathroom, change a child's diapers, or sneeze. Wash your hands before you prepare or eat food. Use gel hand cleanser that has 60% alcohol, when soap and water are not available. Do not touch your eyes, nose, or mouth unless you have washed your hands first. ?? Cover your mouth when you sneeze or cough. Cough into a tissue or the bend of your arm. If you use a tissue, throw it away immediately and wash your hands. ?? Clean shared items with a germ-killing top cleaner. Clean table surfaces, doorknobs, and light switches. Do not share towels, silverware, and dishes with people who are sick. Wash bed sheets, towels, silverware, and dishes with soap and water. ?? Wear a mask over your mouth and nose if you are sick. The face mask may help protect others frombecoming infected with the flu. Wear the mask when in common areas of your home or if you seek carewith a healthcare provider. ?? Stay away from others if you are sick. Stay at home until 24 hours after your fever and symptomsare gone. ?? Influenza vaccine helps prevent influenza (flu). Everyone older than 6 months should get a yearly influenza vaccine. Get the vaccine as soon as it is available, usually in October or November each year. Follow up with your healthcare provider as directed: Write down your questions so you remember to ask them during your visits. ?? 2017 [employer] Information is for End User's use only and may not be sold, redistributed or otherwise used for commercial purposes. All illustrations and images included in CareNotes?? are the copyrighted property of [employer], [employer]. or [employer]. The above information is an associate director financial aid only. It is not intended as medical advice for individual conditions or treatments. Talk to your doctor, nurse or pharmacist before following any medical regimen to see if it is safe and effective for you. documented in this encounter Ordered Prescriptions Prescription Sig Dispense Quantity Refills Last Filled Start Date End Date ondansetron (Zofran) 4 mg tabletIndications: Acute non-recurrent pansinusitis Take 1 tablet (4 mg total) by mouth every 8 (eight) hours as needed for nausea or vomiting 20 tablet 06/08/2021 amoxicillin-clavul anate (AUGMENTIN) 875-125 mg per tabletIndications: Acute non-recurrent pansinusitis Take 1 tablet by mouth 2 (two) times a day for 10 days 20 tablet 06/08/2021 2 oseltamivir (Tamiflu) 75 mg capsuleIndications :Acute non-recurrent pansinusitis Take 1 capsule (75 mg total) by mouth daily for 10 days 10 capsule 06/08/2021 2 documented in this encounter Progress Notes * Erika Downing, HAT IRONER - 06/08/2021 11:15 AM CDT Images from the original note were not included. Subjective/Objective Patient: Carol Heller Chief Complaint Patient presents with ??? COVID-19 EVALUATION RCC-Cough, sore throat, sinus congestion, fatigue, chills, possible fever and body aches that started last night, exp to flu and strep, not vaccinated, hx of covid 09/30 Carol Heller is a 50 y.o. 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 Reports known exposure to communicable disease; states she was exposed to flu and strep. Patient attempted OTC allergy medications for symptom alleviation prior to arrival to clinic; States symptoms improved for a few days but then returned. Patient [place] [facility] [place] [facility] and symptoms seemed to subside completely, upon returning home symptoms were exacerbated. Hx COVID September 2020. Patient states exposure to flu is greater than 2 weeks ago. Denies the following: GI symptoms: nausea, vomiting, diarrhea, abdominal pain Respiratory symptoms: shortness of breath, chest discomfort, rhinorrhea Generalized symptoms of infection: ear ache History reviewed. No pertinent past medical history. Family History Problem Relation Age of Onset ??? Hyperlipidemia Mother ??? Hypertension Mother Social History Tobacco Use Smoking Status Current Every Day Smoker ??? Packs/day: 0.50 ??? Types: Cigarettes Smokeless Tobacco Never Used No Known Allergies Current Outpatient Medications Medication Sig Dispense Refill ??? amoxicillin-clavulanate (AUGMENTIN) 875-125 mg per tablet Take 1 tablet by mouth 2 (two) times a day for 10 days 20 tablet 0 ??? ondansetron (Zofran) 4 mg tablet Take 1 tablet (4 mg total) by mouth every 8 (eight) hours as needed for nausea or vomiting 20 tablet 0 No current facility-administered medications for this visit. Review of Systems Constitutional: Positive for chills, fatigue and fever. HENT: Positive for congestion and sore throat. Negative for ear pain, rhinorrhea, sinus pressure, sinus pain and sneezing. Eyes: Negative. Respiratory: Positive for cough. Negative for chest tightness, shortness of breath and wheezing. Cardiovascular: Negative for chest pain. Gastrointestinal: Negative for constipation, diarrhea, nausea and vomiting. Endocrine: Negative. Genitourinary: Negative. Musculoskeletal: Positive for myalgias. Negative for arthralgias. Skin: Negative. Allergic/Immunologic: Negative for environmental allergies. Neurological: Negative for headaches. Hematological: Negative for adenopathy. Psychiatric/Behavioral: Negative. Physical Exam Vitals and nursing note reviewed. Constitutional: Appearance: Normal appearance. She is ill-appearing. HENT: Head: Normocephalic and atraumatic. Right Ear: Tympanic membrane, ear canal and external ear normal. Left Ear: Tympanic membrane, ear canal and external ear normal. Nose: Congestion and rhinorrhea present. Rhinorrhea is clear. Right Turbinates: Swollen. Right Sinus: Maxillary sinus tenderness and frontal sinus tenderness present. Left Sinus: Maxillary sinus tenderness and frontal sinus tenderness present. Mouth/Throat: Mouth: Mucous membranes are moist. Pharynx: Oropharynx is clear. Cardiovascular: Rate and Rhythm: Normal rate and regular rhythm. Heart sounds: Normal heart sounds. Pulmonary: Effort: Pulmonary effort is normal. Breath sounds: Normal breath sounds. No wheezing or rhonchi. Musculoskeletal: General: Normal range of motion. Cervical back: Neck supple. Skin: General: Skin is warm and dry. Neurological: General: No focal deficit present. Mental Status: She is alert and oriented to person, place, and time. Psychiatric: Mood and Affect: Mood normal. Behavior: Behavior normal. Vitals: 06/08/21 1123 BP: 122/68 BP Location: Left arm Patient Position: Sitting Pulse: 107 Resp: 20 Temp: 37.1 ??C (98.7 ??F) TempSrc: Oral SpO2: 98% Weight: 68 kg (150 lb) Height: 177.2 cm (5' 9.75 ) Assessment/Plan Diagnoses and all orders for this visit: Acute non-recurrent pansinusitis (Primary) - POC Influenza A/B, COVID-19 antigen - POCT rapid strep A - ondansetron (Zofran) 4 mg tablet; Take 1 tablet (4 mg total) by mouth every 8 (eight) hours as needed for nausea or vomiting - amoxicillin-clavulanate (AUGMENTIN) 875-125 mg per tablet; Take 1 tablet by mouth 2 (two) times aday for 10 days Exposure to influenza Orders Placed This Encounter Procedures ??? POC Influenza A/B, COVID-19 antigen Order Specific Question: Is the Patient experiencing symptoms consistent with COVID? Answer: Yes Order Specific Question: Date of Symptom Onset Answer: 06/07/2021 Order Specific Question: Is the patient hospitalized? Answer: No Order Specific Question: Is the patient admitted to an ICU? Answer: No Order Specific Question: Does the patient currently work in a healthcare facility with direct patient contact? Answer: No Order Specific Question: Is the patient a resident of a congregate care or living setting? Answer: No Order Specific Question: Is this the first COVID-19 test for this patient? Answer: No Order Specific Question: ? Answer: No ??? POCT rapid strep A Results for orders placed or performed in visit on 06/08/21 POC Influenza A/B, COVID-19 antigen Result Value Ref Range Inflenza A Ag, POC Negative Influenza B Ag, POC Negative COVID-19 Ag POC Presumptive Negative Presumptive Negative, Invalid POCT rapid strep A Result Value Ref Range Rapid Strep A, POC Negative # acute para sinusitis --start Augmentin and zofran -- Originally ordered Tamiflu 2/2 known exposure; exposure greater than 2 weeks ago, cancelled Tamiflu --discussed differences and similarities between COVID-19 and acute sinusitus. -- discussed with patient in detail pharmacokinetics of antibiotics, specifically Augmentin -- discussed risk factors for sinus infections including environmental components such as [employer], [place], change in seasons, change in weather, plants blooming -- patient declined work note today --recommended OTC supportive therapies including Mucinex as cough expectorant --start/continue OTC antihistamine: Zyrtec, Claritin, Kaylin for nasal congestion --Tylenol and/or Motrin for pain/fever --may consider ENT consult in the future --ED presentation with one or more of the following symptoms: fever uncontrolled with antipyretics,shortness of breath, chest discomfort, uncontrolled n/v/d --f/u with PCP upon completion of abx if symptoms do not improve Patient Instructions: Patient Instructions What is the difference between Influenza (Flu) and COVID-19? Influenza (Flu) and COVID-19 are both contagious respiratory illnesses, but they are caused by different viruses. COVID-19 is caused by infection with a new coronavirus (called SARS-CoV-2) and flu is caused by infection with influenza viruses. There are some [place] differences between flu and COVID-19. COVID-19 seems to spread more easily than flu and causes more serious illnesses in some people. It can also take longer before people show symptoms and people can be contagious for longer. Because some of the symptoms of flu and COVID-19 are similar, it may be hard to tell the difference between them based on symptoms alone, and testing may be needed tohelp confirm a diagnosis. While more is learned every day, there is still a lot that is unknown about COVID-19 and the virus that causes it. Patient Education Cold Symptoms FISHER TERRAPIN: Cold symptoms include sneezing, dry throat, a stuffy nose, headache, watery eyes, and a cough. Yourcough may be dry, or you may cough up mucus. You may also have muscle aches, joint pain, and tiredness. Rarely, you may have a fever. Cold symptoms occur from inflammation in your upper respiratory system caused by a virus. Most colds go away without treatment. Seek care immediately if: ?? You have increased tiredness and weakness. ?? You are unable to eat. ?? Your heart is beating much faster than usual for you. ?? You see white spots in the back of your throat and your neck is swollen and sore to the touch. ?? You see pinpoint or larger reddish-purple dots on your skin. Contact your healthcare provider if: ?? You have a fever higher than 102??F (38.9??C). ?? You have new or worsening shortness of breath. ?? You have thick nasal drainage for more than 2 days. ?? Your symptoms do not improve or get worse within 5 days. ?? You have questions or concerns about your condition or care. Treatment for cold symptoms may include NSAIDS to decrease muscle aches and fever. Cold medicines may also be given to decrease coughing, nasal stuffiness, sneezing, and a runny nose. Manage your cold symptoms: The following may help relieve cold symptoms, such as a dry throat and congestion: ?? Gargle with mouthwash or warm salt water as directed. ?? Suck on throat lozenges or hard candy. ?? Use a cold or warm vaporizer or humidifier to ease your breathing. ?? Rest for at least 2 days and then as needed to decrease tiredness and weakness. ?? Use petroleum based jelly around your nostrils to decrease irritation from blowing your nose. ?? Drink plenty of liquids. Liquids will help thin and loosen thick mucus so you can cough it up. Liquids will also keep you hydrated. Ask your healthcare provider which liquids are best for you and how much to drink each day. Prevent the spread of germs by washing your hands often. You can spread your cold germs to others for at least 3 days after your symptoms start. Do not share items, such as eating utensils. Cover your nose and mouth when you cough or sneeze using the crook of your elbow instead of your hands. Throwused tissues in the garbage. Do not smoke: Smoking may worsen your symptoms and increase the length of time you feel sick. Talk with your healthcare provider if you need help to stop smoking. Follow up with your healthcare provider as directed: Write down your questions so you remember to ask them during your visits. ?? 2017 [employer] Information is for End User's use only and may not be sold, redistributed or otherwise used for commercial purposes. All illustrations and images included in CareNotes?? are the copyrighted property of [employer] or [employer]. The above information is an associate director financial aid only. It is not intended as medical advice for individual conditions or treatments. Talk to your doctor, nurse or pharmacist before following any medical regimen to see if it is safe and effective for you. Patient Education Influenza FISHER TERRAPIN: Influenza (the flu) is an infection caused by the influenza virus. The flu is easily spread when aninfected person coughs, sneezes, or has close contact with others. You may be able to spread the flu to others for 1 week or longer after signs or symptoms appear. Common signs and symptoms include the following: ?? Fever and chills ?? Headaches, body aches, and muscle or joint pain ?? Cough, runny nose, and sore throat ?? Loss of appetite, nausea, vomiting, or diarrhea ?? Tiredness ?? Trouble breathing Call 911 for any of the following: ?? You have trouble breathing, and your lips look purple or blue. ?? You have a seizure. Seek care immediately if: ?? You are dizzy, or you are urinating less or not at all. ?? You have a headache with a stiff neck, and you feel tired or confused. ?? You have new pain or pressure in your chest. ?? Your symptoms, such as shortness of breath, vomiting, or diarrhea, get worse. ?? Your symptoms, such as fever and coughing, seem to get better, but then get worse. Contact your healthcare provider if: ?? You have new muscle pain or weakness. ?? You have questions or concerns about your condition or care. Treatment for influenza may include any of the following: ?? Acetaminophen decreases pain and fever. It is available without a doctor's order. Ask how much to take and how often to take it. Follow directions. Acetaminophen can cause liver damage if not taken correctly. ?? NSAIDs , such as ibuprofen, help decrease swelling, pain, and fever. This medicine is available with or without a doctor's order. NSAIDs can cause stomach bleeding or kidney problems in certain people. If you take blood thinner medicine, always ask your healthcare provider if NSAIDs are safe foryou. Always read the medicine label and follow directions. ?? Antivirals help fight a viral infection. Manage your symptoms: ?? Rest as much as you can to help you recover. ?? Drink liquids as directed to help prevent dehydration. Ask how much liquid to drink each day andwhich liquids are best for you. Prevent the spread of the flu: ?? Wash your hands often. Use soap and water. Wash your hands after you use the bathroom, change a child's diapers, or sneeze. Wash your hands before you prepare or eat food. Use gel hand cleanser that has 60% alcohol, when soap and water are not available. Do not touch your eyes, nose, or mouth unless you have washed your hands first. ?? Cover your mouth when you sneeze or cough. Cough into a tissue or the bend of your arm. If you use a tissue, throw it away immediately and wash your hands. ?? Clean shared items with a germ-killing top cleaner. Clean table surfaces, doorknobs, and light switches. Do not share towels, silverware, and dishes with people who are sick. Wash bed sheets, towels, silverware, and dishes with soap and water. ?? Wear a mask over your mouth and nose if you are sick. The face mask may help protect others frombecoming infected with the flu. Wear the mask when in common areas of your home or if you seek carewith a healthcare provider. ?? Stay away from others if you are sick. Stay at home until 24 hours after your fever and symptomsare gone. ?? Influenza vaccine helps prevent influenza (flu). Everyone older than 6 months should get a yearly influenza vaccine. Get the vaccine as soon as it is available, usually in October or November each year. Follow up with your healthcare provider as directed: Write down your questions so you remember to ask them during your visits. ?? 2017 [employer] Information is for End User's use only and may not be sold, redistributed or otherwise used for commercial purposes. All illustrations and images included in CareNotes?? are the copyrighted property of [employer] or [employer]. The above information is an associate director financial aid only. It is not intended as medical advice for individual conditions or treatments. Talk to your doctor, nurse or pharmacist before following any medical regimen to see if it is safe and effective for you. Brief: Treatment plan including expectations, follow up, and return precautions discussed with patient/parent, verbalizes understanding. Medication dosage, use, and potential adverse reactions discussed with patient/parent. Advised to follow up with PCP if symptoms do not resolve as expected or sooner if condition worsens. Signs/symptoms warranting ER evaluation reviewed. Patient and/or guardian was given an opportunity to ask questions, questions answered. Erika Downing NP documented in this encounter Plan of Treatment Not on file documented as of this encounter Procedures Procedure Name Priority Date/Time Associated Diagnosis Comments POC INFLUENZA A/B, COVID-19 ANTIGEN Routine 06/08/2021 11:48 AM CDT Acute non-recurrent pansinusitis POCT RAPID STREP Routine 06/08/2021 11:3 6 AM CDT Acute non-recurrent pansinusitis documented in this encounter Results * POC Influenza A/B, COVID-19 antigen (06/08/2021 11:48 AM CDT) Influenza A Ag, POC Negative [facility] Influenza B Ag, POC Negative [facility] COVID-19 Ag POC Presumptive Negative Presumptive Negative, Invalid [facility] 06/08/2021 11:4 8 AM CDT Erika Downing HAT IRONER POINT OF CARE TEST ORDERABL ES Final Result [facility] [address] [place] [address] * POCT rapid strep A (06/08/2021 11:36 AM CDT) Rapid Strep A, POC Negative Swab 06/08/2021 11:3 6 AM CDT Erika Downing HAT IRONER POINT OF CARE TEST ORDERABL ES Final Result documented in this encounter Visit Diagnoses Diagnosis Acute non-recurrent pansinusitis- Primary Exposure to influenza Contact with or exposure to other viral diseases documented in this encounter Discontinued Medications Medication Sig Discontinue Reason Start Date End Da te oseltamivir (Tamiflu) 75 mg capsuleIndications:Acute non-recurrent pansinusitis Take 1 capsule (75 mg total) by mouth daily for 10 days Alternate therapy 06/08/2021 06/08/2021 documented as of this encounter Additional Health Concerns Infection Onset Date Last Indicated Resolved Time COVID: Suspected 06/08/2021 06/08/2021 06/08/2021 11:49 AM CDT documented as of this encounter Care Teams Supervisor Soakers Relationship Specialty Start Date End Date No, Physician PCP - General 06/08/21 06/08/21 documented as of this encounter
--- OUTSIDE RECORDS SUMMARY | 2024-01-28 00:54 | XMS_ITS | Clinical Summary ---
Author Organization [facility] [address] [facility] Address [address] [place] [address] Care Team Providers Care Academic Vice President Name Role Phone Phyllis Morgan DO Primary Care Provider [phone] Allergies No known active allergies Medications ondansetron (Zofran) 4 mg tabletIndication s:Acute non-recurrent pansinusitis Take 1 tablet (4 mg total) by mouth every 8 (eight) hours as needed for nausea or vomiting 20 tablet 2 Active Additional Information Patient not taking.Reported on 04/28/2022 cetirizine (ZyrTEC) 10 mg tablet Take 1 tablet (10 mg total) by mouth daily 4 Active fluticasone propionate (FLONASE) 50 mcg/actuation nasal spray SHAKE LIQUID AND USE 1 SPRAY IN EACH NOSTRIL DAILY 4 Active Lactobacillus acidophilus (PROBIOTIC ORAL) Take by mouth Active Active Problems Problem Noted Date Diagnosed Date Impacted cerumen 10/06/2022 Insomnia 10/06/2022 Recurrent sinusitis 10/06/2022 Sinusitis 10/06/2022 Upper respiratory infection 10/06/2022 Allergic rhinitis 05/01/2021 Chronic fatigue 05/01/2021 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 and depressive disorder 05/01/2021 Overview (10/06/2022): off med Smoker 05/01/2021 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 01/25/2019 Surgical History Surgery Date Site/Laterality Comments SECTION 02/10/1991 - 02/10/1992 ABLATION 02/10/2014 - 02/09/2015 Family History Medical History Relation Name Comments Hyperlipidemia Mother Hypertension Mother Relation Name Status Comments Father Mother Alive Social History Tobacco Use Types Packs/Day Years Used Date Smoking Tobacco: Every Day Cigarettes Smokeless Tobacco: Never Tobacco Cessation:Ready to Q uit: Not Asked; Counseling Given: Not Answered Personal Safety Answer Date Recorded Getting School Help Needed Not on file 04/05 Comments No Sex and Gender Information Value Date Recorded Sex Assigned at Not on file 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 Gender Identity Not on file Sexual Orientation Not on file Obstetrics History Last Filed Vital Signs Vital Sign Reading [...] Mass Index 23.3 06/22/2023 9:01 AM CDT Plan of Treatment Health Maintenance Due Date Last Done Comments Breast Cancer Screening-Mammogram 1972 Cervical Cancer Screening 1972 Colon Cancer Screening-Colonoscopy 1972 Depression Screening 1972 Hepatitis C Screening 1972 Pneumococcal vaccine <65 (1 of 2 - PCV) 1978 Hepatitis B Screening 1990 Regular Well Visit/Exam 18-64 1990 Zoster Vaccine (1 of 2) 2022 Covid-19 Vaccine (2 - 2023- season) 10/12/202306/2020 Influenza Vaccine (#1) 2023 11/17/2018 DTaP/Tdap/Td Vaccine (2 - Td or Tdap) 09/01/2024 Insurance [facility] Care Teams Academic Vice President Relationship Specialty Start Date End Date Phyllis Morgan DO [address] [facility] [address] [place] [address] PCP - General Family Medicine 06/22/23
--- OUTSIDE RECORDS SUMMARY | 2024-01-28 00:54 | XMS_ITS | Encounter Summary ---
Author Organization [facility] Address [address] [place] [address] Phone Care Team Providers Care Telemarketing Supervisor Name Role Phone Provider, None Primary Care Provider Unavailabl e Reason for Visit * Reason Comments Head Congestion Encounter Details Date Type Department Care Team (Late st Contact Info) Description 10/05/2020 8:35 AM CDT Urgent Care Visit [facility] [address] [place] [phone] Rena Johnson, M1 ARMOR CREWMAN, ADVANCED MANAGER [address] [place] [address] Acute sinusitis, recurrence not specified, unspecified location (Primary Dx); Sore throat; Acute nonintractable headache, unspecified headache type Discharge Disposition: Discharged to home or Selfcare Social History Tobacco Use Types Packs/Day Years [...] - - Body Mass Index - - documented in this encounter Patient Instructions * Patient Instructions* Rena Johnson APN, ADVANCED MANAGER - 10/05/2020 8:35 AM CDT Images from the original note were not included. Sinusitis (Antibiotic Treatment) The sinuses are air-filled spaces within the bones of the face. They connect to the inside of the nose.??Sinusitis??is an inflammation of the tissue that lines the sinuses. Sinusitis can occur duringa cold. It can also happen due to allergies to pollens and other particles in the air. Sinusitis can cause symptoms of sinus congestion and a feeling of fullness. A sinus infection causes fever, headache, and facial pain. There is often green or yellow fluid draining from the nose or into the back of the throat (post-nasal drip). You have been given antibiotics to treat this condition. Home care ?? Take the full course of antibiotics as instructed. Don't stop taking them, even when you feel better. ?? Drink plenty of water, hot tea, and other liquids as directed by the healthcare provider. This may help thin nasal mucus. It also may help your sinuses drain fluids. ?? Heat may help soothe painful areas of your face. Use a towel soaked in hot water. Or, sales office coordinator the shower and direct the warm spray onto your face. Using a vaporizer along with a menthol rub at night may also help soothe symptoms.? An??expectorant??with guaifenesin may help thin nasal mucus and help your sinuses drain fluids. Talk with your provider or pharmacists before taking an skss-les-inlyutu (OTC) medicine if you have any questions about it or its side effects.. ?? You can use an OTC??decongestant,??unless a similar medicine was prescribed to you. Nasal sprayswork the fastest. Use one that contains phenylephrine or oxymetazoline. First blow your nose gently. Then use the spray. Don't use these medicines more often than directed on the label. If you do, your symptoms may get worse. You may also take pills that contain pseudoephedrine. Don???t use products that combine multiple medicines. This is because side effects may be increased. Read labels. You can also ask the pharmacist for help. (People with high blood pressure should not use decongestants. They can raise blood pressure.) Talk with your provider or pharmacist if you have any questions about the medicine.. ?? OTC??antihistamines??may help if allergies contributed to your sinusitis. Talk with your provider or pharmacist if you have any questions about the medicine.. ?? Don't use nasal rinses or irrigation during an acute sinus infection, unless your healthcare provider tells you to. Rinsing may spread the infection to other areas in your sinuses. ?? Use acetaminophen or ibuprofen to control pain, unless another pain medicine was prescribed to you. If you have chronic liver or kidney disease or ever had a stomach ulcer, talk with your healthcare provider before using these medicines. Never give aspirin to anyone under age 18 who is ill with a fever. It may cause severe liver damage. ?? Don't smoke. This can make symptoms worse. Follow-up care Follow up with your healthcare provider, or as advised. When to seek medical advice Call your healthcare provider if any of these occur: ?? Facial pain or headache that gets worse ?? Stiff neck ?? Unusual drowsiness or confusion ?? Swelling of your forehead or eyelids ?? Symptoms don't go away in 10 days ?? Vision problems, such as blurred or double vision ?? Fever of??100.4??F (38??C)??or higher, or as directed by your healthcare provider Call 911 Call 911 if any of these occur: ?? Seizure ?? Trouble breathing ?? Feeling dizzy or faint ?? Fingernails, skin or lips look blue, purple , or carrera Prevention Here are steps you can take to help prevent an infection: ?? Keep good hand washing habits. ?? Don???t have close contact with people who have sore throats, colds, or other upper respiratory infections. ?? Don???t smoke, and stay away from secondhand smoke. ?? Stay up to date with of your vaccines. [employer] last reviewed this educational content on 01/10/2019 ?? [id number] [employer]. All rights reserved. This information is not intended as a substitute for professional medical care. Always follow your healthcare professional's instructions. documented in this encounter Progress Notes * Peyton Finnegan CMA - 10/05/2020 8:35 AM CDT Carol Heller presents to [facility] for headache, sore throat, head and nasal congestion and drainage since 2 weeks ago. Patient has not been exposed to Covid. Afrin with mild relief. * Rena Johnson APN, CNP - 10/05/2020 8:35 AM CDT Subjective: Chief complaint, ROS, and all history documented by ancillary staff, and any copy/pasted information were reviewed and verified, with additions or corrections, as appropriate. Available past family, social, medical history was reviewed. Review of Systems Constitutional: Positive for chills and fever. HENT: Positive for congestion, ear pain, sinus pain and sore throat. Neurological: Positive for headaches. Objective: Physical Exam Vitals and nursing note reviewed. Constitutional: General: She is not in acute distress. HENT: Right Ear: A middle ear effusion is present. Left Ear: A middle ear effusion is present. Nose: Congestion present. Right Sinus: Maxillary sinus tenderness present. Left Sinus: Maxillary sinus tenderness present. Mouth/Throat: Lips: [place]. Mouth: Mucous membranes are moist. Pharynx: Posterior oropharyngeal erythema present. Cardiovascular: Rate and Rhythm: Normal rate. Pulmonary: Effort: Pulmonary effort is normal. Breath sounds: Normal breath sounds. Neurological: Mental Status: She is alert. Vitals: 10/05/20 0947 BP: 112/62 BP Location: Right Arm BP Position: Sitting BP Cuff Size: Regular Pulse: 89 Resp: 18 Temp: 99.3 ??F (37.4 ??C) TempSrc: Tympanic SpO2: 97% Weight: 155 lb (70.3 kg) Assessment and Plan See Diagnoses, Orders, Follow-up, and Instructions Diagnoses and all orders for this visit: Acute sinusitis, recurrence not specified, unspecified location - amoxicillin (AMOXIL) 875 MG Tablet; Take 1 Tablet by mouth 2 times daily for 10 days. - fluticasone (FLONASE) 50 MCG/ACT Suspension; 1-2 Sprays by Nasal route daily. Use in each nostrilas directed. Sore throat Acute nonintractable headache, unspecified headache type Care as instructed on AVS If medication was prescribed it was sent to the pharmacy. Take all medication as prescribed. Do not skip a dose and take until completed. Follow up with PCP if the symptoms do not improve Go to the ER if symptoms become severe AVS from today was printed, discussed with patient/family and given to patient/family documented in this encounter Plan of Treatment Not on file documented as of this encounter Visit Diagnoses Diagnosis Acute sinusitis, recurrence not specified, unspecified location- Primary Sore throat Acute pharyngitis Acute nonintractable headache, unspecified headache type documented in this encounter Care Teams Telemarketing Supervisor Relationship Specialty Start Date End Date Provider, None [place] PCP - General 10/05/20 documented as of this encounter
--- OUTSIDE RECORDS SUMMARY | 2024-01-28 00:54 | XMS_ITS | Encounter Summary ---
Author Organization [facility] Address [address] [place] [id number] Care Team Providers Care Bi Data Modeler Name Role Phone Unknown, Notinfile Primary Care Provider Unavail able Reason for Visit * Reason Comments Nasal Congestion 3 weeks of head cold symptoms. Cough, nasal drainage and congestion. She states she can taste the infection. Pt gets chills occasionally.Sudafed, Zyrtec and flonase, also Mucinex for her Sx. Encounter Details Date Type Department Care Team ([facility] Contact Info) Description 04/28/2022 9:15 AM CDT Office Visit [facility] [address] [place] [address] Irma Talley, CELESTINA [address] [place] [address] Acute pansinusitis, recurrence not specified (Primary Dx) Social History Tobacco Use Types Packs/Day Years Used Date Smoking Tobacco: Every Day Cigarettes Smokeless Tobacco: Never Tobacco Cessation:Ready to Q uit: Not Asked; Counseling Given: Not Answered Comments Unknown Sex and Gender Information Value Date Recorded Sex Assigned at Not on file 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 Gender Identity Not on file Sexual Orientation Not on file documented as of this encounter Last Filed Vital Signs Vital Sign Reading Time Taken Comments Blood Pressure 122/84 04/28/2022 8:31 AM CDT Pulse 93 04/28/2022 8:31 AM CDT Temperature 36.4 ??C (97.6 ??F) 04/28/2022 8:31 AM CD T Respiratory Rate 18 04/28/2022 8:31 AM CDT Oxygen Saturation 98% 04/28/2022 8:31 AM CDT Inhaled Oxygen Concentration - - Weight 72.6 kg (160 lb) 04/28/2022 8:31 AM CDT Height 175.3 cm (5' 9 ) 04/28/2022 8:31 AM CDT Body Mass Index 23.63 04/28/2022 8:31 AM CDT documented in this encounter Patient Instructions * Patient Instructions* Irma Talley NP - 04/28/2022 9:15 AM CDT Research has proven that unless you are running a fever, sinus infections are typically viral untildays 9-10. If prescribed, finish the entire antibiotic prescription. Take this with food. Eat yogurt or take probiotic daily while on antibiotics. Symptomatic treatments include: -Over the counter antihistamine such as loratadine (Claritin) or cetirizine (Zyrtec) to reduce secretions. The D formula includes pseudoephedrine and can be helpful as a decongestant but SHOULD NOTBE USED IF YOU HAVE A HISTORY OF HIGH BLOOD PRESSURE. -Coricidin HBP may be taken for congestion if you have a history of high blood pressure. -Tessalon, Dextromethorphan (Robitussin) or Delsym for cough -Guafenesin (Mucinex) to thin secretions -Acetaminophen (Tylenol), ibuprofen (Motrin, Advil), or Aleve (naproxen) for pain or fever. -The use of hypertonic saline to irrigate nasal passageways can be helpful. Over the counter systems include Neti Pot and Nasopure. Use with distilled water. -Salt water gargles and throat lozenges can be helpful for sore throat. -To prevent spreading the illness to others cover your sneeze and cough into your arm and not your hand, don't allow others to eat or drink with the same utensils or glass, and use hand fingerprint classifier before touching people or common surfaces. -Apply warm packs to face to facilitate sinus drainage. - Use cool mist humidifier in bedroom at night. -Increase fluid consumption and Rest. -Follow up with your PCP in 1 week or sooner if symptoms worsen or are not improving as planned. -If you experience any shortness of breath, chest pain, or high fever >101, go to the Emergency Room. documented in this encounter Ordered Prescriptions Prescription Sig Dispense Quantity Refills Last Filled Start Date End Date doxycycline (ADOXA) 100 mg tabletIndications: Acute pansinusitis, recurrence not specified Take 1 tablet (100 mg total) by mouth 2 (two) times a day for 7 days 14 tablet 04/28/2022 05/05/2022 documented in this encounter Progress Notes * Irma Talley NP - 04/28/2022 9:15 AM CDT Images from the original note were not included. Patient ID: Carol Heller is a 51 y.o. female followed by Unknown, Notinfile Chief Complaint Patient presents with Nasal Congestion 3 weeks of head cold symptoms. Cough, nasal drainage and congestion. She states she can taste the infection. Pt gets chills occasionally. Sudafed, Zyrtec and flonase, also Mucinex for her Sx. Presents to convenient care with complaint of generalized fatigue, congestion, ear pain, postnasal drainage, runny nose, sinus pressure, sore throat, headache, and intermittently productive cough, onset 04/18/2022. She reports similar symptoms approximately 1 month ago, reports symptoms improved and are now worse. She has been taking Mucinex with minimal improvement. Review of Systems Constitutional: Positive for fatigue. Negative for chills and fever. HENT: Positive for congestion, ear pain, postnasal drip, rhinorrhea, sinus pressure and sore throat. Respiratory: Positive for cough. Negative for chest tightness, shortness of breath and wheezing. Cardiovascular: Negative for chest pain. Neurological: Positive for headaches. Vitals: 04/28/22 0831 BP: 122/84 Pulse: 93 Resp: 18 Temp: 36.4 ??C (97.6 ??F) SpO2: 98% Weight: 72.6 kg (160 lb) Height: 175.3 cm (5' 9 ) No results found for this or any previous visit (from the past 24 hour(s)). Physical Exam Vitals reviewed. Constitutional: Appearance: She is well-developed. HENT: Right Ear: Tympanic membrane and external ear normal. Tympanic membrane is not injected, erythematous or bulging. Left Ear: Tympanic membrane and external ear normal. Tympanic membrane is not injected, erythematous or bulging. Nose: Right Sinus: Maxillary sinus tenderness and frontal sinus tenderness present. Left Sinus: Maxillary sinus tenderness and frontal sinus tenderness present. Mouth/Throat: Lips: [place]. Mouth: Mucous membranes are moist. Pharynx: No posterior oropharyngeal erythema. Tonsils: No tonsillar exudate. Eyes: Conjunctiva/sclera: Conjunctivae normal. Cardiovascular: Rate and Rhythm: Normal rate and regular rhythm. Pulmonary: Effort: Pulmonary effort is normal. Breath sounds: Normal breath sounds. No wheezing or rhonchi. Musculoskeletal: General: Normal range of motion. Skin: General: Skin is warm and dry. Neurological: Mental Status: She is alert and oriented to person, place, and time. Diagnoses and all orders for this visit: Acute pansinusitis, recurrence not specified (Primary) - doxycycline (ADOXA) 100 mg tablet; Take 1 tablet (100 mg total) by mouth 2 (two) times a day for 7 days No orders of the defined types were placed in this encounter. Assessment/Plan Discussed home self-care, follow up needs, and signs and symptoms that warrant immediate medical attention/ER evaluation including worsening fever, increased shortness of breath, severe N/V/D, or anyother worrisome symptoms Discussed symptomatic relief of symptoms Patient Education Research has proven that unless you are running a fever, sinus infections are typically viral untildays 9-10. If prescribed, finish the entire antibiotic prescription. Take this with food. Eat yogurt or take probiotic daily while on antibiotics. Symptomatic treatments include: -Over the counter antihistamine such as loratadine (Claritin) or cetirizine (Zyrtec) to reduce secretions. The D formula includes pseudoephedrine and can be helpful as a decongestant but SHOULD NOTBE USED IF YOU HAVE A HISTORY OF HIGH BLOOD PRESSURE. -Coricidin HBP may be taken for congestion if you have a history of high blood pressure. -Tessalon, Dextromethorphan (Robitussin) or Delsym for cough -Guafenesin (Mucinex) to thin secretions -Acetaminophen (Tylenol), ibuprofen (Motrin, Advil), or Aleve (naproxen) for pain or fever. -The use of hypertonic saline to irrigate nasal passageways can be helpful. Over the counter systems include Neti Pot and Nasopure. Use with distilled water. -Salt water gargles and throat lozenges can be helpful for sore throat. -To prevent spreading the illness to others cover your sneeze and cough into your arm and not your hand, don't allow others to eat or drink with the same utensils or glass, and use hand fingerprint classifier before touching people or common surfaces. -Apply warm packs to face to facilitate sinus drainage. - Use cool mist humidifier in bedroom at night. -Increase fluid consumption and Rest. -Follow up with your PCP in 1 week or sooner if symptoms worsen or are not improving as planned. -If you experience any shortness of breath, chest pain, or high fever >101, go to the Emergency Room. documented in this encounter Plan of Treatment Not on file documented as of this encounter Visit Diagnoses Diagnosis Acute pansinusitis, recurrence not specified- Primary documented in this encounter Care Teams Bi Data Modeler Relationship Specialty Start Date End Date Unknown, Notinfile PCP - General 04/28/22 06/21/23 documented as of this encounter
--- OUTSIDE RECORDS SUMMARY | 2024-01-28 00:54 | XMS_ITS | Encounter Summary ---
Author Organization [facility] Address [address] [facility] [address] [place] [id number] Care Team Providers Care Counselor/Art Therapist Name Role Phone Unknown, Notinfile Primary Care Provider Unavail able Encounter Details Date Type Department Care Team ([facility] st Contact Info) Description 10/08/2022 Telephone [facility] [place] [address] [place] [id number] Elder Abrams MA Social History Tobacco Use Types Packs/Day Years Used Date Smoking Tobacco: Every Day Cigarettes Smokeless Tobacco: Never Comments Unknown Sex and Gender Information Value Date Recorded Sex Assigned at Not on file 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 * Telephone Encounter - Elder Abrams MA - 10/08/2022 12:22 PM CDT Attempted to contact patient about results. No answer. Left detailed message on . HIPAA verified. * Telephone Encounter - Elder Abrams MA - 10/08/2022 12:22 PM CDT ----- Message from Elva Watson NP sent at 10/08/2022 12:00 PM CDT ----- Call pt regarding normal result- urine cx documented in this encounter Plan of Treatment Not on file documented as of this encounter Visit Diagnoses Not on filedocumented in this encounter Care Teams Counselor/Art Therapist Relationship Specialty Start Date End Date Unknown, Notinfile PCP - General 04/28/22 06/21/23 documented as of this encounter
--- OUTSIDE RECORDS SUMMARY | 2024-01-28 00:54 | XMS_ITS | Referral Summary ---
Author Organization 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 [address] [place] [address] R [facility] H[facility]/PPO Address[facility] [id number] [place] [phone] Care Teams Supervisor Riveting Relationship Specialty Start Date End Date Phyllis Morgan DO [address] [facility] [address] [place] [address] PCP - General Family Medicine 06/22/23
--- OUTSIDE RECORDS SUMMARY | 2024-01-28 00:54 | XMS_ITS | Encounter Summary ---
Author Organization [facility] Address [address] [place] [id number] Care Team Providers Care Tank Maker Wood Name Role Phone Unknown, Notinfile Primary Care Provider Unavail able Encounter Details Date Type Department Care Team (Latest Contact Info) Description 10/06/2022 3:53 PM CDT - 10/06/2022 11:59 PM CDT Hospital Encounter [address] [address] UTI symptoms Discharge Disposition: Discharge to home or self care Social History Tobacco Use Types Packs/Day Years Used Date Smoking Tobacco: Every Day Cigarettes Smokeless Tobacco: Never Comments Unknown Sex and Gender Information Value Date Recorded Sex Assigned at Not on file 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 Gender Identity Not on file Sexual Orientation Not on file documented as of this encounter Medications at Time of Discharge ondansetron (Zofran) 4 mg tabletIndications: Acute non-recurrent pansinusitis Take 1 tablet (4 mg total) by mouth every 8 (eight) hours as needed for nausea or vomiting 20 tablet 06/08/2021 nitrofurantoin monohydrate (Macrobid) 100 mg capsuleIndications :Acute cystitis with hematuria Take 1 capsule (100 mg total) by mouth 2 (two) times a day for 5 days 10 capsule 10/06/2022 3 documented as of this encounter Discharge Disposition Disposition Code Departure Means Destination Discharge to home or self care documented in this encounter Miscellaneous Notes * Result Encounter Note - Elva Watson NP - 10/06/2022 11:59 PM CDT Call pt regarding normal result- urine cx * Result Encounter Note - Elder Abrams MA - 10/06/2022 11:59 PM CDT Attempted to contact patient about results. No answer. Left detailed message on VM. HIPAA verified. documented in this encounter Plan of Treatment Not on file documented as of this encounter Procedures Procedure Name Priority Date/Time Associated Diagnosis Comments URINE CULTURE Routine 10/06/2022 3:53 PM CDT UTI symptoms documented in this encounter Results * Urine culture Urine, clean voided (10/06/2022 3:53 PM CDT) Report Final Report: Less than 100,000 colonies/mL (clinically insignificant growth based on current clinical standards) [facility] Comment:Testing performed by : [facility], [address] [place]., [address] Organism (CLINICALLY INSIGNIFICANT GROWTH BABS Urine, clean voided 10/06/2022 3:53 PM CDT 10/07/2022 7:43 AM CDT Narrative [facility] - 10/08/2022 8:36 AM CDT Testing performed by [facility] ([phone]) us Carito Bautista NP LAB MICROBIOLOGY - GENERAL ORDER NAY Final Result [facility] [id number] Department of Laboratories [place], [place] [id number] documented in this encounter Visit Diagnoses Diagnosis UTI symptoms documented in this encounter Care Teams Tank Maker Wood Relationship Specialty Start Date End Date Unknown, Notinfile PCP - General 04/28/22 06/21/23 documented as of this encounter
--- OUTSIDE RECORDS SUMMARY | 2024-01-28 00:54 | XMS_ITS | Encounter Summary ---
Author Organization [facility] Address [address] [facility] [address] [place] [id number] Care Team Providers Care Cell Builder Name Role Phone Unknown, Notinfile Primary Care Provider Unavail able Reason for Visit * Reason Comments Urinary Symptom Burning with urinati on that started on Friday but got worse today, otc azo. 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 Gender Identity Not on file Sexual Orientation Not on file documented as of this encounter Last Filed Vital Signs Vital Sign Reading Time Taken Comments Blood Pressure 110/78 10/06/2022 4:03 PM CDT Pulse 90 10/06/2022 4:03 PM CDT Temperature 36.2 ??C (97.1 ??F) 10/06/2022 4:03 PM CD T Respiratory Rate 14 10/06/2022 4:03 PM CDT Oxygen Saturation 97% 10/06/2022 4:03 PM CDT Inhaled Oxygen Concentration - - Weight 72.6 kg (160 lb) 10/06/2022 4:03 PM CDT Height 175.3 cm (5' 9 ) 10/06/2022 4:03 PM CDT Body Mass Index 23.63 10/06/2022 4:03 PM CDT documented in this encounter Patient Instructions * Patient Instructions* Carito Bautista NP - 10/06/2022 3:45 PM CDT Treatment of urinary symptoms: Take your prescribed antibiotic until it is gone. Stopping your antibiotic early puts you at risk for developing an antibiotic resistant infection. Most people have symptom relief with their antibiotic within the first day (some even within a few hours of the first dose). In the meantime you may use Pyridium as needed for burning upon urination- do not use for more than3 days as this can mask the symptoms of a worsening infection. Pyridium will turn your urine orange. May take Tylenol/Motrin for pain Drink plenty of water and fluids. Cranberry products are not proven to treat or prevent urinary tract infections however there is probably not much harm in taking them if you wish to do so. Avoid citrus juices, caffeine, alcohol, and intercourse (bladder irritants) until your symptoms resolve and treatment is complete. To prevent UTI in the future: Increase your water intake. Urine should be clear or nearly clear. Attempt to empty your bladder every 2-3 hours and do not hold urine for long periods of time. Always wipe from front to back. Void before and after intercourse. Avoid tight-fitting jeans, nylon or thong underwear as they can trap moisture and help bacteria grow. Cotton underwear and loose-fitting clothes should be worn. Call you PRIMARY CARE PROVIDER should your symptoms fail to improve or worsen. Go to the ER if you experience any severe back, flank, or groin pains, fever >101 that does not respond to Motrin or Tylenol, persistent vomiting, or any other worsening symptoms documented in this encounter Ordered Prescriptions Prescription Sig Dispense Quantity Refills Last Filled Start Date End Date nitrofurantoin monohydrate (Macrobid) 100 mg capsuleIndications :Acute cystitis with hematuria Take 1 capsule (100 mg total) by mouth 2 (two) times a day for 5 days 10 capsule 10/06/2022 09/01/202 3 documented in this encounter Progress Notes * Carito Bautista, CELESTINA - 10/06/2022 3:45 PM CDT Images from the original note were not included. Subjective/Objective Patient ID: Carol Heller is a 52 y.o. female. Chief Complaint Urinary Symptom (Burning with urination that started on Friday but got worse today, otc azo.) Patient presents to [facility] care for dysuria x2 days. She has a history of UTIs. She has been taking OTC AZO for her symptoms. She denies any fevers, chills, abdominal pain, or low back pain. Review of Systems Constitutional: Negative for chills, fatigue and fever. Gastrointestinal: Negative for nausea and vomiting. Genitourinary: Positive for dysuria. Negative for difficulty urinating, flank pain, frequency, hematuria and urgency. Neurological: Negative for headaches. Psychiatric/Behavioral: Negative for confusion. Physical Exam Vitals reviewed. Constitutional: Appearance: Normal appearance. She is well-developed. She is not ill-appearing. HENT: Head: Normocephalic. Mouth/Throat: Mouth: Mucous membranes are moist. Pharynx: Oropharynx is clear. Cardiovascular: Rate and Rhythm: Normal rate and regular rhythm. Pulmonary: Effort: Pulmonary effort is normal. Breath sounds: Normal breath sounds. Abdominal: General: Abdomen is flat. Bowel sounds are normal. There is no distension. Palpations: Abdomen is soft. There is no hepatomegaly or splenomegaly. Tenderness: There is abdominal tenderness in the suprapubic area. There is no right CVA tenderness or left CVA tenderness. Musculoskeletal: General: Normal range of motion. Skin: General: Skin is warm and dry. Neurological: Mental Status: She is alert and oriented to person, place, and time. Mental status is at baseline. Psychiatric: Mood and Affect: Mood normal. Behavior: Behavior normal. Behavior is cooperative. Thought Content: Thought content normal. Judgment: Judgment normal. Vitals: 10/06/22 1603 BP: 110/78 Pulse: 90 Resp: 14 Temp: 36.2 ??C (97.1 ??F) TempSrc: Temporal SpO2: 97% Weight: 72.6 kg (160 lb) Height: 175.3 cm (5' 9 ) Assessment/Plan UA orange (patient took azo today), cloudy, small blood, positive nitrites, small leukocyte Macrobid as prescribed Urine culture ordered --start antibiotic as directed. Discussed importance of compliance of antibiotics and possibility of change depending on culture results and susceptibilities --void before and after sexual intercourse and wipe front to back post-void --avoid alcohol, caffeine and citrus juices as this can cause irritation --monitor urine for foul odor, color change, hematuria, cloudiness, change in frequency or urgency --symptoms warranting ED presentation: chest tightness, SOB, inability to maintain oral intake, confusion, fever greater than 100.9 ?? for more than 4 hours w/o improvement w/ antipyretics --f/u with PCP if symptoms do not improve in 5-7 days Diagnoses and all orders for this visit: Acute cystitis with hematuria (Primary) - nitrofurantoin monohydrate (Macrobid) 100 mg capsule; Take 1 capsule (100 mg total) by mouth 2 (two) times a day for 5 days UTI symptoms - POCT urinalysis dipstick - Urine culture Urine, clean voided; Future Recent Results (from the past 4 hour(s)) POCT urinalysis dipstick Collection Time: 10/06/22 3:58 PM Result Value Ref Range Color, Urine, POC [place] Clarity, ur, POC Cloudy (A) Clear Glucose, ur, POC Negative Negative MG/DL Bilirubin, ur, POC Negative Negative, Small, Moderate, Large Ketones, ur, POC Negative Negative Specific [place], POC 1.015 1.003 - 1.030 Blood, ur, POC Small (A) Negative pH, ur, POC 6.0 5.0 - 8.0 Protein, ur, POC Negative Negative Urobilinogen, urine, POC 0.2 0.2 - 1.0 mg/dL Nitrite, ur, POC Positive (A) Negative Leukocytes, ur, POC Small (A) Negative Lot Number [id number] Patient Education: Disposition Treatment plan including expectations, [...] Procedure Name Priority Date/Time Associated Diagnosis Comments POCT URINALYSIS DIPSTICK Routine 10/06/2022 3:58 PM CDT UTI symptoms documented in this encounter Results * (ABNORMAL) POCT urinalysis dipstick (10/06/2022 3:58 PM CDT) Color, Urine, POC [place] Clarity, ur, POC Cloudy(A) Clear Glucose, ur, POC Negative Negative MG/DL Bilirubin, ur, POC Negative Negative, Small, Moderate, Large Ketones, ur, POC Negative Negative Specific [place], POC 1.015 1.003 - 1.030 Blood, ur, POC Small(A) Negative pH, ur, POC 6.0 5.0 - 8.0 Protein, ur, POC Negative Negative Urobilinogen, urine, POC 0.2 0.2 - 1.0 mg/dL Nitrite, ur, POC Positive(A) Negative Leukocytes, ur, POC Small(A) Negative Lot Number [id number] Urine 10/06/2022 3:58 PM CDT Carito Bautista NP POINT OF CARE TEST ORDERABLES Fi nal Result * Urine culture Urine, clean voided (10/06/2022 3:53 PM CDT) Report Final Report: Less than 100,000 colonies/mL (clinically insignificant growth based on current clinical standards) BABS PENA Comment:Testing performed by : [facility], [address] [facility] [place]., [address] Organism (CLINICALLY INSIGNIFICANT GROWTH BABS Urine, clean voided 10/06/2022 3:53 PM CDT 10/07/2022 7:43 AM CDT Narrative [facility] - 10/08/2022 8:36 AM CDT Testing performed by [facility] Microbiology Laboratory ([phone]) us Carito Bautista NP LAB MICROBIOLOGY - GENERAL ORDER NAY Final Result [facility] [id number] Department of Laboratories [place], [place] [phone] documented in this encounter Visit Diagnoses Diagnosis Acute cystitis with hematuria- Primary UTI symptoms UTI symptoms documented in this encounter Care Teams Cell Builder Relationship Specialty Start Date End Date Unknown, Notinfile PCP - General 04/28/22 06/21/23 documented as of this encounter
--- OUTSIDE RECORDS SUMMARY | 2024-01-28 00:54 | XMS_ITS | Encounter Summary ---
Author Organization [facility] Healthcare Address [address] [place] [address] Care Team Providers Care Counseling Services Director Name Role Phone Unavailable Primary Care Provider Unavailabl e Encounter Details Date Type Department Care Team ([facility] st Contact Info) Description 10/26/2013 1:17 PM CDT - 10/26/2013 11:59 PM CDT Hospital Encounter [facility], [place] Abdominal pain, right lower quadrant; Leiomyoma of uterus Social History Tobacco Use Types Packs/Day Years Used Date Smoking Tobacco: Never Assessed Comments Unknown Sex and Gender Information Value Date Recorded Sex Assigned at Not on file 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 Gender Identity Not on file Sexual Orientation Not on file documented as of this encounter Plan of Treatment Not on file documented as of this encounter Procedures Procedure Name Priority Date/Time Associated Diagnosis Comments CT ABDOMEN PELVIS W CONTRAST Routine 10/26/2013 2:11 PM CDT documented in this encounter Results * CT Abdomen Pelvis W Contrast (10/26/2013 2:11 PM CDT) Anatomical Region Laterality Modality Body N/A Computed Tomogra phy 10/26/2013 2:11 PM CDT Narrative 10/26/2013 3:30 PM CDT CC: ??DR HAILEY CHAIREZ CT Abd/Pel W ?[id number] ??Acc#: ??[id number] DATE OF EXAM: ??Oct 26 2013 CLINICAL HISTORY: Right lower quadrant abdominal pain. RESULT: Helically acquired axial images were obtained from the dome of the diaphragm to the pubic symphysis following the administration of oral and intravenous contrast. The liver, spleen, pancreas, adrenals and kidneys are normal. ??The small and large bowel demonstrate normal caliber without evidence of mass or obstruction. ??The appendix appears normal. ??There is no evidence of ascites or retroperitoneal lymphadenopathy. ??A 4.9 x 4.9 cm mass projects exophytically from the anterior body of the uterus. ??This likely represents a large fibroid. ??The pelvic contents are otherwise unremarkable. ??The lung bases are clear. IMPRESSION: 1. ??NORMAL APPEARING APPENDIX. 2. ??5 CM UTERINE EXOPHYTIC UTERINE FIBROID NOTED ABOVE. 3. ??OTHERWISE NORMAL CT OF THE ABDOMEN AND PELVIS. Interpreting Physician: ??DR NOA VARGAS M.D. ??Read on: ??Oct 26 2013 2:18P Transcribed by: ??ylniki ??On: Oct 26 2013 ??2:43P Approved Electronically by: ??SAM Clark, DR LATHAM ??on: ??Oct 26 2013 3:30P Ordering DR: AFSHAN ROBERSON Attending DR: Procedure Note Provider, MD José - 06/02/2016 CC: DR HAILEY CHAIREZ CT Abd/Pel W [id number] Acc#: [id number] DATE OF EXAM: Oct 26 2013 CLINICAL HISTORY: Right lower quadrant abdominal pain. RESULT: Helically acquired axial images were obtained from the dome of thediaphragm to the pubic symphysis following the administration of oral andintravenous contrast. The liver, spleen, pancreas, adrenals and kidneysare normal. The small and large bowel demonstrate normal caliber withoutevidence of mass or obstruction. The appendix appears normal. There isno evidence of ascites or retroperitoneal lymphadenopathy. A 4.9 x 4.9 cmmass projects exophytically from the anterior body of the uterus. Thislikely represents a large fibroid. The pelvic contents are otherwiseunremarkable. The lung bases are clear. IMPRESSION: 1. NORMAL APPEARING APPENDIX. 2. 5 CM UTERINE EXOPHYTIC UTERINE FIBROID NOTED ABOVE. 3. OTHERWISE NORMAL CT OF THE ABDOMEN AND PELVIS. Interpreting Physician: DR NOA VARGAS M.D. Read on: Oct 26 20132:18P Transcribed by: laron On: Oct 26 2013 2:43P Approved Electronically by: SAM Clark, DR LATHAM on: Oct 26 20133:30P Ordering DR: AFSHAN ROBERSON Attending DR: us Historical Provider MD GUTIÉRREZ CT PROCEDURES Final R esult documented in this encounter Visit Diagnoses Diagnosis Abdominal pain, right lower quadrant Leiomyoma of uterus Leiomyoma of uterus, unspecified documented in this encounter
== END 2024-01-24 09:58 | disposition home or self-care (01) ==
PROVIDERS: Emergency Provider Nurse Practitioner Family
DX: J40 Bronchitis, not specified as acute or chronic (principal); R05.9 Cough, unspecified; F17.210 Nicotine dependence, cigarettes, uncomplicated; M19.90 Unspecified osteoarthritis, unspecified site; Z85.038 Personal history of other malignant neoplasm of large intestine
CPT/HCPCS: 71046; 99213; G0463